=== PATIENT | female | born 1995 | race Caucasian/White ===

== ENCOUNTER 2018-04-26 13:45 | Inpatient (IN) | payer OTHER, SELFPAY ==
[2016-12-11 20:34] VITALS: BMI 38.0
[2018-04-26 14:37] VITALS: BMI 36.6
[2018-04-26 15:13] LABS: Hematocrit 36.9 % (37-47); Hemoglobin 11.8 g/dl (12.0-15.0); Mean Corpuscular Hgb 27.6 pg (27.0-32.0); Mean Corpuscular Volume 86.4 fL (81-99); Mean Platelet Vol. 10.8 fl (6.2-12.0); Platelet Count 279 K/mm3 (150-450); RBC Distribution Width CV 13.8 % (11.6-14.6); RBC Distribution Width SD 43.2 fl (35.1-43.9); Red Blood Count 4.27 M/mm3 (4.2-5.4); White Blood Count 11.4 K/mm3 (4.4-11.0)
[2018-04-26 15:17] LABS: Scan Indicated on CBC? Y/N NO
[2018-04-26] MEDS: Lactated Ringers 1,000 ML 50 ML IV ×3 (15:33→21:47)
[2018-04-26] MEDS: Oxytocin 30 units/NS 500 ml 30 UNITS/500 ML IV.SOLN IV (15:34)
--- NOTE | 2018-04-26 18:30 | PCM.HP.OB ---
History Date of Admission: 04/26/18 Final VENICE: 04/28/18 Final VENICE Source: US <20 weeks Gestational age: 39 Weeks and 5 Days History of this : This is a 23 year-old, 1 para 0 who presents at 39-5/7 weeks for induction of labor due to recommendation by maternal medicine due to patient's persistent complaints of decreased movement. She was seen in the office today for this complaint and had a nonstress test that had at times minimal variability. There were some accelerations but did not meet reactive criteria. She then had a biophysical profile that was reassuring. Denied any gross vaginal bleeding or leaking of fluid. Past medical history is significant for history of depression, and abnormal Pap smear, and she is rubella nonimmune laboratory tests Allergies milk Allergy (Verified 04/26/18 14:31) Vomiting throat itching upper abdominal pain vomiting Smoking Status: Never smoker Alcohol: None Number of Fetus(es): 1 Heart Tracing: Normal baseline, minimal to moderate variability, no recurrent deceleration, some accelerations TOCO Analysis: no regular ctxs History Past Pregnancies: Past Pregnancies Delivery Date Name GA/Weeks Outcome Route Weight Gender Labor Length Anesthesia Delivery Location Provider FOB Expected Infant Delivery Method: Spontaneous Vaginal Review of Systems Constitutional: Denies: Anorexia, Chills, Fever Eyes: Denies: Blurred vision Cardiovascular: Denies: Chest Pain Respiratory: Denies: Cough Gastrointestinal: Denies: Abdominal Pain Genitourinary: Denies: Dysuria Skin: Denies: Rash Physical Exam General: Alert, Cooperative, No apparent distress Cardiovascular: Regular rate Lungs: Normal air movement Abdomen: Soft, Non-Distended, Gravid, Appropriate for Gestational Age Extremities:: Other - trace edema Neurological: Cranial nerves II-XII grossly intact [employer]: Normal external genitalia Estimated gestational size: Appropriate for gestational size Presentation: Cephalic Cervix Dilation (cm): 2 - Medium consistency, midposition Station: -2 Effacement (%): 60 Assessment/Plan This is a 23 year-old, avid a 1 para 0 at 39-5/7 weeks gestation with complaint of decreased movement. Due to being term with complaint of decreased movement, recommendation was made for induction of labor. Risk benefits and alternatives to induction were discussed with patient, questions were answered to her satisfaction, consent was signed. Exam of the patient upon arrival, incidental artificial rupture of membranes occurred with return of moderate amount of clear fluid. Will induce with Pitocin and AROM. Estimated weight per ultrasound today and clinically is less than 4500 g, pelvis clinically adequate to expect vaginal delivery. May have epidural, nitrous oxide or Nubain as needed for pain control.
[2018-04-26] MEDS: fentaNYL-bupivacaine (epidural) 100 ML BAG EPIDURAL ×2 (19:02→23:21)
[2018-04-26] MEDS: Acetaminophen 325 MG Tablet PO (19:29)
[2018-04-26] MEDS: Ondansetron 4 MG/2 ML Vial IV (19:30)
[2018-04-26] MEDS: Sodium Citrate/Citric Acid 30 ML UDC PO ×2 (20:30→20:31)
--- NOTE | 2018-04-26 21:30 | PN_ITS ---
Progress Note Patient was taken back to the operating suite emergently for prolonged decelerations. When she arrived in the operating suite the heart tones were still in the 50s range. While she was being prepared for an emergency C- section, the heart tones began to recover. She then had another prolonged deceleration that then recovered to normal baseline. At this point, she was ready for the but the heart tones were at a normal baseline with minimal to moderate variability. Vision was made to monitor her for several minutes. She then had no further decelerations. Pitocin was off, she was repositioned to her side, she received IV fluid bolus, and oxygen was on. After she was monitored for 30 minutes and the heart tones were reactive with a normal baseline and moderate variability and no decelerations, the decision was made to take her back to her room. I discussed with the patient that the heart tones had recovered and induction could proceed. Patient agreed with plan. Patient was transferred back to her labor and delivery room to initiate Pitocin. Cervix was 3, 70, -2 station and vertex.
[2018-04-27] MEDS: Oxytocin 30 units/NS 500 ml 30 UNITS/500 ML IV.SOLN 334 UNITS IV (04:21)
--- NOTE | 2018-04-27 04:42 | PCM.OB.VAG ---
Vaginal Delivery Maternal Presentation: Medically Indicated Induction - decreased FM Method of Induction: Pitocin, Amniotomy Medical Reason for Induction: - - decreased movement Amniotic Membrane Rupture Type: Artificial Amniotic Fluid Description: Clear Final VENICE: 04/28/18 Gestational age: 39 Weeks and 6 Days Date of Procedure: 04/27/18 Pre-Operative Diagnosis: labor Post-Operative Diagnosis: same Surgery/ Procedure Performed: Spontaneous Vaginal Delivery Type of Anesthesia: Epidural Description of Procedure: A vigorous female infant was delivered PAWEL over a second-degree perineal laceration. A loose nuchal cord x3 was easily reduced the remainder the infant was delivered with maternal pushing and gentle traction only in less than 15 seconds. The Pitocin infusion was initiated for active management of the third stage. The cord was clamped and cut after 1 minute. The infant was attended to by the waiting nursing staff. The placenta was delivered spontaneously and intact. The cervix and vagina were intact. The second-degree perineal laceration was repaired with 3-0 Vicryl suture in a running standard fashion. Sponge and needle counts were correct. A vaginal sweep was completed by me. Presentation: PAWEL Placental Delivery Description: Spontaneous Placenta Disposition: [facility] Cord Vessel Description: 3 Vessels Nuchal Cord Compression: Without compression Cord Entanglement: - - around neck x 3, loose Drain: Whyte to straight drain Estimated Blood Loss: 300 Infant A gender: Female (1 minute): 8 (5 minute): 9 Episiotomy Description: None Laceration: 2nd degree - perineal Medications given after delivery: IV Pitocin Complications: None
[2018-04-27] MEDS: Oxytocin 30 units/NS 500 ml 30 UNITS/500 ML IV.SOLN 167 UNITS IV (04:51)
[2018-04-27] MEDS: 0.9% Saline Lock 10 ML Syringe IV (07:01)
[2018-04-27] MEDS: Naproxen 250 MG Tablet PO ×2 (07:01→07:04)
[2018-04-27 08:55] VITALS: BP 109/60; PULSE 90; RESP 16; TEMP 36.9; O2SAT 98
[2018-04-27 12:00] VITALS: BP 103/64; PULSE 83; RESP 18; TEMP 36.9
--- NOTE | 2018-04-27 12:27 | NURSING ---
ice and tucks to perineum, labia slightly edematous
[2018-04-27 16:00] VITALS: BP 116/68; PULSE 82; RESP 18; TEMP 36.7
[2018-04-27 19:55] VITALS: BP 126/73; PULSE 73; RESP 16; TEMP 36.3; O2SAT 97
[2018-04-28] VITALS: BP 118/68; PULSE 69; RESP 16; TEMP 36.6
[2018-04-28] MEDS: Naproxen 250 MG Tablet PO (02:30)
[2018-04-28 04:20] VITALS: BP 110/64; PULSE 76; RESP 16; TEMP 36.7
--- NOTE | 2018-04-28 08:39 | PCM.PN.OB ---
Subjective: Pain well controlled, average lochia - Physical Exam General: Alert, Cooperative, No apparent distress Vital Signs Temp Pulse Resp BP Pulse Ox 98.0 F 76 16 110/64 97 04/28/18 04:20 04/28/18 04:20 04/28/18 04:20 04/28/18 04:20 04/27/18 19:55 Oxygen Delivery Method Room Air Weight: 96.2 kg Body Mass Index (BMI) 36.6 Intake and Output for Last 24 Hours 04/26/18 04/27/18 04/28/18 23:59 23:59 23:59 Intake Total 4299 / 4299 Output Total 200 / 200 2725 / 2725 Balance -200 / -200 1574 / 1574 Medical Necessity - Tobacco Use Smoking Status: Never smoker Assessment/Plan day #1 status post spontaneous vaginal delivery. Routine care. Patient would like to be discharged home today. Okay for discharge home if okay with pediatrics. Patient and are working on breast-feeding skills.
--- NOTE | 2018-04-28 08:42 | DCINST_ITS ---
Discharge Diet: No Restrictions Discharge Activity: Return to Normal Activity, May not drive while taking narcotic pain medications., May Shower May resume sexual activity in: 4-6 weeks Additional Activity Instructions:: Nothing in the vagina for 4-6 weeks. You may return to work/school in 6 weeks. Call your doctor if your incision/area has: Continuous Slow Oozing, Sudden Increased Bleeding, Increased Pain/ Swelling, Increased Redness, Foul Smelling Discharge Additional Instructions: If you experience any of the following, contact your healthcare provider. * Bleeding that soaks a pad every hour for 2 hours * Fever 100.4 or higher * Unrelieved incision or abdominal pain * Swelling, redness, discharge or bleeding from your incision or episiotomy site * Your incision begins to separate * Problems urinating (including inability to urinate or burning while urinating). * Visual changes * Severe headache * Flu-like symptoms * Pain or redness in one of both of your breasts * Pain, warmth, tenderness or swelling in your legs, especially the calf area * Frequent nausea and vomiting * Symptoms of depression or anxiety If you experience any of the following, call 911 or go to the nearest Emergency Room. * Chest pain * Problems breathing * Seizure activity * Partial or complete paralysis of a body part, slurred speech, weakness or drooping of the face, or a sudden inability to walk or hold your balance Allergies/Adverse Reactions: Allergies milk Allergy (Verified 04/26/18 14:31) Vomiting throat itching upper abdominal pain vomiting Medications to take at Discharge Ibuprofen [Motrin] 600 mg PO Q6H PRN #60 tab 04/28/18 The following prescriptions were given: Ibuprofen [Motrin] 600 mg PO Q6H PRN #60 tab PRN Reason: Pain Please Follow Up With: Lenora Wright MD - [phone] When: Call to make an appointment with your provider's office in 1-2 and 6 weeks or as needed. Primary Care Physician: Care Physician,No Primary [Primary Care Provider] - Test Results: Test results from this visit will be discussed in further detail at your follow- up appointment, if applicable.
[2018-04-28 08:50] VITALS: BP 114/70; PULSE 84; RESP 20; TEMP 36.4; O2SAT 98
[2018-04-28 13:50] VITALS: BP 115/72; PULSE 89; TEMP 36.4; O2SAT 97
[2018-04-28 17:35] VITALS: BP 107/58; PULSE 72; RESP 16; TEMP 36.8; O2SAT 100
--- NOTE | 2018-05-04 14:36 | NURSING ---
No answer for follow up phone call and left voicemail.
== END 2018-04-28 17:45 | disposition home or self-care (01) | DRG 807 ==
PROVIDERS: Admitting Provider Obstetrics & Gynecology; Referring Provider Obstetrics & Gynecology; Visit Provider Obstetrics & Gynecology
DX: O36.8130 Decreased fetal movements, third trimester, not applicable or unspecified (principal); Z37.0 Single live birth; O70.1 Second degree perineal laceration during delivery; O69.81X0 Labor and delivery complicated by cord around neck, without compression, not applicable or unspecified; Z3A.39 39 weeks gestation of pregnancy
CPT/HCPCS: 59025; 59050; 85027; 86850; 86900; 99218; J7120; A4216; G0378; J2405

== ENCOUNTER 2020-08-09 21:23 | Emergency (ER) | payer BC, SELFPAY ==
[2020-08-09 21:25] VITALS: BP 125/89; PULSE 107; RESP 18; TEMP 35.9; O2SAT 100; BMI 38.2
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
[2020-08-09] MEDS: HYDROcodone Bitartrate/Apap 5/325 Tablet PO (22:10)
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
[2020-08-09 23:12] VITALS: BP 107/89; PULSE 88; RESP 16; O2SAT 99
== END 2020-08-09 23:15 | disposition home or self-care (01) ==
LOC: ED 23:15
PROVIDERS: Emergency Provider Student in an Organized Health Care Education/Training Program
DX: S20.211A Contusion of right front wall of thorax, initial encounter (principal); V47.5XXA Car driver injured in collision with fixed or stationary object in traffic accident, initial encounter; Y93.I9 Activity, other involving external motion; Y92.410 Unspecified street and highway as the place of occurrence of the external cause; Y99.8 Other external cause status
CPT/HCPCS: 71100; 99284

== ENCOUNTER 2022-11-09 00:39 | Emergency (ER) | payer BC, SELFPAY ==
[2022-11-09 00:40] VITALS: BP 150/89; PULSE 95; RESP 18; TEMP 36.1; O2SAT 97; BMI 47.4
--- NOTE | 2022-11-09 00:44 | RAD_ITS ---
INDICATION: pain/injury 1st ray EXAMINATION/TECHNIQUE: X-RAY - RIGHT XR Hand Min 3 Views COMPARISON: None. FINDINGS: SOFT TISSUES: Unremarkable. BONES/JOINTS: No fracture or dislocation. No significant degenerative changes. No erosive changes. RAD/Hand Min 3 Views IMPRESSION: No fracture or dislocation. Electronically Signed: Jens Curry DO at 1:38 EDT ,
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
[2022-11-09] MEDS: Ibuprofen 600 MG Tablet PO (01:21)
== END 2022-11-09 01:24 | disposition home or self-care (01) ==
PROVIDERS: Emergency Provider Emergency Medicine; Visit Provider Emergency Medicine
DX: S69.81XA Other specified injuries of right wrist, hand and finger(s), initial encounter (principal); X58.XXXA Exposure to other specified factors, initial encounter
CPT/HCPCS: 29130; 73130; 99283

== ENCOUNTER → 2024-08-10 | Outpatient (CLI) | payer BC, SELFPAY ==
[2024-08-10 12:44] LABS: Absolute Lymphocyte Count 2.69 X10^3/uL (0.83-4.51); Basophil# 0.05 X10^3/uL; Basophil% 0.6 % (0-1); Eosinophil# 0.33 X10^3/uL; Eosinophils% 3.8 % (0-5); Hematocrit 41.2 % (37-47); Hemoglobin 13.1 g/dL (12.0-15.0); Lymphocyte # 2.69 X10^3/ul (0.83-4.51); Lymphocyte % 30.7 % (19-41); Mean Corp Hgb Conc 31.8 g/dL (32-36); Mean Corpuscular Hgb 26.9 pg (27.0-32.0); Mean Corpuscular Volume 84.6 fL (81-99); Mean Platelet Vol. 10.1 fl (6.2-12.0); Monocyte# 0.62 X10^3/uL; Monocyte% 7.1 % (0-10); NRBC Flagged by Analyzer 0 % (0-5); Neutrophil # 5.03 X10^3/uL (2.7-7.7); Neutrophil % 57.2 % (47-70); Platelet Count 413 K/mm3 (150-450); RBC Distribution Width CV 13.5 % (11.6-14.6); RBC Distribution Width SD 41.6 fl (35.1-43.9); Red Blood Count 4.87 M/mm3 (4.2-5.4); White Blood Count 8.8 K/mm3 (4.4-11.0)
[2024-08-10 13:11] LABS: Thyroid Stim Hormone (TSH) 0.789 uIU/mL (0.300-4.200)
== END | disposition home or self-care (01) ==
PROVIDERS: Referring Provider Obstetrics & Gynecology; Visit Provider Obstetrics & Gynecology
DX: N93.9 Abnormal uterine and vaginal bleeding, unspecified (principal); N89.8 Other specified noninflammatory disorders of vagina
CPT/HCPCS: 36415; 84443; 85025; 87070; 87205; 88175; G0145

== ENCOUNTER → 2024-08-21 | Outpatient (CLI) | payer BC, SELFPAY ==
--- NOTE | 2024-08-21 08:42 | US_ITS ---
PROCEDURE: PELVIC W/ TRANSVAGINAL 08/21/2024 REASON FOR EXAM: ABNORMAL UTERINE BLEEDING TECHNIQUE: Transabdominal and transvaginal pelvic ultrasound. Color doppler analysis of the ovaries. COMPARISON: None. FINDINGS: Measurements: Uterus: 8.3 x 3.3 x 4.8 cm for volume of 68.8 mL Endometrial Thickness: 0.7 cm Right Ovary: 3.4 x 1.9 x 2.1 cm for volume of 7.1 mL Left Ovary: 2.5 by 1.6 x 1.5 cm for volume of 3.1 mL . Uterus: Anteverted. Normal contour and myometrial echotexture. Nabothian cysts at the cervix. Endometrium: Normal echotexture. Right ovary: Normal size and echotexture. Left ovary: Normal size and echotexture. Other adnexal findings: None. Cul-de-sac: No free intraperitoneal fluid identified. Color Doppler: Normal color flow doppler signal at both ovaries. US/Pelvic w/ Transvaginal IMPRESSION: Unremarkable pelvic ultrasound. Reading Location: [id number]
== END | disposition home or self-care (01) ==
PROVIDERS: Referring Provider Obstetrics & Gynecology; Visit Provider Obstetrics & Gynecology
DX: N93.9 Abnormal uterine and vaginal bleeding, unspecified (principal)
CPT/HCPCS: 76830; 76856

== ENCOUNTER 2024-09-04 19:15 | Inpatient (IN) | payer BC, SELFPAY ==
[2024-09-04] VITALS (12 sets, daily range): BP systolic 101–117; BP diastolic 64–82; PULSE 78–99; RESP 16–24; TEMP 36.4–37.2; O2SAT 88–100; BMI 47.6; BMI 48.2
--- NOTE | 2024-09-04 07:38 | PCM.HP.OB ---
HPI - General HPI Narrative FILIPPO GREENFIELD, is a 29 F who presents for sterilization. she has desired permanent sterilization for a long time, her daughter requires a higher level of care. she wants reliable contracpetion and wants a permanent solution. she is having irreulga rmenses and had a normal cbc and tsh. plan is for laparoscopic bs and IUD insertion. PFSH PFS Medical History (Updated 08/24/24 @ 13:03 by Jeaneth Brewer) Wears contact lenses Marijuana use Asthma Shortness of breath on exertion Non-smoker Anxiety Depression Home Medications ?Medication ?Instructions ?Recorded ?Last Taken ?Type ibuprofen 600 mg tablet 600 mg PO Q6H PRN Pain #60 tabs 04/28/18 Unknown Rx bupropion HCl 300 mg 24 hr tablet, 300 mg PO QHS 08/10/24 Unknown History extended release fluoxetine 40 mg capsule 40 mg PO QHS 08/10/24 Unknown History montelukast 10 mg tablet 10 mg PO QHS 08/10/24 Unknown History albuterol sulfate 90 mcg/actuation 2 inh inhalation Q6H PRN shortness 08/24/24 Unknown History breath activated powder inhaler of breath or wheezing Allergy/AdvReac Type Severity Reaction Status Date / Time coconut Allergy Intermediate migraine Verified 08/24/24 12:56 milk Allergy Vomiting Verified 08/24/24 12:56 KIWI Allergy Intermediate Angioedema Uncoded 08/10/24 11:05 Family History (Updated 08/10/24 @ 11:12 by Ashlee Oro) Mother Thyroid disorder Grandmother Thyroid disorder Breast cancer Over the age of 50 at diagnosis Cervical cancer Over the age of 50 at diagnosis Aunt Thyroid disorder Surgical History (Updated 08/10/24 @ 11:09 by Ashlee Oro) H/O wisdom tooth extraction Social History (Updated 08/10/24 @ 11:13 by Ashlee Oro) household members: children housing: apartment number of children: 1 current occupational status: employed current occupation: [employer] Smoking Status: Never smoker alcohol intake: current alcohol intake frequency: holidays/special occasions only substance use type: marijuana seatbelt use: always do you feel safe at home: Yes additional social history: Single History 1 Elective abortions Hx Para 1 Spontaneous abortions Hx # Term Pregnancies Ectopic pregnancies Hx # Pregnancies Multiple births # of living children 1 Past Pregnancies Del. Date Name GA/Weeks Outcome Route Bth Weight Infant Gen Labor [facility] 05/07[facility]18 Stephanievolodymyr 40 live - full term Female SUSI GARCIA Constitutional Constitutional: Reports systems reviewed and no addt'l complaints, except as documented; Denies as per HPI, change in weight, fatigue, fever(s), malaise, weakness or other Eyes Eyes: Reports systems reviewed and no addt'l complaints, except as documented; Denies as per HPI, change in vision or other ENT HEENT: Reports systems reviewed and no addt'l complaints, except as documented Respiratory/Chest Respiratory/Chest: Reports systems reviewed and no addt'l complaints, except as documented Gastrointestinal Gastrointestinal: Reports systems reviewed and no addt'l complaints, except as documented and as per HPI Genitourinary Genitourinary: Reports as per HPI Musculoskeletal Musculoskeletal: Reports systems reviewed and no addt'l complaints, except as documented Neurologic Neurologic: Reports systems reviewed and no addt'l complaints, except as documented Psychiatric Psychiatric: Reports systems reviewed and no addt'l complaints, except as documented Endocrine Endocrinology: Reports systems reviewed and no addt'l complaints, except as documented Hematologic/Lymphatic Hematologic/Lymphatic: Reports systems reviewed and no addt'l complaints, except as documented Physical Exam Const alert, oriented x3 and no apparent distress HEENT normocephalic Head and Scalp: atraumatic Eyes EOMs intact bilaterally and conjunctivae normal Neck full ROM, no lymphadenopathy, supple and thyroid normal General: trachea midline Lymph Lymphatic: no lymphadenopathy noted Resp normal respiratory effort, no retractions, no use of accessory muscles and clear to auscultation bilaterally Cardio regular rhythm GI normal to inspection, nondistended, normoactive bowel sounds, soft to palpation, non-distended and no masses Inspection: Negative for abdominal distention Back/Spine no CVA tenderness Extremity normal to inspection Skin no rashes or lesions noted Neuro moves all extremities and deep tendon reflexes 2+ bilaterally Psych mental status grossly normal Labs Labs Labs: Blood Type O POSITIVE Antibody Screen NEGATIVE Hct 41.2 % (37-47) Hgb 13.1 g/dL (12.0-15.0) Rhogam given: No Assessment & Plan (1) Abnormal uterine bleeding: COMMENT: cbc tsh US ordered discussed options plan IUD, genital culture for discharge in between cycles (2) Sterilization: COMMENT: desires permanent sterilization plan laparoscopic BS plan iUD insertion at the time of laparoscopy PLAN: Plan After discussing the patient's diagnosis and treatment plan options, patient wishes to proceed with surgical management. I have discussed with the patient the risks, benefits, and alternatives of the procedure which include but are not limited to risks of anesthesia, bleeding, infection, possible damage to bowel, bladder, or surrounding vasculature which could lead to additional surgery to evaluate any complications. Patient agrees to procedure and wishes to proceed. ACOG/uptodate references given for additional information regarding procedure. discussed risks of regret, irreversability. patient wishes to proceed.
[2024-09-04 13:27] LABS: Internal QC Validated? YES +Cl - CLEAR BKGD; Pregnancy, Urine Negative Negative
[2024-09-04] MEDS: Lactated Ringers 1,000 ML 15 ML IV (13:52)
[2024-09-04 13:53] LABS: Hematocrit 39.5 % (37-47); Mean Corp Hgb Conc 32.9 g/dL (32-36); Mean Corpuscular Hgb 27.2 pg (27.0-32.0); Mean Corpuscular Volume 82.6 fL (81-99); Mean Platelet Vol. 9.7 fl (6.2-12.0); Platelet Count 320 K/mm3 (150-450); RBC Distribution Width CV 13.7 % (11.6-14.6); Red Blood Count 4.78 M/mm3 (4.2-5.4); White Blood Count 7.2 K/mm3 (4.4-11.0)
[2024-09-04] MEDS: Levonorgestrel IUD (Liletta) 1 EACH INTRA-UTER (14:25)
--- NOTE | 2024-09-04 14:36 | PRE.ANES_ITS ---
ASA Classification* ASA Classification ASA Classification: 3 (BMI >40, asthma, anxiety/depression) Assessment & Plan Anesthesia* Anesthesia Assessment Anesthesia Assessment: Discussed sedation and/or anesthesia options, risks, benefits, and alternatives with patient/parents/legal guardian/POA. Questions invited. The patient/parents/legal guardian/POA seems to understand and agrees to proceed with anesthesia plan. Reviewed the physical assessment, medical history, allergy history and patient home medications list prior to surgery/procedure/anesthetic and documented any changes. Performed airway and anesthesia risk assessments. Anesthesia Type Anesthesia Type: General (ETT, PREOXYGENATE WELL, RSI, use glidescope ) History Source History Obtained from:: Patient and Chart Anesthesia Focused Assessment* Temperature: 99.0 F Pulse Rate: 78 Blood Pressure: 115/82 Respiratory Rate: 18 Pulse Ox: 98 Airway Assessment Mouth opens: 2 cm Mallampati Score: IV Teeth Condition: Intact Neck Range of motion (ROM): Full ROM Labs Anesthesia Preop lab: CBC WBC 7.2 K/mm3 (4.4-11.0) 09/04/24 13:40 09/04/24 RBC 4.78 M/mm3 (4.2-5.4) 09/04/24 13:40 09/04/24 Hgb 13.0 g/dL (12.0-15.0) 09/04/24 13:40 09/04/24 Hct 39.5 % (37-47) 09/04/24 13:40 09/04/24 Plt Count 320 K/mm3 (150-450) 09/04/24 13:40 09/04/24 CHEMISTRY Potassium 3.9 mmol/L (3.5-5.1) 01/10/14 16:33 01/10/14 Sodium 138 mmol/L (136-145) 01/10/14 16:33 01/10/14 BUN 11 mg/dL (7-18) 01/10/14 16:33 01/10/14 Creatinine 0.7 mg/dL (0.6-1.0) 01/10/14 16:33 01/10/14 Glucose 105 mg/dL (70-110) 01/10/14 16:33 01/10/14 TSH 0.789 uIU/mL (0.300-4.200) 08/10/24 11:46 07/20 06/12 COAG Urine Test Negative Negative 09/04/24 13:20 09/04/24 Pre-Assessment Diagnosis/Proposed Procedure Planned Operative Procedure(s): LAP SALPINGECTOMY BILAT IUD INSERTION Anesthesia History Anesthesia History - certified nurse operating room: Anesthesia History - certified nurse operating room Hx Hospitalization No 08/24/24 12:58 Any Problems With Anesthesia No 08/24/24 12:58 Cholinesterase deficiency No 08/24/24 12:58 You/Your Family Experience No 08/24/24 12:58 fever (hyperthermia) with Relationship Recent Exposure to Contagious No 09/04/24 13:48 Disease Does patient have nerve No 08/24/24 12:58 stimulator Patient instructed to have device shut off --Does patient have Pacemaker No 09/04/24 13:48 or ICD? When Was Last Pacemaker Check QUESTION #4 FULL TEXT: You/Your Family Experience fever (hyperthermia) with Anesthesia Last Oral Intake Last Oral intake: Last Oral Intake NPO since 22:00 09/04/24 13:48 Meds taken in AM with sips of No 09/04/24 13:48 water? Meds patient instructed to take am of surgery PONV PONV - certified nurse operating room: PONV - certified nurse operating room Female Yes 08/24/24 12:58 HX of Motion Sickness No 08/24/24 12:58 HX of N/V After Surgery No 08/24/24 12:58 Non-Smoker Yes 08/24/24 12:58 Duration of Surgery greater No 08/24/24 12:58 than 60 minutes Number of Risk Factors 2 08/24/24 12:58 PONV Score Moderate Risk 08/24/24 12:58 Height & Weight Height & Weight: Anesthesia: Height & Weight Height 5 ft 3 in 09/04/24 13:48 Weight: 122 kg 09/04/24 13:48 Body Mass Index (BMI) 47.6 09/04/24 13:48 Respiratory Assessment Respiratory Assessment - certified nurse operating room: Respiratory Tract Infection Hx - certified nurse operating room Hx Respiratory Tract Infection No 08/24/24 12:58 STOP Sleep Apnea STOP Sleep Apnea - certified nurse operating room: STOP Sleep Apnea - certified nurse operating room Hx Hypertension No 08/24/24 12:58 Hx Sleep Apnea Yes: NO MACHINE PER PATIENT 08/24/24 12:58 CPAP No 08/24/24 12:58 BIPAP No 08/24/24 12:58 Do you snore loudly (louder than talking or can be heard Do you often feel tired/ fatigued/ sleepy during daytime? Has anyone observed you stop breathing during sleep? STOP Results Positive 08/24/24 12:58 QUESTION #5 FULL TEXT : Do you snore loudly (louder than talking or can be heard through closed doors)? 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 Specify any problems Hx of Preganancy in last 3 No 08/24/24 12:58 Months Nurse Filling Out Transfusion DSCHRIBER 08/24/24 12:58 & Questions: Date: 08/24/24 08/24/24 12:58 Time: 12:59 08/24/24 12:58 Patient unable to answer at this time (ie. confused, unrespo /Reproduction History /Reproductive History - certified nurse operating room: /Reproductive Hx- certified nurse operating room Hx Now No 08/24/24 12:58 Gestational Age (in weeks): EDC: Hx Hx Para Hx Section SAB No 08/10/24 11:19 Active Medications Active Medications: Current Medications Generic Name Dose Route Start Last Admin Trade Name Freq PRN Reason Stop Dose Admin Lactated Ringer's 1,000 mls @ 15 mls/hr 09/04/24 14:00 09/04/24 13:52 IV 15 mls/hr .Q48H DARA Administration Levonorgestrel 1 each 09/04/24 14:50 Levonorgestrel Iud (Liletta) INTRA-UTER 09/04/24 14:51 X1 [facility] Medical History (Updated 08/24/24 @ 13:03 by Jeaneth Brewer) Wears contact lenses Marijuana use Asthma Shortness of breath on exertion Non-smoker Anxiety Depression Home Medications ?Medication ?Instructions ?Recorded ?Last Taken ?Type ibuprofen 600 mg tablet 600 mg PO Q6H PRN Pain #60 t abs 04/28/18 Unknown Rx bupropion HCl 300 mg 24 hr tablet, 300 mg PO QHS 08/10 Unknown History extended release fluoxetine 40 mg capsule 40 mg PO QHS 08/10/24 Unknow n History montelukast 10 mg tablet 10 mg PO QHS 08/10/24 Unknow n History albuterol sulfate 90 mcg/actuation 2 inh inhalation Q6 H PRN shortness 08/24/24 Unknown History breath activated powder inhaler of breath or wheezing Allergy/AdvReac Type Severity Reaction Status Date / Time coconut Allergy Intermediate migraine Verified 09/04/24 13:45 milk Allergy Vomiting Verified 09/04/24 13:45 KIWI Allergy Intermediate Angioedema Uncoded 08/10/24 11:05 Family History (Updated 08/10/24 @ 11:12 by Ashlee Oro) Mother Thyroid disorder Grandmother Thyroid disorder Breast cancer Over the age of 50 at diagnosis Cervical cancer Over the age of 50 at diagnosis Aunt Thyroid disorder Surgical History (Updated 08/10/24 @ 11:09 by Ashlee Oro) H/O wisdom tooth extraction Social History (Updated 08/10/24 @ 11:13 by Ashlee Oro) household members: children housing: apartment number of children: 1 current occupational status: employed current occupation: [employer] Smoking Status: Never smoker alcohol intake: current alcohol intake frequency: holidays/special occasions only substance use type: marijuana seatbelt use: always do you feel safe at home: Yes additional social history: Single Review of Systems (Anesthesia) ROS Narrative System reviewed and no additional complaints, except as documented. Physical Exam Const alert, oriented x3 and average body habitus Resp normal respiratory effort, normal air movement and clear to auscultation bilaterally Cardio regular rate, regular rhythm, no murmurs and diaphoretic
--- NOTE | 2024-09-04 14:50 | FALS_PTH ---
PATIENT: FILIPPO GREENFIELD LOC: MS3 U#:[id number] AGE/SX: 29/F ROOM: [facility] [place] RE09/04/[address]: Dr. Yareli Rodrigues MD : 1995 BED: 1 DIS: 09/05/2024 SPEC #: [id number] RECD: 09/04/24 18:52 STATUS: EDWIGE REMaik #: [id number] SAAD: 09/04/24 14:[address]: Sadie Gee DEPT: SURGICAL PATHOLOGY RECD BY: Chetan Hayes ENTERED: 09/05/24 09:48 SP TYPE: FALL TUBES OTHR DR: DO Dr. Felipe Hernandez MD Dr. Paige Pierce, MD No Primary Care Phys Tissues: A - Fallopian tube Procedures: Surgery Specimen Level II HEADER OPERATION: Laparoscopic, salpingectomy, IUD insertion PRE-OP DIAGNOSIS: Abnormal uterine bleeding, sterilization TISSUE SUBMITTED: A- Bilateral fallopian tubes MICROSCOPIC DIAGNOSIS A. Bilateral fallopian tubes, bilateral salpingectomy: * No specific pathologic change. MICROSCOPIC DESCRIPTION Slides are reviewed. GROSS DESCRIPTION A.? Received in formalin labeled with the patient's name and date of . Designated as bilateral fallopian tubes are 2 mitchell-pink to purple fimbriated fallopian tubes (in 3 pieces), devoid of orientation measuring 5.3 x 0.4 cm and 6.9 x 0.5 cm.? There is some fat attached to each fallopian tube however, no definitive paratubal cyst or lesions are identified.? Insulation Machine Operator sections are submitted in 2 cassettes, to include the entirety of the fimbria DE 09/05/2024 CPT:23918
--- NOTE | 2024-09-04 15:54 | PCM.OPRPT ---
Problems Associated Problem List Diagnoses (1) Sterilization: (2) Abnormal uterine bleeding: Multi Select Codes Urinary/Genital Urinary/Genital CPT Codes: 78241 Insert IUD and 66047 Laproscopic BS/O Operative Report (Standard) Operative Information Date of Procedure: 09/04/24 Pre-Operative Diagnosis: see problem list Post-Operative Diagnosis: same Surgery/Procedure Performed: laparoscopic bilateral salpingectomy liletta iud insertion director of adult epilepsy: No Type of Anesthesia: General RN Documented Start/Stop Times: Operation Date: 09/04/24 14:50 Case Time Into Pre-Op 09/04/24 13:47 Out of Pre-Op 09/04/24 15:45 Anesthesia Start 09/04/24 15:51 Into Room 09/04/24 15:51 Procedure Start 09/04/24 16:16 Procedure Start Time: 16:16 Procedure Stop Time: 16:37 Select all DRAINS/GRAFTS/IMPLANTS that apply: None Estimated Blood Loss: 50 Specimen collected: Yes Description of specimen(s) removed: tubes Description of surgery: Patient was taken in the operating room and was placed under general anesthesia was prepped and draped in normal sterile fashion in the dorsal lithotomy position. Bladder was drained of clear urine and SCDs were on preoperatively. Uterus was sounded and a uterine manipulator was placed after dilating. Attention was then paid to the abdominal portion of the procedure and the umbilicus was elevated with towel clamps and injected with Marcaine and after a 5 mm incision was made and the Veress needle was entered into the abdomen confirmed to be intra-abdominal with a low opening pressure of less than 5 mmHg. Abdomen was insufflated with CO2 gas and a 5 mm optical trocar was placed under direct visualization. Left and right lower quadrant 5 mm ports were placed under direct visualization. Uterus was well visualized and upon inspection of the pelvis normal tubes and ovaries. Excellent hemostasis was noted in the pelvis. Liver and upper abdomen were visualized notably within normal limits and no other gross abnormalities were seen in the abdomen. All instruments removed from the abdomen after gas was desufflated. Port sites were closed with 3-0 Monocryl Steri's and op sites were applied. uterus sounded to 8cm and the liletta iud was inserted without complication. All instruments removed from the vagina and patient was awoken and taken recovery in stable condition. Surgical Findings: nl uterus tubes ovaries Complications Complications: No
--- NOTE | 2024-09-04 16:08 | DCINST_ITS ---
Discharge Instructions Diet Discharge Diet: No restrictions DC O2, CPAP, BIPAP needs Home O2 Discharge instructions: No Dressing / Incision Discharge Activity: Return to Normal Activity, May Not Drive ( while taking narcotic pain meds, when pain free), May Shower and May Take a Tub Bath (in 7 days) May resume sexual activity in: 1 week Weight Bearing Status: Full weight bearing Dressing / Incision Call your doctor if your incision/area has: Continuous Slow Oozing, Sudden Increased Bleeding, Increased Pain/ Swelling, Increased Redness and Foul Smelling Discharge Call your doctor if you observe: Fever of 101 or Higher, Using more than 1 pad per hour, Shortness of breath, Chest pain and Uncontrolled pain Suture Line Care: Avoid Pulling/Pushing and Avoid Pinching/Bending Remove Dressing in: 1 week (if present) Cleanse incision/area with: Soap & Water and Keep Dressing Clean & Dry Follow Up Care When: Call to make an appointment with your doctor for a fu/incision check in 1- 2 weeks. Test Results: Test results from this visit will be discussed in further detail at your follow- up appointment, if applicable. Discharge Plan Admission Attending Provider: Sadie Gee Primary Care Provider: Loulou PhysicianJen Primary Instructions Print Language: Polish Discharge Orders/Prescriptions Prescriptions: New oxycodone-acetaminophen [Percocet] 5-325 mg tablet 1 tab PO Q4H PRN (Reason: pain) 7 Days Qty: 20 0RF naproxen 500 mg tablet 500 mg PO BID PRN PRN (Reason: Pain) Qty: 30 1RF No Action fluoxetine 40 mg capsule 40 mg PO QHS bupropion HCl 300 mg tablet extended release 24 hr 300 mg PO QHS montelukast 10 mg tablet 10 mg PO QHS ibuprofen 600 MG tablet 600 mg PO Q6H PRN (Reason: Pain) Qty: 60 1RF albuterol sulfate 90 mcg/actuation aerosol powdr breath activated 2 inh inhalation Q6H PRN (Reason: shortness of breath or wheezing) Referrals / Follow Up: Care Physician,Jen Primary [Primary Care Provider] - Disposition Disposition (needs filled in before D/C Order can be placed): Home, Self Care
[2024-09-04] MEDS: Bupivacaine 0.25% 30 ML Vial (16:16)
--- NOTE | 2024-09-04 17:20 | RAD_ITS ---
PROCEDURE: CHEST 1 VIEW (PORTABLE) 09/04/2024 REASON FOR EXAM: MOIST COUGH TECHNIQUE: Frontal view of the chest. COMPARISON: 08/09/2020 FINDINGS: Mild bilateral plethora which may reflect small airways disease such as asthma and/or atypical pneumonia/bronchiolitis. No focal consolidations. Cardiac silhouette is within normal limits. RAD/Chest 1 View (Portable) IMPRESSION: Mild bilateral plethora which may reflect small airways disease such as asthma and/or atypical pneumonia/bronchiolitis. Reading Location: [id number]
--- NOTE | 2024-09-04 17:24 | PCM.POST.ANE ---
Anesthesia: Postop Eval I Current Vital Signs Temperature: 98.3 F Pulse Rate: 96 Blood Pressure: 110/67 Respiratory Rate: 18 Pulse Ox: 100 Oxygen Delivery Method: Simple Mask Oxygen Flow Rate (L/min): 6 Assessment Airway patent: Yes Spontaneous unlabored respirations: Yes Mental status: Awake and Calm nausea: No Vomiting: No Anesthesia Complication: No Fluid Hydration Crystalloid volume administer (ml): 1,000 Total IV fluid infused: 1,000 Progress Note Anesthesia document: Postop Eval 1 completed: Yes
--- NOTE | 2024-09-04 17:40 | PCM.HP.STD ---
HPI - General General Date of Admission: 09/04/24 Date of Service: 09/04/24 Chief Complaint: Postoperative hypoxia HPI Narrative FILIPPO GREENFIELD, is a 29 F who presented to [facility] on 09/04/24 for planned laparoscopic bilateral salpingectomy and IUD insertion with Dr. Gee. No complications with the procedure itself. However, on extubation patient had significant vomiting of bile and was bucking the tube requiring multiple staff members to physically restrain her. On arrival back to PACU she began to cough up pink frothy secretions concerning for negative pressure pulmonary edema. See anesthesiology quick note for full details. Because of this, anesthesia recommended the patient be admitted to the hospital for further management and hospitalist was contacted for admission. I saw the patient at bedside in the PACU. Patient was mildly sedated but otherwise sitting back comfortably in bed and breathing comfortably on 2 L nasal cannula at rest. Chest x-ray showed only mild bilateral plethora with otherwise fairly clear lung casillas. She denied any cough or sputum production for the last 30 minutes or so. She reported only mild lower abdominal pain currently from her procedure. States that she was diagnosed with sleep apnea at one point but did not tolerate CPAP. No other acute concerns currently. Will be admitted for further management. [facility] Medical History (Updated 09/04/24 @ 22:[address] José Luis Garrido, DO) Wears contact lenses Marijuana use Asthma Shortness of breath on exertion Non-smoker Anxiety Depression Home Medications ?Medication ?Instructions ?Recorded ?Last Taken ?Type ibuprofen 600 mg tablet 600 mg PO Q6H PRN Pain #60 tabs 04/28/18 Unknown Rx bupropion HCl 300 mg 24 hr tablet, 300 mg PO QHS 08/10/24 Unknown History extended release fluoxetine 40 mg capsule 40 mg PO QHS 08/10/24 Unknown History montelukast 10 mg tablet 10 mg PO QHS 08/10/24 Unknown History albuterol sulfate 90 mcg/actuation 2 inh inhalation Q6H PRN shortness 08/24/24 Unknown History breath activated powder inhaler of breath or wheezing naproxen 500 mg tablet 500 mg PO BID PRN PRN Pain #30 tabs 09/04/24 Unknown Rx oxycodone-acetaminophen 5 mg-325 1 tab PO Q4H PRN pain 7 days #20 09/04/24 Unknown Rx mg tablet (Percocet) tabs Allergy/AdvReac Type Severity Reaction Status Date / Time coconut Allergy Intermediate migraine Verified 09/04/24 13:45 milk Allergy Vomiting Verified 09/04/24 13:45 KIWI Allergy Intermediate Angioedema Uncoded 08/10/24 11:05 Family History (Updated 08/10/24 @ 11:12 by Ashlee Oro) Mother Thyroid disorder Grandmother Thyroid disorder Breast cancer Over the age of 50 at diagnosis Cervical cancer Over the age of 50 at diagnosis Aunt Thyroid disorder Surgical History (Updated 08/10/24 @ 11:09 by Ashlee Oro) H/O wisdom tooth extraction Social History (Updated 08/10/24 @ 11:13 by Ashlee Oro) household members: children housing: apartment number of children: 1 current occupational status: employed current occupation: [employer] Smoking Status: Never smoker alcohol intake: current alcohol intake frequency: holidays/special occasions only substance use type: marijuana seatbelt use: always do you feel safe at home: Yes additional social history: Single ROS Constitutional Constitutional: Reports fatigue; Denies chills, fever(s) or weakness Eyes Eyes: Denies change in vision Cardiovascular Cardiovascular: Denies chest pain Respiratory/Chest Respiratory/Chest: Reports cough, productive cough and shortness of breath at rest; Denies wheezing Gastrointestinal Gastrointestinal: Denies abdominal pain Musculoskeletal Musculoskeletal: Denies arthralgias or myalgias Vital Signs Vital Signs Vital Signs: 09/04/24 13:48 09/04/24 13:48 09/04/24 14:38 Temperature 99.0 F 99.0 F Temperature Source Temporal Pulse Rate 78 78 Respiratory Rate 18 18 Respiratory Pattern Normal Blood Pressure 115/82 H 115/82 H Blood Pressure Mean 93 Blood Pressure Source Monitor Blood Pressure Position Sitting Blood Pressure Location Right Arm Baseline BP Pulse Ox 98 98 Oxygen Delivery Method Room Air Oxygen Flow Rate (L/min) 09/04/24 17:13 09/04/24 17:15 09/04/24 17:20 Temperature 98.3 F Temperature Source Temporal Pulse Rate 99 99 98 Respiratory Rate 24 H 22 H 20 H Respiratory Pattern Tachypnea Blood Pressure 111/64 110/67 Blood Pressure Mean 79 81 Blood Pressure Source Monitor Monitor Monitor Blood Pressure Position Semi-Fowlers Semi-Fowlers Semi-Fowlers Blood Pressure Location Left Arm Left Arm Left Arm Baseline BP 115/82 115/82 115/82 Pulse Ox 88 99 99 Oxygen Delivery Method Simple Mask Simple Mask Simple Mask Oxygen Flow Rate (L/min) 4 10 10 09/04/24 17:25 09/04/24 17:25 09/04/24 17:30 Temperature 98.3 F Temperature Source Pulse Rate 97 96 96 Respiratory Rate 20 H 18 18 Respiratory Pattern Blood Pressure 104/67 110/67 110/68 Blood Pressure Mean 79 82 Blood Pressure Source Monitor Monitor Blood Pressure Position Semi-Fowlers Semi-Fowlers Blood Pressure Location Left Arm Left Arm Baseline BP 115/82 115/82 Pulse Ox 99 100 96 Oxygen Delivery Method Simple Mask Simple Mask Nasal Cannula Oxygen Flow Rate (L/min) 4 6 5 Weight Weight: 122 kg Body Mass Index (BMI) 47.6 Physical Exam Const alert, oriented x3 and no apparent distress Constitutional Narrative: Younger female, class III obesity, mildly sedated appearing but otherwise sitting back comfortably in bed, breathing comfortably on 2 L nasal cannula at rest, answering questions appropriately, in no acute distress. General Appearance: cooperative and comfortable HEENT normocephalic, head/scalp atraumatic, hearing grossly normal bilaterally, nasal mucous membranes and turbinates normal and moist oral mucous membranes Eyes PERRL, EOMs intact bilaterally and conjunctivae normal Neck full ROM Chest inspection of chest normal Resp normal respiratory effort and no use of accessory muscles Resp Narrative: Breathing comfortably on 2 L nasal cannula at rest. Mild crackles noted in bilateral lung bases but otherwise good air movement throughout with no wheezing noted. Cardio regular rate, regular rhythm, no murmurs and peripheral pulses 2+ throughout GI normal to inspection, nondistended, normoactive bowel sounds and soft to palpation GI Narrative: Umbilical incision site with dressing in place. Abdomen mildly tender diffusely and mildly distended but otherwise soft to palpation. Back/Spine normal ROM Extremity normal to inspection, full ROM and no pedal edema Skin no rashes or lesions noted Neuro moves all extremities and no focal motor deficits Psych mental status grossly normal Results Lab / Micro Data 09/04/24 13:40 09/04/24 20:33 Labs: Laboratory Results - last 24 hr 09/04/24 13:20: Urine Test Negative 09/04/24 13:40: WBC 7.2, RBC 4.78, Hgb 13.0, Hct 39.5, MCV 82.6, MCH 27.2, MCHC 32.9, RDW Std Deviation 41.0, RDW Coeff of Teofilo 13.7, Plt Count 320, MPV 9.7, Blood Type O POSITIVE, Antibody Screen NEGATIVE Assessment & Plan Assessment/Plan (1) Postoperative hypoxia: PLAN: Plan Patient is a 29-year-old female who presented [facility] on 09/04/2024 for planned gynecologic procedure. Postoperative course complicated by hypoxia and productive cough concerning for negative pressure pulmonary edema. Patient admitted under hospitalist service for further management. 1. Postoperative hypoxia with productive cough concerning for negative pressure pulmonary edema, history of asthma ? Admit under patient status to [facility]. Patient with postoperative hypoxia requiring up to 6 L in the PACU. Had been weaned down to 2 L when I saw her. Had difficult extubation with vomiting and concern for aspiration noted and had cough with pink frothy sputum production concerning for pulmonary edema per anesthesia, see HPI for further details. Chest x-ray showed only mild bilateral plethora with otherwise fairly clear lung casillas. Per anesthesia, treatment is typically supportive care but there will be a chance that patient has worsening hypoxia in the next 24 hours prior to showing full improvement. Monitor closely and treat supportively as needed. Continue home albuterol inhaler as needed and Singulair. 2. Status post bilateral salpingectomy and IUD insertion ? Had procedure done with Dr. Gee today for abnormal uterine bleeding. Tolerated procedure well, no gynecologic complications noted. No need for Ob-Preboarder consult at this time. 3. Class III obesity with reported history of LEILANI ? BMI 48 on admit. Patient reports diagnosis of LEILANI but was not able to tolerate CPAP. Can utilize CPAP at night if needed and if patient tolerates. Encouraged lifestyle modifications. 4. Anxiety/depression ? Stable. Continue home bupropion and fluoxetine. DVT prophylaxis: Lovenox twice daily CODE STATUS: Full code, verified Expected disposition: Home, 2 to 3 days Total clinical time spent by myself addressing the patient's medical issues, reviewing all the data, and collaborating with patient's care team: 55 minutes. Charges/Coding Visit Charges Inpatient E&M: 17202 Init Hosp L2
--- NOTE | 2024-09-04 17:43 | SUR.PHASEI ---
ARRIVED TO PACU AT 1713 WITH FREQUENT HARSH COUGH ON SIMPLE MASK 10 L/MIN, OROPHARYNGEAL SUCTION FOR THICK, PINK SPUTUM, COURSE LUNG SOUNDS. DR GARCIA, ANESTHESIA TO BEDSIDE, ORDERED STAT CXR AND HOSPITALIST CONSULT. PATIENT COUGHING GRADUALLY DECREASED, TITRATED O2, NOW ON 5 L/MIN. RESTING QUIETLY, REPORTS NO LONGER FEELS SOB, ONLY C/O IS SORE THROAT. WILL WAIT FOR CXR REVIEW BY DR GARCIA BEFORE GIVING PO ICE CHIPS.
--- NOTE | 2024-09-04 17:43 | PCM.PN.BLA ---
Progress Note I was called for an anesthesia stat overhead for this patient, who was in the process of being extubated. The patient's ETT was secure. However, the patient was profusely vomiting bile, while jumping off of the bed, requiring multiple staff members to control the patient given her BMI, while bucking on the tube and generating forceful inspiratory effort against her obstructed upper airway. Upon my arrival in the operating room, we put the patient back to sleep using propofol, gave 8 mcg of precedex, turned our anesthetic gas up, and then re-emerged the patient successfully without incident. Upon arrival in the PACU, the patient began to cough up pink, frothy secretions, which leads to the probable diagnosis of negative pressure pulmonary edema. A CXR was obtained in PACU. Treatment for this is largely supportive, as the edema is due to increased hydrostatic pressure. It is self-resolving with oxygen, CPAP or BiPAP. After discussing the incident with the FIELD SOFTWARE ENGINEER taking care of the patient, it was determined that a bite block was placed prior to extubation, however due to the vomiting, the FIELD SOFTWARE ENGINEER removed the bite block in order to suction the patient and remove any gastric contents in the oropharynx to reduce the risk of aspiration. During this time, it is possible that the forceful inspiratory efforts the patient was taking against the obstructed upper airway caused negative pressure pulmonary edema. However, given that the ETT was secured and left in the patient, I believe that this may have reduced the risk of further complications such as pulmonary aspiration. I consulted with the hospitalist, who agreed with the admission for closer respiratory and hemodynamic monitoring. Please contact the anesthesia team if there are any questions.
--- NOTE | 2024-09-04 18:39 | POSTOPAN2_ITS ---
Anesthesia Postop Eval I Sum Postop Eval Completion status Anesthesia document: Postop Eval 1 completed: Yes Anesthesia Postop Eval I Summary Anesthesia Postop Eval I Summary: Anesthesia Postop Eval I: Assessment Summary Airway patent Yes 09/04/24 17:25 [email or web address] Spontaneous unlabored Yes 09/04/24 17:25 [email or web address] respirations Mental status Awake,Calm 09/04/24 17:25 [email or web address] nausea No 09/04/24 17:25 [email or web address] Vomiting No 09/04/24 17:25 [email or web address] Anesthesia Postop Eval I: Fluid Summary Crystalloid volume administer 1,000 09/04/24 17:25 [email or web address] (ml) Colloids volume administered ( ml) Blood Product volume administered (ml) Total IV fluid infused 1,000 09/04/24 17:25 [email or web address] Anesthesia Postop Eval I: Summary Notes Anesthesia Complication No 09/04/24 17:25 [email or web address] Anesthesia Complication Comment: Post-operative progress note Anesthesia: Postop Eval II Evaluation Mental status: Awake Pain Level: 0 nausea: No Vomiting: No Complications Anesthesia Complication: Yes Anesthesia Complication Comment:: Please see my progress note regarding negative pressure pulmonary edema.
--- NOTE | 2024-09-04 18:39 | PCM.POSTANE2 ---
Anesthesia Postop Eval I Sum Postop Eval Completion status Anesthesia document: Postop Eval 1 completed: Yes Anesthesia Postop Eval I Summary Anesthesia Postop Eval I Summary: Anesthesia Postop Eval I: Assessment Summary Airway patent Yes 09/04/24 17:25 ASSISTANT WOMENS [employer]LEYB[employer] [email or web address] Spontaneous unlabored Yes 09/04/24 17:25 ASSISTANT WOMENS [employer]LEY[employer] [email or web address] respirations Mental status Awake,Calm 09/04/24 17:25 ASSISTANT WOMENS [employer] [email or web address] nausea No 09/04/24 17:25 ASSISTANT WOMENS [employer] [email or web address] Vomiting No 09/04/24 17:25 ASSISTANT WOMENS V[employer]LEYB[employer] COACH.[email or web address] Anesthesia Postop Eval I: Fluid Summary Crystalloid volume administer 1,000 09/04/24 17:25 ASSISTANT WOMENS [employer] [email or web address] (ml) Colloids volume administered ( ml) Blood Product volume administered (ml) Total IV fluid infused 1,000 09/04/24 17:25 ASSISTANT WOMENS V[employer]LEYB[employer] COACH.[email or web address] Anesthesia Postop Eval I: Summary Notes Anesthesia Complication No 09/04/24 17:25 ASSISTANT WOMENS [employer] COACH.[email or web address] Anesthesia Complication Comment: Post-operative progress note Anesthesia: Postop Eval II Evaluation Mental status: Awake Pain Level: 0 nausea: No Vomiting: No Complications Anesthesia Complication: Yes Anesthesia Complication Comment:: Please see my progress note regarding negative pressure pulmonary edema.
[2024-09-04 21:35] LABS: Anion Gap 14 (5-15); BUN 9 mg/dL (4-19); BUN/Creat Ratio 12.3 RATIO (10-20); Carbon Dioxide 19.6 mmol/L (21.0-32.0); Chloride 102 mmol/L (98-108); Creatinine, Serum 0.75 mg/dL (0.70-1.20); EST Glomerular Filtration Rate 111 (>60); Estimated Creatinine Clearance 142.52 ml/min (50-250); Glucose 116 mg/dL (70-99); Potassium 4.3 mmol/L (3.3-5.1); Sodium Level 135 mmol/L (133-145)
[2024-09-04] MEDS: buPROPion (XL) 300 MG TABLET.XL PO (21:57)
[2024-09-04] MEDS: 0.9% Saline Lock 10 ML Syringe IV (21:57)
[2024-09-04] MEDS: Fluoxetine HCl 40 MG CAPSULE PO (21:57)
[2024-09-04] MEDS: Montelukast 10 MG Tablet PO (21:57)
[2024-09-05] VITALS (7 sets, daily range): BP systolic 124–142; BP diastolic 74–89; PULSE 82–88; RESP 18–20; TEMP 36.6–37.1; O2SAT 85–100
--- OUTSIDE RECORDS SUMMARY | 2024-09-05 | XMS RPT_ITS | CCD ---
Author Organization [facility] Care Team Providers Care Protection Analyst Name Role Phone Luis Manuel Cadena MD Primary Care Provider RYLEE RODRIGUEZ Attending Unavailable LUIS MANUEL CADENA Primary Care Unavailable LUIS MANUEL CADENA Primary Care Unavailable RYLEE RODRIGUEZ Referring Unavailable LUIS MANUEL CADENA Primary Care Unavailable RYLEE RODRIGUEZ Attending Unavailable Luis Manuel Cadena MD Primary Care Provider [phone] Care Physician, No Primary Primary Care Provider Unavailable Care Physician, No Primary Referring Provider Un available Dr. Sadie Gee MD Attending Provider Dr. Sadie Gee MD Referring Provider Care Physician, No Primary Primary Care Unava ilSadie Walls Referring Unavailable Sadie Gee Attending Unavailable Sadie Gee Attending Unavailable Care Physician, No Primary Primary Care Unava ilable Care Physician, No Primary Primary Care Unava ilable Sadie Gee Referring Unavailable Sadie Gee Attending Unavailable Care Physician, No Primary Referring Unava ilable Care Physician, No Primary Primary Care Unava ilable Sadie Gee Attending Unavailable Allergies Allergy Classification Reported Allergen(s) Allergy Type Date of Onset Reaction(s) Facility Coconut extract (1 source) Coconut extract Drug Allergy 1 Other: See Comments [facility] cow milk allergenic extract (1 source) cow milk allergenic extract Drug Allergy 8 Intolerance [facility] (10 sources) Coconut extract; Translations: [COCONUT] Drug Allergy 1 Other: See Comments [facility] (11 sources) cow milk allergenic extract; Translations: [MILK] Drug Allergy 8 Intolerance [facility] Work Phone: Comment on above: throat itching upper abdominal pain vomiting (13 sources) Kiwi; Translations: [KIWI] Drug Allergy 1 Itching [facility] (1 source) Coconut extract Drug Allergy 5 [facility] (1 source) Milk Drug allergy (disorder) 5 [facility] Medications Current Medications Medication Drug Class(es) Dates Sig (Normalized) Sig (Original) [id number] 200 actuat albuterol 0.09 mg/actuat metered dose inhaler (9 sources) beta2-Adrenergic Agonist Start: 02-28-2023 take 2 puff(s) by inhalation every four hours as needed for wheezing albuterol HFA (VENTOLIN HFA) 90 mcg/actuation inhaler Indications: Wheezing Inhale 2 Puffs as instructed every 4 hours as needed for wheezing/shortnes s of breath. 8 g 11 02/28/2023 Active Start: 09-18-2021 End: 02-26-2023 take 2 puff(s) by inhalation every four hours as needed for wheezing albuterol HFA (VENTOLIN HFA) 90 mcg/actuation inhaler Indications: Wheezing Inhale 2 Puffs as instructed every 4 hours as needed for wheezing/shortness of breath. 1 Inhaler 0 09/18/2021 02/26/2023 Discontinued Comment on above: Inhale 2 Puffs as in structed every 4 hours as needed for wheezing/shortness of breath. 24 hr buPROPion hydrochloride 300 mg extended release oral tablet (9 sources) Aminoketone Start: 08-11-19 take 1 tablet by mouth every twenty-four hours at bedtime Bupropion Hcl 300 mg tablet extended release 24 hr Active 300 mg PO AT BEDTIME August 10, 2024 12:00am Start: 04-07-2023 End: 07-10-2024 take 1 tablet by mouth once daily buPROPion XL (WELLBUTRIN XL) 150 mg 24 hr tablet Indications: Anxiety with depression Take 1 tablet by mouth once daily. 30 tablet 5 01/12/2024 07/10/2024 Active Start: 12-14-2022 take 1 tablet by lucas th once daily buPROPion XL (WELLBUTRIN XL) 150 mg 24 hr tablet Indications: Anxiety with depression Take 1 tablet by mouth once daily. 30 tablet 3 12/14/2022 Active Comment on above: Take 1 tablet by [facility] once daily. FLUoxetine 40 mg oral capsule (12 sources) Serotonin Reuptake Inhibitor Start: 08-10-2024 take 1 capsule by mouth at bedtime Fluoxetine 40 mg capsule Active 40 mg PO AT BEDTIME August 10, 2024 12:00am Start: 10-09-2021 End: 10-04-2023 take 1 capsule by mouth once daily FLUoxetine (PROZAC) 40 mg capsule Indications: Anxiety with depression Take 1 capsule by mouth once daily. 90 capsule 3 10/05/2023 Active Start: 05-11-2021 take 1 capsule by [facility] once daily FLUoxetine HCl (PROZAC) 40 mg capsule Indications: Anxiety with depression Take 1 capsule by mouth once daily. 90 capsule 1 05/11/2021 Active Comment on above: Take 1 capsule by [facility] once daily. hydrOXYzine pamoate 25 mg oral capsule (5 sources) Antihistamine Start: 3 take 1 capsule by mouth three times daily as needed for anxiety hydrOXYzine pamoate (VISTARIL) 25 mg capsule Indications: Anxiety with depression Take 1 capsule by mouth three times daily as needed for anxiety. 30 capsule 1 12/14/2022 Active Comment on above: Take 1 capsule by [facility] three times daily as needed for anxiety. ibuprofen 600 mg oral tablet (11 sources) Nonsteroidal Anti-inflammatory Drug Start: 9 take 1 tablet by mouth every six hours as needed for pain Ibuprofen 600 MG tablet Active 600 mg PO EVERY 6 HOURS as needed for Pain 60 April 28, 2018 1:00am Comment on above: EVERY 6 HOURS PRN Fo r Pain montelukast 10 mg oral tablet (12 sources) Leukotriene Receptor Antagonist Start: 5 take 1 tablet by mouth at bedtime Montelukast 10 mg tablet Active 10 mg PO AT BEDTIME August 10, 2024 12:00am Start: 10-09-2021 End: 10-04-2023 take 1 tablet by mouth once daily at bedtime montelukast (SINGULAIR) 10 mg tablet Indications: Environmental allergies , Wheezing Take 1 tablet by mouth daily at bedtime. 90 tablet 3 10/05/2023 Active Start: 09-18-2021 take 1 tablet by lucas th once daily at bedtime montelukast (SINGULAIR) 10 mg tablet Indications: Wheezing , Environmental allergies Take 1 tablet by mouth daily at bedtime. 30 tablet 1 09/18/2021 Active Comment on above: Take 1 tablet by lucas th daily at bedtime. norethindrone 0.35 mg oral tablet (2 sources) Start: 5 take 1 tablet by mouth once daily Norethindrone (Contraceptive) 0.35 mg tablet Active 0.35 mg PO daily August 10, 2024 12:00am Jkclgtsv-Gu-Lgt-Fe-FA ( VITAMIN) tab (1 source) End: 2 take 1 tablet by mouth once Kvtvvwwg-Ot-Vjo-Fe-FA ( VITAMIN) tab Take 1 tablet by mouth. 0 09/18/2021 Discontinued (Course of therapy completed) Comment on above: Take 1 tablet by lucas th. Completed/Discontinued Medications Medication Drug Class(es) Dates Sig (Normalized) Sig (Original) CPAP (3 sources) Start: 10-09-2021 CPAP Indicatio ns: LEILANI (obstructive sleep apnea) Initiate Auto PAP @ 8-15 cm of water with humidification. Mask (per patient preference) optional chin strap (if indicated) , filters, tubing, humidifier and lifetime supplies. 1 Each 0 10/09/2021 Active Start: 05-01-2021 CPAP Indicatio ns: LEILANI (obstructive sleep apnea) Initiate Auto PAP @ 8-15 cm of water with humidification. Mask (per patient preference) optional chin strap (if indicated) , filters, tubing, humidifier and lifetime supplies. A small [employer] 2 nasal mask 1 Each 0 05/01/2021 Active Comment on above: Initiate Auto PAP @ 8-15 cm of water with humidification. Mask (per patient preference) optional chin strap (if indicated) , filters, tubing, humidifier and lifetime supplies. A small [employer]son 2 nasal mask Initiate Auto PAP @ 8-15 cm of water with humidification. Mask (per patient preference) optional chin strap (if indicated) , filters, tubing, humidifier and lifetime supplies. Problems Active Problems Problem Classification Problem Date Documented Date Episodic/Chronic Allergic reactions (4 sources) Environmental allergy; Translations: [Other allergy status, other than to drugs and biological substances] Episodic Anxiety disorders (5 sources) Mixed anxiety and depressive disorder; Translations: [Other specified anxiety disorders] Onset: 01-11-2023 09-28-2022 Chronic Contraceptive and procreative management (5 sources) Patient encounter status; Translations: [Encounter for sterilization] Onset: 08-10-2024 08-10-2024 Episodic Comment on above: desires permanent st erilization plan laparoscopic BS plan iUD insertion at the time of laparoscopy Menstrual disorders (16 sources) Dysmenorrhea; Translations: [Dysmenorrhea, unspecified] Onset: 02-07-2012 02-07-2012 Chronic Other female genital disorders (4 sources) Abnormal uterine bleeding; Translations: [Abnormal uterine and vaginal bleeding, unspecified] 08-10-2024 Chronic Comment on above: cbc tsh US ordered d iscussed options plan IUD, genital culture for discharge in between cycles Other female genital disorders (1 source) Abnormal uterine and vaginal bleeding, unspecified; Translations: [Abnormal uterine and vaginal bleeding, unspecified] Onset: 08-23-2024 Chronic Other female genital disorders (1 source) Other specified noninflammatory disorders of vagina; Translations: [Other specified noninflammatory disorders of vagina] Onset: 08-10-2024 Episodic Other injuries and conditions due to external causes (3 sources) Thumb injury ; Translations: [Unspecified injury of right wrist, hand and finger(s), initial encounter] 11-09-2022 Episodic Other lower respiratory disease (6 sources) Wheezing; Translations: [Wheezing] Episodic Other screening for suspected conditions (not mental disorders or infectious disease) (1 source) Encounter for screening for malignant neoplasm of cervix; Translations: [Encounter for screening for malignant neoplasm of cervix] Onset: 08-10-2024 Episodic Residual codes; unclassified (8 sources) Obstructive sleep apnea syndrome; Translations: [Obstructive sleep apnea (adult) (pediatric)] Onset: 01-19-2021 01-19-2021 Chronic Sprains and strains (3 sources) Sprain of ankle; Translations: [Sprain of unspecified ligament of unspecified ankle, initial encounter] 12-12-2016 Episodic Past or Other Problems Problem Classification Problem Date Documented Da te Episodic/Chronic Cancer of cervix (8 sources) Atypical squamous cells of undetermined significance on cervical Papanicolaou smear; Translations: [Atypical squamous cells of undetermined significance on cytologic smear of cervix (ASC-US)] Onset: 09-27-2017 09-27-2017 Episodic Malaise and fatigue (1 source) Other fatigue; Translations: [Fatigue, unspecified type] Onset: 01-11-2023 Episodic Other complications of (3 sources) Nausea and vomiting; Translations: [Vomiting of , unspecified] Onset: 09-01-2017 Resolved: 01-09-2018 01-09-2018 Episodic Other complications of (4 sources) Rubella non-immune; Translations: [Supervision of other high risk pregnancies, unspecified trimester] Onset: 09-19-2017 Resolved: 05-10-2018 05-10-2018 Episodic Other complications of (1 source) Vomiting of , unspecified; Translations: [Unspecified vomiting of , unspecified as to episode of care or not applicable] Onset: 09-01-2017 Resolved: 01-09-2018 01-09-2018 Episodic Screening and history of mental health and substance abuse codes (8 sources) H/O: depression; Translations: [Personal history of other mental and behavioral disorders] Onset: 09-01-2017 09-01-2017 Episodic Results Test Name Value Interpretation Reference Range Facility Pelvic w/ Transvaginalon Pelvic w/ Transvaginal [facility] Imaging Services [address] [place], [place] [address] Pelvic w/ Transvaginal MR#: [id number] Acct: [id number] Name: FILIPPO GREENFIELD Rep #: [id number] : 1995 F 29 From: Sukhjinder Munoz MD PCP: Care Physician,No Primary Status: REG CLI Study: Pelvic w/ Transvaginal Date of Exam: 08/21/24 Exam# [id number] Ordering Dr: Sadie Gee PROCEDURE: PELVIC W/ TRANSVAGINAL 08/21/2024 REASON FOR EXAM: ABNORMAL UTERINE BLEEDING TECHNIQUE: Transabdominal and transvaginal pelvic ultrasound. Color doppler analysis of the ovaries. COMPARISON: None. FINDINGS: Measurements: Uterus: 8.3 x 3.3 x 4.8 cm for volume of 68.8 mL Endometrial Thickness: 0.7 cm Right Ovary: 3.4 x 1.9 x 2.1 cm for volume of 7.1 mL Left Ovary: 2.5 by 1.6 x 1.5 cm for volume of 3.1 mL . Uterus: Anteverted. Normal contour and myometrial echotexture. Nabothian cysts at the cervix. Endometrium: Normal echotexture. Right ovary: Normal size and echotexture. Left ovary: Normal size and echotexture. Other adnexal findings: None. Cul-de-sac: No free intraperitoneal fluid identified. Color Doppler: Normal color flow doppler signal at both ovaries. US/Pelvic w/ Transvaginal IMPRESSION: Unremarkable pelvic ultrasound. Reading Location: [id number] CC: Dr. Sadie Gee MD; No Primary Care Physician Program Coordinator Executive Education: Signed Normal [facility] PAP I-G w/rfx hrHPV-Aptimaon 08-17-2024 ADEQ Comment Normal . [facility] Comment on above: Order Comment: Speci men Comment: [id number] Specimen Comment: Source.............Cervix Specimen Comment: No. of containers..01 ThinPrep Vial Result Comment: Sati sfactory for evaluation. Endocervical and/or squamous metaplastic cells (endocervical component) are present. Performed By: #### M 100.1999, L7400.0353, M100.3200 #### [facility] [address] [place], [place], [id number] COMM . Normal . [facility] Comment on above: Order Comment: Speci men Comment: [id number] Specimen Comment: Source.............Cervix Specimen Comment: No. of containers..01 ThinPrep Vial Performed By: #### M 100.1999, L7400.0353, M100.3200 #### [facility] [address] [place], [place], [id number] COMMENT Comment Normal . [facility] Comment on above: Order Comment: Speci men Comment: [id number] Specimen Comment: Source.............Cervix Specimen Comment: No. of containers..01 ThinPrep Vial Result Comment: This liquid based ThinPrep(R) pap test was screened with the use of an image guided system. Performed By: #### M 100, L7400.0353, M100.3200 #### [facility] [address] [place], [address] DIAG Comment Normal . [facility] Comment on above: Order Comment: Speci men Comment: [id number] Specimen Comment: Source.............Cervix Specimen Comment: No. of containers..01 ThinPrep Vial Result Comment: NEGA TIVE FOR INTRAEPITHELIAL LESION OR MALIGNANCY. Performed By: #### M , L7400.0353, M100.3200 #### [facility] [address] [place], [address] HPV RFLX Comment Normal . [facility] Comment on above: Order Comment: Speci men Comment: [id number] Specimen Comment: Source.............Cervix Specimen Comment: No. of containers..01 ThinPrep Vial Result Comment: The HPV DNA reflex criteria were not met with this specimen result therefore, no HPV testing was performed. Performed at: [facility] [address] [place] [id number] Utilization Management Manager: Augustina Guevara PhD, Phone: [phone] Performed at: [address] [id number] Utilization Management Manager: Yudith Salazar MD, Phone: [phone] Performed By: #### M , L7400.0353, M100.3200 #### [facility] [address] [place], [address] PAPSMR Comment Normal . [facility] Comment on above: Order Comment: Speci men Comment: [id number] Specimen Comment: Source.............Cervix Specimen Comment: No. of containers..01 ThinPrep Vial Result Comment: The Pap smear is a screening test designed to aid in the detection of premalignant and malignant conditions of the uterine cervix. It is not a diagnostic procedure and should not be used as the sole means of detecting cervical cancer. Both false-positive and false-negative reports do occur. Performed By: #### M 100, L7400.0353, M100.3200 #### [facility] [address] [place], [place], [id number] PERFORM Comment Normal . [facility] Comment on above: Order Comment: Speci men Comment: [id number] Specimen Comment: Source.............Cervix Specimen Comment: No. of containers..01 ThinPrep Vial Result Comment: Ciarra Damon, Dip Painter (ASCP) Performed By: #### M 100, L7400.0353, M100.3200 #### [facility] [address] [place], [place], [id number] Genital Culture Comprehensiv josey 08-13-2024 VAC Reason for Exam: vaginal discharge #1 If further studies are desired, please contact the Microbiology Laboratory within 48 hours. Genital Culture Comprehensive No yeast, Gardnerella, Neisseria or beta-hemolytic Streptococcus isolated. GNR lactose postdoctoral research associate Amount Growth 1+ Normal [facility] Comment on above: Performed By: #### M 100, L7400.0353, M100.3200 #### [facility] [address] [place], [place], [id number] Absolute lymphocyte countOrd ered By: Sadie Gee on 08-10-2024 Lymphocytes Auto (Unsp spec) [#/Vol] 2.69 10*3/uL 0.83-4.51 [facility] Absolute neutrophil countOrd ered By: Sadie Gee on 08-10-2024 Neutrophils (Bld) [#/Vol] 5.0 10*3/uL 2.0-7.7 [facility] Automated lymphocyte count a s percentage of total leukocytesOrdered By: Sadie Gee on 08-10-2024 Lymphocytes/100 WBC Auto (Unsp spec) 30.7 % 19-41 [facility] Basophil percentageOrdered B y: Sadie Gee on 08-10-2024 Basophils/100 WBC (Bld) 0.6 % 0-1 [facility] CBC W/Diff, Automatedon 07-20 Absolute Lymph 2.69 X10 3/uL Normal 0.83-4.51 [facility] Comment on above: Performed By: #### L 501.9520, L100.0100 #### [facility] [address] [place], [address] Absolute Neut 5.0 X10 3/uL Normal 2.0-7.7 [facility] Comment on above: Performed By: #### L 501.9520, L100.0100 #### [facility] [address] [place], [address] Basophils/100 WBC (Bld) 0.6 % Normal 0-1 [facility] Comment on above: Performed By: #### L 501.9520, L100.0100 #### [facility] [address] [place], [address] Eosinophils/100 WBC (Bld) 3.8 % Normal 0-5 [facility] Comment on above: Performed By: #### L 501.9520, L100.0100 #### [facility] [address] [place], [address] Erythrocyte distribution width (RBC) [Ratio] 13.5 % Normal 11.6-14.6 [facility] Comment on above: Performed By: #### L 501.9520, L100.0100 #### [facility] [address] [place], [address] Hematocrit (Bld) [Volume fraction] 41.2 % Normal 37-47 [facility] Comment on above: Performed By: #### L 501.9520, L100.0100 #### [facility] [address] [place], [address] Hemoglobin (Bld) [Mass/Vol] 13.1 g/dL Normal 12.0-15.0 [facility] Comment on above: Performed By: #### L 501.9520, L100.0100 #### [facility] [address] [place], [address] IG% 0.600 Normal 0.0-0.9 [facility] Comment on above: Result Comment: IG% - Immature Granulocytes (promyelocytes, myelocytes and metamyelocytes) > 1% indicates that a LEFT SHIFT is Present. Performed By: #### L 501.9520, L100.0100 #### [facility] [address] [place], [address] Lymphocytes/100 WBC (Bld) 30.7 % Normal 19-41 [facility] Comment on above: Performed By: #### L 501.9520, L100.0100 #### [facility] [address] [place], [address] MCH (RBC) [Entitic mass] 26.9 pg Low 27.0-32.0 [facility] Comment on above: Performed By: #### L 501.9520, L100.0100 #### [facility] [address] [place], [address] MCHC (RBC) [Mass/Vol] 31.8 g/dL Low 32-36 [facility] Comment on above: Performed By: #### L 501.9520, L100.0100 #### [facility] [address] [place], [address] MCV (RBC) [Entitic vol] 84.6 fL Normal 81-99 [facility] Comment on above: Performed By: #### L 501.9520, L100.0100 #### [facility] [address] [place], [address] Monocytes/100 WBC (Bld) 7.1 % Normal 0-10 [facility] Comment on above: Performed By: #### L 501.9520, L100.0100 #### [facility] [address] [place], [address] Neutrophils/100 WBC (Bld) 57.2 % Normal 47-70 [facility] Comment on above: Performed By: #### L 501.20, L100.0100 #### [facility] [address] [place], [address] Nucleated RBC (Bld) [#/Vol] 0 10*3/uL Normal 0-5 [facility] Comment on above: Performed By: #### L 501.9520, L100.0100 #### [facility] [address] [place], [address] Platelet mean volume (Bld) [Entitic vol] 10.1 fL Normal 6.2-12.0 [facility] Comment on above: Performed By: #### L 501.9519, L100.0100 #### [facility] [address] [place], [address] Platelets (Bld) [#/Vol] 413 10*3/uL Normal 150-450 [facility] Comment on above: Performed By: #### L 501.20, L100.0100 #### [facility] [address] [place], [address] RBC (Bld) [#/Vol] 4.87 10*6/uL Normal 4.2-5.4 [facility] Comment on above: Performed By: #### L 501.9520, L100.0100 #### [facility] [address] [place], [address] RDW SD 41.6 fl Normal 35.1-43.9 [facility] Comment on above: Performed By: #### L 501.9520, L100.0100 #### [facility] [address] [place], [address] WBC (Bld) [#/Vol] 8.8 10*3/uL Normal 4.4-11.0 [facility] Comment on above: Performed By: #### L 501.9520, L100.0100 #### [facility] [address] [place], [address] Cervical or vagninal specime n microscopic examination by cytology stain (reported asOrdered By: Sadie Gee on 08-10-2024 Cytology report Cyto stain Doc (Cvx/Vag) Comment . [facility] Comment on above: The Pap smear is a s creening test designed to aid in thedetection of premalignant and malignant conditions of theuterine cervix. It is not a diagnostic procedure andshould not be used as the sole means of detecting cervicalcancer. Both false-positive and false-negative reports dooccur. Eosinophil percentageOrdered By: Sadie Gee on 08-10-2024 Eosinophils/100 WBC (Bld) 3.8 % 0-5 [facility] Erythrocyte distribution wid th ratioOrdered By: Sadie Gee on 08-10-2024 Erythrocyte distribution width (RBC) [Ratio] 13.5 % 11.6-14.6 [facility] Erythrocyte distribution wid th standard deviationOrdered By: Sadie Gee on 08-10-2024 Erythrocyte distribution width (RBC) [Ratio] 41.6 fl 35.1-43.9 [facility] Gram Stainon 08-10-2024 GS Reason for Exam: vaginal discharge Gram Stain 3+ Gram positive rods No Gram negative diplococci No White Blood Cells Score = 0 Interpretation: 0-3 Normal, 4-6 Intermediate, 7-10 Positive BV Normal [facility] Comment on above: Performed By: #### M 100.2000, L7400.0353, M100.3200 #### [facility] [address] [place], [address] Gram stainOrdered By: Sadie Gee on 08-10-2024 Microscopic observation Gram stain Nom (Unsp spec) [facility] Hematocrit Auto (Bld) [Volum e fraction]Ordered By: Sadie Gee on 08-10-2024 Hematocrit (Bld) [Volume fraction] 41.2 % 37-47 [facility] Hemoglobin measurementOrdere d By: Sadie Gee on 08-10-2024 Hemoglobin (Bld) [Mass/Vol] 13.1 g/dL 12.0-15.0 [facility] Immature granulocytes/100 WB C Auto (Bld)Ordered By: Sadie Gee on 08-10-2024 Immature granulocytes/100 WBC (Bld) 0.600 % 0.0-0.9 [facility] Comment on above: IG% - Immature Granu locytes (promyelocytes, myelocytes and metamyelocytes) > 1% indicates that a LEFT SHIFT is Present. Laboratory - CytologyOrdered By: Sadie Gee on 08-10-2024 Dip Painter Cyto stain Nom (Cvx/Vag) [ID] Comment . [facility] Comment on above: Carmelina Damon, Dip Painter (ASCP) Laboratory - Miscellaneous t estsOrdered By: Sadie Gee on 08-10-2024 Service comment (Unsp spec) [Interp] . . [facility] MCV (mean corpuscular volume ) determinationOrdered By: Sadie Gee on 08-10-2024 MCV (RBC) [Entitic vol] 84.6 fL 81-99 [facility] Mean corpuscular hemoglobin (MCH) determinationOrdered By: Sadie Gee on 08-10-2024 MCH (RBC) [Entitic mass] 26.9 pg Low 27.0-32.0 [facility] Mean corpuscular hemoglobin concentration (MCHC) determinationOrdered By: Sadie Gee on 08-10-2024 MCHC (RBC) [Mass/Vol] 31.8 g/dL Low 32-36 [facility] Mean platelet volume determi nationOrdered By: Sadie Romeropro on 08-10-2024 Platelet mean volume (Bld) [Entitic vol] 10.1 fL 6.2-12.0 [facility] Monocyte percentageOrdered B y: Sadie Gee on 08-10-2024 Monocytes/100 WBC (Bld) 7.1 % 0-10 [facility] Neutrophil percentageOrdered By: Sadie Gee on 08-10-2024 Neutrophils/100 WBC (Bld) 57.2 % 47-70 [facility] No Panel InformationOrdered By: Sadie Gee on 08-10-2024 Pap Smear Specimen Adequacy Comment . [facility] Comment on above: Satisfactory for umberto luation. Endocervical and/or squamous metaplasticcells (endocervical component) are present. Nucleated red blood cell per centageOrdered By: Sadie Gee on 08-10-2024 Nucleated RBC/100 WBC (Bld) [Ratio] 0 % 0-5 [facility] Office Visit Reporton 08-10-2024 [facility] Office Visit Report [facility] [address], [address] [place] [address] OFFICE VISIT Date of Service: 08/10/24 MR#: [id number] Acct: [id number] Name: FILIPPO GREENFIELD Rep #: [id number] : 1995 Provider: Dr. 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 D Stripper Required: No Is patient in pain?: No Allergies coconut Allergy (Intermediate, Verified 08/10/24 11:05) migraine milk Allergy (Verified 08/10/24 11:05) Vomiting KIWI Allergy (Intermediate, Uncoded 08/10/24 11:05) Angioedema Medications ???Medication ???Instructions ???Recorded ???Confirmed ???Type ibuprofen 600 mg tablet 600 mg PO Q6H PRN Pain #60 tabs Rx bupropion HCl 300 mg 24 hr tablet, 300 mg PO QHS 08/10/24 08/10/24 History extended release fluoxetine 40 mg capsule 40 mg PO QHS 08/10/24 08/10/24 His tory montelukast 10 mg tablet 10 mg PO QHS 08/10/24 08/10/24 His tory norethindrone (contraceptive) 0.35 0.35 mg PO QDAY 08/10/24 5 History mg tablet Is last menstrual period known: Yes Last Menstrual Period: 08/08/24 (very heavy lasting 3 days ) Post menopausal: No Patient : No : No [facility] Medical History Anxiety Depression Surgical History (Updated 08/10/24 @ 11:09 by Ashlee Oro) H/O wisdom tooth extraction Family History (Updated 08/10/24 @ 11:12 by Ashlee Oro) Mother Thyroid disorder Grandmother Thyroid disorder Breast cancer Over the age of 50 at diagnosis Cervical cancer Over the age of 50 at diagnosis Aunt Thyroid disorder Social History household members: children housing: apartment number of children: 1 current occupational status: employed current occupation: [employer] Smoking Status: Never smoker alcohol intake: current alcohol intake frequency: holidays/special occasions only substance use type: marijuana seatbelt use: always do you feel safe at home: Yes additional social history: Single History 1 Elective abortions Hx Para 1 Spontaneous abortions Hx # Term Pregnancies Ectopic pregnancies Hx # Pregnancies Multiple births # of living children 1 Past Pregnancies Del. Date Name GA/Weeks Outcome Route Bth Weight Gen Labor Lgth Anesthesia Del Locatn Provider FOB 05/07/18 Stephaniealyn 40 live - full term Female [facility] Encounter for routine gynecological examination Details: FILIPPO GREENFIELD is a 29 year old who presents for annual exam. her daughter requires a lot of medical care, so the patient is wanting sterilization she doesn't want any more children and she wants sterilization. Last PAP: around 2018 History of abnormal PAP: Last mammogram: not due History of abnormal mammogram: Colon cancer screening: not due Other preventative health care screenings: PCP Aster Rodriguez Female Reproductive History Last Menstrual Period: 08/08/24 (very heavy lasting 3 days ) Cycle Length: 21-35 Bleeding Duration: 5 Questions: metorrhagia: No, sexually active: Yes, dyspareunia: No and PCB: No Menopausal Symptoms: No hot flashes, No night sweats, No weight change, No mood changes, No difficulty concentrating, No sleep problems and No change in libido ROS Const Constitutional: Reports as per HPI; Denies fatigue, increased appetite, poor appetite, night sweats, weight gain or weight loss Cardio Card: Denies chest pain Resp Resp: Denies cough or dyspnea GI GI: Reports as per HPI; Denies abdominal pain, bloating, constipation, nausea or vomiting : Reports as per HPI and other; Denies difficulty voiding, dysuria, hematuria, hot flashes, nipple discharge, pelvic pain, prolapse symptoms, urinary frequency, urinary incontinence, urinary urgency, vaginal discharge, vaginal dryness, vaginal odor or vaginal pruritus Skin Skin/Breast: Denies changing lesions, breast mass, breast pain, breast skin changes or nipple discharge Psych Psych: Denies anxiety, change in libido, depression or difficulty concentrating Exam Const General: cooperative, healthy appearing, comfortable, no acute distress, well developed and well groomed [facility] Head: normal to inspection and normocephalic Ears: hearing grossly normal bilaterally and external ears normal Nose: external nose normal Face and sinus: normal facial exam Neck Neck: normal visual inspection, full ROM and no lymphadenopathy Thyroid: thyroid normal Chest Chest palpation inspection: normal inspection of (more content not included)... Normal [facility] Platelet countOrdered By: Stephanie Gee on 08-10-2024 Platelets (Bld) [#/Vol] 413 10*3/uL 150-450 [facility] RBC Auto (Bld) [#/Vol]Ordere d By: Sadie Gee on 08-10-2024 RBC (Bld) [#/Vol] 4.87 10*6/uL 4.2-5.4 [facility] TSH DL <= 0.005 mIU/L QnOrde red By: Sadie Gee on 08-10-2024 TSH Qn 0.789 uIU/mL 0.300-4.200 [facility] Thyroid Stim Hormone (TSH)on 08-10-2024 TSH 0.789 uIU/mL Normal 0.300-4.200 [facility] Comment on above: Performed By: #### L 501.9520, L100.0100 #### [facility] [address] [place], [address] White blood cell (WBC) count Ordered By: Sadie Gee on 08-10-2024 WBC (Bld) [#/Vol] 8.8 10*3/uL 4.4-11.0 [facility] CNCOon 10-11-2023 CNCO Letter Text Normal [facility] CNOVon 01-11-2023 CNOV Office Visit (FAMPWS) FILIPPO GREENFIELD ([id number]) 1995 F Date Time Provider Department 01/11/23 1:00 PM RYLEE RODRIGUEZARMANDO During your visit today, we recorded the following information about you: Pulse Respiration Blood pressure Weight 83/minute 16/minute 127/82 118.2 kg Rylee Rodriguez APRN.LONG TERM CARE SOCIAL WORKER 01/11/2023 1:13 PM Signed Chief Complaint Patient presents with: 4 week f/u Immunizations: Flu vaccination HPI Filippo Greenfield is a 27 year old female who presents here today for Chronic Medical Conditions. follow up for anxiety, depression and fatigue. Patient is here for 4 week follow-up. At her last encounter she was describing some ongoing anxiety and depressive symptoms that were being exacerbated by some difficulties at the home. She was already prescribed Prozac 40 mg. We added Wellbutrin XL 150 milligrams to her regimen. She had some lab work done for ongoing fatigue. This was mostly normal. Since starting the Wellbutrin, patient states that she has had an increase in some energy. No longer having tearful events. Sleep has been okay. Has had use hydroxyzine twice for some increased anxiety. Denies any side effects of medication at this time. She overall believes that the medication is helping. Feels better than 1 month ago. Would like to continue at this current dose at this time. She would like to get her influenza and COVID vaccines today. Past medical history, appointments, medications, allergies reviewed. EXAM: BP 127/82 Pulse 83 Resp 16 Wt 118.2 kg (260 lb 9.6 oz) LMP 07/22/2017 (Exact Date) SpO2 98% BMI 45.44 kg/m? General Appearance: Well appearing, alert, in no acute distress, well-hydrated, well nourished.. Lungs: Lungs clear to auscultation. No wheezing, rhonchi, rales.. Heart: RRR without murmur, gallop, or rubs. No ectopy. Component Latest Ref Rng AND Units 12/14/2022 WBC 3.70 - 11.00 k/uL 10.72 RBC 3.90 - 5.20 m/uL 4.62 Hemoglobin 11.5 - 15.5 g/dL 12.7 Hematocrit 36.0 - 46.0 % 39.8 MCV 80.0 - 100.0 fL 86.1 MCH 26.0 - 34.0 pg 27.5 MCHC 30.5 - 36.0 g/dL 31.9 RDW-CV 11.5 - 15.0 % 13.2 Platelet Count 150 - 400 k/uL 393 MPV 9.0 - 12.7 fL 10.1 Neut% % 57.4 Abs Neut (ANC) 1.45 - 7.50 k/uL 6.16 Lymph% % 31.9 Abs Lymph 1.00 - 4.00 k/uL 3.42 Bennett% % 6.8 Abs Bennett <0.87 k/uL 0.73 Eosin% % 2.7 Abs Eosin <0.46 k/uL 0.29 Baso% % 0.7 Abs Baso <0.11 k/uL 0.07 Immature Gran % % 0.5 IMMATURE GRANS (ABS) <0.10 k/uL 0.05 NRBC /100 WBC 0.0 Absolute nRBC <0.01 k/uL <0.01 DTYPE Auto Protein, Total 6.3 - 8.0 g/dL 7.3 Albumin 3.9 - 4.9 g/dL 4.0 Calcium 8.5 - 10.2 mg/dL 9.6 Bilirubin, Total 0.2 - 1.3 mg/dL 0.2 Alkaline Phosphatase 34 - 123 U/L 104 AST 13 - 35 U/L 36 (H) ALT 7 - 38 U/L 44 (H) Glucose 74 - 99 mg/dL 79 BUN 7 - 21 mg/dL 8 Creatinine 0.58 - 0.96 mg/dL 0.62 Sodium 136 - 144 mmol/L 139 Potassium 3.7 - 5.1 mmol/L 4.2 Chloride 97 - 105 mmol/L 104 CO2 22 - 30 mmol/L 23 Anion Gap 9 - 18 mmol/L 12 eGFR >=60 mL/min/1.73mA? 126 TSH 0.270 - 4.200 mIU/L 1.650 ASSESSMENT/PLAN: 1. Anxiety with depression - ICD9: 300.4, ICD10: F41.8 (primary diagnosis) -Overall anxiety and depression has improved but is still present. Patient discussing that some of her home life factors will continue for the near future. She elected to continue with Prozac and Wellbutrin as prescribed. She can continue to use Vistaril as needed. We will follow-up in 3 months. I encouraged her to reach out to me via [employer] if she finds that she is needing an increased dose in the Wellbutrin and we can increase and continue with 3-month follow-up. She verbalized understanding. 2. Fatigue, unspecified type - ICD9: 780.79, ICD10: R53.83 - improved 3. Need for influenza vaccination - ICD9: V04.81, ICD10: Z23 - INFLUENZA VACCINE, AGE 6 MO - 64 YR, QUADRIVALENT (AFLURIA, FLULAVAL, FLUZONE) 4. Encounter for immunization - ICD9: V03.89, ICD10: Z23 - PFIZER-BIONTECH COVID-19 VACCINE ( SEASON) AGE 12+ YR Rylee Rodriguez APRN.LONG TERM CARE SOCIAL WORKER RTO in 3 months, sooner if needed. This note was partly generated using Any[employer] voice recognition dictation and may contain some misspelled or inaccurate words missed on review. Allergies As of Date: 01/11/2023 Noted Allergy Reaction COCONUT 11/28/2020 14 - Other: See Comments Comments: Migraines KIWI 11/28/2020 9 - Itching MILK 09/01/2017 5 - Intolerance Date Reviewed: 01/11/2023 Reviewed by: Cathy Heck MA - Fully Assessed Reason for Visit: 4 week f/u [Other] Immunizations [194] Cmt: Flu vaccination Primary Visit Diagnosis:Anxiety with depression [F41.8] Other Visit Diagnoses:Fatigue, unspecified type [R53.83] Need for influenza vaccination [Z23] Encounter for immunization [Z23] Order(s):INFLUENZA VACCINE, AGE 6 MO - 64 YR, QUADRIVALENT (AFLURIA, FLULAVAL, FLUZONE) [[id number]] Order #: [id number] Spoonity (more content not included)... Normal [facility] CBC W Auto Differential pane l (Bld)on 12-14-2022 Basophils (Bld) [#/Vol] 0.07 10*3/uL Normal <0.11 [facility] Comment on above: Order Comment: Speci men Type: BLOOD SPECIMEN Ordering Facility: [facility] Address: [address] [place] [address] Performed By: #### 5 7021-8 #### [facility] CLIA [id number] [address] [place] [address] [place] Basophils/100 WBC (Bld) 0.7 % Normal C [facility] Comment on above: Order Comment: Speci men Type: BLOOD SPECIMEN Ordering Facility: [facility] Address: [address] [address] Performed By: #### 5 7021-8 #### [facility] CLIA [id number] [address] [place] [address] [place] Differential cell count method Nom (Bld) Auto Normal [facility] Comment on above: Order Comment: Speci men Type: BLOOD SPECIMEN Ordering Facility: [facility] Address: [address] [address] Performed By: #### 5 7021-8 #### [facility] CLIA [id number] [address] [place] [address] [place] Eosinophils (Bld) [#/Vol] 0.29 10*3/uL Normal <0.46 [facility] Comment on above: Order Comment: Speci men Type: BLOOD SPECIMEN Ordering Facility: [facility] Address: [address] [place] [address] Performed By: #### 5 7021-8 #### [facility] CLIA [id number] [address] [place] [address] [place] Eosinophils/100 WBC (Bld) 2.7 % Normal [facility] Comment on above: Order Comment: Speci men Type: BLOOD SPECIMEN Ordering Facility: [facility] Address: [address] [place] [address] Performed By: #### 5 7021-8 #### [facility] CLIA [id number] [address] [place] [address] [place] Erythrocyte distribution width (RBC) [Ratio] 13.2 % Normal 11.5-15.0 [facility] Comment on above: Order Comment: Speci men Type: BLOOD SPECIMEN Ordering Facility: [facility] Address: [address] [place] [address] Performed By: #### 5 7021-8 #### [facility] CLIA [id number] [facility] [place] [address] [place] Hematocrit (Bld) [Volume fraction] 39.8 % Normal 36.0-46.0 [facility] Comment on above: Order Comment: Speci men Type: BLOOD SPECIMEN Ordering Facility: [facility] Address: [address] [place] [address] Performed By: #### 5 7021-8 #### [facility] CLIA [id number] [address] [place] [address] [place] Hemoglobin (Bld) [Mass/Vol] 12.7 g/dL Normal 11.5-15.5 [facility] Comment on above: Order Comment: Speci men Type: BLOOD SPECIMEN Ordering Facility: [facility] Address: [address] [address] Performed By: #### 5 7021-8 #### [facility] CLIA [id number] [address] [place] [address] [place] Immature granulocytes (Bld) [#/Vol] 0.05 10*3/uL Normal <0.10 [facility] Comment on above: Order Comment: Speci men Type: BLOOD SPECIMEN Ordering Facility: [facility] Address: [address] [place] [address] Performed By: #### 5 7021-8 #### [facility] CLIA [id number] [address] [place] [address] [place] Immature granulocytes/100 WBC (Bld) 0.5 % Normal [facility] Comment on above: Order Comment: Speci men Type: BLOOD SPECIMEN Ordering Facility: [facility] Address: [address] [place] [address] Performed By: #### 5 7021-8 #### [facility] CLIA [id number] [address] [place] [address] [place] Lymphocytes (Bld) [#/Vol] 3.42 10*3/uL Normal 1.00-4.00 [facility] Comment on above: Order Comment: Speci men Type: BLOOD SPECIMEN Ordering Facility: [facility] Address: [address] Performed By: #### 5 7021-8 #### [facility] CLIA [id number] [address] [place] [address] [place] Lymphocytes/100 WBC (Bld) 31.9 % Normal [facility] Comment on above: Order Comment: Speci men Type: BLOOD SPECIMEN Ordering Facility: [facility] Address: [address] Performed By: #### 5 7021-8 #### [facility] CLIA [id number] [address] MCH (RBC) [Entitic mass] 27.5 pg Normal 26.0-34.0 [facility] Comment on above: Order Comment: Speci men Type: BLOOD SPECIMEN Ordering Facility: [facility] Address: [address] Performed By: #### 5 7021-8 #### [facility] CLIA [id number] [address] [place] [address] [place] MCHC (RBC) [Mass/Vol] 31.9 g/dL Normal 30.5-36.0 [facility] Comment on above: Order Comment: Speci men Type: BLOOD SPECIMEN Ordering Facility: [facility] Address: [address] Performed By: #### 5 7021-8 #### [facility] CLIA [id number] [address] [place] [address] [place] MCV (RBC) [Entitic vol] 86.1 fL Normal 80.0-100.0 C [facility] Comment on above: Order Comment: Speci men Type: BLOOD SPECIMEN Ordering Facility: [facility] Address: [address] Performed By: #### 5 7021-8 #### [facility] CLIA [id number] [address] [place] [address] [place] Monocytes (Bld) [#/Vol] 0.73 10*3/uL Normal <0.87 [facility] Comment on above: Order Comment: Speci men Type: BLOOD SPECIMEN Ordering Facility: [facility] Address: [address] Performed By: #### 5 7021-8 #### [facility] CLIA [id number] [address] [place] [address] [place] Monocytes/100 WBC (Bld) 6.8 % Normal [facility] Comment on above: Order Comment: Speci men Type: BLOOD SPECIMEN Ordering Facility: [facility] Address: [address] [address] Performed By: #### 5 7021-8 #### [facility] CLIA [id number] [address] [place] [address] [place] Neutrophils (Bld) [#/Vol] 6.16 10*3/uL Normal 1.45-7.50 [facility] Comment on above: Order Comment: Speci men Type: BLOOD SPECIMEN Ordering Facility: [facility] Address: [address] [place] [address] Performed By: #### 5 7021-8 #### [facility] CLIA [id number] [address] [place] [address] [place] Neutrophils/100 WBC (Bld) 57.4 % Normal [facility] Comment on above: Order Comment: Speci men Type: BLOOD SPECIMEN Ordering Facility: [facility] Address: [address] [place], [place] [address] Performed By: #### 5 7021-8 #### [facility] CLIA [id number] [address] [place] [address] [place] Nucleated RBC (Bld) [#/Vol] 10*3/uL Normal <0.01 [facility] Comment on above: Order Comment: Speci men Type: BLOOD SPECIMEN Ordering Facility: [facility] Address: [address] [place], [place] [address] Performed By: #### 5 7021-8 #### [facility] CLIA [id number] [address] [place] [address] [place] Nucleated RBC/100 WBC (Bld) [Ratio] 0.0 /100 WBC Normal [facility] Comment on above: Order Comment: Speci men Type: BLOOD SPECIMEN Ordering Facility: [facility] Address: [address] Performed By: #### 5 7021-8 #### [facility] CLIA [id number] [address] [place] [address] [place] Platelet mean volume (Bld) [Entitic vol] 10.1 fL Normal 9.0-12.7 [facility] Comment on above: Order Comment: Speci men Type: BLOOD SPECIMEN Ordering Facility: [facility] Address: [address] [place], [place] [address] Performed By: #### 5 7021-8 #### [facility] CLIA [id number] [address] [place] [address] [place] Platelets (Bld) [#/Vol] 393 10*3/uL Normal 150-400 [facility] Comment on above: Order Comment: Speci men Type: BLOOD SPECIMEN Ordering Facility: [facility] Address: [address] [place], [place] [address] Performed By: #### 5 7021-8 #### [facility] CLIA [id number] [address] [place] [address] [place] RBC (Bld) [#/Vol] 4.62 10*6/uL Normal 3.90-5.20 [facility] Comment on above: Order Comment: Speci men Type: BLOOD SPECIMEN Ordering Facility: [facility] Address: [address] Performed By: #### 5 7021-8 #### [facility] CLIA [id number] [address] [place] [address] [place] WBC (Bld) [#/Vol] 10.72 10*3/uL Normal 3.70-11.00 [facility] Comment on above: Order Comment: Speci men Type: BLOOD SPECIMEN Ordering Facility: [facility] Address: [address] [place], [place] [address] Performed By: #### 5 7021-8 #### [facility] CLIA [id number] [address] [place] [address] [address] [place] [id number] [place] CNOVon 12-14-2022 CNOV Office Visit (FAMPWS) FILIPPO GREENFIELD ([id number]) 1995 F Date Time Provider Department 12/14/22 1:40 PM [facility]UE[facility] During your visit today, we recorded the following information about you: Pulse Respiration Blood pressure Weight 87/minute 16/minute 122/81 119.4 kg Rylee Rodriguez APRN.LONG TERM CARE SOCIAL WORKER 12/14/2022 1:57 PM Signed Chief Complaint Patient presents with: Depression and anxiety HPI Filippo Greenfield is a 27 year old female who presents here today for Chronic Medical Conditions. follow up for depression. Patient has history of anxiety depression. She is currently prescribed Prozac 40 mg. Been taking for about 2 years. Has some ongoing family health issues with daughters that has exacerbated the anxiety and depression. Previously was doing okay. She either sleeps too much or not enough. Rumination is usually present. Last few days, she has had some crying spells. Feels like she is has wanted to dip into a dark hole. Some outburst that her daughter did with her ADHD, autism. She has continued complaints of fatigue. She has documented chronic fatigue. She has had evaluation in the past which included normal CBC, TSH, free T4 and T3. Normal glucose. This was in 2020. She states that this continues. Has had weight gain. Sleeps a lot. Mother has thyroid disease Past medical history, appointments, medications, allergies reviewed. EXAM: BP 122/81 Pulse 87 Resp 16 Wt 119.4 kg (263 lb 3.2 oz) LMP 07/22/2017 (Exact Date) SpO2 96% BMI 45.89 kg/m? General Appearance: Well appearing, alert, in no acute distress, well-hydrated, well nourished.. Neck: Supple, no adenopathy; thyroid symmetric, normal size, no bruits. Lungs: Lungs clear to auscultation. No wheezing, rhonchi, rales.. Heart: RRR without murmur, gallop, or rubs. No ectopy. ASSESSMENT/PLAN: 1. Anxiety with depression - ICD9: 300.4, ICD10: F41.8 (primary diagnosis) -Ongoing anxiety and depression that has been exacerbated by family situation. Continue Prozac 40 mg daily. Add Wellbutrin for depressive symptoms. Hoping that anxiety will also improve. Vistaril for panic or difficulty sleeping. Discussed side effect of grogginess with this medication. Follow-up in 4 weeks. Consider BuSpar if anxiety continues to be uncontrolled. - BUPROPION XL 150 MG TAB - HYDROXYZINE PAMOATE 25 MG CAPSULE 2. Fatigue, unspecified type - ICD9: 780.79, ICD10: R53.83 -Chronic ongoing fatigue. Discussed with patient that excessive sleeping could possibly be secondary to ongoing depression. She does have a family history of thyroid disease with her mother. We will check labs today. I encouraged her to start exercising more often, eating a low carbohydrate, low sugar diet. We will follow-up in a month on this progress. - TSH BLD - CBC + DIFF - COMP METABOLIC PANEL Rylee Rodriguez APRN.LONG TERM CARE SOCIAL WORKER RTO in 1 months, sooner if needed. This note was partly generated using [employer]unch[employer] voice recognition dictation and may contain some misspelled or inaccurate words missed on review. Allergies As of Date: 12/14/2022 Noted Allergy Reaction COCONUT 11/28/2020 14 - Other: See Comments Comments: Migraines KIWI 11/28/2020 9 - Itching MILK 09/01/2017 5 - Intolerance Date Reviewed: 12/14/2022 Reviewed by: Rylee Rodriguez APRN.LONG TERM CARE SOCIAL WORKER - Fully Assessed Reason for Visit: Depression and anxiety [Other] Primary Visit Diagnosis:Anxiety with depression [F41.8] Other Visit Diagnosis:Fatigue, unspecified type [R53.83] Order(s):DEPRESSION SCREENING/ASSESSMENT [[id number]] Order #: [id number]: 1 buPROPion XL (WELLBUTRIN XL) 150 mg 24 hr tabletTake 1 tablet by mouth once daily.Disp: 30 tabletRfl: 3 hydrOXYzine pamoate (VISTARIL) 25 mg capsuleTake 1 capsule by mouth three times daily as needed for anxiety.Disp: 30 capsuleRfl: 1 TSH BLD [SQTSH] Order #: [id number] FUTURE CBC + DIFF [SQCBCDIF] Order #: [id number] FUTURE COMP METABOLIC PANEL [SQCMP] Order #: [id number] FUTURE Prescriptions as of 12/14/2022 - buPROPion XL (WELLBUTRIN XL) 150 mg 24 hr tablet Take 1 tablet by mouth once daily. - hydrOXYzine pamoate (VISTARIL) 25 mg capsule Take 1 capsule by mouth three times daily as needed for anxiety. - montelukast (SINGULAIR) 10 mg tablet Take 1 tablet by mouth daily at bedtime. - FLUoxetine (PROZAC) 40 mg capsule Take 1 capsule by mouth once daily. - CPAP Initiate Auto PAP @ 8-15 cm of water with humidification. Mask (per patient preference) optional chin strap (if indicated) , filters, tubing, humidifier and lifetime supplies. - albuterol HFA (VENTOLIN HFA) 90 mcg/actuation inhaler Inhale 2 Puffs as instructed every 4 hours as needed for wheezing/shortness of breath. - ibuprofen (MOTRIN) 600 mg tablet EVERY 6 HOURS PRN For Pain Problem List As Of Date 12/14/2022 Noted Resolved Dysmenorrhea [N94.6] 02/07/2012 Irregular menstrual cycle [N92.6] 02/07/2012 (more content not included)... Normal [facility] Comprehensive metabolic 2000 panelon 12-14-2022 Albumin [Mass/Vol] 4.0 g/dL Normal 3.9-4.9 [facility] Comment on above: Order Comment: Speci men Type: BLOOD SPECIMEN Ordering Facility: [facility] Address: [address] [place] [id number] Performed By: #### 2 4323-8, 3016-3 #### [facility] CLIA [id number] [address] [facility] [address] [address] [place] ALP [Catalytic activity/Vol] 104 U/L Normal 34-123 [facility] Comment on above: Order Comment: Speci men Type: BLOOD SPECIMEN Ordering Facility: [facility] Address: [address] [place] [address] Performed By: #### 2 4323-8, 3016-3 #### [facility] CLIA [id number] [address] [place] [address] [place] ALT [Catalytic activity/Vol] 44 U/L High 7-38 [facility] Comment on above: Order Comment: Speci men Type: BLOOD SPECIMEN Ordering Facility: [facility] Address: [address] [place], [place] [address] Performed By: #### 2 4323-8, 6-3 #### [facility] CLIA [id number] [address] [place] [address] [place] Anion gap [Moles/Vol] 12 mmol/L Normal 9-18 [facility] Comment on above: Order Comment: Speci men Type: BLOOD SPECIMEN Ordering Facility: [facility] Address: [address] [place], [place] [address] Performed By: #### 2 4323-8, 6-3 #### [facility] CLIA [id number] [address] [place] [address] [place] AST [Catalytic activity/Vol] 36 U/L High 13-35 [facility] Comment on above: Order Comment: Speci men Type: BLOOD SPECIMEN Ordering Facility: [facility] Address: [address] [place] [address] Performed By: #### 2 4323-8, 3016-3 #### [facility] CLIA [id number] [address] [place] [address] [place] Bilirubin [Mass/Vol] 0.2 mg/dL Normal 0.2-1.3 [facility] Comment on above: Order Comment: Speci men Type: BLOOD SPECIMEN Ordering Facility: [facility] Address: [address] Performed By: #### 2 4323-8, 3016-3 #### [facility] CLIA [id number] [address] [place] [address] [place] Calcium [Mass/Vol] 9.6 mg/dL Normal 8.5-10.2 [facility] Comment on above: Order Comment: Speci men Type: BLOOD SPECIMEN Ordering Facility: [facility] Address: [address] Performed By: #### 2 4323-8, 6-3 #### [facility] CLIA [id number] [address] [place] [address] [place] Chloride [Moles/Vol] 104 mmol/L Normal 97-105 [facility] Comment on above: Order Comment: Speci men Type: BLOOD SPECIMEN Ordering Facility: [facility] Address: [address] Performed By: #### 2 4323-8, 6-3 #### [facility] CLIA [id number] [address] [place] [address] [place] CO2 [Moles/Vol] 23 mmol/L Normal 22-30 [facility] Comment on above: Order Comment: Speci men Type: BLOOD SPECIMEN Ordering Facility: [facility] Address: [address] [place] [address] Performed By: #### 2 4323-8, 3016-3 #### [facility] CLIA [id number] [address] [place] [address] [place] Creatinine [Mass/Vol] 0.62 mg/dL Normal 0.58-0.96 [facility] Comment on above: Order Comment: Speci men Type: BLOOD SPECIMEN Ordering Facility: [facility] Address: [address] Performed By: #### 2 4323-8, 3016-3 #### [facility] CLIA [id number] [address] [place] [address] [place] Creatinine and Glomerular filtration rate.predicted panel (S/P/Bld) 126 mL/min/1.73m??? Normal >=60 [facility] Comment on above: Order Comment: Claudia munoz Type: BLOOD SPECIMEN Ordering Facility: [facility] Address: [address] [place] [address] Result Comment: Alina mated Glomerular Filtration Rate (eGFR) is calculated using the 2020 CKD-EPI creatinine equation. This equation utilizes serum creatinine, sex, and age as parameters. The creatinine assay has traceable calibration to isotope dilution-mass spectrometry. Refer to KDIGO guidelines for clinical interpretation. In patients with unstable renal function, e.g. those with acute kidney injury, the eGFR may not accurately reflect actual GFR. Performed By: #### 2 4323-8, 3015-3 #### [facility] CLIA [id number] [address] [place] [address] [place] Glucose [Mass/Vol] 79 mg/dL Normal 74-99 [facility] Comment on above: Order Comment: Claudia munoz Type: BLOOD SPECIMEN Ordering Facility: [facility] Address: [address] [place] [address] Result Comment: The [place] Diabetes Association (ADA) provides guidance for cutoff values for fasting glucose and random glucose. The ADA defines fasting as no caloric intake for at least 8 hours. Fasting plasma glucose results between 100 to 125 mg/dL indicate increased risk for diabetes (prediabetes). Fasting plasma glucose results greater than or equal to 126 mg/dL meet the criteria for diagnosis of diabetes. In the absence of unequivocal hyperglycemia, results should be confirmed by repeat testing. In a patient with classic symptoms of hyperglycemia or hyperglycemic crisis, random plasma glucose results greater than or equal to 200 mg/dL meet the criteria for diagnosis of diabetes. Reference: Standards of Medical Care in Diabetes 2016, [place] Diabetes Association. Diabetes Care. 2016.39(Suppl 1). Performed By: #### 2 4323-8, 3015-3 #### [facility] CLIA [id number] [facility] [place] [address] [place] Potassium [Moles/Vol] 4.2 mmol/L Normal 3.7-5.1 [facility] Comment on above: Order Comment: Speci men Type: BLOOD SPECIMEN Ordering Facility: [facility] Address: [address] [place] [address] Performed By: #### 2 4323-8, 3016-3 #### [facility] CLIA [id number] [address] [place] [address] [place] Protein [Mass/Vol] 7.3 g/dL Normal 6.3-8.0 [facility] Comment on above: Order Comment: Speci men Type: BLOOD SPECIMEN Ordering Facility: [facility] Address: [address] [place] [address] Performed By: #### 2 4323-8, 3016-3 #### [facility] CLIA [id number] [address] [place] [address] [place] Sodium [Moles/Vol] 139 mmol/L Normal 136-144 [facility] Comment on above: Order Comment: Speci men Type: BLOOD SPECIMEN Ordering Facility: [facility] Address: [address] [place], [place] [address] Performed By: #### 2 4323-8, 3016-3 #### [facility] CLIA [id number] [address] [place] [address] [place] Urea nitrogen [Mass/Vol] 8 mg/dL Normal 7-21 [facility] Comment on above: Order Comment: Speci men Type: BLOOD SPECIMEN Ordering Facility: [facility] Address: [address] [place], [place] [address] Performed By: #### 2 4323-8, 3016-3 #### [facility] CLIA [id number] [address] [place] [address] [place] TSH SerPl-aCncon 12-14-2022 TSH Qn 1.650 m[IU]/L Normal 0.270-4.200 [facility] Comment on above: Order Comment: Speci men Type: BLOOD SPECIMEN Ordering Facility: [facility] Address: [place] [address] Result Comment: If t he patient is , TSH reference range varies by gestational period: First Trimester (weeks 9-12): 0.180-2.990 mIU/L Second Trimester: 0.110-3.980 mIU/L Third Trimester: 0.480-4.710 mIU/L Thor Dalton et al. A Practical Approach for the Verifications and Determination of Site- and Trimester-Specific Reference Intervals for Thyroid Function tests in . Thyroid, 2019:29:3:412-420. José Luis Lanza et al. 2017 Guidelines of the [place] Thyroid Association for the Diagnosis and Management of Thyroid Disease during and the . Thyroid, 2017:27:3:315-389. Performed By: #### 2 4323-8, 3016-3 #### [facility] CLIA [id number] [address] [facility] [id number] [place] [address] [place] Vital Signs Date Time Vital Sign Value Performing Clinician Rubén holguin 08-10-2024 11:03-0400 Body height 160.02 cm No Primary Care Physician [facility] 08-10-2024 11:03-0400 Body mass index (BMI) [Ratio] 48 kg/m2 No Primary Care Physician [facility] 08-10-2024 11:03-0400 Body weight 123.03 kg No Primary Care Physician [facility] 08-10-2024 11:03-0400 Diastolic blood pressure 84 mm[Hg] No Primary Care Physician [facility] 08-10-2024 11:03-0400 Systolic blood pressure 124 mm[Hg] No Primary Care Physician [facility] 11-09-2022 00:40-0400 Body height 160.02 cm [facility] 11-09-2022 00:40-0400 Body mass index (BMI) [Ratio] 47.4 kg/m2 [facility] 11-09-2022 00:40-0400 Body temperature 97 [degF] [facility] 11-09-2022 00:40-0400 Body weight 121.5 kg [facility] 11-09-2022 00:40-0400 Diastolic blood pressure 89 mm[Hg] [facility] 11-09-2022 00:40-0400 Heart rate 95 /min [facility] 11-09-2022 00:40-0400 Respiratory rate 18 /min [facility] 11-09-2022 00:40-0400 SaO2% (BldA) [Mass fraction] 97 % [facility] 11-09-2022 00:40-0400 Systolic blood pressure 150 mm[Hg] [facility] 10-02-2021 09:21-0400 Body height 161.3 cm Respiratory Wstr Work Phone: [facility] 10-02-2021 09:21-0400 Body weight 109.32 kg Respiratory Wstr Work Phone: [facility] 10-02-2021 09:21-0400 Heart rate 75 /min Respiratory Wstr Work Phone: [facility] 10-02-2021 09:21-0400 Respiratory rate 12 /min Respiratory Wstr Work Phone: [facility] 10-02-2021 09:21-0400 SaO2% (BldA) [Mass fraction] 100 % [facility] Wstr Work Phone: [facility] 09-18-2021 08:33-0400 Body temperature 97.39 [degF] Rylee Rodriguez PHLEBOTOMY PROGRAM COORDINATOR.LONG TERM CARE SOCIAL WORKER Work Phone: [facility] 09-18-2021 08:33-0400 Body weight 107.96 kg Rylee Rodriguez PHLEBOTOMY PROGRAM COORDINATOR.LONG TERM CARE SOCIAL WORKER Work Phone: [facility] 09-18-2021 08:33-0400 Diastolic blood pressure 70 mm[Hg] Rylee Rodriguez PHLEBOTOMY PROGRAM COORDINATOR.LONG TERM CARE SOCIAL WORKER Work Phone: [facility] 09-18-2021 08:33-0400 Heart rate 84 /min Rylee Rodriguez PHLEBOTOMY PROGRAM COORDINATOR.LONG TERM CARE SOCIAL WORKER Work Phone: [facility] 09-18-2021 08:33-0400 Respiratory rate 16 /min Rylee Rodriguez PHLEBOTOMY PROGRAM COORDINATOR.LONG TERM CARE SOCIAL WORKER Work Phone: [facility] 09-18-2021 08:33-0400 SaO2% (BldA) [Mass fraction] 97 % Rylee Rodriguez PHLEBOTOMY PROGRAM COORDINATOR.LONG TERM CARE SOCIAL WORKER Work Phone: [facility] 09-18-2021 08:33-0400 Systolic blood pressure 110 mm[Hg] Rylee Rodriguez PHLEBOTOMY PROGRAM COORDINATOR.LONG TERM CARE SOCIAL WORKER Work Phone: [facility] Encounters Encounter Date Encounter Type Care Provider Facility Start: 09-04-2024 ambulatory Sadie Montana lity:[facility] Start: 08-21-2024 End: 08-21-2024 ambulatory No Primary Care Physician [facility] Work Phone: Start: 08-21-2024 End: 08-21-[address] Sadie Gee [facility] Work Phone: Start: 08-21-2024 End: 08-21-2024 ambulatory No Primary Care Physician Facility:[facility] Start: 08-10-2024 Encounter for gynecological examination (general) (routine) with abnormal findings Sadie Gee [facility] Start: 08-10-2024 End: 08-10-[address] Sadie Gee MD -[facility] Work Phone: Start: 08-10-2024 End: 08-10-[address] Sadie Gee MD [facility] Start: 08-10-2024 End: 08-10-2024 ambulatory No Primary Care Physician [facility] Work Phone: Start: 08-10-2024 End: 08-10-2024 ambulatory No Primary Care Physician Facility:[facility] Start: 01-12-2024 End: 01-12-2024 Refill Rylee Rodriguez PHLEBOTOMY PROGRAM COORDINATOR.LONG TERM CARE SOCIAL WORKER Work Phone: [facility] [place] Comment on above: Refill Request Start: 10-04-2023 Refill Luis Manuel dennis MD Work Phone: [facility] Comment on above: Refill Request Start: 09-10-2023 Refill Rylee SANTOS RN.LONG TERM CARE SOCIAL WORKER Work Phone: [facility] Comment on above: Refill Request Start: 02-26-2023 Refill Ryele SANTOS RN.LONG TERM CARE SOCIAL WORKER Work Phone: [facility] Comment on above: Refill Request Start: 01-11-2023 End: 01-11-2023 ambulatory RYLEE RODRIGUEZ Facility:[facility] Start: 12-14-2022 End: 12-14-2022 ambulatory LUIS MANUEL Suarez [facility] Facility:[facility] Start: 11-09-2022 End: 11-09-2022 Emergency department patient visit [facility]gency Department Work Phone: Start: 09-28-2022 Refill Rylee SANTOS RN.LONG TERM CARE SOCIAL WORKER Work Phone: [facility] Comment on above: Refill Request Start: 10-02-2021 End: 10-02-2021 ambulatory Respiratory Therapist [facility] Work Phone: [facility] Comment on above: Spirometry Start: 10-02-2021 End: 10-02-2021 Patient encounter procedure Respiratory Therapist [facility] Phone[facility] Start: 09-18-2021 End: 09-18-2021 Patient encounter procedure Rylee Rodriguez PHLEBOTOMY PROGRAM COORDINATOR.LONG TERM CARE SOCIAL WORKER Work Phone: [facility] Comment on above: Wheezing (Primary Dx ); Environmental allergies Procedures Date Procedure Procedure Detail Performing Clinician Start: 08-21-2024 Pelvic echography No Pr imary Care Physician Start: 08-10-2024 Liquid based cervica l cytology screening No Primary Care Physician Comment on above: NEGATIVE FOR INTRAEP ITHELIAL LESION OR MALIGNANCY. This liquid based Th inPrep(R) pap test was screened withthe use of an image guided system. The HPV DNA reflex c yuan were not met with this specimenresult therefore, no HPV testing was performed.Performed at: [address] [id number] Director: Augustina Guevara PhD, Phone: [phone] at: [facility] [id number] Director: Yudith Salazar MD, Phone: [phone] Start: 08-10-2024 Gram stain microscopy N o Primary Care Physician Start: 08-10-2024 End: 08-10-2024 Source specific culture No Primary Care Physician Start: 10-02-2021 Brncdilat rspse spmt ry pre&post-brncdilat admn Rylee Rodriguez PHLEBOTOMY PROGRAM COORDINATOR.LONG TERM CARE SOCIAL WORKER Work Phone: Start: 09-11-2021 Adult depression scr eening assessment Rylee Rodriguez PHLEBOTOMY PROGRAM COORDINATOR.LONG TERM CARE SOCIAL WORKER Work Phone: Plan of Treatment Date Care Activity Detail Author Start: 03-31-2028 Urine microalbumin profile [facility] Start: 08-10-2024 Liquid based cervica l cytology screening [facility] Start: 11-20-2023 Covid-19 Vaccine ( season) Covid-19 Vaccine ( season) [facility] Start: 11-20-2023 Influenza vaccination Influenza Vacc ine (#1) [facility] Start: 10-11-2023 End: 10-11-2023 Patient encounter procedure 10/11/2023 10:00 AM EDT Office Visit Family [facility] [address] [place] [address] Rylee Rodriguez APRN.LONG TERM CARE SOCIAL WORKER [address] [place], [place] [phone] physical [facility] Comment on above: physical Start: 03-21-2023 Behavioral Health Screening Behavioral Health Screening [facility] Start: 11-19-2022 Influenza vaccination INFLUENZA (#1) [facility] Start: 11-09-2022 Plain x-ray of hand Hand Min 3 Views [facility] Start: 11-09-2022 XR Hand GE 3 Views [facility] Start: 09-11-2022 Adult depression screening assessment DEPRESSION SCREENING [facility] Start: 03-21-2022 DEPRESSION ASSESSMENT DEPRESSION ASS ESSMENT [facility] Start: 11-19-2021 Influenza vaccination INFLUENZA (#1) [facility] Start: 09-05-2021 PAP TESTING PAP TESTING [facility] Start: 09-05-2021 Screening for malign ant neoplasm of cervix Cervical Cancer Screening [facility] Start: 01-03-2021 COVID-19 VACCINE (3 - Booster for Pfizer series) COVID-19 VACCINE (3 - Booster for Pfizer series) [facility] Start: 09-28-2020 COVID-19 VACCINE (3 - Pfizer series) COVID-19 VACCINE (3 - Pfizer series) [facility] Start: 01-30-2014 Anxiety Screening Anxiety Screening [facility] Start: 01-30-2014 Depression Screening Depression Scre ening [facility] Start: 01-30-2014 HEPATITIS C SCREENING HEPATITIS C SC REENING [facility] Start: 01-30-2010 PEDS TO ADULT TRANSI TION ANNUAL ASSESSMENT PEDS TO ADULT TRANSITION ANNUAL ASSESSMENT [facility] Start: 2008 PEDS TO ADULT TRANSI TION INITIAL DISCUSSION PEDS TO ADULT TRANSITION INITIAL DISCUSSION [facility] Path report.final Dx Spec [facility] Patient Education ED Tendonitis [facility] Work Phone: Patient referral [facility] Work Phone: End: 10-18-2022 SPIROMETRY - BASELINE AND POST DILATOR SPIROMETRY - BASELINE AND POST DILATOR PFT Routine Wheezing 1 Occurrences starting 09/18/2021 until 10/18/2022 [facility] Work Phone: Comment on above: 1 Occurrences starti ng 09/18/2021 until 10/18/2022 SPIROMETRY - BASELIN E AND POST DILATOR SPIROMETRY - BASELINE AND POST DILATOR PFT Routine Wheezing 10/02/2021 9:00 AM EDT [facility] Work Phone: [place] [facility] Immunizations Immunization Date Immunization Notes Care Provider Tony jaime 01-11-2023 COVID-19 vaccine, ag e 12+ yr, season (PFIZER-BIONTECH) Rylee Rodriguez APRN.LONG TERM CARE SOCIAL WORKER Work Phone: [facility] 01-11-2023 influenza, injectabl e, quadrivalent, contains preservative Rylee Jhon PHLEBOTOMY PROGRAM COORDINATOR.LONG TERM CARE SOCIAL WORKER Work Phone: [facility] 01-11-2023 influenza virus vaccine, unspecified formulation Luis Manuel Cadena MD Work Phone: [facility] 04-27-2018 measles, mumps and rubella virus vaccine Rylee Jhon PHLEBOTOMY PROGRAM COORDINATOR.LONG TERM CARE SOCIAL WORKER Work Phone: [facility] Work Phone: 03-31-2018 tetanus toxoid, reduced diphtheria toxoid, and acellular pertussis vaccine, adsorbed Rylee Jhon PHLEBOTOMY PROGRAM COORDINATOR.LONG TERM CARE SOCIAL WORKER Work Phone: [facility] 02-10-2018 influenza, injectabl e, quadrivalent, preservative free No Primary Care Physician [facility] 02-10-2018 influenza, seasonal, injectable [facility] 02-10-2018 influenza, seasonal, injectable, preservative free Rylee Jhon PHLEBOTOMY PROGRAM COORDINATOR.LONG TERM CARE SOCIAL WORKER Work Phone: [facility] Work Phone: 12-12-2017 influenza, injectabl e, quadrivalent, contains preservative Rylee Jhon PHLEBOTOMY PROGRAM COORDINATOR.LONG TERM CARE SOCIAL WORKER Work Phone: [facility] 01-14-2014 influenza, injectabl e, quadrivalent, preservative free Rylee Jhon PHLEBOTOMY PROGRAM COORDINATOR.LONG TERM CARE SOCIAL WORKER Work Phone: [facility] Work Phone: 11-29-2012 Meningococcal, MCV4, unspecified conjugate formulation(groups A, C, Y and W-135) Rylee Jhon PHLEBOTOMY PROGRAM COORDINATOR.LONG TERM CARE SOCIAL WORKER Work Phone: [facility] 12-25-2010 influenza virus vaccine, unspecified formulation Rylee Jhon PHLEBOTOMY PROGRAM COORDINATOR.LONG TERM CARE SOCIAL WORKER Work Phone: [facility] 08-01-2008 human papilloma viru s vaccine, quadrivalent Rylee Jhon PHLEBOTOMY PROGRAM COORDINATOR.LONG TERM CARE SOCIAL WORKER Work Phone: [facility] 04-02-2008 human papilloma viru s vaccine, quadrivalent Rylee Jhon PHLEBOTOMY PROGRAM COORDINATOR.LONG TERM CARE SOCIAL WORKER Work Phone: [facility] Work Phone: 2008 human papilloma viru s vaccine, quadrivalent Rylee Jhon PHLEBOTOMY PROGRAM COORDINATOR.[facility] Work Phone: [facility] Work Phone: 2008 influenza virus vaccine, live, attenuated, for intranasal use Rylee Jhon PHLEBOTOMY PROGRAM COORDINATOR.[facility] Work Phone: [facility] Work Phone: 2008 Meningococcal, MCV4, unspecified conjugate formulation(groups A, C, Y and W-135) Rylee Jhon PHLEBOTOMY PROGRAM COORDINATOR.[facility] Work Phone: [facility] Work Phone: 2008 tetanus toxoid, reduced diphtheria toxoid, and acellular pertussis vaccine, adsorbed Rylee Jhon PHLEBOTOMY PROGRAM COORDINATOR.[facility] Work Phone: [facility] Work Phone: 2008 varicella virus vaccine Rylee Jhon PHLEBOTOMY PROGRAM COORDINATOR.[facility] Work Phone: [facility] Work Phone: 11-22-2001 diphtheria, tetanus toxoids and acellular pertussis vaccine Rylee Jhon PHLEBOTOMY PROGRAM COORDINATOR.[facility] Work Phone: [facility] Work Phone: 11-22-2001 measles, mumps and rubella virus vaccine Rylee Jhon PHLEBOTOMY PROGRAM COORDINATOR.[facility] Work Phone: [facility] Work Phone: 11-22-2001 poliovirus vaccine, inactivated Rylee Jhon PHLEBOTOMY PROGRAM COORDINATOR.[facility] Work Phone: [facility] Work Phone: 03-04-2000 varicella virus vaccine Rylee Jhon PHLEBOTOMY PROGRAM COORDINATOR.[facility] Work Phone: [facility] Work Phone: 09-02-1997 diphtheria, tetanus toxoids and acellular pertussis vaccine Rylee Jhon PHLEBOTOMY PROGRAM COORDINATOR.[facility] Work Phone: [facility] Work Phone: 09-02-1997 haemophilus influenz ae type b vaccine, HbOC conjugate Rylee Jhon PHLEBOTOMY PROGRAM COORDINATOR.[facility] Work Phone: [facility] Work Phone: 05-29-1997 measles, mumps and rubella virus vaccine Rylee Jhon PHLEBOTOMY PROGRAM COORDINATOR.[facility] Work Phone: [facility] Work Phone: 1996 hepatitis B vaccine, pediatric or pediatric/adolescent dosage Rylee Jhon PHLEBOTOMY PROGRAM COORDINATOR.[facility] Work Phone: [facility] Work Phone: 1996 diphtheria, tetanus toxoids and acellular pertussis vaccine Rylee Jhon PHLEBOTOMY PROGRAM COORDINATOR.[facility] Work Phone: [facility] Work Phone: 1996 haemophilus influenz ae type b vaccine, HbOC conjugate Rylee Jhon PHLEBOTOMY PROGRAM COORDINATOR.[facility] Work Phone: [facility] Work Phone: 1996 trivalent poliovirus vaccine, live, oral Rylee Jhon PHLEBOTOMY PROGRAM COORDINATOR.[facility] Work Phone: [facility] Work Phone: 1996 diphtheria, tetanus toxoids and acellular pertussis vaccine Rylee Jhon PHLEBOTOMY PROGRAM COORDINATOR.[facility] Work Phone: [facility] Work Phone: 1996 haemophilus influenz ae type b vaccine, HbOC conjugate Rylee Jhon PHLEBOTOMY PROGRAM COORDINATOR.[employer] TER[employer]ARE SOCIAL WORKER Work Phone: [facility] Work Phone: 1996 trivalent poliovirus vaccine, live, oral Rylee Jhon PHLEBOTOMY PROGRAM COORDINATOR.[facility] Work Phone: [facility] Work Phone: 1996 diphtheria, tetanus toxoids and acellular pertussis vaccine Rylee Jhon PHLEBOTOMY PROGRAM COORDINATOR.[facility] Work Phone: [facility] Work Phone: 1996 haemophilus influenz ae type b vaccine, HbOC conjugate Rylee Jhon PHLEBOTOMY PROGRAM COORDINATOR.LONG TERM CARE SOCIAL WORKER Work Phone: [facility] Work Phone: 1996 hepatitis B vaccine, pediatric or pediatric/adolescent dosage Rylee Davisil PHLEBOTOMY PROGRAM COORDINATOR.[employer] TER[employer] CARE SOCIAL WORKER Work Phone: [facility] Work Phone: 1996 trivalent poliovirus vaccine, live, oral Ryleedara Rodriguez PHLEBOTOMY PROGRAM COORDINATOR.[employer] TERM CARE SOCIAL WORKER Work Phone: [facility] Work Phone: 1996 hepatitis B vaccine, pediatric or pediatric/adolescent dosage Rylee Davisil PHLEBOTOMY PROGRAM COORDINATOR.[employer] TER[employer] CARE SOCIAL WORKER Work Phone: [facility] Work Phone: Payers Date Payer Category Payer Unknown [id number] 2024 Self-pay [id number] 2022 Unknown [id number] 2020 Unknown [employer] PPO OOS [id number] 2020-Present [phone] [address] [place] [address] PPO [id number] 2020 Unknown [id number] Unknown [place] [id number] Unknown [employer] [id number] Unknown [facility] [id number] Unknown [id number] Unknown [id number] Unknown [id number] Unknown [id number] Social History Date Type Detail Facility Start: 07-02-2010 End: 08-10-2024 Tobacco smoking status NHIS Never smoked tobacco [facility] Work Phone: Start: 07-02-2010 End: 12-14-2022 Tobacco use and exposure Smokeless tobacco non-user [facility] Work Phone: Start: 09-18-2021 End: 01-11-2023 Alcohol intake Current drinker of alcohol (finding) [facility] Start: 09-11-2021 History SDOH Alcohol Frequency 1 [facility] Start: 09-01-2017 History SDOH Alcohol Comment occasionally, not while [facility] Start: 09-11-2021 History SDOH Social Connections Phone 5 [facility] Start: 09-11-2021 History SDOH Social Connections Get Together 98 [facility] Start: 09-11-2021 History SDOH Social Connections Membership 2 [facility] Start: 09-11-2021 History SDOH Physica l Activity MPS 15 [facility] Start: 09-11-2021 History SDOH Financial 3 [facility] Start: 05-16-2020 Education 12 [facility] Start: 1995 Sex Assigned At Not on file C [facility] Start: 09-08-2021 End: 09-18-2021 Exposure to SARS-CoV-2 (event) Not sure [facility] Start: 10-09-2021 End: 12-14-2022 History of Social function [facility] Start: 10-09-2021 End: 12-14-2022 Tobacco use panel [facility] Start: 11-09-2022 Tobacco smoking stat us WAIS Unknown if ever smoked [facility] Start: 04-26-2018 None [facility] Start: 08-09-2020 Non-smoker [facility] Start: 1995 Sex Assigned At Female W [facility] Has the [employer], [employer], or water [employer] threatened to shut off services in your home in past 12Mo No [facility] Are you now , , , , never or living with a partner? Never [facility] How often to you hav e a drink containing alcohol? Monthly or less [facility] How many standard drinks containing alcohol do you have on a typical day? 1 or 2 [facility] How often do you hav e 6 or more drinks on 1 occasion? Never [facility] How hard is it for y ou to pay for the very basics like food, housing, medical care, and heating Hard [facility] Adult Depression Screening Assessment 1 [facility] Do you feel stress - tense, restless, nervous, or anxious, or unable to sleep at night because your mind is troubled all the time - these days [OSQ] To some extent [facility] (I/We) worried whebrandon er (my/our) food would run out before (I/we) got money to buy more. Sometimes true [facility] The food that (I/we) bought just didn't last, and (I/we) didn't have money to get more. Never true [facility] In the past 12 month s, was there a time when you were not able to pay the mortgage or rent on time? Yes [facility] NEGATED: Highlighted row [facility] Clinical Notes 09-19-2017 to 08-22-2024 Note Date & Type Note Facility 08-22-2024 Radiology Diagnostic study note [facility] Imaging Services [address] [place], [place] [address] Pelvic w/ Transvaginal MR#: [id number] Acct: [id number] Name: FILIPPO GREENFIELD Rep #: [id number] 2 : 1995 F 29 From: Stefania Munoz MD PCP: Care Physician,No Primary Status: REG CLI Study:Pelvic w/ Transvaginal Date of Exam: 08/21/24 Exam# [id number] Ordering Dr: Sadie Hastings MD PROCEDURE: PELVIC W/ TRANSVAGINAL 08/21/2024 REASON FOR EXAM: ABNORMAL UTERINE BLEEDING TECHNIQUE: Transabdominal and transvaginal pelvic ultrasound. Color doppler analysis of the ovaries. COMPARISON: None. FINDINGS: Measurements: Uterus: 8.3 x 3.3 x 4.8 cm for volume of 68.8 mL Endometrial Thickness: 0.7 cm Right Ovary: 3.4 x 1.9 x 2.1 cm for volume of 7.1 mL Left Ovary: 2.5 by 1.6 x 1.5 cm for volume of 3.1 mL . Uterus: Anteverted. Normal contour and myometrial echotexture. Nabothian cysts at the cervix. Endometrium: Normal echotexture. Right ovary: Normal size and echotexture. Left ovary: Normal size and echotexture. Other adnexal findings: None. Cul-de-sac: No free intraperitoneal fluid identified. Color Doppler: Normal color flow doppler signal at both ovaries. US/Pelvic w/ Transvaginal IMPRESSION: Unremarkable pelvic ultrasound. Reading Location: [id number] CC: Dr. Sadie Gee MD; No Primary Care Physician ~ Program Coordinator Executive Education: Signed [facility] 08-10-2024 Evaluation note Diagnosis Onset Date Resolution Abnormal uterine bleeding acute August 10, 2024 10:49am Sterilization acute August 10, 2 025 10:49am Encounter for routine gynecological examination noneactive August 10, 2024 10:49am [facility] Work Phone: [phone] 163-953910-24-2024 Telephone encounter Note* Telephone Encounter - Danuta Celaya LPN - 01/12/2024 9:01 AM EDT The patient has been identified by name and date of : Yes Caregiver verified no other encounters exist for this prescription request: Yes Caregiver confirmed with patient/requestor that no other refills are due, in the near future, with this provider at this time: Yes The last office visit in the department: 01/11/2023 Does the patient have a future office visit with this provider/department: No Visit date not found Requested Prescriptions Pending Prescriptions Disp Refills buPROPion XL (WELLBUTRIN XL) 150 mg 24 hr tablet 30 tablet 0 Sig: Take 1 tablet by mouth once daily. Danuta Celaya LPN January 12, 2024 9:14 AM [facility]10-24-2024 Miscellaneous Notes* Telephone Encounter - Danuta Celaya LPN - 01/12/2024 9:01 AM EDT The patient has been identified by name and date of : Yes Caregiver verified no other encounters exist for this prescription request: Yes Caregiver confirmed with patient/requestor that no other refills are due, in the near future, with this provider at this time: Yes The last office visit in the department: 01/11/2023 Does the patient have a future office visit with this provider/department: No Visit date not found Requested Prescriptions Pending Prescriptions Disp Refills buPROPion XL (WELLBUTRIN XL) 150 mg 24 hr tablet 30 tablet 0 Sig: Take 1 tablet by mouth once daily. Danuta Celaya LPN January 12, 2024 9:14 AM documented in this encounterC[facility] Telephone encounter Note * Telephone Encounter - Danuta Celaya LPN - 10/05/2023 3:03 PM EDT Spoke with pt and information listed below given. Pt verbalizes understanding. Danuta Celaya LPN [facility]07-17-2024 Miscellaneous Notes* Telephone Encounter - Danuta Celaya LPN - 10/05/2023 3:03 PM EDT Spoke with pt and information listed below given. Pt verbalizes understanding. Danuta Celaya LPN * Telephone Encounter - Rylee Rodriguez APRN.CNP - 10/05/2023 8:22 AM EDT Patient asking if she can receive a higher dose of Singulair. 10 mg is the maximum dose. The following approved medication requests have been transmitted electronically. Requested Prescriptions Pending Prescriptions Disp Refills montelukast (SINGULAIR) 10 mg tablet 90 tablet 3 Sig: Take 1 tablet by mouth daily at bedtime. FLUoxetine (PROZAC) 40 mg capsule 90 capsule 3 Sig: Take 1 capsule by mouth once daily. Rylee Rodriguez APRN.CNP * Telephone Encounter - Radha Peters LPN - 10/05/2023 7:24 AM EDT [facility]-01/11/23 Labs-12/14/22 NOV- My chart message sent. Radha Peters LPN documented in this encounterC[facility]07-[facility]-2024 Telephone encounter Note * Telephone Encounter - Rylee Rodriguez APRN.CNP - 10/05/2023 8:22 AM EDT Patient asking if she can receive a higher dose of Singulair. 10 mg is the maximum dose. The following approved medication requests have been transmitted electronically. Requested Prescriptions Pending Prescriptions Disp Refills montelukast (SINGULAIR) 10 mg tablet 90 tablet 3 Sig: Take 1 tablet by mouth daily at bedtime. FLUoxetine (PROZAC) 40 mg capsule 90 capsule 3 Sig: Take 1 capsule by mouth once daily. Rylee Rodriguez APRN.CNP [facility]07-17-2024 Telephone encounter Note* Telephone Encounter - Rylee Rodriguez APRN.CNP - 10/05/2023 8:20 AM EDT The following approved medication requests have been transmitted electronically. Requested Prescriptions Pending Prescriptions Disp Refills buPROPion XL (WELLBUTRIN XL) 150 mg 24 hr tablet 30 tablet 0 Sig: Take 1 tablet by mouth once daily. Rylee Rodriguez APRN.CNP [facility]07-17-2024 Miscellaneous Notes* Telephone Encounter - Rylee Rodriguez APRN.CNP - 10/05/2023 8:20 AM EDT The following approved medication requests have been transmitted electronically. Requested Prescriptions Pending Prescriptions Disp Refills buPROPion XL (WELLBUTRIN XL) 150 mg 24 hr tablet 30 tablet 0 Sig: Take 1 tablet by mouth once daily. Rylee Rodriguez APRN.CNP * Telephone Encounter - Radha Peters LPN - 10/05/2023 7:29 AM EDT [facility]-01/11/23 labs-12/14/22 NOV- my chart message sent. Radha Peters LPN documented in this encounterC[facility]07-17-2024 Telephone encounter Note * Telephone Encounter - Radha Peters LPN - 10/05/2023 7:29 AM EDT [facility]-01/11/23 labs-12/14/22 NOV- my chart message sent. Radha Peters LPN [facility]07-17-2024 Telephone encounter Note* Telephone Encounter - Radha Peters LPN - 10/05/2023 7:24 AM EDT [facility]-01/11/23 Labs-12/14/22 NOV- My chart message sent. Radha Peters LPN [facility]12-11-2023 Miscellaneous Notes* Telephone Encounter - Rylee Rodrigeuz APRN.CNP - 02/28/2023 11:23 AM EST The following approved medication requests have been transmitted electronically. Requested Prescriptions Pending Prescriptions Disp Refills albuterol HFA (VENTOLIN HFA) 90 mcg/actuation inhaler 8 g 11 Sig: Inhale 2 Puffs as instructed every 4 hours as needed for wheezing/shortness of breath. Rylee Rodriguez APRN.CNP documented in this encounterCleveland [facility]10-24-2023 NoteHNO ID: [id number] Author: Rylee Rodriguez APRN.CNP Service: ? Author Type: Nurse Practitioner Type: Progress Notes Filed: 01/11/2023 1:13 PM Note Text: Chief Complaint Patient presents with: 4 week f/u Immunizations: Flu vaccination HPI Filippo Greenfield is a 27 year old female who presents here today for Chronic Medical Conditions. follow up for anxiety, depression and fatigue. Patient is here for 4 week follow-up. At her last encounter she was describing some ongoing anxiety and depressive symptoms that were being exacerbated by some difficulties at the home. She was already prescribed Prozac 40 mg. We added Wellbutrin XL 150 milligrams to her regimen. She had some lab work done for ongoing fatigue. This was mostly normal. Since starting the Wellbutrin, patient states that she has had an increase in some energy. No longer having tearful events. Sleep has been okay. Has had use hydroxyzine twice for some increased anxiety. Denies any side effects of medication at this time. She overall believes that the medication is helping. Feels better than 1 month ago. Would like to continue at this current dose at this time. She would like to get her influenza and COVID vaccines today. Past medical history, appointments, medications, allergies reviewed. EXAM: BP 127/82 Pulse 83 Resp 16 Wt 118.2 kg (260 lb 9.6 oz) LMP 07/22/2017 (Exact Date) SpO2 98% BMI 45.44 kg/m? General Appearance: Well appearing, alert, in no acute distress, well-hydrated, well nourished.. Lungs: Lungs clear to auscultation. No wheezing, rhonchi, rales.. Heart: RRR without murmur, gallop, or rubs. No ectopy. Component Latest Ref Rng AND Units 12/14/2022 WBC 3.70 - 11.00 k/uL 10.72 RBC 3.90 - 5.20 m/uL 4.62 Hemoglobin 11.5 - 15.5 g/dL 12.7 Hematocrit 36.0 - 46.0 % 39.8 MCV 80.0 - 100.0 fL 86.1 MCH 26.0 - 34.0 pg 27.5 MCHC 30.5 - 36.0 g/dL 31.9 RDW-CV 11.5 - 15.0 % 13.2 Platelet Count 150 - 400 k/uL 393 MPV 9.0 - 12.7 fL 10.1 Neut% % 57.4 Abs Neut (ANC) 1.45 - 7.50 k/uL 6.16 Lymph% % 31.9 Abs Lymph 1.00 - 4.00 k/uL 3.42 Bennett% % 6.8 Abs Bennett <0.87 k/uL 0.73 Eosin% % 2.7 Abs Eosin <0.46 k/uL 0.29 Baso% % 0.7 Abs Baso <0.11 k/uL 0.07 Immature Gran % % 0.5 IMMATURE GRANS (ABS) <0.10 k/uL 0.05 NRBC /100 WBC 0.0 Absolute nRBC <0.01 k/uL <0.01 DTYPE Auto Protein, Total 6.3 - 8.0 g/dL 7.3 Albumin 3.9 - 4.9 g/dL 4.0 Calcium 8.5 - 10.2 mg/dL 9.6 Bilirubin, Total 0.2 - 1.3 mg/dL 0.2 Alkaline Phosphatase 34 - 123 U/L 104 AST 13 - 35 U/L 36 (H) ALT 7 - 38 U/L 44 (H) Glucose 74 - 99 mg/dL 79 BUN 7 - 21 mg/dL 8 Creatinine 0.58 - 0.96 mg/dL 0.62 Sodium 136 - 144 mmol/L 139 Potassium 3.7 - 5.1 mmol/L 4.2 Chloride 97 - 105 mmol/L 104 CO2 22 - 30 mmol/L 23 Anion Gap 9 - 18 mmol/L 12 eGFR >=60 mL/min/1.73mA? 126 TSH 0.270 - 4.200 mIU/L 1.650 ASSESSMENT/PLAN: 1. Anxiety with depression - ICD9: 300.4, ICD10: F41.8 (primary diagnosis) -Overall anxiety and depression has improved but is still present. Patient discussing that some of her home life factors will continue for the near future. She elected to continue with Prozac and Wellbutrin as prescribed. She can continue to use Vistaril as needed. We will follow-up in 3 months. I encouraged her to reach out to me via [employer] if she finds that she is needing an increased dose in the Wellbutrin and we can increase and continue with 3-month follow-up. She verbalized understanding. 2. Fatigue, unspecified type - ICD9: 780.79, ICD10: R53.83 - improved 3. Need for influenza vaccination - ICD9: V04.81, ICD10: Z23 - INFLUENZA VACCINE, AGE 6 MO - 64 YR, QUADRIVALENT (AFLURIA, FLULAVAL, FLUZONE) 4. Encounter for immunization - ICD9: V03.89, ICD10: Z23 - PFIZER-BIONTECH COVID-19 VACCINE ( SEASON) AGE 12+ YR Rylee Rodriguez APRN.LONG TERM CARE SOCIAL WORKER RTO in 3 months, sooner if needed. This note was partly generated using [employer] voice recognition dictation and may contain some misspelled or inaccurate words missed on review.[facility]09-26-2023 NoteHNO ID: [id number] Author: Rylee Rodriguez APRN.LONG TERM CARE SOCIAL WORKER Service: ? Author Type: Nurse Practitioner Type: Progress Notes Filed: 12/14/2022 1:57 PM Note Text: Chief Complaint Patient presents with: Depression and anxiety HPI Filippo Greenfield is a 27 year old female who presents here today for Chronic Medical Conditions. follow up for depression. Patient has history of anxiety depression. She is currently prescribed Prozac 40 mg. Been taking for about 2 years. Has some ongoing family health issues with daughters that has exacerbated the anxiety and depression. Previously was doing okay. She either sleeps too much or not enough. Rumination is usually present. Last few days, she has had some crying spells. Feels like she is has wanted to dip into a dark hole. Some outburst that her daughter did with her ADHD, autism. She has continued complaints of fatigue. She has documented chronic fatigue. She has had evaluation in the past which included normal CBC, TSH, free T4 and T3. Normal glucose. This was in 2020. She states that this continues. Has had weight gain. Sleeps a lot. Mother has thyroid disease Past medical history, appointments, medications, allergies reviewed. EXAM: BP 122/81 Pulse 87 Resp 16 Wt 119.4 kg (263 lb 3.2 oz) LMP 07/22/2017 (Exact Date) SpO2 96% BMI 45.89 kg/m? General Appearance: Well appearing, alert, in no acute distress, well-hydrated, well nourished.. Neck: Supple, no adenopathy; thyroid symmetric, normal size, no bruits. Lungs: Lungs clear to auscultation. No wheezing, rhonchi, rales.. Heart: RRR without murmur, gallop, or rubs. No ectopy. ASSESSMENT/PLAN: 1. Anxiety with depression - ICD9: 300.4, ICD10: F41.8 (primary diagnosis) -Ongoing anxiety and depression that has been exacerbated by family situation. Continue Prozac 40 mg daily. Add Wellbutrin for depressive symptoms. Hoping that anxiety will also improve. Vistaril for panic or difficulty sleeping. Discussed side effect of grogginess with this medication. Follow-up in 4 weeks. Consider BuSpar if anxiety continues to be uncontrolled. - BUPROPION XL 150 MG TAB - HYDROXYZINE PAMOATE 25 MG CAPSULE 2. Fatigue, unspecified type - ICD9: 780.79, ICD10: R53.83 -Chronic ongoing fatigue. Discussed with patient that excessive sleeping could possibly be secondary to ongoing depression. She does have a family history of thyroid disease with her mother. We will check labs today. I encouraged her to start exercising more often, eating a low carbohydrate, low sugar diet. We will follow-up in a month on this progress. - TSH BLD - CBC + DIFF - COMP METABOLIC PANEL Rylee Rodriguez APRN.CNP RTO in 1 months, sooner if needed. This note was partly generated using [employer] voice recognition dictation and may contain some misspelled or inaccurate words missed on review.[facility]07-11-2023 Miscellaneous Notes* Telephone Encounter - Rylee Rodriguez APRN.CNP - 09/28/2022 8:56 AM EDT The following approved medication requests have been transmitted electronically. Requested Prescriptions Pending Prescriptions Disp Refills montelukast (SINGULAIR) 10 mg tablet 90 tablet 3 Sig: Take 1 tablet by mouth daily at bedtime. FLUoxetine (PROZAC) 40 mg capsule 90 capsule 3 Sig: Take 1 capsule by mouth once daily. Rylee Rodriguez APRN.CNP * Telephone Encounter - Kelsey Rodney OCCA - 09/28/2022 8:30 AM EDT Patient has been identified by name and date of : Yes Patient phones for refill(s): Requested Prescriptions Pending Prescriptions Disp Refills montelukast (SINGULAIR) 10 mg tablet 90 tablet 3 Sig: Take 1 tablet by mouth daily at bedtime. FLUoxetine (PROZAC) 40 mg capsule 90 capsule 3 Sig: Take 1 capsule by mouth once daily. Date of last office visit in primary care: REBE[facility] 10/09/21 NOV not scheduled Last 2 Encounter Wt Readings: Date: Wt: 10/09/2021 108 kg (238 lb) 10/02/2021 109.3 kg (241 lb) Please advise. Thank you. DENIS Pena documented in this encounterC[facility]07-15-2022 History of Present illness Narrative* ERIN Hernandez - 10/02/2021 8:56 AM EDT PULM FUNCTION SMARTBLOCK: Provider: Rylee Rodriguez APRN.CNP Assisting Tech: ERIN Hernandez Spirometry w/BD: 1 documented in this encounterCleveland [facility]07-01-2022 History of Present illness Narrative* Rylee Rodriguez APRN.LONG TERM CARE SOCIAL WORKER - 09/18/2021 8:31 AM EDT Chief Complaint Patient presents with: Allergies HPI Filippo Greenfield is a 26 year old female who presents here today for Above Complaints.. Here for complaints of intermittent episodes of wheezing. Triggers are hot,humid weather and high pollen counts tend to cause. Not really cold weather. Ongoing for about 3-4 months. During those times, wheezing and coughing. Some chest tightness or compression during those times. A lot of the days, she will have to take allergy medications and ibuprofen. Never a smoker. Biological father was a smoker when she was younger. No history of asthma or child asthma. No history of hay fever or eczema. No history of previous allergy testing. She works at [employer] in [place]. She states that she is around dry ingredients, powders. Also it is very hot there. She is taking a daily allergy medication. Usually benadryl. Past medical history, appointments, medications, allergies reviewed. Previous Medical History PAST MEDICAL HISTORY Diagnosis Date Atypical squamous cells of undetermined significance (ASCUS) on Papanicolaou smear of cervix 09/27/2017 Depression PMH - PAST MEDICAL HISTORY OF 2009 normal color vision Previous Surgical History PAST SURGICAL HISTORY Procedure Laterality Date PAST SURGICAL HISTORY OF wisdom teeth Family History FAMILY HISTORY Problem Relation Age of Onset Psychiatry Mother Depression other (hypothyroidism) Mother Cancer Maternal Grandfather Skin Cancer Maternal Grandmother other (bipolar) Father Hypertension Paternal Grandfather Diabetes Paternal Grandmother Psychiatry Brother Depression Psychiatry Brother Depression other (hypertension) Maternal Aunt other (hyperthyroidism) Maternal Aunt Patient Allergies ALLERGIES Allergen Reactions Coconut Other: See Comments Migraines Kiwi Itching Milk Intolerance Current Medications Current Outpatient Medications on File Prior to Visit Medication Sig FLUoxetine HCl (PROZAC) 40 mg capsule Take 1 capsule by mouth once daily. CPAP Initiate Auto PAP @ 8-15 cm of water with humidification. Mask (per patient preference) optional chin strap (if indicated) , filters, tubing, humidifier and lifetime supplies. A small Scoreoid Eson 2 nasal mask ibuprofen (MOTRIN) 600 mg tablet EVERY 6 HOURS PRN For Pain Qypbtqkq-Ru-Pyn-Fe-FA ( VITAMIN) tab Take 1 tablet by mouth. No current facility-administered medications on file prior to visit. Social History Social History Tobacco Use Smoking status: Never Smoker Smokeless tobacco: Never Used Substance Use Topics Alcohol use: Yes Comment: occasionally, not while Drug use: No REVIEW OF SYSTEMS: as above Reviewed relevant PMHx, PSHx, Social Hx, current medications and allergies. EXAM: BP 110/70 Pulse 84 Temp 36.3 C (97.4 F) (Left Tympanic) Resp 16 Wt 108 kg (238 lb) LMP 07/22/2017 (Exact Date) SpO2 97% BMI 42.16 kg/m General Appearance: Well appearing, alert, in no acute distress, well-hydrated, well nourished. andOverweight. Lungs: Lungs clear to auscultation. No wheezing, rhonchi, rales.. Heart: RRR without murmur, gallop, or rubs. No ectopy. Health Maintenance List MENINGOCOCCAL B: Consider based on risk(1 of 2 - Risk Bexsero 2-dose series) Never done HEPATITIS C SCREENING Never done COVID-19 VACCINE(3 - Booster for Pfizer series) due on 01/03/2021 PAP TESTING due on 09/05/2021 INFLUENZA(1) due on 11/19/2021 DEPRESSION SCREENING due on 09/11/2022 DTAP,TDAP,TD(8 - Td or Tdap) due on 03/31/2028 HPV VACCINE Completed HIV SCREENING Completed ASSESSMENT/PLAN: 1. Wheezing - ICD9: 786.07, ICD10: R06.2 (primary diagnosis) - Reactive lung disease? Trial singular. Advised on use of claritin also. Get spirometry. Use albuterol as needed. - SPIROMETRY - BASELINE AND POST DILATOR - MONTELUKAST 10 MG TABLET - ALBUTEROL SULFATE HFA 90 MCG/ACTUATION AEROSOL INHALER 2. Environmental allergies - ICD9: V15.09, ICD10: Z91.09 - Consider referral to allergy if not improving. - MONTELUKAST 10 MG TABLET Rylee Rodriguez APRN.LONG TERM CARE SOCIAL WORKER RTO in 1 months, sooner if needed. This note was partly generated using [employer] voice recognition dictation and may contain some misspelled or inaccurate words missed on review. [facility] History of Past illness Narrative* Problem Noted Date Resolved Date Rubella non-immune status, antepartum 09/19/2017 05/10/2018 Overview: 09/19/17: Rubella Non-Immune, offer MMR vaccine in PP period. Carmelita Mendez APRN.CNM Nausea and vomiting in 09/01/2017 01/09/2018 Overview: 09/01/2017.Patient is complaining of nausea in . Has vomited once. Dietary considerations discussed. Recommended Vitamin B6 and Holly. Advised patient to call/come in if she is unable to keep any food or fluids down in a 24-hour period. TKRN documented as of this encounter (statuses as of 09/18/2021) [facility] History of Past illness Narrative* Problem Noted Date Resolved Date Rubella non-immune status, antepartum 09/19/2017 05/10/2018 Overview: 09/19/17: Rubella Non-Immune, offer MMR vaccine in PP period. Carmelita Mendez APRN.CNM Nausea and vomiting in 09/01/2017 01/09/2018 Overview: 09/01/2017.Patient is complaining of nausea in . Has vomited once. Dietary considerations discussed. Recommended Vitamin B6 and Holly. Advised patient to call/come in if she is unable to keep any food or fluids down in a 24-hour period. TKRN documented as of this encounter (statuses as of 10/02/2021) [facility] History of Past illness Narrative* Problem Noted Date Diagnosed Date Resolved Date Rubella non-immune status, antepartum 09/19/2017 05/10/2018 Overview: 09/19/17: Rubella Non-Immune, offer MMR vaccine in PP period. Carmelita Mendez APRN.CNM Nausea and vomiting in 09/01/2017 01/09/2018 Overview: 09/01/2017.Patient is complaining of nausea in . Has vomited once. Dietary considerations discussed. Recommended Vitamin B6 and Holly. Advised patient to call/come in if she is unable to keep any food or fluids down in a 24-hour period. TKRN documented as of this encounter (statuses as of 09/28/2022) [facility] History of Past illness Narrative* Problem Noted Date Diagnosed Date Resolved Date Rubella non-immune status, antepartum 09/19/2017 05/10/2018 Overview: 09/19/17: Rubella Non-Immune, offer MMR vaccine in PP period. Carmelita Mendez APRN.CNM Nausea and vomiting in 09/01/2017 01/09/2018 Overview: 09/01/2017.Patient is complaining of nausea in . Has vomited once. Dietary considerations discussed. Recommended Vitamin B6 and Holly. Advised patient to call/come in if she is unable to keep any food or fluids down in a 24-hour period. TKRN documented as of this encounter (statuses as of 02/28/2023) [facility] Jerry Tran [facility] November 09, 2022 1:13am Note Date/Time November 09, 2022 12 :47am [facility] Medical Records Department [address] [place] [address] Emergency Department Summary 11/09/22 MR#: [id number] Acct: [id number] Name: FILIPPO GREENFIELD Rep #:[id number] 5 : 1995 27 From: Jerry Tran MD PCP: Care Physician,No Primary Status :REG ER Location: ED HPI History of Present Illness Chief Complaint: Upper Extremity Injury Informant: patient Onset/Context/Timing Onset: Yesterday Narrative Narrative: Patient states she was putting a pillowcase back on her pillow she reported overher had come on all of a sudden and doing this she felt a pop and sudden pain inher right thumb and wrist that has been persistent and severe. Hurts to move her thumb. She states she is partially concerned because she had a remote injury to her right wrist, it was work related about 2 years ago, crushed between a pole and a jonny truck. She states she has some intermittent chronicissues with it since then, but this is not the same pain. [facility] Medical History Anxiety Depression Home Medications ibuprofen 600 mg tablet 600 mg PO Q6H PRN Pain #60 tabs 04/28/18 [Rx Last Taken Unknown] Allergy/AdvReac Type Severity Reaction Status Date / Time milk Allergy Vomiting Verified 11/09/22 00:47 KIWI Allergy Intermediate Angioedema Uncoded 11/09/22 00:47 Social History Smoking Status: Never smoker ROS ROS ED Constitutional Constitutional ED: Denies chills or fever(s) Musculoskeletal Musculoskeletal: Reports extremity pain; Denies neck pain Integumentary Denies Abrasions, rash or wounds Neurologic Neurologic: Denies paresthesias or weakness EXAM Physical Exam Const Vital Signs: 11/09/22 00:40 Temperature 97.0 F L Temperature Source Temporal Pulse Rate 95 Respiratory Rate 18 Blood Pressure 150/89 H Blood Pressure Mean 109 Pulse Ox 97 Oxygen Delivery Method Room Air Positive well nourished and well developed General Appearance ED: well developed and NAD Neck full ROM and supple Back/Spine normal ROM and normal to inspection Extremity normal to inspection Extremity Narrative: Tender throughout the right first metacarpal and mildly in the snuffbox. Also less tender in the proximal phalanx of the thumb. Full range of motion, limitedat extremes of extension and flexion due to pain, but able to oppose, flex at the IPJ, and extend without apparent difficulty. No tenderness otherwise at thewrist. Neuro oriented x3, no focal motor deficits and no sensory deficits noted Sensorium / Orientation: alert Psych mental status grossly normal and thought process normal Skin no wounds Rashes: no rashes MDM MDM MDM Narrative Medical decision making narrative: Three-view x-ray series of the right hand on my interpretation negative for acute bony abnormality. The scaphoid does not appear to be fractured either. We will give her a thumb spica splint for comfort, dose of ibuprofen and advisedto follow-up with her doctor if symptoms persist. Discharge Plan Triage Chief Complaint: Upper Extremity Injury ED Provider: Jerry Tran Dx/Rx/DC Orders Clinical Impression: Injury of thumb, right Instructions: ED Tendonitis Prescriptions: No Action ibuprofen 600 MG tablet 600 mg PO Q6H PRN (Reason: Pain) Qty: 60 1RF Primary Care Provider: Care Physician,No Primary Referrals: Reinier Austin MD [Med Staff - Active Staff] - 10-14 Days if not better Activity Restrictions/Additional Instructions: Ibuprofen as needed for pain Disposition Disposition: Home, Self Care What to do if you have Problems For any increased pain, shortness of breath, bleeding, nausea or vomiting, chestpain, or any unexpected problems, contact your Primary Care Provider. Call [facility] ([phone]) or report to the closest Emergency Room. Call 911 if necessary. 11/09/22 0113 <Electronically signed by Jerry Tran MD> Cosigner Signature (if applicable): CC: No Primary Care Physician ~ Signed [facility] Work Phone: Evaluation note* Diagnosis Wheezing- Primary Environmental allergies Other allergy, other than to medicinal agents documented in this encounter [facility] note* Diagnosis Wheezing documented in this encounter [facility] note* Diagnosis Environmental allergies Other allergy, other than to medicinal agents Wheezing Anxiety with depression documented in this encounter [facility] noteNo assessment information availableWNorwalk Memorial Hospital Work Phone: Evaluation note* Diagnosis Wheezing documented in this encounter [facility] note* Diagnosis Environmental allergies Other allergy, other than to medicinal agents Wheezing documented in this encounter [facility] note* Diagnosis Anxiety with depression documented in this encounter [facility] note* Diagnosis Environmental allergies Other allergy, other than to medicinal agents Wheezing Anxiety with depression documented in this encounter [facility] note* Diagnosis Anxiety with depression documented in this encounter [facility] Discharge instructions Additional Instructions Ibuprofen as needed for painWNorwalk Memorial Hospital Work Phone: Reason for referral (narrative)* Outpatient Procedure (Routine) - Pending Review Specialty Diagnoses / Procedures Referred By Kelechi moran Ref[facility] Diagnoses Wheezing Procedures SPIROMETRY - BASELINE AND POST DILATOR BRNCDILAT RSPSE SPMTRY PRE&POST-BRNCDILAT ADMN Rylee Rodriguez APRN.CNP [address] [place] [address] [facility] [place] [address] [place] [address] Referral ID Status Reason Start Date Expiration Date Visits Requested Visits Authorized [id number] Pending Review Auto-Generat ed Referral 09/18/2021 10/18/2022 1 1 [facility] (narrative)No reason for referral information availableWNorwalk Memorial Hospital Work Phone: Chief Complaint and Reason for Visit Chief Complaint Admit Date 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) August 10, 2024 10:49 am AUB August 21, 2024 8:14a m Reason for Visit Admit Date Abnormal uterine bleeding August 10, 2024 10:49am Sterilization August 10, 2024 10:49 am Encounter for routine gynecological exam ination August 10, 2024 10:49am Chief Complaint UPPER EXTREMITY INJU RY Chief Complaint Admit Date 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) August 10, 2024 10:49 am Advance Directives No Advanced Directives Records Found Advance Directive Response Recorded Date/ Time Living Will No November 09 1:22am Power of Machine Quilt Stuffer No November 09 023 1:22am Summary Purpose Family History No Family History Records Found Relationship Condition Age at Onset Recorded Date/T myriam mother Disorder of thyroid Unknown grandmother Disorder of thyroid Unknown Malignant neoplasm of breast Unknown Malignant neoplasm of cervix Unknown aunt Disorder of thyroid Unknown Additional Source Comments Source Comments (unrecognize d section and content) In the event this informatio n is protected by the Federal Confidentiality of Alcohol and Drug Abuse Patient Records regulations: The Federal rules restrict any use of the information to criminally investigate or prosecute any alcohol or drug abuse patient.[facility] Hospital[facility] the event this information is protected by the Federal Confidentiality of Alcohol and Drug Abuse Patient Records regulations: The Federal rules restrict any use of the information to criminally investigate or prosecute any alcohol or drug abuse patient.[facility] HospitalIn the event this information is protected by the Federal Confidentiality of Alcohol and Drug Abuse Patient Records regulations: The Federal rules restrict any use of the information to criminally investigate or prosecute any alcohol or drug abuse patient.[facility] HospitalIn the event this information is protected by the Federal Confidentiality of Alcohol and Drug Abuse Patient Records regulations: The Federal rules restrict any use of the information to criminally investigate or prosecute any alcohol or drug abuse patient.[facility] HospitalIn the event this information is protected by the Federal Confidentiality of Alcohol and Drug Abuse Patient Records regulations: The Federal rules restrict any use of the information to criminally investigate or prosecute any alcohol or drug abuse patient.[facility] HospitalIn the event this information is protected by the Federal Confidentiality of Alcohol and Drug Abuse Patient Records regulations: The Federal rules restrict any use of the information to criminally investigate or prosecute any alcohol or drug abuse patient.[facility] HospitalIn the event this information is protected by the Federal Confidentiality of Alcohol and Drug Abuse Patient Records regulations: The Federal rules restrict any use of the information to criminally investigate or prosecute any alcohol or drug abuse patient.[facility] HospitalIn the event this information is protected by the Federal Confidentiality of Alcohol and Drug Abuse Patient Records regulations: The Federal rules restrict any use of the information to criminally investigate or prosecute any alcohol or drug abuse patient.[facility] Reason for Visit (unrecogniz ed section and content) Reason Comments Allergies Reason Comments Spirometry Specialty Diagnoses / Procedures Referred By Contac t Referred To Contact [facility] Diagnoses Wheezing Procedures SPIROMETRY - BASELINE AND POST DILATOR BRNCDILAT RSPSE SPMTRY PRE&POST-BRNCDILAT ADMN Rylee Rodriguez, PHLEBOTOMY PROGRAM COORDINATOR.LONG TERM CARE SOCIAL WORKER [address] [place] [address] [facility] [place] [address] [place] [address] Referral ID Status Reason Start Date Expiration Date V isits Requested Visits Authorized [id number] Closed Auto-Generate d Referral 09/28/2021 03/20/2022 1 1 Reason Onset Date Comments Refill Request 09/28/2022 Reason Onset Date Comments Refill Request 02/26/2023 Reason Comments Refill Request Reason Onset Date Comments Refill Request 10/04/2023 Reason Onset Date Comments Refill Request 01/12/2024 Care Teams (unrecognized sec tion and content) Protection Analyst Relationship Specialty Start Date End Date Luis Manuel Cadena MD [address], [place] [id number] PCP - General Family Practice 04/21/21 Protection Analyst Relationship Specialty Start Date End Date Luis Manuel Cadena MD [address] [place], [place] [id number] PCP - General Family Practice 04/21/21 Protection Analyst Relationship Specialty Start Date End Date Luis Manuel Cadena MD [address] [place], [place] [id number] PCP - General Family Medicine 04/21/21 Team Status: Active Member Role Status Dates No Primary Care Physician Family Provider Active No Primary Care Physician Primary Care Provider Active Team Status: Inactive Member Role Status Dates No Primary Care Physician Primary Care Provider Active Dr. Jerry Tran MD Emergency Provider Active Protection Analyst Relationship Specialty Start Date End Date Luis Manuel Cadena MD [address], [place] [id number] PCP - General Family Medicine 04/21/21 Protection Analyst Relationship Specialty Start Date End Date Luis Manuel Cadena MD [address], [place] [id number] PCP - General Family Medicine 04/21/21 Protection Analyst Relationship Specialty Start Date End Date Luis Manuel Cadena MD [address], [place] [id number] PCP - General Family Medicine 04/21/21 Protection Analyst Relationship Specialty Start Date End Date Luis Manuel Cadena MD [address], [place] [address] PCP - General Family Medicine 04/21/21 Protection Analyst Relationship Specialty Start Date End Date Luis Manuel Cadena MD [address], [place] [id number] PCP - General Family Medicine 04/21/21 Team Status: Active Member Role Status Dates No Primary Care Physician Primary Care Provider Active Team Status: Inactive Member Role Status Dates No Primary Care Physician Primary Care Provider Active Start: August 10, 2024 End: August 10, 2024 No Primary Care Physician Referring Provider Active Start: August 10, 2024 End: August 10, 2024 Dr. Sadie Gee MD Attending Provider Active Start: August 10, 2024 End: August 10, 2024 Team Status: Inactive Member Role Status Dates No Primary Care Physician Primary Care Provider Active Start: August 10, 2024 End: August 10, 2024 Dr. Sadie Gee MD Attending Provider Active Start: August 10, 2024 End: August 10, 2024 Dr. Sadie Gee MD Referring Provider Active Start: August 10, 2024 End: August 10, 2024 Team Status: Inactive Member Role Status Dates No Primary Care Physician Primary Care Provider Active Start: August 21, 2024 End: August 21, 2024 Dr. Sadie Gee MD Attending Provider Active Start: August 21, 2024 End: August 21, 2024 Dr. Sadie Gee MD Referring Provider Active Start: August 21, 2024 End: August 21, 2024 Goals (unrecognized section and content) Goals may be documented in a n alternate sectionGoals may be documented in an alternate sectionGoals may be documented in an alternate section INFORMATION SOURCE (unrecogn ized section and content) DATE CREATED AUTHOR 10/13/2023 [facility] DATE CREATED AUTHOR OCTAVIO GUTIERREZ 08/25/2024 [facility] FOR RECORDS PERTAINING TO PATIENTS WHO ARE OR HAVE BEEN ENROLLED IN A CHEMICAL DEPENDENCY/SUBSTANCEABUSE PROGRAM, SOME INFORMATION MAY BE OMITTED. This clinical summary was aggregated from multiple sources. Caution should be exercised in using it in the provision of clinical care. This summary normalizes information from multiple sources, and as a consequence, information in this document may materially change the coding, format and clinical context of patient data. In addition, data may be omitted in some cases. CLINICAL DECISIONS SHOULD BE BASED ON THE PRIMARY CLINICAL RECORDS. [employer] provides no warranty or guarantee of the accuracy or completeness of information in this document.
[2024-09-05] MEDS: 0.9% Saline Lock 10 ML Syringe IV (02:32)
[2024-09-05] MEDS: Ondansetron 4 MG/2 ML Vial IV (02:32)
[2024-09-05] MEDS: Acetaminophen 325 MG Tablet 650 MG PO (03:21)
--- NOTE | 2024-09-05 06:30 | NURSING ---
dressing fell off and was replaced
--- NOTE | 2024-09-05 09:25 | CASEMGMT ---
JESS GILL Assessment Face to Face with patient for initial transition planning/care coordination assessment. JESS GILL introduced self and role at [facility], pt voices understanding. Pt is A&Ox4 and is resting comfortably in bed and is calm. Care providers, pharmacy, and demographics verified. Admitting dx: Post Op Hypoxia. Pt is currently 100% on RA LACE Strata: 1 PCP: No PCP. Provider list given and encouraged to get established Specialists: [facility] Preferred Pharmacy: [facility] Insurance:[employer] Prescription Benefit: Yes LNOK: Na (Mother), Rodger (GM) Living Arrangements: Pt lives with her mother and 6 y/o daughter in a ground level apartment with a loft and a flat entrance ADLs/IADLs: Indep Transportation: Self, mother DME: CPAP with no additional oxygen. Denies further uses or needs HHC/SNF: Denies Pt?s goal: Home Plan: Home, no additional needs identified. Pt states that she feels safe returning home with her family today and denies any additional concerns or needs now. Pt's RN vance. Hao Alicia RN, CM
--- NOTE | 2024-09-05 09:39 | PCM.PN.OB ---
Subjective Subjective Patient doing well without complaints. Tolerating PO. Ambulating without difficulty. Denies chest pain, shortness of breath, calf pain/swelling, fevers, chills, lightheadedness. Objective Data Objective Data Vital Signs: Vital Signs Temp Pulse Resp BP Pulse Ox O2 Del Method O2 Flow Rate 97.8 F 82 18 124/74 H 100 Room Air 2 09/05/24 09:38 09/05/24 09:38 09/05/24 09:38 09/05/24 09:38 09/05/24 09:38 09/05/24 09:38 09/05/24 02:26 Oxygen Flow Rate (L/min) 2 Oxygen Delivery Method Room Air Weight: 272 lb 4.334 oz Body Mass Index (BMI) 48.2 Intake & Output: Intake and Output for Last 24 Hours 09/03/24 09/04/24 09/05/24 23:59 23:59 23:59 Intake Total 1692 / 1692 500 / 500 Output Total 825 / 825 900 / 900 Balance 867 / 867 -400 / -400 Lab / Micro Data 09/04/24 13:40 09/04/24 20:33 Labs: Laboratory Results - last 24 hr 09/04/24 13:20: Urine Test Negative 09/04/24 13:40: WBC 7.2, RBC 4.78, Hgb 13.0, Hct 39.5, MCV 82.6, MCH 27.2, MCHC 32.9, RDW Std Deviation 41.0, RDW Coeff of Teofilo 13.7, Plt Count 320, MPV 9.7, Blood Type O POSITIVE, Antibody Screen NEGATIVE 09/04/24 20:33: Sodium 135, Potassium 4.3, Chloride 102, Carbon Dioxide 19.6 L, Anion Gap 14, BUN 9, Creatinine 0.75, Estim Creat Clear Calc 142.52, Est GFR (MDRD) Non-Af 111, BUN/Creatinine Ratio 12.3, Glucose 116 H, Calcium 9.0 Radiography Diagnostic Testing: Radiology Impression Chest X-Ray 09/04/24 17:20 IMPRESSION: Mild bilateral plethora which may reflect small airways disease such as asthma and/or atypical pneumonia/bronchiolitis. Reading Location: [id number] ROS Constitutional Constitutional: Reports systems reviewed and no addt'l complaints, except as documented Cardiovascular Cardiovascular: Reports systems reviewed and no addt'l complaints, except as documented Respiratory/Chest Respiratory/Chest: Reports systems reviewed and no addt'l complaints, except as documented Gastrointestinal Gastrointestinal: Reports systems reviewed and no addt'l complaints, except as documented Physical Exam Const alert, oriented x3 and no apparent distress HEENT Head and Scalp: atraumatic Resp normal respiratory effort GI soft to palpation and non-tender Assessment & Plan (1) Postoperative hypoxia: (2) Status post bilateral salpingectomy: (3) Encounter for IUD insertion: COMMENT: Spencer PLAN: Plan stable and doing well, await hospitlaist for discharge
--- NOTE | 2024-09-05 10:07 | DCINST_ITS ---
Discharge Instructions Diet Discharge Diet: No restrictions DC O2, CPAP, BIPAP needs Home O2 Discharge instructions: No Dressing / Incision May resume sexual activity in: 1 week Weight Bearing Status: Full weight bearing Dressing / Incision Call your doctor if your incision/area has: Continuous Slow Oozing, Sudden Increased Bleeding, Increased Pain/ Swelling, Increased Redness and Foul Smelling Discharge Call your doctor if you observe: Fever of 101 or Higher, Using more than 1 pad per hour, Shortness of breath, Chest pain and Uncontrolled pain Suture Line Care: Avoid Pulling/Pushing and Avoid Pinching/Bending Cleanse incision/area with: Soap & Water and Keep Dressing Clean & Dry Follow Up Care Test Results: Test results from this visit will be discussed in further detail at your follow- up appointment, if applicable. Discharge Plan Admission Admit Date/Time: 09/04/24 19:15 Primary Reason for Your Visit: Sterilization and respiratory difficulty after surgery Attending Provider: Yareli Rodrigues Primary Care Provider: Care Physician,No Primary Consulting Providers: Sadie Gee; José Luis Garrido; Felipe Thomason Instructions Patient Instructions: 5 Steps for Eating Healthier Additional Instructions / Restrictions: -Follow-up with your OB/gynecology doctor as instructed by your provider -A script was sent for naproxen for pain, do not take this with ibuprofen as the combination could hurt your kidneys. He can resume Tylenol as needed once you are no longer taking naproxen -Please call your primary care provider's office upon discharge to schedule a hospital follow up within 1 week. -For any concerning signs or symptoms please call 911 or proceed to the nearest emergency department Discharge Orders/Prescriptions Prescriptions: New oxycodone-acetaminophen [Percocet] 5-325 mg tablet 1 tab PO Q4H PRN (Reason: pain) 7 Days Qty: 20 0RF naproxen 500 mg tablet 500 mg PO BID PRN PRN (Reason: Pain) Qty: 30 1RF Continued fluoxetine 40 mg capsule 40 mg PO QHS bupropion HCl 300 mg tablet extended release 24 hr 300 mg PO QHS montelukast 10 mg tablet 10 mg PO QHS albuterol sulfate 90 mcg/actuation aerosol powdr breath activated 2 inh inhalation Q6H PRN (Reason: shortness of breath or wheezing) Discontinued ibuprofen 600 MG tablet 600 mg PO Q6H PRN (Reason: Pain) Qty: 60 1RF Referrals / Follow Up: Care Physician,No Primary [Primary Care Provider] - Disposition Disposition (needs filled in before D/C Order can be placed): Home, Self Care
--- NOTE | 2024-09-05 10:10 | DS.PCM_ITS ---
Providers Date of Admission: 09/04/24 Date of Discharge: 09/05/24 Primary Care Physician: Jen Primary Care Phys Consultations 09/04/24 17:19 Consult: Hospitalist Routine Consulting Provider: [facility] Reason for Consult: POSSIBLE ASPIRATION ON EXTUBATION EMERGENT Consult: Yes MD Notified: Yes Date Notified: 09/04/24 Time Notified: 17:20 Method of Notification: Verbal Reason For Visit: POST-OP HYPOXIA Diagnosis Discharge Diagnosis (1) Postoperative hypoxia: Status: Acute Code(s): R09.02 - Hypoxemia; Z98.890 - Other specified postprocedural states (2) Status post bilateral salpingectomy: Status: Acute Code(s): Z90.79 - Acquired absence of other genital organ(s) (3) Encounter for IUD insertion: Status: Acute Code(s): Z30.430 - Encounter for insertion of intrauterine contraceptive device Plan #Post operative negative pressure pulmonary edema ? resolved #encounter for sterilization and IUD insertion #exercise-induced asthma #history of depression Medications at Discharge Home Medications bupropion HCl 300 mg 24 hr tablet, extended release 300 mg PO QHS 08/10/24 fluoxetine 40 mg capsule 40 mg PO QHS 08/10/24 montelukast 10 mg tablet 10 mg PO QHS 08/10/24 albuterol sulfate 90 mcg/actuation breath activated powder inhaler 2 inh inhalation Q6H PRN shortness of breath or wheezing 08/24/24 naproxen 500 mg tablet 500 mg PO BID PRN PRN Pain #30 tabs 09/04/24 oxycodone-acetaminophen 5 mg-325 mg tablet (Percocet) 1 tab PO Q4H PRN pain 7 days #20 tabs 09/04/24 Hospital Course Summary of Care Provided Minutes Spent on Discharge: 25 Hospital Course: 29-year-old female with a history of anxiety and depression, exercise-induced asthma and morbid obesity who presented 09/04/2024 for permanent sterilization and laparoscopic BS and IUD insertion with Dr. Gee with marketing services vice president. Hospitalist contacted postoperatively for admission due to respiratory distress and postop hypoxia. Anesthesia note reviewed, patient had significant bucking of the vent/tube while she was still intubated while they were attempting to extubate and required increased sedation, ultimately she was extubated successfully however she then had some coughing up of pink frothy secretions and anesthesiologist suspected negative pressure pulmonary edema which is treated with supportive care. Hospitalist admitted patient for further monitoring and management. This a.m. patient 99% on room air and doing much better. Chest x- ray showed mild bilateral plethora which could reflect small airway disease like asthma and/or atypical pneumonia/bronchiolitis. Does appear patient has exercise-induced asthma so suspect this is more likely due to her underlying process in addition to difficult extubation. No other evidence of acute pneumonia or other pulmonary pathology. Patient feels back to baseline is vitally stable given patient's improvement she is stable for discharge on 09/05/2024. Physical Exam Narrative General: Alert, oriented, no apparent distress HEENT: Atraumatic, normocephalic Eyes: Anicteric, normal conjunctiva, extraocular movements grossly intact Neck: Supple Respiratory: Clear to auscultation bilaterally, normal respiratory effort Cardiovascular: Regular rate and rhythm GI: Soft, nontender, nondistended Extremities: No edema Musculoskeletal: Moving all extremities Neuro: No overt focal neurological deficits Skin: No rashes appreciated Psych: Cooperative Weight / BMI Weight Weight: 123.5 kg Body Mass Index (BMI) 48.2 ABG / Lab / Microbiology Data 09/04/24 13:40 09/04/24 20:33 Laboratory: Laboratory Results - last 24 hr 09/04/24 13:20: Urine Test Negative 09/04/24 13:40: WBC 7.2, RBC 4.78, Hgb 13.0, Hct 39.5, MCV 82.6, MCH 27.2, MCHC 32.9, RDW Std Deviation 41.0, RDW Coeff of Teofilo 13.7, Plt Count 320, MPV 9.7, Blood Type O POSITIVE, Antibody Screen NEGATIVE 09/04/24 20:33: Sodium 135, Potassium 4.3, Chloride 102, Carbon Dioxide 19.6 L, Anion Gap 14, BUN 9, Creatinine 0.75, Estim Creat Clear Calc 142.52, Est GFR (MDRD) Non-Af 111, BUN/Creatinine Ratio 12.3, Glucose 116 H, Calcium 9.0 Radiography Diagnostic Testing: Radiology Impression Chest X-Ray 09/04/24 17:20 IMPRESSION: Mild bilateral plethora which may reflect small airways disease such as asthma and/or atypical pneumonia/bronchiolitis. Reading Location: [facility] D/C Instructions Discharge Diet: No restrictions May resume sexual activity in: 1 week Weight Bearing Status: Full weight bearing Call your doctor if your incision/area has: Continuous Slow Oozing, Sudden Increased Bleeding, Increased Pain/ Swelling, Increased Redness and Foul Smelling Discharge Call your doctor if you observe: Fever of 101 or Higher, Using more than 1 pad per hour, Shortness of breath, Chest pain and Uncontrolled pain Suture Line Care: Avoid Pulling/Pushing and Avoid Pinching/Bending Cleanse incision/area with: Soap & Water and Keep Dressing Clean & Dry DC O2, CPAP, BIPAP Needs Home O2 Discharge instructions: No When: Call to make an appointment with your doctor for a fu/incision check in 1- 2 weeks. Meaningful Use Info Meaningful Use Meaningful Use Diagnoses (Choose all that apply): None applicable Ischemic Stroke Statin Dosing Therapy Reference: STATIN DOSE THERAPY REFERENCE: * Patients > 75 years receive moderate or high dose statin therapy. * Patients 75 years or YOUNGER should receive HIGH intensity statin dose unless contraindicated. You will be required to document reason for non-treatment if statin daily dose does not meet guidelines. HIGH DOSE STATIN THERAPY DAILY Atorvastatin > than or = to 40 mg Rosuvastatin > than or = to 20 mg Amlodipine + Atorvastatin > than or = to 2.5/40 mg Ezetimibe + Simvastatin 10/80 mg Simvastatin 80mg Discharge Plan Admission Admit Date/Time: 09/04/24 19:15 Primary Reason for Your Visit: Sterilization and respiratory difficulty after surgery Attending Provider: Yareli Rodrigues Primary Care Provider: Care Physician,No Primary Consulting Providers: Sadie Gee; José Luis Garrido; Felipe Thomason Instructions Patient Instructions: 5 Steps for Eating Healthier Additional Instructions / Restrictions: -Follow-up with your OB/gynecology doctor as instructed by your provider -A script was sent for naproxen for pain, do not take this with ibuprofen as the combination could hurt your kidneys. He can resume Tylenol as needed once you are no longer taking naproxen -Please call your primary care provider's office upon discharge to schedule a hospital follow up within 1 week. -For any concerning signs or symptoms please call 911 or proceed to the nearest emergency department Discharge Orders/Prescriptions Prescriptions: New oxycodone-acetaminophen [Percocet] 5-325 mg tablet 1 tab PO Q4H PRN (Reason: pain) 7 Days Qty: 20 0RF naproxen 500 mg tablet 500 mg PO BID PRN PRN (Reason: Pain) Qty: 30 1RF Continued fluoxetine 40 mg capsule 40 mg PO QHS bupropion HCl 300 mg tablet extended release 24 hr 300 mg PO QHS montelukast 10 mg tablet 10 mg PO QHS albuterol sulfate 90 mcg/actuation aerosol powdr breath activated 2 inh inhalation Q6H PRN (Reason: shortness of breath or wheezing) Discontinued ibuprofen 600 MG tablet 600 mg PO Q6H PRN (Reason: Pain) Qty: 60 1RF Referrals / Follow Up: Care Physician,No Primary [Primary Care Provider] - Disposition Disposition (needs filled in before D/C Order can be placed): Home, Self Care Charges/Coding Visit Charges Inpatient E&M: 83955 Disch Hosp
--- NOTE | 2024-09-05 11:37 | PHA.DC.MR.R ---
Pharmacy [place] Med Reconciliation Pharmacy Service has performed discharge medication reconciliation for this patient. Medication education papers prepared, patient discharged when counseling was attempted. The patient's discharge medication list was reviewed for discrepancies and discrepancies were resolved. Medications at Discharge Home Medications bupropion HCl 300 mg 24 hr tablet, extended release 300 mg PO QHS 08/10/24 fluoxetine 40 mg capsule 40 mg PO QHS 08/10/24 montelukast 10 mg tablet 10 mg PO QHS 08/10/24 albuterol sulfate 90 mcg/actuation breath activated powder inhaler 2 inh inhalation Q6H PRN shortness of breath or wheezing 08/24/24 naproxen 500 mg tablet 500 mg PO BID PRN PRN Pain #30 tabs 09/04/24 oxycodone-acetaminophen 5 mg-325 mg tablet (Percocet) 1 tab PO Q4H PRN pain 7 days #20 tabs 09/04/24
== END 2024-09-05 10:50 | disposition home or self-care (01) | DRG 982 ==
LOC: MS3 20:00
PROVIDERS: Obstetrics & Gynecology; Admitting Provider Hospitalist; Referring Provider Hospitalist; Visit Provider Internal Medicine
PROC: 0UT74ZZ Resection of Bilateral Fallopian Tubes, Percutaneous Endoscopic Approach (ICD-10-PCS; CPT 58661; principal; 2024-09-04 14:35)
DX: J45.990 Exercise induced bronchospasm (principal); Z68.42 Body mass index [BMI] 45.0-49.9, adult; E66.813 Obesity, class 3; F32.A Depression, unspecified; R11.10 Vomiting, unspecified; R09.02 Hypoxemia; N93.9 Abnormal uterine and vaginal bleeding, unspecified; Z30.2 Encounter for sterilization
CPT/HCPCS: 36415; 71045; 80048; 81025; 85027; 86850; 86900; 86901; 88302; 94668; A4216; J2405

== ENCOUNTER 2024-09-27 00:31 | Emergency (ER) | payer BC, SELFPAY ==
[2024-09-27 00:32] VITALS: BP 137/83; PULSE 106; RESP 18; TEMP 36.7; O2SAT 98; BMI 48.4
[2024-09-27 01:38] LABS: Hematocrit 36.1 % (37-47); Hemoglobin 11.8 g/dL (12.0-15.0); Immature Granulocytes Count 0.030 X10^3/uL (0.0-0.0); Mean Corp Hgb Conc 32.7 g/dL (32-36); Mean Corpuscular Volume 84.0 fL (81-99); Mean Platelet Vol. 10.1 fl (6.2-12.0); NRBC Flagged by Analyzer 0 % (0-5); Platelet Count 424 K/mm3 (150-450); RBC Distribution Width CV 13.4 % (11.6-14.6); RBC Distribution Width SD 41.1 fl (35.1-43.9); Red Blood Count 4.30 M/mm3 (4.2-5.4); White Blood Count 7.6 K/mm3 (4.4-11.0)
[2024-09-27 01:39] LABS: Mucous, Urine 0 SEEN /hpf (<or=2+)
[2024-09-27] MEDS: 0.9% Normal Saline (1000mL) 1,000 ML 999 ML IV (01:39)
[2024-09-27 01:48] LABS: Color, Urine Yellow (Yellow); Glucose, Dipstick Normal (Normal); Ketone-Dipstick 5 mg/dl (Negative); Leukocyte Esterase-Dipstick 500 /ul (Negative); Nitrite-Dipstick Negative (Negative); Occult Blood-Urine 250 /ul (Negative); Protein-Dipstick 30 mg/dl (Negative); Specific Gravity, Urine 1.025 (1.002-1.030)
[2024-09-27 01:50] LABS: Urine Bilirubin Dipstick 1 mg/dL (Negative)
[2024-09-27 01:52] LABS: Red Blood Cells-Urine 10-25 SEEN /hpf (0-5); Squamous Epithelial Cells - UA 10-25 SEEN /hpf (5-10); Transitional Epithelial - Ur 0-5 SEEN /hpf (0-5)
[2024-09-27 01:55] LABS: Lipase 33 U/L (13-75)
--- NOTE | 2024-09-27 02:20 | CT_ITS ---
PROCEDURE: ABDOMEN/PELVIS W IV CONT ONLY 09/26/2024 REASON FOR EXAM: ABD PAIN S/P SURGERY TECHNIQUE: ABDOMEN/PELVIS W IV CONT ONLY Coronal and Sagittal reconstruction series were provided. CONTRAST: 100 mL of Isovue 370 One or more dose reduction techniques were used (e.g., Automated exposure control, adjustment of the mA and/or kV according to patient size, use of iterative reconstruction technique. RADIATION DOSE SUMMARY: DLP: 1369 mGycm COMPARISON: None FINDINGS: Limited sections of the lung bases demonstrate no focal pulmonary mass or consolidations. The liver, spleen, pancreas, and both adrenal glands demonstrate no acute findings. Hepatomegaly to 19 cm.. Question mild hepatic steatosis. The gallbladder is contracted. The stomach is unremarkable. Scattered inflamed small bowel loops within the left hemiabdomen may reflect enteritis. No bowel obstruction. The appendix is not clearly identified, although there are no secondary signs of appendicitis. No colonic obstruction. Trace pelvic free fluid. No free air. The kidneys are unremarkable. The urinary bladder is partially distended. The pelvic structures are intact. There is no solid pelvic mass. IUD noted within the uterus No significant lymphadenopathy. The aorta and IVC demonstrate no acute findings. Visualized osseous structures demonstrate no acute abnormality. CT/Abdomen/Pelvis W IV Cont ONLY IMPRESSION: Scattered inflamed small bowel loops within the left hemiabdomen may reflect en teritis. No bowel obstruction. Reading Location: [id number]
[2024-09-27 02:38] LABS: AST(SGOT) 19 U/L (<=31); Alanine Aminotransfer ALT/SGPT 22 U/L (<=34); Albumin, Serum 3.8 g/dL (3.5-5.0); Alkaline Phosphatase 114 U/L (35-104); Anion Gap 12 (5-15); BUN 11 mg/dL (4-19); BUN/Creat Ratio 14.6 RATIO (10-20); Bilirubin, Direct 0.09 mg/dL (0.00-0.30); Calcium,Total 8.7 mg/dL (7.6-11.0); Carbon Dioxide 21.7 mmol/L (21.0-32.0); Chloride 105 mmol/L (98-108); Estimated Creatinine Clearance 142.87 ml/min (50-250); Globulin 3.4 g/dL (2.2-4.2); Glucose 123 mg/dL (70-99); Potassium 3.8 mmol/L (3.3-5.1)
[2024-09-27 02:42] VITALS: BP 123/71; PULSE 80; RESP 16; O2SAT 97
--- NOTE | 2024-09-27 03:26 | EDS_ITS ---
HPI History of Present Illness Chief Complaint: Abd Pain Informant: patient and friend Narrative Narrative: Patient is a 29-year-old female who had her fallopian tubes removed at the end of August. She states that she has been doing well but in the last few days has noticed generalized abdominal pain and she states that she believes there is a vaginal odor. She is concerned for secondary infection from the surgery and secondary to this comes in for evaluation. She states that there has been subjective fevers and chills and nausea but denies any vomiting diarrhea or dysuria. [facility] Medical History Encounter for IUD insertion Wears contact lenses Marijuana use Asthma Shortness of breath on exertion Non-smoker Anxiety Depression Home Medications ?Medication ?Instructions ?Recorded ?Last Taken ?Type bupropion HCl 300 mg 24 hr tablet, 300 mg PO QHS 08/10 Unknown History extended release fluoxetine 40 mg capsule 40 mg PO QHS 08/10/24 Unknow n History montelukast 10 mg tablet 10 mg PO QHS 08/10/24 Unknow n History albuterol sulfate 90 mcg/actuation 2 inh inhalation Q6 H PRN shortness 08/24/24 Unknown History breath activated powder inhaler of breath or wheezing naproxen 500 mg tablet 500 mg PO BID PRN PRN Pain # 30 tabs 09/04/24 Unknown Rx levonorgestrel 20.4 mcg/24 hr (up 1 device intrauterin e ONCE 09/17/24 Unknown History to 8 yrs) 52 mg intrauterine device (Liletta) cephalexin 500 mg capsule 500 mg PO TID 7 days #21 cap s 09/27/24 Unknown Rx Allergy/AdvReac Type Severity Reaction Status Date / Time coconut Allergy Intermediate migraine Verified 09/27/24 00:34 milk Allergy Vomiting Verified 09/27/24 00:34 Family History Mother Thyroid disorder Grandmother Thyroid disorder Breast cancer Over the age of 50 at diagnosis Cervical cancer Over the age of 50 at diagnosis Aunt Thyroid disorder Surgical History Status post bilateral salpingectomy H/O wisdom tooth extraction Social History household members: children housing: apartment number of children: 1 current occupational status: employed current occupation: [employer] Smoking Status: Never smoker alcohol intake: current alcohol intake frequency: holidays/special occasions only substance use type: marijuana seatbelt use: always do you feel safe at home: Yes additional social history: Single ROS ROS ED Constitutional Constitutional ED: Reports chills, fever(s) and subjective Eyes Eyes: Denies change in vision ENT ENT ED: Denies sore throat Cardiovascular Cardiovascular: Denies chest pain Respiratory/Chest Respiratory/Chest: Denies cough or dyspnea Gastrointestinal Gastrointestinal: Reports abdominal pain and nausea; Denies diarrhea or vomiting Genitourinary Genitourinary ED: Denies dysuria Musculoskeletal Musculoskeletal: Denies myalgias Integumentary Denies rash Hematologic/Lymphatic Hematologic/Lymphatic: Denies easy bleeding or easy bruising EXAM Physical Exam Const Vital Signs: 09/27/24 00:32 09/27/24 02:42 Temperature 98.1 F Temperature Source Oral Pulse Rate 106 H 80 Respiratory Rate 18 16 Blood Pressure 137/83 H 123/71 H Blood Pressure Mean 101 88 Pulse Ox 98 97 Oxygen Delivery Method Room Air Room Air Positive well nourished, well developed and obese General Appearance ED: well developed; Negative for pallor Nutritional Appearance: obese HEENT HEENT Narrative: Normocephalic atraumatic No signs of infection noted in the posterior pharynx Eyes PERRL and EOMs intact bilaterally General Eye ED: Negative for pale conjunctiva or scleral icterus Neck supple Neck Narrative: No nuchal rigidity or meningeal signs Resp normal respiratory effort and clear to auscultation bilaterally Cardio regular rate and regular rhythm Rate: other Other Details: Heart is regular rate and rhythm without murmurs rubs or gallops Radial and carotid pulses are equal and symmetric GI non-distended and no masses GI Narrative: Soft and nondistended with normal active bowel sounds. There is pain with palpation in the lower abdomen diffusely without voluntary guarding or rigidity. No pulsatile mass or fluid wave. No peritoneal signs Auscultation: normoactive bowel sounds Palpation: soft Narrative: Patient deferred Back/Spine no CVA tenderness Extremity normal to inspection Extremity Narrative: No asymmetric edema no pitting edema negative Homans' sign bilaterally Neuro oriented x3, CN's II-XII intact bilaterally and no sensory deficits noted Sensorium / Orientation: alert Motor Exam: strength 5/5 throughout Psych mental status grossly normal Skin no rashes or lesions noted Skin Narrative: Postsurgical wound is clean dry and intact without secondary findings of infection General Skin Exam: Negative for jaundice or pallor MDM MDM MDM Narrative Medical decision making narrative: Patient arrived to the ER with stable vitals. Based on her report of recent surgery and lower abdominal discomfort there is concern for postoperative infection versus viral stomach infection versus UTI. Secondary to this basic labs were obtained. Patient does not have leukocytosis or left shift there is no lactic acidosis present. She does have bacteria in her urine but there is also gross contamination with skin cells and she does not have dysuria going against UTI as the cause of the abdominal discomfort. Because of the recent surgery and concern for potential postoperative infection/abscess I did elect to form a CT with IV contrast. This showed areas of inflammation which could be consistent with enteritis but no significant signs of infection or bleeding or free air. After patient received medication her vital stabilized and on repeat evaluation her abdomen remains soft and nonsurgical. Therefore at this time with overall negative workup and improvement of vitals as well as resolution of pain there is no need for further intervention and she is otherwise safe for discharge with outpatient follow-up History & Record Review Discussion w/independent historian: Patient Lab Data Attestation: I reviewed the patient's lab results. Labs: Laboratory Results - last 24 hr 09/27/24 09/27/24 00:51 01:33 WBC 7.6 RBC 4.30 Hgb 11.8 L Hct 36.1 L MCV 84.0 MCH 27.4 MCHC 32.7 RDW Std Deviation 41.1 RDW Coeff of Teofilo 13.4 Plt Count 424 MPV 10.1 Immature Gran % (Auto) 0.400 Neut % (Auto) 69.7 Lymph % (Auto) 20.5 [place] % (Auto) 6.5 Eos % (Auto) 2.2 Baso % (Auto) 0.7 Absolute Neuts (auto) 5.3 Absolute Lymphs (auto) 1.55 Nucleated RBC % 0 Sodium 139 Potassium 3.8 Chloride 105 Carbon Dioxide 21.7 Anion Gap 12 BUN 11 Creatinine 0.75 Estim Creat Clear Calc 142.87 Est GFR (MDRD) Non-Af 110 BUN/Creatinine Ratio 14.6 Glucose 123 H Lactic Acid 1.1 Calcium 8.7 Total Bilirubin 0.29 Direct Bilirubin 0.09 AST 19 ALT 22 Alkaline Phosphatase 114 H Total Protein 7.1 Albumin 3.8 Globulin 3.4 Lipase 33 Urine Color Yellow Urine Clarity Sl. Cloudy Urine pH 6.0 Ur Specific [place] 1.025 Urine Protein 30 H Urine Glucose (UA) Normal Urine Ketones 5 H Urine Occult Blood 250 H Urine Nitrite Negative Urine Bilirubin 1 H Urine Urobilinogen Normal Ur Leukocyte Esterase 500 H Urine RBC 10-25 SEEN Urine WBC 10-25 SEEN Ur Squamous Epith Cells 10-25 SEEN Ur Transition Epith Cell 0-5 SEEN Amorphous Sediment 2+ Urine Bacteria 4+ Urine Mucus 0 SEEN Radiography Diagnostic Testing: Clinical Impression(s) from Imaging Studies Abdomen/Pelvis CT 09/27/24 02:20 IMPRESSION: Scattered inflamed small bowel loops within the left hemiabdomen may reflect enteritis. No bowel obstruction. Reading Location: [facility] Discharge Plan Triage Chief Complaint: Abd Pain ED Provider: Antony Gutierrez Dx/Rx/DC Orders Clinical Impression: Nonspecific abdominal pain, Anxiety Instructions: Abdominal Pain Prescriptions: New cephalexin 500 mg capsule 500 mg PO TID 7 Days Qty: 21 0RF No Action fluoxetine 40 mg capsule 40 mg PO QHS bupropion HCl 300 mg tablet extended release 24 hr 300 mg PO QHS montelukast 10 mg tablet 10 mg PO QHS Liletta 20.4 mcg/24 hr (8 yrs) 52 mg intrauterine device 1 device intrauterine ONCE Rx Instructions: as a single dose albuterol sulfate 90 mcg/actuation aerosol powdr breath activated 2 inh inhalation Q6H PRN (Reason: shortness of breath or wheezing) naproxen 500 mg tablet 500 mg PO BID PRN PRN (Reason: Pain) Qty: 30 1RF Stand Alone Forms: ED Work / School Excuse Primary Care Provider: Care Physician,No Primary Referrals: Sadie Gee MD [Med Staff - Active Staff] - Care Physician,No Primary [Primary Care Provider] - Activity Restrictions/Additional Instructions: Your workup today revealed no obvious findings of postoperative infection or bleeding. Your urine sample is showing changes concerning for developing UTI. Therefore please take the antibiotic as directed. Follow-up with your surgeon for repeat evaluation and return to the ER should you have any further concerns Print Language: Panamanian Disposition Disposition: Home, Self Care Discharge Date/Time: 09/27/24 03:37
[2024-09-27 03:31] VITALS: BP 117/78; PULSE 79; RESP 16; TEMP 36.6; O2SAT 96
== END 2024-09-27 03:37 | disposition home or self-care (01) ==
PROVIDERS: Emergency Provider Emergency Medicine; Visit Provider Emergency Medicine
DX: R10.9 Unspecified abdominal pain (principal)
CPT/HCPCS: 74177; 80048; 80076; 81001; 83605; 83690; 85025; 96361; 96374; 99282; Q9967; A4216; J2405

== ENCOUNTER 2025-01-03 02:16 | Emergency (ER) | payer OTHER, BC, SELFPAY ==
[2025-01-03 02:16] VITALS: BP 163/96; PULSE 74; RESP 18; TEMP 36.6; O2SAT 99; BMI 48.8
--- NOTE | 2025-01-03 02:38 | EDS_ITS ---
HPI History of Present Illness Chief Complaint: Upper Extremity Injury Narrative Narrative: Patient is a 21-year-old female with past medical history anxiety, depression, asthma who presents to the emergency department with a chief complaint of right wrist pain. Patient states that she was at work yesterday and noted that she was turning knobs and this was a very repetitive motion causing her right wrist pain. She states that she thought she could continue to work through the pain therefore she went to work today and notes that the pain became too severe prompting her to come here for further evaluation management. Patient states that she took ibuprofen around 10:30 PM on 01/02/2025. Denies any direct trauma or injuries otherwise [facility] Medical History Encounter for IUD insertion Wears contact lenses Marijuana use Asthma Shortness of breath on exertion Non-smoker Anxiety Depression Home Medications ?Medication ?Instructions ?Recorded ?Last Taken ?Type bupropion HCl 300 mg 24 hr tablet, 300 mg PO QHS 08/10 Unknown History extended release fluoxetine 40 mg capsule 40 mg PO QHS 08/10/24 Unknow n History montelukast 10 mg tablet 10 mg PO QHS 08/10/24 Unknow n History albuterol sulfate 90 mcg/actuation 2 inh inhalation Q6 H PRN shortness 08/24/24 Unknown History breath activated powder inhaler of breath or wheezing levonorgestrel 20.4 mcg/24 hr (up 1 device intrauterin e ONCE 09/17/24 Unknown History to 8 yrs) 52 mg intrauterine device (Liletta) topiramate 25 mg tablet 25 mg PO DAILY 01/03/25 Unkn own History Allergy/AdvReac Type Severity Reaction Status Date / Time coconut Allergy Intermediate migraine Verified 01/03/25 02:17 milk Allergy Vomiting Verified 01/03/25 02:17 Family History Mother Thyroid disorder Grandmother Thyroid disorder Breast cancer Over the age of 50 at diagnosis Cervical cancer Over the age of 50 at diagnosis Aunt Thyroid disorder Surgical History Status post bilateral salpingectomy H/O wisdom tooth extraction Social History household members: children housing: apartment number of children: 1 current occupational status: employed current occupation: [employer] Smoking Status: Never smoker alcohol intake: current alcohol intake frequency: holidays/special occasions only substance use type: marijuana seatbelt use: always do you feel safe at home: Yes additional social history: Single ROS ROS ED ROS Narrative Constitutional: Denies any fevers or chills Neurological: Denies any numbness or tingling Musculoskeletal: Complains of right wrist pain as noted above Skin: Denies any rashes or lesions EXAM Physical Exam Narrative Exam Narrative: General: Patient lying in bed rest comfortably did not appear to be in acute distress Head: Atraumatic, normocephalic Eyes: PERRL bilaterally, EOMI bilaterally, no conjunctival injection noted Neck: Soft, supple, trachea midline Cardiovascular: Regular rate Musculoskeletal: Patient states that she has discomfort with attempted range of motion with flexion extension of her right wrist Extremities: Radial pulses +2/4 in the right upper extremity, +5/5 strength noted in the bilateral lower extremities in the left upper extremity strength was limited in the right wrist, patient is able to give a thumbs up sign, okay sign oppose her thumb to her pinky and the right side Neurological: Patient following commands that she was at [facility] the year is 2024. Patient has sensation grossly intact in the median, ulnar and radial nerve distribution bilaterally Skin: Warm, dry, intact no rashes or lesions noted no petechia no purpura Const Vital Signs: 01/03/25 02:16 Temperature 97.9 F Temperature Source Oral Pulse Rate 74 Respiratory Rate 18 Blood Pressure 163/96 H Blood Pressure Mean 118 Pulse Ox 99 Oxygen Delivery Method Room Air MDM MDM MDM Narrative Medical decision making narrative: Patient is a 21-year-old female who presents to the emergency department the chief complaint of right wrist pain. On the differential diagnose includes but limited to right wrist sprain, fracture although have low suspicion for this that she had no direct trauma. Once workup is obtained and reviewed she will be reevaluated. Patient be given a gram of Tylenol Patient x-ray reviewed by myself which showed no acute fracture or dislocation of the right wrist. Discussed the results with the patient she would like to go home at this point time she was advised to rotate Tylenol and and ibuprofen [id number] for pain control as well as ice and elevate. She is vies follow-up with her doctor outpatient and return with worsening symptoms or any concerns. She is agreeable this plan all question concerns answered she was discharged home in stable condition. Discharge Plan Triage Chief Complaint: Upper Extremity Injury ED Provider: Adi Avila Dx/Rx/DC Orders Clinical Impression: Acute pain of right wrist, Right wrist sprain Prescriptions: No Action fluoxetine 40 mg capsule 40 mg PO QHS bupropion HCl 300 mg tablet extended release 24 hr 300 mg PO QHS montelukast 10 mg tablet 10 mg PO QHS Liletta 20.4 mcg/24 hr (8 yrs) 52 mg intrauterine device 1 device intrauterine ONCE Rx Instructions: as a single dose albuterol sulfate 90 mcg/actuation aerosol powdr breath activated 2 inh inhalation Q6H PRN (Reason: shortness of breath or wheezing) topiramate 25 mg tablet 25 mg PO DAILY Primary Care Provider: Care Physician,No Primary Referrals: Care Physician,No Primary [Primary Care Provider, Medical] Corporate,Care [Group of Physicians, Medical] Print Language: Tajik Disposition Disposition: Home, Self Care
--- OUTSIDE RECORDS SUMMARY | 2025-01-03 02:48 | XMS RPT_ITS | CCD ---
Author Organization [facility] Care Team Providers Care Ambulance Operations Supervisor Name Role Phone Luis Manuel Herring MD Primary Care Provider Care Physician, No Primary Primary Care Provider Unavailable Care Physician, No Primary Referring Provider Un available Marlen CATHERINE, Dr. Noel Attending Provider Dr. Sadie Gee MD Referring Provider Dr. Sadie Gee MD Other Provider Dr. José Luis Garrido DO Admit Provider [phone] Dr. José Luis Garrido DO Referring Provider Dr. José Luis Garrido DO Other Provider Paddy CATHERINE, Dr. Felipe Mane Other Provider Dr. Yareli Rodrigues MD Attending Provider Dr. Yareli Rodrigues MD Other Provider Dr. Antony Gutierrez DO Emergency Provider Luis Manuel Herring MD Primary Care Provider Jhon MARINE ERECTOR.SIDE DOOR WORKER, Uli Unavailable ALANA VARGAS Attending Unavailable LUIS MANUEL HERRING Primary Care Unavailable ALANA VARGAS Referring Unavailable LUIS MANUEL HERRING Primary Care Unavailable Yareli Rodrigues Attending Unavailable Care Physician, No Primary Primary Care Unava ilable José Luis Garrido Referring Unavailable José Luis Garrido Admitting Unavailable Sadie Gee Consulting Unavailable José Luis Garrido Consulting Unavailable Felipe Thomason Consulting Unavailable Sadie Gee Referring Unavailable Sadie Gee Attending Unavailable Care Physician, No Primary Primary Care Unava ilable Marlen, Sadie Attending Unavailable Care Physician, No Primary Primary Care Unava ilable Sadie Gee Consulting Unavailable Sadie Gee Referring Unavailable Sadie Gee Attending Unavailable Care Physician, No Primary Referring Unava ilable Care Physician, No Primary Primary Care Unava ilable Sadie Gee Attending Unavailable Care Physician, No Primary Referring Unava ilable Care Physician, No Primary Primary Care Unava ilable Radha Webster Attending Unavailable Care Physician, No Primary Referring Unava ilable Care Physician, No Primary Primary Care Unava ilable Care Physician, No Primary Primary Care Unava ilable Antony Gutierrez Attending Unavailable Marlen, Sadie Referring Unavailable Care Physician, No Primary Primary Care Unava ilable Marlen, Sadie Attending Unavailable Care Physician, No Primary Primary Care Unava ilable José Luis Garrido Referring Unavailable José Luis Garrido Attending Unavailable Sadie Gee Consulting Unavailable José Luis Garrido Admitting Unavailable José Luis Garrido Consulting Unavailable Sadie Gee Attending Unavailable Felipe Thomason Consulting Unavailable Yareli Rodrigues Consulting Unavailable Yareli Rodrigues Attending Unavailable Allergies Allergy Classification Reported Allergen(s) Allergy Type Date of Onset Reaction(s) Facility Coconut extract (1 source) Coconut extract Drug Allergy 1 Other: See Comments [facility] cow milk allergenic extract (1 source) cow milk allergenic extract Drug Allergy 8 Intolerance [facility] (16 sources) Coconut extract; Translations: [COCONUT] Drug Allergy 1 Other: See Comments [facility] (17 sources) cow milk allergenic extract; Translations: [MILK] Drug Allergy 8 Intolerance [facility] Work Phone: Comment on above: throat itching upper abdominal pain vomiting (18 sources) Kiwi; Translations: [KIWI] Drug Allergy 1 Itching [facility] (1 source) Coconut extract Drug Allergy 5 [facility] (1 source) Milk Drug allergy (disorder) 5 [facility] Medications Current Medications Medication Drug Class(es) Dates Sig (Normalized) Sig (Original) [id number] 200 actuat albuterol 0.09 mg/actuat metered dose inhaler (17 sources) beta2-Adrenergic Agonist Start: 08-24-2024 Albuterol Sulfate 90 mcg/actuation aerosol powdr breath activated Active 2 NMA INHALATION EVERY 6 HOURS as needed for shortness of breath or wheezing August 24, 2024 12:00am Start: 02-28-2023 End: 11-05-2025 take 2 puff(s) by inhalation every four hours as needed for wheezing albuterol HFA (VENTOLIN HFA) 90 mcg/actuation inhaler Indications: Wheezing Inhale 2 puffs as instructed every 4 hours as needed for wheezing/shortness of breath. 8 g 11 11/05/2024 11/05/2025 Active Start: 09-18-2021 End: 02-26-2023 take 2 [...] hydrochloride 300 mg extended release oral tablet (16 sources) Aminoketone Start: 10-03-19 take 1 tablet by mouth once daily at bedtime buPROPion XL (WELLBUTRIN XL) 300 mg 24 hr tablet Take 300 mg by mouth daily at bedtime. 10/02/2024 Active Start: 08-10-2024 take 1 tablet by lucas th every twenty-four hours at bedtime Bupropion Hcl 300 mg tablet extended release 24 hr Active 300 mg PO AT BEDTIME August 10, 2024 12:00am Start: 04-07-2023 End: 11-05-2024 take 1 tablet by mouth once daily buPROPion XL (WELLBU JOSHUA XL) 150 mg 24 hr tablet Indications: Anxiety with depression Take 1 tablet by mouth once daily. 30 tablet 5 01/12/2024 11/05/2024 Discontinued Start: 12-14-2022 take 1 tablet by mouth once da fco buPROPion XL (WELLBUTRIN XL) 150 mg 24 hr tablet Indications: Anxiety with depression Take 1 tablet by mouth once daily. 30 tablet 3 12/14/2022 Active Comment on above: Take 1 tablet by [facility] once daily. cephalexin 500 mg oral capsule (1 source) Cephalosporin Antibacterial Start: 5 take 1 capsule by mouth three times daily Cephalexin 500 mg capsule Active 500 mg PO THREE TIMES A DAY 21 7 0 September 27, 2024 12:00am FLUoxetine 40 mg oral capsule (18 sources) Serotonin Reuptake Inhibitor Start: 2 End: 4 take 1 capsule by mouth once daily FLUoxetine (PROZAC) 40 mg capsule Indications: Anxiety with depression Take 1 capsule by mouth once daily. 90 capsule 3 10/05/2023 Active Start: 05-11-2021 take 1 capsule by [facility] once daily FLUoxetine HCl (PROZAC) 40 mg capsule Indications: Anxiety with depression Take 1 capsule by mouth once daily. 90 capsule 1 05/11/2021 Active Comment on above: Take 1 capsule by [facility] once daily. hydrOXYzine pamoate 25 mg oral capsule (8 sources) Antihistamine Start: 023 take 1 capsule by mouth three times daily as needed for anxiety hydrOXYzine pamoate (VISTARIL) 25 mg capsule Indications: Anxiety with depression Take 1 capsule by mouth three times daily as needed for anxiety. 30 capsule 1 12/14/2022 Active Comment on above: Take 1 capsule by [facility] three times daily as needed for anxiety. ibuprofen 600 mg oral tablet (17 sources) Nonsteroidal Anti-inflammatory Drug Start: 019 End: 025 ibuprofen (MOTRIN) 600 mg tablet EVERY 6 HOURS PRN For Pain 04/28/2018 Active Comment on above: EVERY 6 HOURS PRN Fo r Pain levonorgestrel 0.632460 mg/hr intrauterine system (2 sources) Progestin, Progestin-containing Intrauterine Device Start: 025 Levonorgestrel (Liletta) 20.4 mcg/24 hr (8 yrs) 52 mg intrauterine device Active 1 NMA INTRA-UTER ONCE September 17, 2024 12:00am as a single dose montelukast 10 mg oral tablet (20 sources) Leukotriene Receptor Antagonist Start: 022 End: 08-18-2 026 take 1 tablet by mouth once daily at bedtime montelukast (SINGULAIR) 10 mg tablet Indications: Wheezing , Environmental allergies Take 1 tablet by mouth daily at bedtime. 30 tablet 11 11/05/2024 11/05/2025 Active Start: 09-18-2021 take 1 tablet by lucas th once daily at bedtime montelukast (SINGULAIR) 10 mg tablet Indications: Wheezing , Environmental allergies Take 1 tablet by mouth daily at bedtime. 30 tablet 1 09/18/2021 Active Comment on above: Take 1 tablet by lucas th daily at bedtime. naproxen 500 mg oral tablet (3 sources) Nonsteroidal Anti-inflammatory Drug Start: 5 take 1 tablet by mouth twice daily as needed for pain Naproxen 500 mg tablet Active 500 mg PO TWICE DAILY NEEDED as needed for Pain 30 September 04, 2024 12:00am Twxaekxb-Fs-Ild-Fe- FA ( VITAMIN) tab (1 source) End: 2 take 1 tablet by mouth once Mhorgaam-Mc-Ysh-Fe-FA ( VITAMIN) tab Take 1 tablet by mouth. 0 09/18/2021 Discontinued (Course of therapy completed) Comment on above: Take 1 tablet by lucas th. topiramate 25 mg oral tablet (2 sources) Start: End: 5 take 0.5 tablet by mouth twice daily topiramate (TOPAMAX) 25 mg tablet Indications: Migraine without aura and without status migrainosus, not intractable Take 0.5 tablets by mouth two times a day. 30 tablet 2 11/05/2024 02/03/2025 Active Completed/Discontinued Medications Medication Drug Class(es) Dates Sig (Normalized) Sig (Original) acetaminophen 325 mg / oxyCODONE hydrochloride 5 mg oral tablet (3 sources) Opioid Agonist Start: 09-04-2024 End: 09-17-2024 Oxycodone-Acetaminop hen (Percocet) 5-325 mg tablet Discontinued 1 {tbl} PO Q4H as needed for pain 20 7 0 September 04, 2024 September 17, 2024 8:22am Abnormal uterine bleeding Encounter for sterilization Abnormal uterine and vaginal bleeding, unspecified Encounter for sterilization CPAP (3 sources) Start: 10-09-2021 CPAP Indications: LEILANI (obstructive sleep apnea) Initiate Auto PAP [...] , filters, tubing, humidifier and lifetime supplies. norethindrone 0.35 mg oral tablet (5 sources) Start: 08-11-19 End: 08-25-19 take 1 tablet by mouth once daily Norethindrone (Contraceptive) 0.35 mg tablet Discontinued 0.35 mg PO daily August 10, 2024 12:00am August 24, 2024 12:57pm Problems Active Problems Problem Classification Problem Date Documented Date Episodic/Chronic Abdominal pain (2 sources) Nonspecific abdominal pain; Translations: [Unspecified abdominal pain] Onset: 12-04-2024 09-27-2024 Episodic Allergic reactions (7 sources) Environmental allergy; Translations: [Other allergy status, other than to drugs and biological substances] Onset: 11-05-2024 Episodic Anxiety disorders (4 sources) Mixed anxiety and depressive disorder; Translations: [Other specified anxiety disorders] 09-28-2022 Chronic Asthma (2 sources) Mild intermittent asthma; Translations: [Mild intermittent asthma, uncomplicated] Onset: 11-05-2024 11-05-2024 Chronic Contraceptive and procreative management (20 sources) Patient encounter status; Translations: [Encounter for sterilization] Onset: 10-03-2024 08-10-2024 Episodic Comment on above: desires permanent st erilization plan laparoscopic BS plan iUD insertion at the time of laparoscopy Liletta Headache; including migraine (2 sources) Migraine without aura, not refractory ; Translations: [Migraine without aura, not intractable, without status migrainosus] Onset: 11-05-2024 11-05-2024 Chronic Menstrual disorders (20 sources) Dysmenorrhea; Translations: [Dysmenorrhea, unspecified] Onset: 02-07-2012 02-07-2012 Chronic Other female genital disorders (13 sources) Abnormal uterine bleeding; Translations: [Abnormal uterine and vaginal bleeding, unspecified] 08-10-2024 Chronic Comment on above: cbc tsh US ordered d iscussed options plan IUD, genital culture for discharge in between cycles Other female genital disorders (2 sources) Abnormal uterine and vaginal bleeding, unspecified; Translations: [Abnormal uterine and vaginal bleeding, unspecified] Onset: 10-03-2024 Chronic Other injuries and conditions due to external causes (6 sources) Thumb injury ; Translations: [Unspecified injury of right wrist, hand and finger(s), initial encounter] 11-09-2022 Episodic Other lower respiratory disease (8 sources) Wheezing; Translations: [Wheezing] Episodic Other lower respiratory disease (6 sources) Hypoxia; Translations: [Hypoxemia] 09-04-2024 Episodic Other lower respiratory disease (1 source) Wheezing; Translations: [Wheezing] Onset: 11-05-2024 Episodic Other lower respiratory disease (2 sources) Hypoxemia; Translations: [Hypoxemia] Onset: 10-03-2024 Episodic Other nutritional; endocrine; and metabolic disorders (1 source) Severe obesity; Translations: [Class 3 severe obesity with body mass index (BMI) of 45.0 to 49.9 in adult, unspecified obesity type, unspecified whether serious comorbidity present (HCC)] 11-05-2024 Chronic Other nutritional; endocrine; and metabolic disorders (1 source) Body mass index (BMI) 45.0-49.9, adult; Translations: [Class 3 severe obesity with body mass index (BMI) of 45.0 to 49.9 in adult, unspecified obesity type, unspecified whether serious comorbidity present (HCC)] Onset: 11-05-2024 Chronic Other upper respiratory disease (1 source) Seasonal allergic rhinitis; Translations: [Other seasonal allergic rhinitis] 11-05-2024 Chronic Other upper respiratory disease (1 source) Other seasonal allergic rhinitis; Translations: [Seasonal allergic rhinitis, unspecified trigger] Onset: 11-05-2024 Chronic Residual codes; unclassified (12 sources) Obstructive sleep apnea syndrome; Translations: [Obstructive sleep apnea (adult) (pediatric)] Onset: 01-19-2021 01-19-2021 Chronic Residual codes; unclassified (1 source) Obstructive sleep apnea (adult) (pediatric); Translations: [LEILANI (obstructive sleep apnea)] Onset: 01-19-2021 Chronic Residual codes; unclassified (2 sources) Acquired absence of other genital organ(s); Translations: [Acquired absence of other genital organ(s)] Onset: 09-17-2024 Episodic Residual codes; unclassified (1 source) Other specified postprocedural states; Translations: [Other specified postprocedural states] Onset: 10-03-2024 Episodic Sprains and strains (6 sources) Sprain of ankle; Translations: [Sprain of unspecified ligament of unspecified ankle, initial encounter] 12-12-2016 Episodic Unclassified (1 source) Class 3 severe obesity with body mass index (BMI) of 45.0 to 49.9 in adult, unspecified obesity type, unspecified whether serious comorbidity present (HCC); Translations: [Class 3 severe obesity with body mass index (BMI) of 45.0 to 49.9 in adult, unspecified obesity type, unspecified whether serious comorbidity present (HCC)] Onset: 11-05-2024 Past or Other Problems Problem Classification Problem Date Documented Date Episodic/Chronic Cancer of cervix (11 sources) Atypical squamous cells of undetermined significance on cervical Papanicolaou smear; Translations: [Atypical squamous cells of undetermined significance on cytologic smear of cervix (ASC-US)] Onset: 09-27-2017 09-27-2017 Episodic Other complications of (3 sources) Nausea and vomiting; Translations: [Vomiting of , unspecified] Onset: 09-01-2017 Resolved: 01-09-2018 01-09-2018 Episodic Other complications of (7 sources) Rubella non-immune; Translations: [Supervision of other high risk pregnancies, unspecified trimester] Onset: 09-19-2017 Resolved: 05-10-2018 05-10-2018 Episodic Other complications of (4 sources) Vomiting of , unspecified; Translations: [Unspecified vomiting of , unspecified as to episode of care or not applicable] Onset: 09-01-2017 Resolved: 01-09-2018 01-09-2018 Episodic Other female genital disorders (1 source) Other specified noninflammatory disorders of vagina; Translations: [Other specified noninflammatory disorders of vagina] Onset: 08-10-2024 Episodic Other screening for suspected conditions (not mental disorders or infectious disease) (1 source) Encounter for screening for malignant neoplasm of cervix; Translations: [Encounter for screening for malignant neoplasm of cervix] Onset: 08-10-2024 Episodic Screening and history of mental health and substance abuse codes (17 sources) H/O: depression; Translations: [Personal history of other mental and behavioral disorders] Onset: 09-01-2017 09-01-2017 Episodic Results Test Name Value Interpretation Reference Range Facility CBC W Auto Differential pane l (Bld)on 11-05-2024 Basophils (Bld) [#/Vol] 0.06 10*3/uL [facility] Basophils/100 WBC (Bld) 0.6 % [facility] Differential cell count method Nom (Bld) Auto [facility] Eosinophils (Bld) [#/Vol] 0.33 10*3/uL [facility] Eosinophils/100 WBC (Bld) 3.3 % [facility] Erythrocyte distribution width (RBC) [Ratio] 14.0 % 11.5 - 15.0 % [facility] Hematocrit (Bld) [Volume fraction] 40.7 % 36.0 - 46.0 % [facility] Hemoglobin (Bld) [Mass/Vol] 12.5 g/dL 11.5 - 15.5 g/dL [facility] Immature granulocytes (Bld) [#/Vol] 0.04 10*3/uL [facility] Immature granulocytes/100 WBC (Bld) 0.4 % [facility] Interpretation and review of laboratory results Abnormal [facility] Lymphocytes (Bld) [#/Vol] 2.44 10*3/uL [facility] Lymphocytes/100 WBC (Bld) 24.4 % [facility] MCH (RBC) [Entitic mass] 26.8 pg 26. 0 - 34.0 pg [facility] MCHC (RBC) [Mass/Vol] 30.7 g/dL 30.5 - 36.0 g/dL [facility] MCV (RBC) [Entitic vol] 87.3 fL 80.0 - 100.0 fL [facility] Monocytes (Bld) [#/Vol] 0.60 10*3/uL [facility] Monocytes/100 WBC (Bld) 6.0 % C [facility] Neutrophils (Bld) [#/Vol] 6.55 10*3/uL [facility] Neutrophils/100 WBC (Bld) 65.3 % [facility] Nucleated RBC (Bld) [#/Vol] NINF [facility] Nucleated RBC/100 WBC (Bld) [Ratio] 0.0 % /100 WBC [facility] Platelet mean volume (Bld) [Entitic vol] 10.3 fL 9.0 - 12.7 fL [facility] Platelets (Bld) [#/Vol] 421 10*3/uL High [facility] RBC (Bld) [#/Vol] 4.66 10*6/uL 3.90 - 5.2 0 m/uL [facility] WBC (Bld) [#/Vol] 10.02 10*3/uL [facility] Basophils (Bld) [#/Vol] 0.06 10*3/uL Normal <0.11 [facility] Comment on above: Order Comment: Speci men Type: BLOOD SPECIMEN Ordering Facility: [facility] Address: [address] [place] [address] Performed By: #### 5 7021-8 #### [facility] CLIA [id number] [address] [place] [address] [place] Basophils/100 WBC (Bld) 0.6 % Normal [facility] Comment on above: Order Comment: Speci men Type: BLOOD SPECIMEN Ordering Facility: [facility] Address: [address] [place] [address] Performed By: #### 5 7021-8 #### [facility] CLIA [id number] [address] [place] [address] [place] Differential cell count method Nom (Bld) Auto Normal [facility] Comment on above: Order Comment: Speci men Type: BLOOD SPECIMEN Ordering Facility: [facility] Address: [address] [place] [address] Performed By: #### 5 7021-8 #### [facility] CLIA [id number] [address] [place] [address] [place] Eosinophils (Bld) [#/Vol] 0.33 10*3/uL Normal <0.46 [facility] Comment on above: Order Comment: Speci men Type: BLOOD SPECIMEN Ordering Facility: [facility] Address: [address] [place] [address] Performed By: #### 5 7021-8 #### [facility] CLIA [id number] [address] [place] [address] [place] Eosinophils/100 WBC (Bld) 3.3 % Normal [facility] Comment on above: Order Comment: Speci men Type: BLOOD SPECIMEN Ordering Facility: [facility] Address: [address] [place] [address] Performed By: #### 5 7021-8 #### [facility] CLIA [id number] [address] [place] [address] [place] Erythrocyte distribution width (RBC) [Ratio] 14.0 % Normal 11.5-15.0 [facility] Comment on above: Order Comment: Speci men Type: BLOOD SPECIMEN Ordering Facility: [facility] Address: [address] [place] [address] Performed By: #### 5 7021-8 #### [facility] CLIA [id number] [address] [place] [address] [place] Hematocrit (Bld) [Volume fraction] 40.7 % Normal 36.0-46.0 [facility] Comment on above: Order Comment: Speci men Type: BLOOD SPECIMEN Ordering Facility: [facility] Address: [address] [place] [address] Performed By: #### 5 7021-8 #### [facility] CLIA [id number] [address] [place] [address] [place] Hemoglobin (Bld) [Mass/Vol] 12.5 g/dL Normal 11.5-15.5 [facility] Comment on above: Order Comment: Speci men Type: BLOOD SPECIMEN Ordering Facility: [facility] Address: [address] [place] [address] Performed By: #### 5 7021-8 #### [facility] CLIA [id number] [address] [place] [address] [place] Immature granulocytes (Bld) [#/Vol] 0.04 10*3/uL Normal <0.10 [facility] Comment on above: Order Comment: Speci men Type: BLOOD SPECIMEN Ordering Facility: [facility] Address: [address] [place] [address] Performed By: #### 5 7021-8 #### [facility] CLIA [id number] [address] [place] [address] [place] Immature granulocytes/100 WBC (Bld) 0.4 % Normal [facility] Comment on above: Order Comment: Speci men Type: BLOOD SPECIMEN Ordering Facility: [facility] Address: [address] [place] [address] Performed By: #### 5 7021-8 #### [facility] CLIA [id number] [address] [place] [address] [place] Lymphocytes (Bld) [#/Vol] 2.44 10*3/uL Normal 1.00-4.00 [facility] Comment on above: Order Comment: Speci men Type: BLOOD SPECIMEN Ordering Facility: [facility] Address: [address] [place] [address] Performed By: #### 5 7021-8 #### [facility] CLIA [id number] [address] [place] [address] [place] Lymphocytes/100 WBC (Bld) 24.4 % Normal [facility] Comment on above: Order Comment: Speci men Type: BLOOD SPECIMEN Ordering Facility: [facility] Address: [address] [place] [address] Performed By: #### 5 7021-8 #### [facility] CLIA [id number] [address] [place] [address] [place] MCH (RBC) [Entitic mass] 26.8 pg Normal 26.0-34.0 [facility] Comment on above: Order Comment: Speci men Type: BLOOD SPECIMEN Ordering Facility: [facility] Address: [address] [place] [address] Performed By: #### 5 7021-8 #### [facility] CLIA [id number] [address] [place] [address] [place] MCHC (RBC) [Mass/Vol] 30.7 g/dL Normal 30.5-36.[address] [facility] Comment on above: Order Comment: Speci men Type: BLOOD SPECIMEN Ordering Facility: [facility] Address: [address] [place] [address] Performed By: #### 5 7021-8 #### [facility] CLIA [id number] [address] [place] [address] [place] MCV (RBC) [Entitic vol] 87.3 fL Normal 80.0-100.[address] [facility] Comment on above: Order Comment: Speci men Type: BLOOD SPECIMEN Ordering Facility: [facility] Address: [address] [place] [address] Performed By: #### 5 7021-8 #### [facility] CLIA [id number] [address] [place] [address] [place] Monocytes (Bld) [#/Vol] 0.60 10*3/uL Normal <0.87 [facility] Comment on above: Order Comment: Speci men Type: BLOOD SPECIMEN Ordering Facility: [facility] Address: [address] [place] [address] Performed By: #### 5 7021-8 #### [facility] CLIA [id number] [address] [place], [place] [address] [place] Monocytes/100 WBC (Bld) 6.0 % Normal [facility] Comment on above: Order Comment: Speci men Type: BLOOD SPECIMEN Ordering Facility: [facility] Address: [address] [place] [address] Performed By: #### 5 7021-8 #### [facility] CLIA [id number] [address] [place] [address] [place] Neutrophils (Bld) [#/Vol] 6.55 10*3/uL Normal 1.45-7.50 [facility] Comment on above: Order Comment: Speci men Type: BLOOD SPECIMEN Ordering Facility: [facility] Address: [address] [place] [address] Performed By: #### 5 7021-8 #### [facility] CLIA [id number] [address] [place] [address] [place] Neutrophils/100 WBC (Bld) 65.3 % Normal [facility] Comment on above: Order Comment: Speci men Type: BLOOD SPECIMEN Ordering Facility: [facility] Address: [address] [place] [address] Performed By: #### 5 7021-8 #### [facility] CLIA [id number] [address] [place] [address] [place] Nucleated RBC (Bld) [#/Vol] 10*3/uL Normal <0.01 [facility] Comment on above: Order Comment: Speci men Type: BLOOD SPECIMEN Ordering Facility: [facility] Address: [address] [place] [address] Performed By: #### 5 7021-8 #### [facility] CLIA [id number] [address] [place] [address] [place] Nucleated RBC/100 WBC (Bld) [Ratio] 0.0 /100 WBC Normal [facility] Comment on above: Order Comment: Speci men Type: BLOOD SPECIMEN [facility] Facility: [facility] Address: [address] [place] [address] Performed By: #### 5 7021-8 #### [facility] CLIA [id number] [address] [place] [address] [place] Platelet mean volume (Bld) [Entitic vol] 10.3 fL Normal 9.0-12.7 [facility] Comment on above: Order Comment: Speci men Type: BLOOD SPECIMEN Ordering Facility: [facility] Address: [address] [place] [address] Performed By: #### 5 7021-8 #### [facility] CLIA [id number] [address] [place] [address] [place] Platelets (Bld) [#/Vol] 421 10*3/uL High 150-400 [facility] Comment on above: Order Comment: Speci men Type: BLOOD SPECIMEN Ordering Facility: [facility] Address: [address] [place] [address] Performed By: #### 5 7021-8 #### [facility] CLIA [id number] [address] [place] [address] [place] RBC (Bld) [#/Vol] 4.66 10*6/uL Normal 3.90-5.20 [facility] Comment on above: Order Comment: Speci men Type: BLOOD SPECIMEN Ordering Facility: [facility] Address: [address] [place] [address] Performed By: #### 5 7021-8 #### [facility] CLIA [id number] [address] [place] [address] [place] WBC (Bld) [#/Vol] 10.02 10*3/uL Normal 3.70-11.00 [facility] Comment on above: Order Comment: Speci men Type: BLOOD SPECIMEN Ordering Facility: [facility] Address: [address] [place] [address] Performed By: #### 5 7021-8 #### [facility] CLIA [id number] [address] [place] [address] [place] [facility] CNOVon 11-05-2024 CNOV Office Visit (FAMPWS) SAVITA GREENFIELD ([id number]) 1995 F Date Time Provider Department 11/05/24 9:20 AM [facility] During your visit today, we recorded the following information about you: Pulse Blood pressure Weight Height 98/minute 132/78 122.9 kg 1.64 m Alana Vargas APRN.CNP 11/05/2024 10:08 AM Signed Chief Reason For Appointment Patient presents with: Yearly Exam Savita Greenfield is a 29 year old female who presents for annual exam. Last office visit date: 01/11/2023 Accompanied By self only Have you had any critical events, hospital stays, ER visits, surgeries or procedures since your last visit here in our office: Yes Tubal ligation- tubes removed Specialists/Other Healthcare Providers Seen: Patient Care Team: Luis Manuel Herring MD as PCP - General (Family Medicine) Uli Ferreira APRN.CNP as Card Game Operator (Family Medicine) Concerns today: None HPI Savita Greenfield is a 29-year-old female with a history of anxiety, depression, and sleep apnea, presenting for an annual wellness visit. Annual Wellness Exam: - Denies current health complaints or concerns. - Denies recent hospitalizations, ER visits, or surgeries in the past year. - Bilateral tubal ligation on September 04; required overnight admission due to aspiration concerns post-anesthesia. - Daughter has focal epilepsy secondary to tuberous sclerosis complex, managed with two anti-seizure medications and rescue medications. 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 Anxiety and Depression: - Taking fluoxetine and Wellbutrin; Wellbutrin recently increased from 150 mg to 300 mg by psychiatrist. - Hydroxyzine helps with anxiety but not taken recently due to sedative effects. - Reports anxiety is not well-controlled; just learned how to deal with it and just keep going. - Family history of depression and anxiety on both sides. - Meeting with mental health professionals. Headaches: - Frequent headaches, occurring every other day. - Frontal and occasionally down the back of the neck. - Photophobia if not treated early; denies phonophobia. - Headaches sometimes relieved by listening to heavy metal music. - Associated nausea; duration ranges from 1-3 hours or more. - Alleviated by caffeine, hot showers, and OTC headache medication. - Denies lumps, bumps, or swelling in the neck. Weight Gain: - Steady increase in weight; expresses dissatisfaction with weight gain. Sleep Apnea: - Diagnosed with sleep apnea; has a CPAP machine but unable to tolerate it. Chronic Diarrhea: - Daily loose stools, 1-3 times per day. - Rarely experiences formed stools. Myalgias and Arthralgias: - Daily myalgias and arthralgias in bilateral ankles, right wrist, and left shoulder. - Believes muscle aches are due to work-related physical activity. - Describes pain as manageable. Asthma: - Uses albuterol inhaler. - Takes Singulair for allergic rhinitis. Active Problems ACTIVE PROBLEM LIST Leilani (Obstructive Sleep Apnea) - 01/19/2021 Atypical Squamous Cells of Undetermined Significance (Ascus) On Papanicolaou Smear of Cervix - 09/27/2017 Comment: 09/27/17 - ASCUS on pap noted. Repeat pap in 1 year (09/2018). Carmelita Mendez APRN.[facility] History of Depression - 09/01/2017 Comment: 09/01/2017 Pt has a history of depression diagnosed as a teenager and most recently treated by Mary Anne Francois NP. She saw a counselor at [facility] in the past but not since being a teenage. She has been off medication for 9 months . Discussed increased risks of depression during and and importance of reporting the development or worsening of symptoms should they occur.Pt states she had suicidal thoughts when she was a teenager, but none sinceTKRN Dysmenorrhea - 02/07/2012 Irregular Menstrual Cycle - 02/07/2012 ROS: Constitutional: (+) weight gain, (-) fever, (-) chills Head: (+) frequent headaches, (-) phonophobia Eyes: (+) photophobia Neck: (-) neck swelling Cardiovascular: (+) lower extremity edema, (-) chest pain, (-) palpitations, (-) orthopnea Respiratory: (-) cough, (-) wheezing Gastrointestinal: (+) nausea, (+) vomiting, (+) chronic diarrhea Genitourinary: (-) dysuria, (-) hematuria Musculoskeletal: (+) bilateral ankle arthralgia, (+) right wrist arthralgia, (+) left shoulder arthralgia, (+) myalgia Skin: (-) rash, (-) pruritus Neurological: (-) syncope, (-) seizures, (-) tremor Psychiatric: (+) suicidal ideation, (+) hopelessness, (+) helplessness, (+) anxiety Endocrine: (+) polydipsia PAST MEDICAL HISTORY Diagnosis Date Atypical squamous cells of undetermined significance (ASCUS) on Papanicolaou smear of cervix 09/27/2017 Depression PMH - PAST MEDICAL HISTORY OF 2009 normal color vision PAST SURGICAL HISTORY Procedure Laterality Date LIGATE FALLOPIAN TUBE Bila (more content not included)... Normal [facility] Cobalamin (Vitamin B12) [Mas s/Vol]on 11-05-2024 Interpretation and review of laboratory results Normal [facility] Comprehensive metabolic 2000 panelon 11-05-2024 Albumin [Mass/Vol] 3.9 g/dL Normal 3.9-4.9 [facility] Comment on above: Order Comment: Speci alexander Type: BLOOD SPECIMEN [facility] Address: [address] [place] [address] Performed By: #### 3 016-3, 98264-2, 03554-0, LIPNF #### [facility] CLIA [id number] [address] [place] [address] [place] ALP [Catalytic activity/Vol] 102 U/L Normal 34-123 [facility] Comment on above: Order Comment: Speci men Type: BLOOD SPECIMEN Ordering [facility] Address: [address] [place] [address] Performed By: #### 3 016-3, 01454-5, 73770-9, LIPNF #### [facility] CLIA [id number] [address] [place] [address] [place] ALT [Catalytic activity/Vol] 32 U/L Normal 7-38 [facility] Comment on above: Order Comment: Speci men Type: BLOOD SPECIMEN Ordering [facility] Address: [address] [place] [address] Performed By: #### 3 016-3, 95248-5, 56884-7, LIPNF #### [facility] CLIA [id number] [address] [place] [address] [place] Anion gap [Moles/Vol] 12 mmol/L Normal 8-[address] [facility] Comment on above: Order Comment: Speci men Type: BLOOD SPECIMEN Order[facility] Address: [address] [place] [address] Performed By: #### 3 016-3, 80259-9, 52613-8, LIPNF #### [facility] CLIA [id number] [address] [place] [address] [place] AST [Catalytic activity/Vol] 28 U/L Normal 13-35 [facility] Comment on above: Order Comment: Speci men Type: BLOOD SPECIMEN Order[facility] Address: [address] [place] [address] Performed By: #### 3 016-3, 08432-4, 77947-3, LIPNF #### [facility] CLIA [id number] [address] [place] [address] [place] Bilirubin [Mass/Vol] 0.2 mg/dL Normal 0.2-1.3 [facility] Comment on above: Order Comment: Speci men Type: BLOOD SPECIMEN [facility] Address: [address] [place] [address] Performed By: #### 3 016-3, 64585-8, 66519-7, LIPNF #### [facility] CLIA [id number] [address] [place] [address] [place] Calcium [Mass/Vol] 9.1 mg/dL Normal 8.5-10.2 [facility] Comment on above: Order Comment: Speci men Type: BLOOD SPECIMEN [facility] Address: [address] [place] [address] Performed By: #### 3 016-3, , 66212-4, LIPNF #### [facility] CLIA [id number] [address] [place] [address] [place] Chloride [Moles/Vol] 103 mmol/L Normal 98-107 [facility] Comment on above: Order Comment: Speci men Type: BLOOD SPECIMEN Order[facility] Address: [address] [place] [address] Performed By: #### 3 016-3, , , LIPNF #### [facility] CLIA [id number] [address] [place] [address] [place] CO2 [Moles/Vol] 22 mmol/L Normal 22-30 [facility] Comment on above: Order Comment: Speci men Type: BLOOD SPECIMEN Order[facility] Address: [address] [place] [address] Performed By: #### 3 016-3, , , LIPNF #### [facility] CLIA [id number] [address] [place], [place] [address] [place] Creatinine [Mass/Vol] 0.71 mg/dL Normal 0.58-0.[address] [facility] Comment on above: Order Comment: Speci men Type: BLOOD SPECIMEN Ordering Facility: [facility] Address: [address] [place], [place] [address] Performed By: #### 3 016-3, , , LIPNF #### [facility] CLIA [id number] [address] [place] [address] [place] eGFRcr SerPlBld CKD-EPI 2020 119 mL/min/1.73m??? Normal >=60 [facility] Comment on above: Order Comment: Claudia munoz Type: BLOOD SPECIMEN Order[facility] Address: [address] [place] [address] Result Comment: Alina mated Glomerular Filtration Rate [...] accurately reflect actual GFR. Performed By: #### 3 016-3, , , LIPNF #### [facility] CLIA [id number] [address] [place] [address] [place] Glucose [Mass/Vol] 95 mg/dL Normal 74-99 [facility] Comment on above: Order Comment: Claudia munoz Type: BLOOD SPECIMEN [facility] Address: [address] [place] [address] Result Comment: The [place] Diabetes Association (ADA) provides guidance for cutoff [...] Standards of Medical Care in Diabetes 2016, [place] Diabetes Association. Diabetes Care. 2016.39(Suppl 1). Performed By: #### 3 016-3, , , LIPNF #### [facility] CLIA [id number] [address] [place], [place] [address] [place] Potassium [Moles/Vol] 3.5 mmol/L Low 3.7-5.[address] [facility] Comment on above: Order Comment: Speci men Type: BLOOD SPECIMEN [facility] Address: [address] [place] [address] Performed By: #### 3 016-3, , , LIPNF #### [facility] CLIA [id number] [address] [place] [address] [place] Protein [Mass/Vol] 7.0 g/dL Normal 6.3-8.0 [facility] Comment on above: Order Comment: Speci men Type: BLOOD SPECIMEN Order[facility]: [facility] Address: [address] [place] [address] Performed By: #### 3 016-3, , , LIPNF #### [facility] CLIA [id number] [address] [place] [address] [place] Sodium [Moles/Vol] 137 mmol/L Normal 136-144 [facility] Comment on above: Order Comment: Speci men Type: BLOOD SPECIMEN Order[facility] Address: [address] [place] [address] Performed By: #### 3 016-3, , , LIPNF #### [facility] CLIA [id number] [address] [place], [place] [address] [place] Urea nitrogen [Mass/Vol] 10 mg/dL Normal 7-21 [facility] Comment on above: Order Comment: Speci men Type: BLOOD SPECIMEN Order[facility] Address: [address] [place], [place] [address] Performed By: #### 3 016-3, 65217-8, , LIPNF #### [facility] CLIA [id number] [address] [place] [address] [place] HbA1c (Bld)on 11-05-2024 Average glucose Estimated from glycated hemoglobin (Bld) [Mass/Vol] 103 mg/dL Normal [facility] Comment on above: Order Comment: Claudia munoz Type: BLOOD SPECIMEN Order[facility] Address: [address] [place] [address] Result Comment: eAG: (Estimated average glucose) is a calculated value from HgbA1c and is employee's representative of the average blood glucose level in the last 2-3 month period. Performed By: #### 5 5454-3 #### [facility] IA [id number] [address] [place] [address] STATES OF [facility] HbA1c (Bld) [Mass fraction] 5.2 % Normal 4.3-5.6 [facility] Comment on above: Order Comment: Claudia munoz Type: BLOOD SPECIMEN Order[facility] Address: [address] [place] [address] Result Comment: [place] Diabetes Association guidelines indicate that patients with HgbA1c in the range 5.7-6.4% are at increased risk for development of diabetes, and intervention by lifestyle modification may be beneficial. HgbA1c greater or equal to 6.5% is considered diagnostic of diabetes. Performed By: #### 5 5454-3 #### [facility] CLIA [id number] [address] [place] [address] [place] LIPID PANEL, NONFASTINGon Cholesterol [Mass/Vol] 207 mg/dL High <200 [facility] Comment on above: Order Comment: Claudia munoz Type: BLOOD SPECIMEN [facility] Address: [address] [place] [address] Result Comment: <200 mg/dL, Desirable 200-239 mg/dL, Borderline high >239 mg/dL, High Performed By: #### 3 016-3, 47700-6, 20395-1, LIPNF #### [facility] CLIA [id number] [address] [place] HDL CHOLESTEROL, NF 39 mg/dL Low >39 [facility] Comment on above: Order Comment: Claudia munoz Type: BLOOD SPECIMEN Order[facility] Address: [address] [place] [address] Result Comment: 40-5 9 mg/dL, Acceptable >59 mg/dL, High: Negative risk factor for coronary heart disease <40 mg/dL, Low: Positive risk factor for coronary heart disease Performed By: #### 3 016-3, 69976-8, 10340-9, LIPNF #### [facility] CLIA [id number] [address] [place] [address] OF [place] LDL CHOLESTEROL CALCULATED, NF 129 mg/dL High <100 [facility] Comment on above: Order Comment: Claudia munoz Type: BLOOD SPECIMEN [facility] Address: [address] [place] [address] Result Comment: <100 mg/dL, Optimal 100-129 mg/dL, Near optimal/above optimal 130-159 mg/dL, Borderline high 160-189 mg/dL, High >189 mg/dL, Very high Secondary prevention optimal LDL Cholesterol levels are recommended to be <70 mg/dL LDL cholesterol is calculated using the Smith-NIH equation. Performed By: #### 3 016-3, 46141-3, 04869-4, LIPNF #### [facility] CLIA [id number] [address] [place] [address] [place] LDL/HDL RATIO, NF 3.31 mg/dL High <2.[address] [facility] Comment on above: Order Comment: Arnoldocyndi munoz Type: BLOOD SPECIMEN [facility] Address: [address] [place] [address] Result Comment: Yo garrido: 1. National Cholesterol Education Program ATP III Guideline At-A-Glance Quick Desk Reference: National Heart, Lung, and Blood [place]. National Institutes of Health. 2001: NIH Publication No. 01-3305. 2. An International Atherosclerosis Society position paper: global recommendations for the management of dyslipidemia: executive summary, Atherosclerosis. 2014: 232(2):410-413. Performed By: #### 3 016-3, 57430-5, 79612-5, LIPNF #### [facility] CLIA [id number] [address] [place] [address] [place] NON HDL CHOL, NF 168 mg/dL High <130 [facility] Comment on above: Order Comment: Speci men Type: BLOOD SPECIMEN [facility] Address: [address] [place] [address] Result Comment: <130 mg/dL, Optimal 130-159 mg/dL, Near optimal/above optimal 160-189 mg/dL, Borderline high 190-219 mg/dL, High >219 mg/dL, Very high Secondary prevention optimal non HDL Cholesterol levels are recommended to be <100 mg/dL Performed By: #### 3 016-3, 96094-8, 71661-7, LIPNF #### [facility] CLIA [id number] [address] [place] [address] [place] T CHOL/HDL RATIO NF 5.31 mg/dL High <5.10 [facility] Comment on above: Order Comment: Speci men Type: BLOOD SPECIMEN Order[facility] Address: [address] [place] [address] Performed By: #### 3 016-3, 40129-5, 95151-7, LIPNF #### [facility] CLIA [id number] [address] [place] [address] [place] TRIGLYCERIDES, NF 219 mg/dL High <[address] [facility] Comment on above: Order Comment: Speci men Type: BLOOD SPECIMEN Order[facility] Address: [address] [place] [address] Result Comment: <150 mg/dL, Normal 150-199 mg/dL, Borderline high 200-499 mg/dL, High >499 mg/dL, Very high Performed By: #### 3 016-3, 41384-3, 06530-1, LIPNF #### [facility] CLIA [id number] [address] [place] [address] [place] VLDL CHOLESTEROL, NF 39 mg/dL High <30 [facility] Comment on above: Order Comment: Claudia munoz Type: BLOOD SPECIMEN [facility] Address: [address] [place] [address] Performed By: #### 3 016-3, 04736-8, 92505-6, LIPNF #### [facility] CLIA [id number] [address] [place] [address] [place] Magnesium SerPl-mCncon 11-05 Magnesium [Mass/Vol] 2.3 mg/dL Normal 1.7-2.3 [facility] Comment on above: Order Comment: Speci alexander Type: BLOOD SPECIMEN [facility] Address: [address] [place] [address] Performed By: #### 3 016-3, 04186-7, 93681-8, LIPNF #### [facility] CLIA [id number] [address] [place] [address] [place] TSH SerPl-aCncon 11-05-2024 TSH Qn 0.929 m[IU]/L Normal 0.270-4.200 [facility] Comment on above: Order Comment: Speci alexander Type: BLOOD SPECIMEN [facility] Address: [address] [place] [address] Result Comment: If t he patient is , TSH reference range varies by gestational period: First Trimester (weeks 9-12): 0.180-2.990 mIU/L Second Trimester: 0.110-3.980 mIU/L Third Trimester: 0.480-4.710 mIU/L Thor Dalton et al. A Practical Approach for the Verifications and Determination of Site- and Trimester-Specific Reference Intervals for Thyroid Function tests in . Thyroid, 2019:29:3:412-420. José Luis E, et al. 2017 Guidelines of the [place] Thyroid Association for the Diagnosis and Management of Thyroid Disease during and the . Thyroid, 2017:27:3:315-389. Performed By: #### 3 016-3, 17360-5, 56858-8, LIPNF #### [facility] CLIA [id number] [address] [place] [address] [place] VITAMIN B12on 11-05-2024 Cobalamin (Vitamin B12) [Mass/Vol] 603 pg/mL 232 - 1245 pg/mL [facility] Vit B12 SerPl-mCncon 025 Cobalamin (Vitamin B12) [Mass/Vol] 603 pg/mL Normal 232-1245 [facility] Comment on above: Order Comment: Speci men Type: BLOOD SPECIMEN [facility] Address: [address] [place] [address] Performed By: #### 2 132-9 #### [facility] CLIA [id number] [address] [place] [address] [place] Abdomen/Pelvis W IV Cont ONL Yon 09-27-2024 Abdomen/Pelvis W IV Cont ONLY [facility] [address] [place] [address] Abdomen/Pelvis W IV Cont ONLY MR#: [id number] Acct: [id number] Name: SAVITA GREENFIELD Rep #: [id number] : 1995 F 29 From: Carlos Suarez PCP: Care Physician,No Primary Status: REG ER Study: Abdomen/Pelvis W IV Cont ONLY Date of Exam: Exam# [id number] Ordering Dr: Antony Gutierrez DO PROCEDURE: ABDOMEN/PELVIS W IV CONT ONLY 09/26/2024 REASON FOR EXAM: ABD PAIN S/P SURGERY TECHNIQUE: ABDOMEN/PELVIS W IV CONT ONLY Coronal and Sagittal reconstruction series were provided. CONTRAST: 100 mL of Isovue 370 One or more dose reduction techniques were used (e.g., Automated exposure control, adjustment of the mA and/or kV according to patient size, use of iterative reconstruction technique. RADIATION DOSE SUMMARY: DLP: 1369 mGycm COMPARISON: None FINDINGS: Limited sections of the lung bases demonstrate no focal pulmonary mass or consolidations. The liver, spleen, pancreas, and both adrenal glands demonstrate no acute findings. Hepatomegaly to 19 cm.. Question mild hepatic steatosis. The gallbladder is contracted. The stomach is unremarkable. Scattered inflamed small bowel loops within the left hemiabdomen may reflect enteritis. No bowel obstruction. The appendix is not clearly identified, although there are no secondary signs of appendicitis. No colonic obstruction. Trace pelvic free fluid. No free air. The kidneys are unremarkable. The urinary bladder is partially distended. The pelvic structures are intact. There is no solid pelvic mass. IUD noted within the uterus No significant lymphadenopathy. The aorta and IVC demonstrate no acute findings. Visualized osseous structures demonstrate no acute abnormality. CT/Abdomen/Pelvis W IV Cont ONLY IMPRESSION: Scattered inflamed small bowel loops within the left hemiabdomen may reflect enteritis. No bowel obstruction. Reading Location: [facility] CC: Antony Gutierrez DO; No Primary Care Physician Reviewer Sales: Signed Normal [facility] Absolute lymphocyte countOrd ered By: Antony Gutierrez on 09-27-2024 Lymphocytes Auto (Unsp spec) [#/Vol] 1.55 10*3/uL 0.83-4.51 [facility] Absolute neutrophil countOrd ered By: Antony Gutierrez on 09-27-2024 Neutrophils (Bld) [#/Vol] 5.3 10*3/uL 2.0-7.7 [facility] Amorphous sediment detection in urine sediment by light microscopyOrdered By: Antony Gutierrez on 09-27-2024 Amorphous sediment LM Ql (Urine sed) 2+ [facility] Anion gap in Serum or Plasma Ordered By: Antony Gutierrez on 09-27-2024 Anion gap [Moles/Vol] 12 mmol/L 5-15 [facility] Automated lymphocyte count a s percentage of total leukocytesOrdered By: Antony Gutierrez on 09-27-2024 Lymphocytes/100 WBC Auto (Unsp spec) 20.5 % 19-41 [facility] BUN/creatinine ratioOrdered By: Antony Gutierrez on 09-27-2024 Urea nitrogen/Creatinine [Mass ratio] 14.6 mg/mg 10-20 [facility] Basic Metabolic Profile (BMP )on 09-27-2024 BUN/CRE 14.6 RATIO Normal 10-20 [facility] Comment on above: Performed By: #### L 400.0001 #### [facility] [address] [place], [address] Calcium [Mass/Vol] 8.7 mg/dL Normal 7.6-11.0 [facility] Comment on above: Performed By: #### L 400.0001 #### [facility] [address] [place], [address] Chloride [Moles/Vol] 105 mmol/L Normal 98-108 [facility] Comment on above: Performed By: #### L 400.0001 #### [facility] [address] [place], [address] CO2 [Moles/Vol] 21.7 mmol/L Normal 21.0-32.0 [facility] Comment on above: Performed By: #### L 400.0001 #### [facility] [address] [place], [address] Creatinine [Mass/Vol] 0.75 mg/dL Normal 0.70-1.20 [facility] Comment on above: Performed By: #### L 400.0001 #### [facility] [address] [place], [address] ECRCL 142.87 ml/min Normal 50-250 [facility] Comment on above: Performed By: #### L [id number] #### [facility] [address] [place], [address] GAP 12 Normal 5-15 [facility] Comment on above: Performed By: #### L [id number] #### [facility] [address] [place], [address] GFR/1.73 sq M.predicted among non-blacks MDRD (S/P/Bld) [Vol rate/Area] 110 mL/min/{1.73_m2} Normal >60 [facility] Comment on above: Result Comment: mL/m in/1.73m2 CKD-EPI Creatinine Equation (2020) Performed By: #### L [id number] #### [facility] [address] [place], [address] Glucose [Mass/Vol] 123 mg/dL High 70-99 [facility] Comment on above: Performed By: #### L 400.0001 #### [facility] [address] [place], [address] Potassium [Moles/Vol] 3.8 mmol/L Normal 3.3-5.1 [facility] Comment on above: Performed By: #### L 400.0001 #### [facility] [address] [place], [address] Sodium [Moles/Vol] 139 mmol/L Normal 133-145 [facility] Comment on above: Performed By: #### L 400.0001 #### [facility] [address] [place], [address] Urea nitrogen [Mass/Vol] 11 mg/dL Normal 4-19 [facility] Comment on above: Performed By: #### L [id number] #### [facility] [address] [place], [address] Basophil percentageOrdered B y: Antony Gutierrez on 09-27-2024 Basophils/100 WBC (Bld) 0.7 % 0-1 [facility] Bilirubin Test strip Ql (U)O rdered By: Antony Gutierrez on 09-27-2024 Bilirubin Ql (U) 1 mg/dL High Negative [facility] Comment on above: COLOR OF URINE MAY A FFECT DIPSTICK RESULTS. Bilirubin directOrdered By: Antony Gutierrez on 09-27-2024 Bilirubin.direct [Mass/Vol] 0.09 mg/dL 0.00-0.30 [facility] Bilirubin, totalOrdered By: Antony Gutierrez on 09-27-2024 Bilirubin [Mass/Vol] 0.29 mg/dL 0.00-1.30 [facility] CBC W/Diff, Automatedon 09-18-2024 Absolute Lymph 1.55 X10 3/uL Normal 0.83-4.51 [facility] Comment on above: Performed By: #### L [id number] #### [facility] [address] [place], [address] Absolute Neut 5.3 X10 3/uL Normal 2.0-7.7 [facility] Comment on above: Performed By: #### L [id number] #### [facility] [address] [place], [address] Basophils/100 WBC (Bld) 0.7 % Normal 0-1 [facility] Comment on above: Performed By: #### L 400.0001 #### [facility] [address] [place], [address] Eosinophils/100 WBC (Bld) 2.2 % Normal 0-5 [facility] Comment on above: Performed By: #### L [id number] #### [facility] [address] [place], [address] Erythrocyte distribution width (RBC) [Ratio] 13.4 % Normal 11.6-14.6 [facility] Comment on above: Performed By: #### L 400.0001 #### [facility] [address] [place], [address] Hematocrit (Bld) [Volume fraction] 36.1 % Low 37-47 [facility] Comment on above: Performed By: #### L 400.0001 #### [facility] [address] [place], [address] Hemoglobin (Bld) [Mass/Vol] 11.8 g/dL Low 12.0-15.0 [facility] Comment on above: Performed By: #### L 400.0001 #### [facility] [address] [place], [address] IG% 0.400 Normal 0.0-0.9 [facility] Comment on above: Result Comment: IG% - Immature Granulocytes (promyelocytes, myelocytes and metamyelocytes) > 1% indicates that a LEFT SHIFT is Present. Performed By: #### L [id number] #### [facility] [address] [place], [address] Lymphocytes/100 WBC (Bld) 20.5 % Normal 19-41 [facility] Comment on above: Performed By: #### L [id number] #### [facility] [address] [facility] [place], [address] MCH (RBC) [Entitic mass] 27.4 pg Normal 27.0-32.0 [facility] Comment on above: Performed By: #### L 400.0001 #### [facility] [address] [facility] [place], [address] MCHC (RBC) [Mass/Vol] 32.7 g/dL Normal 32-36 [facility] Comment on above: Performed By: #### L [id number] #### [facility] [address] [facility] [place], [address] MCV (RBC) [Entitic vol] 84.0 fL Normal 81-99 [facility] Comment on above: Performed By: #### L 400.0001 #### [facility] [address] [facility] [place], [address] Monocytes/100 WBC (Bld) 6.5 % Normal 0-10 [facility] Comment on above: Performed By: #### L 400.0001 #### [facility] [address] [facility] [place], [address] Neutrophils/100 WBC (Bld) 69.7 % Normal 47-70 [facility] Comment on above: Performed By: #### L [id number] #### [facility] [address] [place], [address] Nucleated RBC (Bld) [#/Vol] 0 10*3/uL Normal 0-5 [facility] Comment on above: Performed By: #### L [id number] #### [facility] [address] [place], [address] Platelet mean volume (Bld) [Entitic vol] 10.1 fL Normal 6.2-12.0 [facility] Comment on above: Performed By: #### L 400.0001 #### [facility] [address] [place], [address] Platelets (Bld) [#/Vol] 424 10*3/uL Normal 150-450 [facility] Comment on above: Performed By: #### L [id number] #### [facility] [address] [place], [address] RBC (Bld) [#/Vol] 4.30 10*6/uL Normal 4.2-5.4 [facility] Comment on above: Performed By: #### L 400.0001 #### [facility] [address] [place], [address] RDW SD 41.1 fl Normal 35.1-43.9 [facility] Comment on above: Performed By: #### L [id number] #### [facility] [address] [place], [address] WBC (Bld) [#/Vol] 7.6 10*3/uL Normal 4.4-11.0 [facility] Comment on above: Performed By: #### L 400.0001 #### [facility] [address] [place], [address] Carbon dioxide, total [Moles /volume] in Central venous bloodOrdered By: Antony Gutierrez on 09-27-2024 CO2 [Moles/Vol] 21.7 mmol/L 21.0-32.0 [facility] Chloride assayOrdered By: Yary Gutierrez on 09-27-2024 Chloride [Moles/Vol] 105 mmol/L 98-108 [facility] Emergency Department Summary on 09-27-2024 Emergency Department Summary [facility] Medical Records Department [address] [place] [address] Emergency Department Summary 09/27/24 MR#: [id number] Acct: [id number] Name: SAVITA GREENFIELD Rep #: [id number] : 1995 29 From: Antony Gutierrez DO PCP: Care Physician,No Primary Status:DEP ER Location: ED HPI History of Present Illness Chief Complaint: Abd Pain Informant: patient and friend Narrative Narrative: Patient is a 29-year-old female who had her fallopian tubes removed at the end of August. She states that she has been doing well but in the last few days has noticed generalized abdominal pain and she states that she believes there is a vaginal odor. She is concerned for secondary infection from the surgery and secondary to this comes in for evaluation. She states that there has been subjective fevers and chills and nausea but denies any vomiting diarrhea or dysuria. [facility] Medical History Encounter for IUD insertion Wears contact lenses Marijuana use Asthma Shortness of breath on exertion Non-smoker Anxiety Depression Home Medications ???Medication ???Instructions ???Recorded ???Last Taken ???Type bupropion HCl 300 mg 24 hr tablet, 300 mg PO QHS 08/10/24 Unknown H istory extended release fluoxetine 40 mg capsule 40 mg PO QHS 08/10/24 Unknown Hist ory montelukast 10 mg tablet 10 mg PO QHS 08/10/24 Unknown Hist ory albuterol sulfate 90 mcg/actuation 2 inh inhalation Q6H PRN shortne ss 08/24/24 Unknown History breath activated powder inhaler of breath or wheezing naproxen 500 mg tablet 500 mg PO BID PRN PRN Pain #30 tab s 09/04/24 Unknown Rx levonorgestrel 20.4 mcg/24 hr (up 1 device intrauterine ONCE Unknown History to 8 yrs) 52 mg intrauterine device (Liletta) cephalexin 500 mg capsule 500 mg PO TID 7 days #21 caps 09/18 Unknown Rx Allergy/AdvReac Type Severity Reaction Status Date / Time coconut Allergy Intermediate migraine Verified 09/27/24 00:34 milk Allergy Vomiting Verified 09/27/24 00:34 Family History Mother Thyroid disorder Grandmother Thyroid disorder Breast cancer Over the age of 50 at diagnosis Cervical cancer Over the age of 50 at diagnosis Aunt Thyroid disorder Surgical History Status post bilateral salpingectomy H/O wisdom tooth extraction Social History household members: children housing: apartment number of children: 1 current occupational status: employed current occupation: [employer] Smoking Status: Never smoker alcohol intake: current alcohol intake frequency: holidays/special occasions only substance use type: marijuana seatbelt use: always do you feel safe at home: Yes additional social history: Single ROS ROS ED Constitutional Constitutional ED: Reports chills, fever(s) and subjective Eyes Eyes: Denies change in vision ENT ENT ED: Denies sore throat Cardiovascular Cardiovascular: Denies chest pain Respiratory/Chest Respiratory/Chest: Denies cough or dyspnea Gastrointestinal Gastrointestinal: Reports abdominal pain and nausea; Denies diarrhea or vomiting Genitourinary Genitourinary ED: Denies dysuria Musculoskeletal Musculoskeletal: Denies myalgias Integumentary Denies rash Hematologic/Lymphati c Hematologic/Lymphati c: Denies easy bleeding or easy bruising EXAM Physical Exam Const Vital Signs: 09/27/24 00:32 09/27/24 02:42 Temperature 98.1 F Temperature Source Oral Pulse Rate 106 H 80 Respiratory Rate 18 16 Blood Pressure 137/83 H 123/71 H Blood Pressure Mean 101 88 Pulse Ox 98 97 Oxygen Delivery Method Room Air Room Air Positive well nourished, well developed and obese General Appearance ED: well developed; Negative for pallor Nutritional Appearance: obese HEENT HEENT Narrative: Normocephalic atraumatic No signs of infection noted in the posterior pharynx Eyes PERRL and EOMs intact bilaterally General Eye ED: Negative for pale conjunctiva or scleral icterus Neck supple Neck Narrative: No nuchal rigidity or meningeal signs Resp normal respiratory effort and clear to auscultation bilaterally Cardio regular rate and regular rhythm Rate: other Other Details: Heart is regular rate and rhythm without murmurs rubs or gallops Radial and carotid pulses are equal and symmetric GI non-distended and no masses GI Narrative: Soft and nondistended with normal active bowel sounds. There is pain with palpation in the lower abdomen diffusely without voluntary guarding or rigidity. No pulsatile mass or fluid wave. No peritoneal signs Auscultation: normoactive bowel sounds Palpation: so (more content not included)... Normal [facility] Eosinophil percentageOrdered By: Antony Gutierrez on 09-27-2024 Eosinophils/100 WBC (Bld) 2.2 % 0-5 [facility] Erythrocyte distribution wid th ratioOrdered By: Antony Gutierrez on 09-27-2024 Erythrocyte distribution width (RBC) [Ratio] 13.4 % 11.6-14.6 [facility] Erythrocyte distribution wid th standard deviationOrdered By: Antony Gutierrez on 09-27-2024 Erythrocyte distribution width (RBC) [Ratio] 41.1 fl 35.1-43.9 [facility] Glomerular filtration rate ( GFR) estimation/1.73 sq m using serum, plasma, or whole bOrdered By: Antony Gutierrez on 09-27-2024 GFR/1.73 sq M.predicted among non-blacks MDRD (S/P/Bld) [Vol rate/Area] 110 mL/min/{1.73_m2} >60 [facility] Comment on above: mL/min/1.73m2 CKD-EP I Creatinine Equation (2020) Hematocrit Auto (Bld) [Volum e fraction]Ordered By: Antony Gutierrez on 09-27-2024 Hematocrit (Bld) [Volume fraction] 36.1 % Low 37-47 [facility] Hemoglobin measurementOrdere d By: Antony Gutierrez on 09-27-2024 Hemoglobin (Bld) [Mass/Vol] 11.8 g/dL Low 12.0-15.0 [facility] Immature granulocytes/100 WB C Auto (Bld)Ordered By: Antony Gutierrez on 09-27-2024 Immature granulocytes/100 WBC (Bld) 0.400 % 0.0-0.9 [facility] Comment on above: IG% - Immature Granu locytes (promyelocytes, myelocytes and metamyelocytes) > 1% indicates that a LEFT SHIFT is Present. Ketones Test strip Ql (U)Ord ered By: Antony Gutierrez on 09-27-2024 Ketones Ql (U) 5 mg/dl High Negative [facility] - Chemistry and C hemistry - challengeOrdered By: Antony Gutierrez on 09-27-2024 AST [Catalytic activity/Vol] 19 U/L <32 [facility] Lactic Acidon 09-27-2024 Lactate [Moles/Vol] 1.1 mmol/L Normal 0.0-2.0 [facility] Comment on above: Order Comment: COLLE CTOR TO SPECIFY Performed By: #### L [id number] #### [facility] [address] [place], [address] Lactic acid measurementOrder ed By: Antony Gutierrez on 09-27-2024 Lactate [Moles/Vol] 1.1 mmol/L 0.0-2.0 [facility] Lipaseon 09-27-2024 Lipase [Catalytic activity/Vol] 33 U/L Normal 13-75 [facility] Comment on above: Result Comment: Magalie brennan note: LIPASE revised reference range effective 22. New Lipase methodology. Expected to produce lower values than the previous assay method. NEW Reference Range: 13 - 75 U/L Performed By: #### L [id number] #### [facility] [address] [place], [place], [id number] Lipase measurementOrdered By : Antony Gutierrez on 09-27-2024 Lipase [Catalytic activity/Vol] 33 U/L 13-75 [facility] Comment on above: Please note:LIPASE r evised reference range effective 22. New Lipase methodology. Expected to produce lower values than the previous assay method. NEW Reference Range: 13 - 75 U/L Liver Profileon 09-27-2024 Albumin [Mass/Vol] 3.8 g/dL Normal 3.5-5.0 [facility] Comment on above: Performed By: #### L [id number] #### [facility] [address] [place], [address] ALK PHOS 114 U/L High 35-104 [facility] Comment on above: Performed By: #### L 400.0001 #### [facility] [address] [place], [address] ALT [Catalytic activity/Vol] 22 U/L Normal <=34 [facility] Comment on above: Performed By: #### L 400.0001 #### [facility] [address] [place], [address] AST [Catalytic activity/Vol] 19 U/L Normal <=31 [facility] Comment on above: Performed By: #### L 400.0001 #### [facility] [address] [place], [address] Bilirubin [Mass/Vol] 0.29 mg/dL Normal 0.00-1.30 [facility] Comment on above: Performed By: #### L 400.0001 #### [facility] [address] [place], [address] Bilirubin.direct [Mass/Vol] 0.09 mg/dL Normal 0.00-0.30 [facility] Comment on above: Performed By: #### L 400.0001 #### [facility] [address] [place], [address] Globulin (S) [Mass/Vol] 3.4 g/dL Normal 2.2-4.2 [facility] Comment on above: Performed By: #### L [id number] #### [facility] [address] [place], [address] T PROT 7.1 g/dL Normal 5.9-8.4 [facility] Comment on above: Performed By: #### L [id number] #### [facility] [address] [place], [address] MCV (mean corpuscular volume ) determinationOrdered By: Antony Gutierrez on 09-27-2024 MCV (RBC) [Entitic vol] 84.0 fL 81-99 [facility] Mean corpuscular hemoglobin (MCH) determinationOrdered By: Antony Gutierrez on 09-27-2024 MCH (RBC) [Entitic mass] 27.4 pg 27.0-32.0 [facility] Mean corpuscular hemoglobin concentration (MCHC) determinationOrdered By: Antony Gutierrez on 09-27-2024 MCHC (RBC) [Mass/Vol] 32.7 g/dL 32-36 [facility] Mean platelet volume determi nationOrdered By: Antony Gutierrez on 09-27-2024 Platelet mean volume (Bld) [Entitic vol] 10.1 fL 6.2-12.0 [facility] Microscopic analysis of urin e for red blood cells (RBC)Ordered By: Antony Gutierrez on 09-27-2024 Microscopic analysis of urine for red blood cells (RBC) 10-25 SEEN /hpf 0-5 [facility] Monocyte percentageOrdered B y: Antony Gutierrez on 09-27-2024 Monocytes/100 WBC (Bld) 6.5 % 0-10 [facility] Mucus LM Ql (Urine sed)Order ed By: Antony Gutierrez on 09-27-2024 Mucus Ql (Urine sed) 0 SEEN /hpf [facility] Neutrophil percentageOrdered By: Antony Gutierrez on 09-27-2024 Neutrophils/100 WBC (Bld) 69.7 % 47-70 [facility] Nitrite Test strip Ql (U)Ord ered By: Antony Gutierrez on 09-27-2024 Nitrite Ql (U) Negative Negative [facility] Nucleated red blood cell per centageOrdered By: Antony Gutierrez on 09-27-2024 Nucleated RBC/100 WBC (Bld) [Ratio] 0 % 0-5 [facility] Platelet countOrdered By: Yary Gutierrez on 09-27-2024 Platelets (Bld) [#/Vol] 424 10*3/uL 150-450 [facility] Potassium measurement (mass/ volume)Ordered By: Antony Gutierrez on 09-27-2024 Potassium (Unsp spec) [Mass/Vol] 3.8 mmol/L 3.3-5.1 [facility] Protein Test strip Ql (U)Ord ered By: Antony Gutierrez on 09-27-2024 Protein Ql (U) 30 mg/dl High Negative [facility] RBC Auto (Bld) [#/Vol]Ordere d By: Antony Gutierrez on 09-27-2024 RBC (Bld) [#/Vol] 4.30 10*6/uL 4.2-5.4 [facility] Serum creatinine measurement (mass/volume)Ordered By: Antony Gutierrez on 09-27-2024 Creatinine [Mass/Vol] 0.75 mg/dL 0.70-1.20 [facility] Serum globulin measurementOr dered By: Antony Gutierrez on 09-27-2024 Globulin (S) [Mass/Vol] 3.4 g/dL 2.2-4.2 [facility] Serum glucose measurement (m ass/volume)Ordered By: Antony Gutierrez on 09-27-2024 Glucose [Mass/Vol] 123 mg/dL High 70-99 [facility] Serum or plasma alanine harrington otransferase (ALT) measurementOrdered By: Antony Gutierrez on 09-27-2024 ALT [Catalytic activity/Vol] 22 U/L <35 [facility] Serum or plasma albumin brenda urement (mass/volume)Ordered By: Antony Gutierrez on 09-27-2024 Albumin [Mass/Vol] 3.8 g/dL 3.5-5.0 [facility] Serum or plasma alkaline lesvia sphatase measurementOrdered By: Antony Gutierrez on 09-27-2024 ALP [Catalytic activity/Vol] 114 U/L High 35-104 [facility] Serum or plasma calcium brenda urement (mass/volume)Ordered By: Antony Gutierrez on 09-27-2024 Calcium [Mass/Vol] 8.7 mg/dL 7.6-11.0 [facility] Serum or plasma urea nitroge n measurement (mass/volume)Ordered By: Antony Gutierrez on 09-27-2024 Urea nitrogen [Mass/Vol] 11 mg/dL 4-19 [facility] Sodium levelOrdered By: Ben Gutierrez on 09-27-2024 Sodium [Moles/Vol] 139 mmol/L 133-145 [facility] Squamous epithelial cells de tection in urine sediment by light microscopyOrdered By: Antony Gutierrez on 09-27-2024 Epithelial cells.squamous LM Ql (Urine sed) 10-25 SEEN /hpf 5- [facility] Total proteinOrdered By: Jarek Gutierrez on 09-27-2024 Protein [Mass/Vol] 7.1 g/dL 5.9-8.4 [facility] Transitional cells detection in urine sediment by light microscopyOrdered By: Antony Gutierrez on 09-27-2024 Transitional cells LM Ql (Urine sed) 0-5 SEEN /hpf 0-5 [facility] Urinalysis, Completeon 09-27 AMORPHOUS 2+ Normal [facility] Comment on above: Order Comment: CUCO CTOR TO SPECIFY Performed By: #### L [id number] #### [facility] [address] [place], [address] BACTERIA 4+ /hpf Normal None Seen [facility] Comment on above: Order Comment: CUCO CTOR TO SPECIFY Performed By: #### L [id number] #### [facility] [address] [place], [address] EPI,SQUAMOUS 10-25 SEEN Normal 5- [facility] Comment on above: Order Comment: CUCO CTOR TO SPECIFY Performed By: #### L [id number] #### [facility] [address] [place], [address] EPI,TRANSITION 0-5 SEEN Normal 0-5 [facility] Comment on above: Order Comment: CUCO CTOR TO SPECIFY Performed By: #### L [id number] #### [facility] [address] [place], [address] RBC 10-25 SEEN Normal 0-5 [facility] Comment on above: Order Comment: CUCO CTOR TO SPECIFY Performed By: #### L [id number] #### [facility] [address] [place], [address] WBC 10-25 SEEN Normal 0-5 [facility] Comment on above: Order Comment: CUCO CTOR TO SPECIFY Performed By: #### L [id number] #### [facility] [address] [place], [place], [id number] Mucus Ql (Urine sed) 0 SEEN Normal [facility] Comment on above: Order Comment: CUCO CTOR TO SPECIFY Performed By: #### L [id number] #### [facility] [address] [place], [place], [id number] Urine clarityOrdered By: Jarek Gutierrez on 09-27-2024 Clarity (U) Sl. Cloudy Clear [facility] Urine color determinationOrd ered By: Antony Gutierrez on 09-27-2024 Color (U) Yellow Yellow [facility] Urine glucose detectionOrder ed By: Antony Gutierrez on 09-27-2024 Glucose Ql (U) Normal mg/dl Normal [facility] Urine leukocyte esterase det ection by dipstickOrdered By: Antony Gutierrez on 09-27-2024 Leukocyte esterase Test strip Ql (U) 500 /ul High Negative [facility] Urine pHOrdered By: Antony enamorado on 09-27-2024 pH (U) 6.0 [pH] 5.0 - 8.0 [facility] Urine sediment bacteria coun t by microscopy (number/high power field)Ordered By: Antony Gutierrez on 09-27-2024 Bacteria LM.HPF (Urine sed) [#/Area] 4 /[HPF] None Seen [facility] Urine specific gravity measu rementOrdered By: Antony Gutierrez on 09-27-2024 Specific gravity (U) [Rel density] 1.025 1.002-1.030 [facility] Urine urobilinogen measureme ntOrdered By: Antony Gutierrez on 09-27-2024 Urobilinogen Ql (U) Normal mg/dl Normal [facility] White blood cell (WBC) count Ordered By: Antony Gutierrez on 09-27-2024 WBC (Bld) [#/Vol] 7.6 10*3/uL 4.4-11.0 [facility] White blood cell countOrdere d By: Antony Pumaelliott on 09-27-2024 White blood cell count 10-25 SEEN /hpf 0-5 [facility] [employer] Office Visit Reporton 09-17-2024 [employer] Office Visit Report [facility] [address], [address] [place] [address] OFFICE VISIT Date of Service: 09/17/24 MR#: [id number] Acct: [id number] Name: SAVITA GREENFIELD Rep #: [id number] : 1995 Provider: Dr. Sadie mascorro MD Age/Sex: 29/F Location: [facility] Status: Signed Intake Vital Signs 08/10/24 11:03 09/04/24 19:50 09/17/24 08:21 Height 5 ft 3 in 5 ft 3 in 5 ft 3 in Weight: 272 lb BMI 48.2 BP 118/73 Intake Visit Reasons: 2 wk BS and IUD insert [employer]st Required: No Is patient in pain?: No Feel stressed/tense/nervo us/anxious/difficult y sleeping: not at all Allergies coconut Allergy (Intermediate, Verified 09/17/24 08:22) migraine milk Allergy (Verified 09/17/24 08:22) Vomiting KIWI Allergy (Intermediate, Uncoded 09/17/24 08:22) Angioedema Medications ???Medication ???Instructions ???Recorded ???Confirmed ???Type bupropion HCl 300 mg 24 hr tablet, 300 mg PO QHS 08/10/24 09/17/24 History extended release fluoxetine 40 mg capsule 40 mg PO QHS 08/10/24 09/17/24 His tory montelukast 10 mg tablet 10 mg PO QHS 08/10/24 09/17/24 His tory albuterol sulfate 90 mcg/actuation 2 inh inhalation Q6H PRN shortne ss 08/24/24 09/17/24 History breath activated powder inhaler of breath or wheezing naproxen 500 mg tablet 500 mg PO BID PRN PRN Pain #30 tab s 09/04/24 09/17/24 Rx levonorgestrel 20.4 mcg/24 hr (up 1 device intrauterine ONCE 09/17/24 History to 8 yrs) 52 mg intrauterine device (Liletta) Patient : No : No PFSH Medical History Encounter for IUD insertion Wears contact lenses Marijuana use Asthma Shortness of breath on exertion Non-smoker Anxiety Depression Surgical History Status post bilateral salpingectomy H/O wisdom tooth extraction Family History Mother Thyroid disorder Grandmother Thyroid disorder Breast [...] at home: Yes additional social history: Single HPI 2 wk BS and IUD insert Details: SAVITA GREENFIELD is a 29 year old who presents for postop. she is doing well overall. she denies any fevers or abdominal pain. History 1 Elective abortions Hx Para 1 Spontaneous abortions Hx # Term Pregnancies Ectopic pregnancies Hx # Pregnancies Multiple births # of living children 1 Past Pregnancies Del. Date Name GA/Weeks Outcome Route Bth Weight Infant Gen Labor Lgth Anesthesia Del Locatn Provider [facility] [place] [facility] ROS Const Constitutional: Reports system reviewed and no additional complaints, except as documented GI GI: Denies abdominal pain, cramping, nausea or vomiting : Denies pelvic pain, urinary frequency, urinary incontinence, urinary urgency, vaginal discharge, vaginal dryness or vaginal odor Exam Const General: cooperative, healthy appearing, comfortable and no acute distress GI Inspection: normal to inspection Palpation: soft and nontender Other: Incisions: C/D/I Coding Level of Care Code No Charge Diagnoses Status post bilateral salpingectomy Z90.79 Assessment and Plan Assessment and Plan (1) Status post bilateral salpingectomy: Status: Acute Plan Problem list updated and treatment plans were reviewed with the patient and relevant educational handouts given. See problem list details for specific plan information. 09/17/24 0827 Date [facility]: Date (if applicable) CC: Normal [facility] Discharge Instructionon 08-19 Discharge Instruction [facility] Medical Records Department [address] [place] [address] Instructions for Home/Discharge Instructions 09/05/24 1007 MR#: [id number] Acct: [id number] Name: SAVITA GREENFIELD Rep #: [id number] : 1995 29 From: Yareli Rodrigues MD PCP: Care Physician,No Primary Status:ADM IN Discharge Instructions Diet Discharge Diet: No restrictions DC O2, CPAP, BIPAP needs Home O2 Discharge instructions: No Dressing / Incision May resume sexual activity in: 1 week Weight Bearing Status: Full weight bearing Dressing / Incision Call your doctor if your incision/area has: Continuous Slow Oozing, Sudden Increased Bleeding, Increased Pain/ Swelling, Increased Redness and Foul Smelling Discharge Call your doctor if you observe: Fever of 101 or Higher, Using more than 1 pad per hour, Shortness of breath, Chest pain and Uncontrolled pain Suture Line Care: Avoid Pulling/Pushing and Avoid Pinching/Bending Cleanse incision/area with: Soap Water and Keep Dressing Clean Dry Follow Up Care Test Results: Test results from this visit will be discussed in further detail at your follow-up appointment, if applicable. Discharge Plan Admission Admit Date/Time: 09/04/24 19:15 Primary Reason for Your Visit: Sterilization and respiratory difficulty after surgery Attending Provider: Yareli Rodrigues Primary Care Provider: Care Physician,No Primary Consulting Providers: Sadie Gee; José Luis Garrido; Felipe Thomason Instructions Patient Instructions: 5 Steps for Eating Healthier Additional Instructions / Restrictions: -Follow-up with your OB/gynecology doctor as instructed by your provider -A script was sent for naproxen for pain, do not take this with ibuprofen as the combination could hurt your kidneys. He can resume Tylenol as needed once you are no longer taking naproxen -Please call your primary care provider's office upon discharge to schedule a hospital follow up within 1 week. -For any concerning signs or symptoms please call 911 or proceed to the nearest emergency department Discharge Orders/Prescriptions Prescriptions: New oxycodone-acetaminop hen [Percocet] 5-325 mg tablet 1 tab PO Q4H PRN (Reason: pain) 7 Days Qty: 20 0RF naproxen 500 mg tablet 500 mg PO BID PRN PRN (Reason: Pain) Qty: 30 1RF Continued fluoxetine 40 mg capsule 40 mg PO QHS bupropion HCl 300 mg tablet extended release 24 hr 300 mg PO QHS montelukast 10 mg tablet 10 mg PO QHS albuterol sulfate 90 mcg/actuation aerosol powdr breath activated 2 inh inhalation Q6H PRN (Reason: shortness of breath or wheezing) Discontinued ibuprofen 600 MG tablet 600 mg PO Q6H PRN (Reason: Pain) Qty: 60 1RF Referrals / Follow Up: Care Physician,No Primary [Primary Care Provider] - Disposition Disposition (needs filled in before D/C Order can be placed): Home, Self Care 09/05/24 1010 Yareli Rodrigues MD CC: Dr. José Luis Garrido DO; Dr. Felipe Thomason MD; Dr. Sadie Gee MD; No Primary Care Physician Signed Normal [facility] Anion gap in Serum or Plasma Ordered By: José Luis Garrido on 09-04-2024 Anion gap [Moles/Vol] 14 mmol/L 08-02 [facility] BUN/creatinine ratioOrdered By: José Luis Garrido on 09-04-2024 Urea nitrogen/Creatinine [Mass ratio] 12.3 mg/mg 01-07 [facility] Basic Metabolic Profile (BMP )on 09-04-2024 BUN/CRE 12.3 RATIO Normal 01-07 [facility] Comment on above: Performed By: #### L 400.0001 #### [facility] [address] [place], [address] Calcium [Mass/Vol] 9.0 mg/dL Normal 7.6-11.0 [facility] Comment on above: Performed By: #### L 400.0001 #### [facility] [address] [place], [address] Chloride [Moles/Vol] 102 mmol/L Normal 98-108 [facility] Comment on above: Performed By: #### L 400.0001 #### [facility] [address] [place], [address] CO2 [Moles/Vol] 19.6 mmol/L Low 21.0-32.0 [facility] Comment on above: Performed By: #### L 400.0001 #### [facility] [address] [place], [address] Creatinine [Mass/Vol] 0.75 mg/dL Normal 0.70-1.20 [facility] Comment on above: Performed By: #### L 400.0001 #### [facility] [address] [place], [address] ECRCL 142.52 ml/min Normal 50-250 [facility] Comment on above: Performed By: #### L 400.0001 #### [facility] [address] [place], [address] GAP 14 Normal 5-15 [facility] Comment on above: Performed By: #### L 400.0001 #### [facility] [address] [place], [address] GFR/1.73 sq M.predicted among non-blacks MDRD (S/P/Bld) [Vol rate/Area] 111 mL/min/{1.73_m2} Normal >60 [facility] Comment on above: Result Comment: mL/m in/1.73m2 CKD-EPI Creatinine Equation (2020) Performed By: #### L 400.0001 #### [facility] [address] [place], [address] Glucose [Mass/Vol] 116 mg/dL High 70-99 [facility] Comment on above: Performed By: #### L 400.0001 #### [facility] [address] [place], [address] Potassium [Moles/Vol] 4.3 mmol/L Normal 3.3-5.1 [facility] Comment on above: Performed By: #### L 400.0001 #### [facility] [address] [place], [address] Sodium [Moles/Vol] 135 mmol/L Normal 133-145 [facility] Comment on above: Performed By: #### L 400.0001 #### [facility] [address] [place], [address] Urea nitrogen [Mass/Vol] 9 mg/dL Normal 4-19 [facility] Comment on above: Performed By: #### L 400.0001 #### [facility] [address] [place], [address] CBC-Complete [facility] Erythrocyte distribution width (RBC) [Ratio] 13.7 % Normal 11.6-14.6 [facility] Comment on above: Performed By: #### L 400.0001 #### [facility] [address] [place], [address] Hematocrit (Bld) [Volume fraction] 39.5 % Normal 37-47 [facility] Comment on above: Performed By: #### L 400.0001 #### [facility] [address] [place], [address] Hemoglobin (Bld) [Mass/Vol] 13.0 g/dL Normal 12.0-15.0 [facility] Comment on above: Performed By: #### L 400.0001 #### [facility] [address] [place], [address] MCH (RBC) [Entitic mass] 27.2 pg Normal 27.0-32.0 [facility] Comment on above: Performed By: #### L 400.0001 #### [facility] [address] [place], [address] MCHC (RBC) [Mass/Vol] 32.9 g/dL Normal 32-36 [facility] Comment on above: Performed By: #### L 400.0001 #### [facility] [address] [place], [address] MCV (RBC) [Entitic vol] 82.6 fL Normal 81-99 [facility] Comment on above: Performed By: #### L 400.0001 #### [facility] [address] [place], [address] Platelet mean volume (Bld) [Entitic vol] 9.7 fL Normal 6.2-12.0 [facility] Comment on above: Performed By: #### L 400.0001 #### [facility] [address] [place], [address] Platelets (Bld) [#/Vol] 320 10*3/uL Normal 150-450 [facility] Comment on above: Performed By: #### L 400.0001 #### [facility] [address] [place], [address] RBC (Bld) [#/Vol] 4.78 10*6/uL Normal 4.2-5.4 [facility] Comment on above: Performed By: #### L 400.0001 #### [facility] [address] [place], [address] RDW SD 41.0 fl Normal 35.1-43.9 [facility] Comment on above: Performed By: #### L 400.0001 #### [facility] [address] [place], [address] WBC (Bld) [#/Vol] 7.2 10*3/uL Normal 4.4-11.0 [facility] Comment on above: Performed By: #### L 400.0001 #### [facility] [address] [place], [place], [address] Carbon dioxide, total [Moles /volume] in Central venous bloodOrdered By: José Luis Garrido on 09-04-2024 CO2 [Moles/Vol] 19.6 mmol/L Low 21.0-32.0 [facility] Chest 1 View (Portable)on Chest 1 View (Portable) [facility] Imaging Services [address] [place], [place] [address] Chest 1 View (Portable) MR#: [id number] Acct: [id number] Name: SAVITA GREENFIELD Rep #: [id number] : 1995 F 29 From: Carlos Suarez PCP: Care Physician,No Primary Status: ADM IN Study: Chest 1 View (Portable) Date of Exam: 09/04/24 Exam# [id number] Ordering Dr: Andrew Brand MD PROCEDURE: CHEST 1 VIEW (PORTABLE) 09/04/2024 REASON FOR EXAM: MOIST COUGH TECHNIQUE: Frontal view of the chest. COMPARISON: 08/09/2020 FINDINGS: Mild bilateral plethora which may reflect small airways disease such as asthma and/or atypical pneumonia/bronchioli tis. No focal consolidations. Cardiac silhouette is within normal limits. RAD/Chest 1 View (Portable) IMPRESSION: Mild bilateral plethora which may reflect small airways disease such as asthma and/or atypical pneumonia/bronchioli tis. Reading Location: [id number] CC: Dr. Andrew Brand MD; No Primary Care Physician Reviewer Sales: Signed Normal [facility] Chloride assayOrdered By: Delio Garrido on 09-04-2024 Chloride [Moles/Vol] 102 mmol/L 98-108 [facility] Discharge Instructionon 06-1 7-2025 Discharge Instruction [facility] Medical Records Department [address] [place] [address] Instructions for Home/Discharge Instructions 09/04/24 1608 MR#: [id number] Acct: [id number] Name: SAVITA GREENFIELD Rep #: [id number] : 1995 29 From: Sadie Gee MD PCP: Care Physician,No Primary Status:REG SDC Discharge Instructions Diet Discharge Diet: No restrictions DC O2, CPAP, BIPAP needs Home O2 Discharge instructions: No Dressing / Incision Discharge Activity: Return to Normal Activity, May Not Drive ( while taking narcotic pain meds, when pain free), May Shower and May Take a Tub Bath (in 7 days) May resume sexual activity in: 1 week Weight Bearing Status: Full weight bearing Dressing / Incision Call your doctor if your incision/area has: Continuous Slow Oozing, Sudden Increased Bleeding, Increased Pain/ Swelling, Increased Redness and Foul Smelling Discharge Call your doctor if you observe: Fever of 101 or Higher, Using more than 1 pad per hour, Shortness of breath, Chest pain and Uncontrolled pain Suture Line Care: Avoid Pulling/Pushing and Avoid Pinching/Bending Remove Dressing in: 1 week (if present) Cleanse incision/area with: Soap Water and Keep Dressing Clean Dry Follow Up Care When: Call to make an appointment with your doctor for a fu/incision check in 1-2 weeks. Test Results: Test results from this visit will be discussed in further detail at your follow-up appointment, if applicable. Discharge Plan Admission Attending Provider: Sadie Gee Primary Care Provider: Care Physician,No Primary Instructions Print Language: Finnish Discharge Orders/Prescriptions Prescriptions: New oxycodone-acetaminop hen [Percocet] 5-325 mg tablet 1 tab PO Q4H PRN (Reason: pain) 7 Days Qty: 20 0RF naproxen 500 mg tablet 500 mg PO BID PRN PRN (Reason: Pain) Qty: 30 1RF No Action fluoxetine 40 mg capsule 40 mg PO QHS bupropion HCl 300 mg tablet extended release 24 hr 300 mg PO QHS montelukast 10 mg tablet 10 mg PO QHS ibuprofen 600 MG tablet 600 mg PO Q6H PRN (Reason: Pain) Qty: 60 1RF albuterol sulfate 90 mcg/actuation aerosol powdr breath activated 2 inh inhalation Q6H PRN (Reason: shortness of breath or wheezing) Referrals / Follow Up: Care Physician,No Primary [Primary Care Provider] - Disposition Disposition (needs filled in before D/C Order can be placed): Home, Self Care 09/04/24 7917 Sadie Gee MD CC: No Primary Care Physician Signed Normal [facility] Erythrocyte distribution wid th ratioOrdered By: Sadie Gee on 09-04-2024 Erythrocyte distribution width (RBC) [Ratio] 13.7 % 11.6-14.6 [facility] Erythrocyte distribution wid th standard deviationOrdered By: Sadie Gee on 09-04-2024 Erythrocyte distribution width (RBC) [Ratio] 41.0 fl 35.1-43.9 [facility] Glomerular filtration rate ( GFR) estimation/1.73 sq m using serum, plasma, or whole bOrdered By: José Luis Garrido on 09-04-2024 GFR/1.73 sq M.predicted among non-blacks MDRD (S/P/Bld) [Vol rate/Area] 111 mL/min/{1.73_m2} >60 [facility] Comment on above: mL/min/1.73m2 CKD-EP I Creatinine Equation (2020) H AND P Exam - [facility] 09-04-2024 H&P Exam - Hospitalist [facility] Medical Records Department [address] [place] [address] H P Exam - Hospitalist 09/04/24 1740 MR#: [id number] Acct: [id number] Name: SAVITA GREENFIELD Rep #: [id number] : 1995 29 From: José Luis Garrido DO PCP: Care Physician,No Primary Status:ADM IN Location: DC3 [id number] HPI - General General Date of Admission: 09/04/24 Date of Service: 09/04/24 Chief Complaint: Postoperative hypoxia HPI Narrative SAVITA GREENFIELD, is a 29 F who presented to [facility] on 09/04/24 for planned laparoscopic bilateral salpingectomy and IUD insertion with Dr. Gee. No complications with the procedure itself. However, on extubation patient had significant vomiting of bile and was bucking the tube requiring multiple staff members to physically restrain her. On arrival back to PACU she began to cough up pink frothy secretions concerning for negative pressure pulmonary edema. See anesthesiology quick note for full details. Because of this, anesthesia recommended the patient be admitted to the hospital for further management and hospitalist was contacted for admission. I saw the patient at bedside in the PACU. Patient was mildly sedated but otherwise sitting back comfortably in bed and breathing comfortably on 2 L nasal cannula at rest. Chest x-ray showed only mild bilateral plethora with otherwise fairly clear lung casillas. She denied any cough or sputum production for the last 30 minutes or so. She reported only mild lower abdominal pain currently from her procedure. States that she was diagnosed with sleep apnea at one point but did not tolerate CPAP. No other acute concerns currently. Will be admitted for further management. [facility] Medical History (Updated 09/04/24 @ 22:[address] José Luis Garrido, DO) Wears contact lenses Marijuana use Asthma Shortness of breath on exertion Non-smoker Anxiety Depression Home Medications ???Medication ???Instructions ???Recorded ???Last Taken ???Type ibuprofen 600 mg tablet 600 mg PO Q6H PRN Pain #60 tabs Unknown Rx bupropion HCl 300 mg 24 hr tablet, 300 mg PO QHS 08/10/24 Unknown H istory extended release fluoxetine 40 mg capsule 40 mg PO QHS 08/10/24 Unknown Hist ory montelukast 10 mg tablet 10 mg PO QHS 08/10/24 Unknown Hist ory albuterol sulfate 90 mcg/actuation 2 inh inhalation Q6H PRN shortne ss 08/24/24 Unknown History breath activated powder inhaler of breath or wheezing naproxen 500 mg tablet 500 mg PO BID PRN PRN Pain #30 tab s 09/04/24 Unknown Rx oxycodone-acetaminop hen 5 mg-325 1 tab PO Q4H PRN pain 7 days #20 0 09/04/24 Unknown Rx mg tablet (Percocet) tabs Allergy/AdvReac Type Severity Reaction Status Date / Time coconut Allergy Intermediate migraine Verified 09/04/24 13:45 milk Allergy Vomiting Verified 09/04/24 13:45 KIWI Allergy Intermediate Angioedema Uncoded 08/10/24 11:05 Family History (Updated 08/10/24 @ 11:12 by Ashlee Oro) Mother Thyroid disorder Grandmother Thyroid disorder Breast cancer Over the age of 50 at diagnosis Cervical cancer Over the age of 50 at diagnosis Aunt Thyroid disorder Surgical History (Updated 08/10/24 @ 11:09 by Ashlee Oro) H/O wisdom tooth extraction Social History (Updated 08/10/24 @ 11:13 by Ashlee Oro) household members: children housing: apartment number of children: 1 current occupational status: employed current occupation: [employer] Smoking Status: Never smoker alcohol intake: current alcohol intake frequency: holidays/special occasions only substance use type: marijuana seatbelt use: always do you feel safe at home: Yes additional social history: Single ROS Constitutional Constitutional: Reports fatigue; Denies chills, fever(s) or weakness Eyes Eyes: Denies change in vision Cardiovascular Cardiovascular: Denies chest pain Respiratory/Chest Respiratory/Chest: Reports cough, productive cough and shortness of breath at rest; Denies wheezing Gastrointestinal Gastrointestinal: Denies abdominal pain Musculoskeletal Musculoskeletal: Denies arthralgias or myalgias Vital Signs Vital Signs Vital Signs: 09/04/24 13:48 09/04/24 13:48 09/04/24 14:38 Temperature 99.0 F 99.0 F Temperature Source Temporal Pulse Rate 78 78 Respiratory Rate 18 18 Respiratory Pattern Normal Blood Pressure 115/82 H 115/82 H Blood Pressure Mean 93 Blood Pressure Source Monitor Blood Pressure Position Sitting Blood Pressure Location Right Arm Baseline BP Pulse Ox 98 98 Oxygen Delivery Method Room Air Oxygen Flow Rate (L/min) 09/04/24 17:13 09/04/24 17:15 09/04/24 17:20 Temperature 98.3 F Temperature Source Temporal Pulse Rate 99 99 98 Respiratory Rate 24 H 22 H 20 H Respiratory Pattern Tac (more content not included)... 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 she has desired permanent sterilization for a long time, her daughter requires a higher level of care. she wants reliable contracpetion and wants a permanent solution. she is having irreulga rmenses and had a normal cbc and tsh. plan is for laparoscopic bs and IUD insertion. PFSH PFSH Medical History (Updated 08/24/24 @ 13:03 by Jeaneth Brewer) Wears contact lenses Marijuana use Asthma Shortness of breath on exertion Non-smoker Anxiety Depression Home Medications ???Medication ???Instructions ???Recorded ???Last Taken ???Type ibuprofen 600 mg tablet 600 mg PO Q6H PRN Pain #60 tabs Unknown Rx bupropion HCl 300 mg 24 hr tablet, 300 mg PO QHS 08/10/24 Unknown H istory extended release fluoxetine 40 mg capsule 40 mg PO QHS 08/10/24 Unknown Hist ory montelukast 10 mg tablet 10 mg PO QHS 08/10/24 Unknown Hist ory albuterol sulfate 90 mcg/actuation 2 inh inhalation Q6H PRN shortne ss 08/24/24 Unknown History breath activated powder inhaler of breath or wheezing Allergy/AdvReac Type Severity Reaction Status Date / Time coconut Allergy Intermediate migraine Verified 08/24/24 12:56 milk Allergy Vomiting Verified 08/24/24 12:56 KIWI Allergy Intermediate Angioedema Uncoded 08/10/24 11:05 Family History (Updated 08/10/24 @ 11:12 by Ashlee Oro) Mother Thyroid disorder Grandmother Thyroid disorder Breast cancer Over the age of 50 at diagnosis Cervical cancer Over the age of 50 at diagnosis Aunt Thyroid disorder Surgical History (Updated 08/10/24 @ 11:09 by Ashlee Oro) H/O wisdom tooth extraction Social History (Updated 08/10/24 @ 11:13 by Ashlee Oro) household members: children housing: apartment number of [...] Date Name GA/Weeks Outcome Route Bth Weight Infant Gen Labor Lgth Anesthesia Del Locatn Provider FOB 05/07/18 Gregory 40 live - full term Female [facility] [place] [facility] ROS Constitutional Constitutional: Reports systems reviewed and no addt'l complaints, except as documented; Denies as per HPI, change in weight, fatigue, fever(s), malaise, weakness or other Eyes Eyes: Reports systems reviewed and no addt'l complaints, except as documented; Denies as per HPI, change in vision or other ENT HEENT: Reports systems reviewed and no addt'l complaints, except as documented Respiratory/Chest Respiratory/Chest: Reports systems reviewed and no addt'l complaints, except as documented Gastrointestinal Gastrointestinal: Reports systems reviewed and no addt'l complaints, except as documented and as per HPI Genitourinary Genitourinary: Reports as per HPI Musculoskeletal Musculoskeletal: Reports systems reviewed and no addt'l complaints, except as documented Neurologic Neurologic: Reports systems reviewed and no addt'l complaints, except as documented Psychiatric Psychiatric: Reports systems reviewed and no addt'l complaints, except as documented Endocrine Endocrinology: Reports systems reviewed and no addt'l complaints, except as documented Hematologic/Lymphati c Hematologic/Lymphati c: Reports systems reviewed and no addt'l complaints, except as documented Physical Exam Const alert, oriented x3 and no apparent distress HEENT normocephalic Head and Scalp: atraumatic Eyes EOMs intact bilaterally and conjunctivae normal Neck full ROM, no lymphadenopathy, supple and thyroid normal General: trachea midline Lymph Lymphatic: no lymphadenopathy noted Resp normal respiratory effort, no retractions, no use of accessory muscles and clear to auscultation bilaterally Cardio regular rhythm GI normal to inspection, nondistended, normoactive bowel sounds, soft to palpation, non-distended and no masses Inspection: Negative for abdominal distention Back/Spine no CVA tenderness Extremity normal to inspection Skin no rashes or lesions noted Neuro (more content not included)... Normal [facility] [facility] H[facility] Auto (Bld) [Volum e fraction]Ordered By: Sadie Gee on 09-04-2024 Hematocrit (Bld) [Volume fraction] 39.5 % 37-47 [facility] Hemoglobin measurementOrdere d By: Sadie Castillokailey on 09-04-2024 Hemoglobin (Bld) [Mass/Vol] 13.0 g/dL 12.0-15.0 [facility] MCV (mean corpuscular volume ) determinationOrdered By: Sadie Gee on 09-04-2024 MCV (RBC) [Entitic vol] 82.6 fL 81-99 [facility] MR/POSTOP.ANEon 09-04-2024 MR/POSTOP.[facility] Medical Records Department [address] [place] [address] Anesthesia Postop Eval I 09/04/241723 MR#: [id number] Acct: [id number] Name: SAVITA GREENFIELD Rep #: [id number] : 1995 29 From: Rosalee Martinez CRNA PCP: Care Physician,No Primary Status:[facility] Y Race: C Location: [place] [address] Anesthesia: Postop Eval I Current Vital Signs Temperature: 98.3 F Pulse Rate: 96 Blood Pressure: 110/67 Respiratory Rate: 18 Pulse Ox: 100 Oxygen Delivery Method: Simple Mask Oxygen Flow Rate (L/min): 6 Assessment Airway patent: Yes Spontaneous unlabored respirations: Yes Mental status: Awake and Calm nausea: No Vomiting: No Anesthesia Complication: No Fluid Hydration Crystalloid volume administer (ml): 1,000 Total IV fluid infused: 1,000 Progress Note Anesthesia document: Postop Eval 1 completed: Yes 09/04/241724 Date Rosalee Martinez CRNA Cosigner Signature: Date CC: Signed Normal [facility] MR/[id number] 09-04-2024 MR/POSTOPAN2 [facility] Medical Records Department [address] [place] [address] Anesthesia Postop Eval II 09/04/241838 MR#: [id number] Acct: [id number] Name: SAVITA GREENFIELD Rep #: [id number] : 1995 29 From: Andrew Brand MD PCP: Care Physician,No Primary Status:REG SDC Y Race: C Location: [place] [address] Anesthesia Postop Eval I Sum Postop Eval Completion status Anesthesia document: Postop Eval 1 completed: Yes Anesthesia Postop Eval I Summary Anesthesia Postop Eval I Summary: Anesthesia Postop Eval I: Assessment Summary Airway patent Yes 09/04/24 17:25 TRY ON BASTER.SKOBY Spontaneous unlabored Yes 09/04/24 17:25 TRY ON BASTER.SKOBY respirations Mental status Awake,Calm 09/04/24 17:25 TRY ON BASTER.SKOBY nausea No 09/04/24 17:25 TRY ON BASTER.SKOBY Vomiting No 09/04/24 17:25 TRY ON BASTER.SKOBY Anesthesia Postop Eval I: Fluid Summary Crystalloid volume administer 1,000 09/04/24 17:25 TRY ON BASTER.SKOBY (ml) Colloids volume administered ( ml) Blood Product volume administered (ml) Total IV fluid infused 1,000 09/04/24 17:25 TRY ON BASTER.SKOBY Anesthesia Postop Eval I: Summary Notes Anesthesia Complication No 09/04/24 17:25 TRY ON BASTER.SKOBY Anesthesia Complication Comment: Post-operative progress note Anesthesia: Postop Eval II Evaluation Mental status: Awake Pain Level: 0 nausea: No Vomiting: No Complications Anesthesia Complication: Yes Anesthesia Complication Comment:: Please see my progress note regarding negative pressure pulmonary edema. 09/04/241838 Date Andrew Brand MD Cosigner Signature: Date CC: Signed Normal [facility] Mean corpuscular hemoglobin (MCH) determinationOrdered By: Sadie Gee on 09-04-2024 MCH (RBC) [Entitic mass] 27.2 pg 27.0-32.0 [facility] Mean corpuscular hemoglobin concentration (MCHC) determinationOrdered By: Sadie Gee on 09-04-2024 MCHC (RBC) [Mass/Vol] 32.9 g/dL 32-36 [facility] Mean platelet volume determi nationOrdered By: Sadie Gee on 09-04-2024 Platelet mean volume (Bld) [Entitic vol] 9.7 fL 6.2-12.0 [facility] Operative Reporton Operative Report [facility] Medical Records Department [address] [place] [address] Operative Report 09/04/24 1554 MR#: [id number] Acct: [id number] Name: SAVITA GREENFIELD Rep #: [id number] : 1995 29 From: Sadie Gee MD PCP: Care Physician,No Primary Status:DIS IN Location: [facility] [id number] Problems Associated Problem List Diagnoses (1) Sterilization: (2) Abnormal uterine bleeding: Multi Select Codes Urinary/Genital Urinary/Genital CPT Codes: 156[address] [place] [address] Laproscopic BS/O Operative Report (Standard) Operative Information Date of Procedure: 09/04/24 Pre-Operative Diagnosis: see problem list Post-Operative Diagnosis: same Surgery/Procedure Performed: laparoscopic bilateral salpingectomy liletta iud insertion lapel stitcher: No Type of Anesthesia: General RN Documented Start/Stop Times: Operation Date: 09/04/24 14:50 Case Time Into Pre-Op 09/04/24 13:47 Out of Pre-Op 09/04/24 15:45 Anesthesia Start 09/04/24 15:51 Into Room 09/04/24 15:51 Procedure Start 09/04/24 16:16 Procedure Start Time: 16:16 Procedure Stop Time: 16:37 Select all DRAINS/GRAFTS/IMPLAN TS that apply: None Estimated Blood Loss: 50 Specimen collected: Yes Description of specimen(s) removed: tubes Description of surgery: Patient was taken in the operating room and was placed under general anesthesia was prepped and draped in normal sterile fashion in the dorsal lithotomy position. Bladder was drained of clear urine and SCDs were on preoperatively. Uterus was sounded and a uterine manipulator was placed after dilating. Attention was then paid to the abdominal portion of the procedure and the umbilicus was elevated with towel clamps and injected with Marcaine and after a 5 mm incision was made and the Veress needle was entered into the abdomen confirmed to be intra-abdominal with a low opening pressure of less than 5 mmHg. Abdomen was insufflated with CO2 gas and a 5 mm optical trocar was placed under direct visualization. Left and right lower quadrant 5 mm ports were placed under direct visualization. Uterus was well visualized and upon inspection of the pelvis normal tubes and ovaries. Excellent hemostasis was noted in the pelvis. Liver and upper abdomen were visualized notably within normal limits and no other gross abnormalities were seen in the abdomen. All instruments removed from the abdomen after gas was desufflated. Port sites were closed with 3-0 Monocryl Steri's and op sites were applied. uterus sounded to 8cm and the liletta iud was inserted without complication. All instruments removed from the vagina and patient was awoken and taken recovery in stable condition. Surgical Findings: nl uterus tubes ovaries Complications Complications: No 09/04/24 1637 Cosigner Signature (if applicable): CC: Dr. José Luis Garrido DO; Dr. Felipe Thomason MD; Dr. Sadie Gee MD; No Primary Care Physician Signed ADDENDUM by Dr. Sadie Gee MD on 10/02/24 at 1604 Addendum Bilateral fallopian tubes were identified and elevated and transected across the mesosalpinx without complication completely removing bilateral tubes 10/02/24 1604 Cosigner Signature (if applicable): cc: Dr. José Luis Garrido DO; Dr. Felipe Thomason MD; Dr. Sadie Gee MD; No Primary Care Physician * Signed Normal [facility] Platelet countOrdered By: Stephanie Gee on 09-04-2024 Platelets (Bld) [#/Vol] 320 10*3/uL 150-450 [facility] Potassium measurement (mass/ volume)Ordered By: José Luis Garrido on 09-04-2024 Potassium (Unsp spec) [Mass/Vol] 4.3 mmol/L 3.3-5.1 [facility] ,Urineon 09-04-2024 Beta HCG ( test) Ql (U) Negative Normal [facility] Comment on above: Result Comment: Very dilute urine specimens, as indicated by a low specific gravity, may not contain employee's representative levels of hCG. If is still suspected, a first morning urine specimen should be collected 48 hours later and tested. Performed By: #### L 400.0001 #### [facility] [address] [place], [address] RBC Auto (Bld) [#/Vol]Ordere d By: Sadie Gee on 09-04-2024 RBC (Bld) [#/Vol] 4.78 10*6/uL 4.2-5.4 [facility] Serum creatinine measurement (mass/volume)Ordered By: José Luis Garrido on 09-04-2024 Creatinine [Mass/Vol] 0.75 mg/dL 0.70-1.20 [facility] Serum glucose measurement (m ass/volume)Ordered By: José Luis Garrido on 09-04-2024 Glucose [Mass/Vol] 116 mg/dL High 70-99 [facility] Serum or plasma calcium brenda urement (mass/volume)Ordered By: José Luis Garrido on 09-04-2024 Calcium [Mass/Vol] 9.0 mg/dL 7.6-11.0 [facility] Serum or plasma urea nitroge n measurement (mass/volume)Ordered By: José Luis Garrido on 09-04-2024 Urea nitrogen [Mass/Vol] 9 mg/dL 4-19 [facility] Sodium levelOrdered By: Arias Garrido on 09-04-2024 Sodium [Moles/Vol] 135 mmol/L 133-145 [facility] Surgery Specimen Level IIon 09-04-2024 Surgery Specimen Level II Patient Age/Sex Location Account Attending Physician SAVITA GREENFIELD 29/ MS3 [id number] Dr. Yareli Rodrigues MD Specimen: [id number] Received: 09/04/24 Status: EDWIGE Burt Num: [id number] Spec Type: FALL TUBES Subm Dr: Dr. Sadie Gee MD HEADER OPERATION: Laparoscopic, salpingectomy, IUD insertion PRE-OP DIAGNOSIS: Abnormal uterine bleeding, sterilization TISSUE SUBMITTED: A- Bilateral fallopian tubes MICROSCOPIC DIAGNOSIS A. Bilateral fallopian tubes, bilateral salpingectomy: * No specific pathologic change. MICROSCOPIC DESCRIPTION Slides are reviewed. GROSS DESCRIPTION A.??? Received in formalin labeled with the patient's name and date of . Designated as bilateral fallopian tubes are 2 mitchell-pink to purple fimbriated fallopian tubes (in 3 pieces), devoid of orientation measuring 5.3 x 0.4 cm and 6.9 x 0.5 cm.??? There is some fat attached to each fallopian tube however, no definitive paratubal cyst or lesions are identified.??? Fish Processing Supervisor sections are submitted in 2 cassettes, to include the entirety of the fimbria SC 09/05/2024 CPT:81375 Patient Age/Sex Location Account Attending Physician SAVITA GREENFIELD 29/ MS3 [id number] Dr. Yareli Rodrigues MD Signed (signature on file) Dr. Glory Sauceda MD 09/17/24 0933 [facility] Comment on above: Performed By: #### P SUII #### [facility] [address] [place], [place], [address] Type AND Screen - PAT ONLYon 09-04-2024 Ab SCREEN GEL Negative Normal [facility] Comment on above: Order Comment: COLLE CTOR TO SPECIFY Performed By: #### L 400.0001 #### [facility] [address] [place], [place], [id number] Urine testOrdered By: Sadie Gee on 09-04-2024 HCG ( test) Ql (U) Negative [facility] Comment on above: Very dilute urine sp ecimens, as indicated by a low specificgravity, may not contain employee's representative levels of hCG. If is still suspected, a first morning urinespecimen should be collected 48 hours later and tested. White blood cell (WBC) count Ordered By: Sadie Gee on 09-04-2024 WBC (Bld) [#/Vol] 7.2 10*3/uL 4.4-11.0 [facility] Pelvic w/ Transvaginalon Pelvic w/ Transvaginal [facility] Imaging Services [address] [place], [place] [id number] Pelvic w/ Transvaginal MR#: [id number] Acct: [id number] Name: SAVITA GREENFIELD Rep #: [id number] : 1995 F 29 From: Sukhjinder Munoz MD PCP: Care Physician,No Primary Status: REG CLI Study: Pelvic w/ Transvaginal Date of Exam: 08/21/24 Exam# [id number] Ordering Dr: Sadie Gee PROCEDURE: PELVIC W/ [...] Transvaginal IMPRESSION: Unremarkable pelvic ultrasound. Reading Location: [id number] CC: Dr. Sadie Gee MD; No Primary Care Physician Reviewer Sales: Signed Normal [facility] PAP I-G w/rfx hrHPV-Aptimaon 08-17-2024 ADEQ Comment Normal . [facility] Comment on above: Order Comment: Speci men Comment: [id number] Comment: Source.............CervixSpecimen Comment: No. of containers..01 ThinPrep Vial Result Comment: Sati sfactory for evaluation. Endocervical and/or squamous metaplastic cells (endocervical component) are present. Performed By: #### L 100.0100, L501.9520 #### [facility] [address] [place], [place], [id number] COMM . Normal . [facility] Comment on above: Order Comment: Speci men Comment: [id number] Comment: Source.............CervixSpecimen Comment: No. of containers..01 ThinPrep Vial Performed By: #### L 100.0100, L501.9520 #### [facility] [address] [place], [place], [id number] COMMENT Comment Normal . [facility] Comment on above: Order Comment: Speci men Comment: [id number] Comment: Source.............CervixSpecimen Comment: No. of containers..01 ThinPrep Vial Result Comment: This liquid based ThinPrep(R) pap test was screened with the use of an image guided system. Performed By: #### L 100.0100, L501.9520 #### [facility] [address] [place], [address] DIAG Comment Normal . [facility] Comment on above: Order Comment: Speci men Comment: [id number] Comment: Source.............CervixSpecimen Comment: No. of containers..01 ThinPrep Vial Result Comment: NEGA TIVE FOR INTRAEPITHELIAL LESION OR MALIGNANCY. Performed By: #### L 100.0100, L5.9520 #### [facility] [address] [place], [place], [address] HPV RFLX Comment Normal . [facility] Comment on above: Order Comment: Speci men Comment: [id number] Comment: Source.............CervixSpecimen Comment: No. of containers..01 ThinPrep Vial Result Comment: The HPV DNA reflex criteria were not met with this specimen result therefore, no HPV testing was performed. Performed at: [address] [id number] Document Design Specialist: Augustina Guevara PhD, Phone: [phone] Performed at: [address] [id number] Document Design Specialist: Yudith Salazar MD, Phone: [phone] Performed By: #### L 100.0100, L501.9520 #### [facility] [address] [place], [address] PAPSMR Comment Normal . [facility] Comment on above: Order Comment: Speci men Comment: [id number] Comment: Source.............CervixSpecimen Comment: No. of containers..01 ThinPrep Vial Result Comment: The Pap smear is a screening test designed to aid in the detection of premalignant and malignant conditions of the uterine cervix. It is not a diagnostic procedure and should not be used as the sole means of detecting cervical cancer. Both false-positive and false-negative reports do occur. Performed By: #### L 100.0100, L501.9520 #### [facility] [address] [place], [place], [address] PERFORM Comment Normal . [facility] Comment on above: Order Comment: Speci men Comment: [id number] Comment: Source.............CervixSpecimen Comment: No. of containers..01 ThinPrep Vial Result Comment: Ciarra Damon, Survey Research Teacher (ASCP) Performed By: #### L 100.0100, L5.9520 #### [facility] [address] [place], [place], [id number] Genital Culture Comprehensiv josey 08-13-2024 VAC Reason for Exam: vaginal discharge #1 If further studies are desired, please contact the Microbiology Laboratory within 48 hours. Genital Culture Comprehensive No yeast, Gardnerella, Neisseria or beta-hemolytic Streptococcus isolated. GNR lactose pilot Amount Growth 1+ Normal [facility] Comment on above: Performed By: #### L 100.0100, L5.9520 #### [facility] [address] [place], [place], [id number] Absolute lymphocyte countOrd ered By: Sadie Gee on 08-10-2024 Lymphocytes Auto (Unsp spec) [#/Vol] 2.69 10*3/uL 0.83-4.51 [facility] Absolute neutrophil countOrd ered By: Sadie Gee on 08-10-2024 Neutrophils (Bld) [#/Vol] 5.0 10*3/uL 2.0-7.7 [facility] Automated lymphocyte count a s percentage of total leukocytesOrdered By: Sadie Gee on 08-10-2024 Lymphocytes/100 WBC Auto (Unsp spec) 30.7 % 19-41 [facility] Basophil percentageOrdered B y: Sadie Gee on 08-10-2024 Basophils/100 WBC (Bld) 0.6 % 0-1 [facility] CBC W/Diff, Automatedon 07-20 Absolute Lymph 2.69 X10 3/uL Normal 0.83-4.51 [facility] Comment on above: Performed By: #### L 100.0100, L501.9520 #### [facility] [address] [place], [address] Absolute Neut 5.0 X10 3/uL Normal 2.0-7.7 [facility] Comment on above: Performed By: #### L 100.0100, L501.9520 #### [facility] [address] [place], [address] Basophils/100 WBC (Bld) 0.6 % Normal 0-1 [facility] Comment on above: Performed By: #### L 100.0100, L501.9520 #### [facility] [address] [place], [address] Eosinophils/100 WBC (Bld) 3.8 % Normal 0-5 [facility] Comment on above: Performed By: #### L 100.0100, L501.9520 #### [facility] [address] [place], [address] Erythrocyte distribution width (RBC) [Ratio] 13.5 % Normal 11.6-14.6 [facility] Comment on above: Performed By: #### L 100.0100, L501.9520 #### [facility] [address] [place], [address] Hematocrit (Bld) [Volume fraction] 41.2 % Normal 37-47 [facility] Comment on above: Performed By: #### L 100.0100, L501.9520 #### [facility] [address] [place], [address] Hemoglobin (Bld) [Mass/Vol] 13.1 g/dL Normal 12.0-15.0 [facility] Comment on above: Performed By: #### L 100.0100, L501.9520 #### [facility] [address] [place], [address] IG% 0.600 Normal 0.0-0.9 [facility] Comment on above: Result Comment: IG% - Immature Granulocytes (promyelocytes, myelocytes and metamyelocytes) > 1% indicates that a LEFT SHIFT is Present. Performed By: #### L 100.0100, L501.9520 #### [facility] [address] [place], [address] Lymphocytes/100 WBC (Bld) 30.7 % Normal 19-41 [facility] Comment on above: Performed By: #### L 100.0100, L501.9520 #### [facility] [address] [place], [address] MCH (RBC) [Entitic mass] 26.9 pg Low 27.0-32.0 [facility] Comment on above: Performed By: #### L 100.0100, L501.9520 #### [facility] [address] [place], [address] MCHC (RBC) [Mass/Vol] 31.8 g/dL Low 32-36 [facility] Comment on above: Performed By: #### L 100.0100, L501.9520 #### [facility] [address] [place], [address] MCV (RBC) [Entitic vol] 84.6 fL Normal 81-99 [facility] Comment on above: Performed By: #### L 100.0100, L501.9520 #### [facility] [address] [place], [address] Monocytes/100 WBC (Bld) 7.1 % Normal 0-10 [facility] Comment on above: Performed By: #### L 100.0100, L501.9520 #### [facility] [address] [place], [address] Neutrophils/100 WBC (Bld) 57.2 % Normal 47-70 [facility] Comment on above: Performed By: #### L 100.0100, L501.9520 #### [facility] [address] [place], [address] Nucleated RBC (Bld) [#/Vol] 0 10*3/uL Normal 0-5 [facility] Comment on above: Performed By: #### L 100.0100, L501.9520 #### [facility] [address] [place], [address] Platelet mean volume (Bld) [Entitic vol] 10.1 fL Normal 6.2-12.0 [facility] Comment on above: Performed By: #### L 100.0100, L501.9520 #### [facility] [address] [place], [address] Platelets (Bld) [#/Vol] 413 10*3/uL Normal 150-450 [facility] Comment on above: Performed By: #### L 100.0100, L501.9520 #### [facility] [address] [place], [address] RBC (Bld) [#/Vol] 4.87 10*6/uL Normal 4.2-5.4 [facility] Comment on above: Performed By: #### L 100.0100, L501.9520 #### [facility] [address] [place], [address] RDW SD 41.6 fl Normal 35.1-43.9 [facility] Comment on above: Performed By: #### L 100.0100, L501.9520 #### [facility] [address] [place], [address] WBC (Bld) [#/Vol] 8.8 10*3/uL Normal 4.4-11.0 [facility] Comment on above: Performed By: #### L 100.0100, L501.9520 #### [facility] [address] [place], [address] Cervical or vagninal specime n microscopic examination by cytology stain (reported asOrdered By: Sadie Gee on 08-10-2024 Cytology report Cyto stain Doc (Cvx/Vag) Comment . [facility] Comment on above: The Pap smear is a s creening test designed to aid in thedetection of premalignant and malignant conditions of theuterine cervix. It is not a diagnostic procedure andshould not be used as the sole means of detecting cervicalcancer. Both false-positive and false-negative reports dooccur. Eosinophil percentageOrdered By: Sadie Gee on 08-10-2024 Eosinophils/100 WBC (Bld) 3.8 % 0-5 [facility] Erythrocyte distribution wid th ratioOrdered By: Sadie Gee on 08-10-2024 Erythrocyte distribution width (RBC) [Ratio] 13.5 % 11.6-14.6 [facility] Erythrocyte distribution wid th standard deviationOrdered By: Sadie Gee on 08-10-2024 Erythrocyte distribution width (RBC) [Ratio] 41.6 fl 35.1-43.9 [facility] Gram Stainon 08-10-2024 GS Reason for Exam: vaginal discharge Gram Stain 3+ Gram positive rods No Gram negative diplococci No White Blood Cells Score = 0 Interpretation: 0-3 Normal, 4-6 Intermediate, 7-10 Positive BV Normal [facility] Comment on above: Performed By: #### L 100.0100, L501.9520 #### [facility] [address] [place], [place], [address] Gram stainOrdered By: Sadie Gee on 08-10-2024 Microscopic observation Gram stain Nom (Unsp spec) [facility] Hematocrit Auto (Bld) [Volum e fraction]Ordered By: Sadie Gee on 08-10-2024 Hematocrit (Bld) [Volume fraction] 41.2 % 37-47 [facility] Hemoglobin measurementOrdere d By: Sadie Gee on 08-10-2024 Hemoglobin (Bld) [Mass/Vol] 13.1 g/dL 12.0-15.0 [facility] Immature granulocytes/100 WB C Auto (Bld)Ordered By: Sadie Gee on 08-10-2024 Immature granulocytes/100 WBC (Bld) 0.600 % 0.0-0.9 [facility] Comment on above: IG% - Immature Granu locytes (promyelocytes, myelocytes and metamyelocytes) > 1% indicates that a LEFT SHIFT is Present. Laboratory - CytologyOrdered By: Sadie Gee on 08-10-2024 Survey Research Teacher Cyto stain Nom (Cvx/Vag) [ID] Comment . [facility] Comment on above: Carmelina Damon, Survey Research Teacher (ASCP) Laboratory - Miscellaneous t estsOrdered By: Sadie Gee on 08-10-2024 Service comment (Unsp spec) [Interp] . . [facility] MCV (mean corpuscular volume ) determinationOrdered By: Sadie Gee on 08-10-2024 MCV (RBC) [Entitic vol] 84.6 fL 81-99 [facility] Mean corpuscular hemoglobin (MCH) determinationOrdered By: Sadie Gee on 08-10-2024 MCH (RBC) [Entitic mass] 26.9 pg Low 27.0-32.0 [facility] Mean corpuscular hemoglobin concentration (MCHC) determinationOrdered By: Sadie Gee on 08-10-2024 MCHC (RBC) [Mass/Vol] 31.8 g/dL Low 32-36 [facility] Mean platelet volume determi nationOrdered By: Sadie Gee on 08-10-2024 Platelet mean volume (Bld) [Entitic vol] 10.1 fL 6.2-12.0 [facility] Monocyte percentageOrdered B y: Sadie Gee on 08-10-2024 Monocytes/100 WBC (Bld) 7.1 % 0-10 [facility] Neutrophil percentageOrdered By: Sadie Gee on 08-10-2024 Neutrophils/100 WBC (Bld) 57.2 % 47-70 [facility] No Panel InformationOrdered By: Sadie Gee on 08-10-2024 Pap Smear Specimen Adequacy Comment . [facility] Comment on above: Satisfactory for umberto luation. Endocervical and/or squamous metaplasticcells (endocervical component) are present. Nucleated red blood cell per centageOrdered By: Sadie Gee on 08-10-2024 Nucleated RBC/100 WBC (Bld) [Ratio] 0 % 0-5 [facility] Lean Manufacturing Leader Office Visit Reporton 08-10-2024 Lean Manufacturing Leader Office Visit Report [facility] [address], [address] [place] [address] OFFICE VISIT Date of Service: 08/10/24 MR#: [id number] Acct: [id number] Name: SAVITA GREENFIELD Rep #: [id number] : 1995 Provider: Dr. 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 her daughter requires a lot of medical care, so the patient is wanting sterilization she doesn't want any more children and she wants sterilization. Last PAP: around 2018 History of abnormal PAP: Last mammogram: not due History of abnormal mammogram: Colon cancer screening: not due Other preventative health care screenings: PCP Aster Ferreira Female Reproductive History Last Menstrual Period: 08/08/24 [...] well developed and well groomed [facility] Head: normal to inspection and normocephalic Ears: hearing grossly normal bilaterally and external ears normal Nose: external nose normal Face and sinus: normal facial exam Neck Neck: normal visual inspection, full ROM and no lymphadenopathy Thyroid: thyroid normal Chest Chest palpation inspection: normal inspection of (more content not included)... Normal [facility] Platelet countOrdered By: Stephanie Gee on 08-10-2024 Platelets (Bld) [#/Vol] 413 10*3/uL 150-450 [facility] RBC Auto (Bld) [#/Vol]Ordere d By: Sadie Gee on 08-10-2024 RBC (Bld) [#/Vol] 4.87 10*6/uL 4.2-5.4 [facility] TSH DL <= 0.005 mIU/L QnOrde red By: Sadie Gee on 08-10-2024 TSH Qn 0.789 uIU/mL 0.300-4.200 [facility] Thyroid Stim Hormone (TSH)on 08-10-2024 TSH 0.789 uIU/mL Normal 0.300-4.200 [facility] Comment on above: Performed By: #### L 100.0100, L501.9520 #### [facility] [address] [place], [address] White blood cell (WBC) count Ordered By: Sadie Gee on 08-10-2024 WBC (Bld) [#/Vol] 8.8 10*3/uL 4.4-11.0 [facility] Vital Signs Date Time Vital Sign Value Performing Clinician Rubén holguin 11-05-2024 09:22-0400 Body height 164 cm Alana Suppan MARINE ERECTOR.SIDE DOOR WORKER Work Phone: [facility] 11-05-2024 09:22-0400 Body mass index (BMI) [Ratio] 45.7 kg/m2 Alana Suppan MARINE ERECTOR.SIDE DOOR WORKER Work Phone: [facility] 11-05-2024 09:22-0400 Body weight 122.92 kg Alana Suppan MARINE ERECTOR.SIDE DOOR WORKER Work Phone: [facility] 11-05-2024 09:22-0400 Diastolic blood pressure 78 mm[Hg] Alana Suppan MARINE ERECTOR.SIDE DOOR WORKER Work Phone: [facility] 11-05-2024 09:22-0400 Heart rate 98 /min Alana Suppan MARINE ERECTOR.SIDE DOOR WORKER Work Phone: [facility] 11-05-2024 09:22-0400 SaO2% (BldA) [Mass fraction] 100 % Alana Suppan MARINE ERECTOR.SIDE DOOR WORKER Work Phone: [facility] 11-05-2024 09:22-0400 Systolic blood pressure 132 mm[Hg] Alana Suppan MARINE ERECTOR.SIDE DOOR WORKER Work Phone: [facility] 09-27-2024 03:31-0400 Body temperature 97.9 [degF] No Primary Care Physician [facility] 09-27-2024 03:31-0400 Diastolic blood pressure 78 mm[Hg] No Primary Care Physician [facility] 09-27-2024 03:31-0400 Heart rate 79 /min No Primary Care Physician [facility] 09-27-2024 03:31-0400 Respiratory rate 16 /min No Primary Care Physician [facility] 09-27-2024 03:31-0400 SaO2% (BldA) [Mass fraction] 96 % No Primary Care Physician [facility] 09-27-2024 03:31-0400 Systolic blood pressure 117 mm[Hg] No Primary Care Physician [facility] 09-27-2024 00:32-0400 Body height 160.02 cm No Primary Care Physician [facility] 09-27-2024 00:32-0400 Body mass index (BMI) [Ratio] 48.4 kg/m2 No Primary Care Physician [facility] 09-27-2024 00:32-0400 Body weight 124 kg No Primary Care Physician [facility] 09-17-2024 08:21-0400 Body height 160.02 cm No Primary Care Physician [facility] 09-17-2024 08:21-0400 Body mass index (BMI) [Ratio] 48.2 kg/m2 No Primary Care Physician [facility] 09-17-2024 08:21-0400 Body weight 123.37 kg No Primary Care Physician [facility] 09-17-2024 08:21-0400 Diastolic blood pressure 73 mm[Hg] No Primary Care Physician [facility] 09-17-2024 08:21-0400 Systolic blood pressure 118 mm[Hg] No Primary Care Physician [facility] 09-05-2024 09:38-0400 Body temperature 97.8 [degF] No Primary Care Physician [facility] 09-05-2024 09:38-0400 Diastolic blood pressure 74 mm[Hg] No Primary Care Physician [facility] 09-05-2024 09:38-0400 Heart rate 82 /min No Primary Care Physician [facility] 09-05-2024 09:38-0400 Respiratory rate 18 /min No Primary Care Physician [facility] 09-05-2024 09:38-0400 SaO2% (BldA) [Mass fraction] 100 % No Primary Care Physician [facility] 09-05-2024 09:38-0400 Systolic blood pressure 124 mm[Hg] No Primary Care Physician [facility] 09-05-2024 02:26-0400 Inhaled oxygen flow rate 2 L/min No Primary Care Physician [facility] 09-04-2024 19:50-0400 Body height 160.02 cm No Primary Care Physician [facility] 09-04-2024 19:50-0400 Body mass index (BMI) [Ratio] 48.2 kg/m2 No Primary Care Physician [facility] 09-04-2024 19:50-0400 Body weight 123.5 kg No Primary Care Physician [facility] 08-10-2024 11:03-0400 Body height 160.02 cm No Primary Care Physician [facility] 08-10-2024 11:03-0400 Body mass index (BMI) [Ratio] 48 kg/m2 No Primary Care Physician [facility] 08-10-2024 11:03-0400 Body weight 123.03 kg No Primary Care Physician [facility] 08-10-2024 11:03-0400 Diastolic blood pressure 84 mm[Hg] No Primary Care Physician [facility] 08-10-2024 11:03-0400 Systolic blood pressure 124 mm[Hg] No Primary Care Physician [facility] 11-09-2022 00:40-0400 Body height 160.02 cm [facility] 11-09-2022 00:40-0400 Body mass index (BMI) [Ratio] 47.4 kg/m2 [facility] 11-09-2022 00:40-0400 Body temperature 97 [degF] [facility] 11-09-2022 00:40-0400 Body weight 121.5 kg [facility] 11-09-2022 00:40-0400 Diastolic blood pressure 89 mm[Hg] [facility] 11-09-2022 00:40-0400 Heart rate 95 /min [facility] 11-09-2022 00:40-0400 Respiratory rate 18 /min [facility] 11-09-2022 00:40-0400 SaO2% (BldA) [Mass fraction] 97 % [facility] 11-09-2022 00:40-0400 Systolic blood pressure 150 mm[Hg] [facility] 10-02-2021 09:21-0400 Body height 161.3 cm Respiratory Wstr Work Phone: [facility] 10-02-2021 09:21-0400 Body weight 109.32 kg Respiratory Wstr Work Phone: [facility] 10-02-2021 09:21-0400 Heart rate 75 /min Respiratory Wstr Work Phone: [facility] 10-02-2021 09:21-0400 Respiratory rate 12 /min Respiratory Wstr Work Phone: [facility] 10-02-2021 09:21-0400 SaO2% (BldA) [Mass fraction] 100 % Respiratory Wstr Work Phone: [facility] 09-18-2021 08:33-0400 Body temperature 97.39 [degF] Uli Ferreira MARINE ERECTOR.SIDE DOOR WORKER Work Phone: [facility] 09-18-2021 08:33-0400 Body weight 107.96 kg Uli Ferreira MARINE ERECTOR.SIDE DOOR WORKER Work Phone: [facility] 09-18-2021 08:33-0400 Diastolic blood pressure 70 mm[Hg] Uli Jhon MARINE ERECTOR.SIDE DOOR WORKER Work Phone: [facility] 09-18-2021 08:33-0400 Heart rate 84 /min Uli Jhon MARINE ERECTOR.SIDE DOOR WORKER Work Phone: [facility] 09-18-2021 08:33-0400 Respiratory rate 16 /min Uli Jhon MARINE ERECTOR.SIDE DOOR WORKER Work Phone: [facility] 09-18-2021 08:33-0400 SaO2% (BldA) [Mass fraction] 97 % Uli Ferreira MARINE ERECTOR.SIDE DOOR WORKER Work Phone: [facility] 09-18-2021 08:33-0400 Systolic blood pressure 110 mm[Hg] Uli Jhon MARINE ERECTOR.SIDE DOOR WORKER Work Phone: [facility] Encounters Encounter Date Encounter Type Care Provider Facility Start: 11-06-2024 End: 11-09-2024 Follow-up encounter Alana Vargas MARINE ERECTOR.SIDE DOOR WORKER Work Phone: [facility] Start: 11-05-2024 End: 11-05-2024 ambulatory ALANA Matta SUPPPHIL Facility:[facility] Start: 11-05-2024 End: 11-05-2024 Patient encounter procedure Alana Paxton Sheila MARINE ERECTOR.SIDE DOOR WORKER Work Phone: [facility] Comment on above: LEILANI (obstructive sle ep apnea) (Primary Dx); Screening for depression; Encounter for screening examination for other mental health and behavioral disorders; Wheezing; Environmental allergies; History of depression; Migraine without aura and without status migrainosus, not intractable; Mild intermittent asthma, uncomplicated (HCC); Seasonal allergic rhinitis, unspecified trigger; Class 3 severe obesity with body mass index (BMI) of 45.0 to 49.9 in adult, unspecified obesity type, unspecified whether serious comorbidity present (HCC); Wellness examination Start: 11-05-2024 End: 11-05-2024 Patient encounter status Alana Paxton Sheila MARINE ERECTOR.SIDE DOOR WORKER Work Phone: [facility] Start: 11-05-2024 End: 11-05-2024 ambulatory ALANA VARGAS Facility:[facility] Start: 11-05-2024 Encounter for genera l adult medical examination without abnormal findings ALANA VARGAS [facility] Start: 10-17-2024 End: 10-18-2024 Refill Uli Ferreira APRN.SIDE DOOR WORKER Work Phone: [facility] Comment on above: Refill Request Start: 10-03-2024 Encounter for other [facility]procedural examination [facility] Start: 09-27-2024 End: 09-27-2024 Emergency department patient visit No Primary Care Physician -Emergency Department Work Phone: Start: 09-26-2024 ambulatory Radha Webster [facility] Start: 09-17-2024 End: 09-17-[address] Sadie Gee MD -[facility] Work Phone: Start: 09-17-2024 End: 09-17-2024 ambulatory No Primary Care Physician -[facility] Start: 09-05-2024 Non-patient / Non-visit Dr. Yareli parada MD -[facility] Work Phone: Start: 09-04-2024 ambulatory No Primary Car e Physician Facility:[facility] Start: 09-04-2024 End: 09-05-2024 Evaluation and management of inpatient Dr. Yareli Rodrigues MD -[facility] Work Phone: Start: 09-04-2024 ambulatory Sadie Gee Faci lity:[facility] Start: 09-04-2024 Non-patient / Non-visit Dr. Stephanie Gee MD -[facility] Start: 08-21-2024 End: 08-21-2024 ambulatory No Primary Care Physician [facility] Work Phone: Start: 08-21-2024 End: 08-21-[address] Sadie Gee MD -[facility] Work Phone: Start: 08-21-2024 End: 08-21-2024 ambulatory Sadie Gee Facility:[facility] Start: 08-10-2024 Encounter for gynecological examination (general) (routine) with abnormal findings Sadie Gee [facility] Start: 08-10-2024 End: 08-10-[address] Sadie Gee MD -[facility] Work Phone: Start: 08-10-2024 End: 08-10-[address] Sadie Gee MD [facility] Start: 08-10-2024 End: 08-10-2024 ambulatory No Primary Care Physician [facility] Work Phone: Start: 08-10-2024 End: 08-10-2024 ambulatory Sadie Gee Facility:[facility] Start: 01-12-2024 End: 01-12-2024 Refill Uli Ferreira APRN.CNP Work Phone: [facility] Comment on above: Refill Request Start: 10-04-2023 Refill Luis Manuel dennis MD Work Phone: [facility] Comment on above: Refill Request Start: 09-10-2023 Refill Uli SANTOS RN.[facility] Work Phone: [facility] Comment on above: Refill Request Start: 02-26-2023 Refill Uli SANTOS RN.SIDE DOOR WORKER Work Phone: [facility] Comment on above: Refill Request Start: 11-09-2022 End: 11-09-2022 Emergency department patient visit [facility] Work Phone: Start: 09-28-2022 Refill Uli SANTOS RN.[facility] Work Phone: [facility] Comment on above: Refill Request Start: 10-02-2021 End: 10-02-2021 ambulatory Respiratory Therapist [facility] Work Phone: Pulmonary Medicine Comment on above: Spirometry Start: 10-02-2021 End: 10-02-2021 Patient encounter procedure Respiratory Therapist [facility] Work Phone: [facility] Start: 09-18-2021 End: 09-18-2021 Patient encounter procedure Uli Ferreira APRN.[facility] Work Phone: [facility] Comment on above: Wheezing (Primary Dx ); Environmental allergies Procedures Date Procedure Procedure Detail Performing Clinician Start: 11-05-2024 Adult depression screening assessment Alana Vargas APRN.[facility] Work Phone: Start: 09-27-2024 Computed tomography of abdomen and pelvis with intravenous contrast No Primary Care Physician Start: 09-27-2024 Estimated creatinine clearance No Primary Care Physician Start: 09-27-2024 Urnls dip stick/tabl et reagent auto microscopy No Primary Care Physician Start: 09-04-2024 Estimated creatinine clearance No Primary Care Physician Start: 09-04-2024 Plain chest X-ray No Pr imary Care Physician Start: 09-04-2024 Laparoscopic salpingectomy No Primary Care Physician Start: 08-21-2024 Pelvic echography No Pr imary [...] therefore, no HPV testing was performed.Performed at: [facility] [place], [place] [id number] Director: Augustina Guevara PhD, Phone: [phone] at: [address] [id number] Director: Yudith Salazar MD, Phone: [phone] Start: 08-10-2024 Gram stain microscopy N o Primary Care Physician Start: 08-10-2024 End: 08-10-2024 Source specific culture No Primary Care Physician Start: 10-02-2021 Brncdilat rspse spmt ry pre&post-brncdilat admn Uli Ferreira APRN.SIDE DOOR WORKER Work Phone: Start: 09-11-2021 Adult depression screening assessment Uli Ferreira APRN.SIDE DOOR WORKER Work Phone: H/O: surgery Status post bila teral salpingectomy No Primary Care Physician H/O: surgery Status post bila teral salpingectomy Dr. Yareli Rodrigues MD H/O: surgery Status post bila teral salpingectomy Dr. Sadie Gee MD Plan of Treatment Date Care Activity Detail Author Start: 03-31-2028 Urine microalbumin profile [facility] Start: 08-23-2027 Screening for malign ant neoplasm of cervix Cervical Cancer Screening [facility] Start: 11-05-2025 Anxiety Screening Anxiety Screening [facility] Start: 11-05-2025 Depression Screening Depression Scre ening [facility] Start: 02-05-2025 End: 02-05-2025 Patient encounter procedure 02/05/2025 10:00 AM EST Office Visit [facility] [address] [place], [place] [id number] Alana Vargas APRN.SIDE DOOR WORKER [address] [place] [address] 3 mo follow up headaches [facility] Comment on above: 3 mo follow up tone love Start: 11-19-2024 Influenza vaccination Influenz a Vaccine (#1) [facility] Start: 11-05-2024 End: 02-04-2025 Comprehensive metabolic 2000 panel - Serum or Plasma [facility] Work Phone: Comment on above: Expected: 11/05/2024 , Expires: 02/04/2025 Start: 11-05-2024 End: 02-04-2025 Hemoglobin A1c in Blood [facility] Comment on above: Expected: 11/05/2024 , Expires: 02/04/2025 Start: 11-05-2024 End: 02-04-2025 LIPID PANEL, NONFASTING [facility] Comment on above: Expected: 11/05/2024 , Expires: 02/04/2025 Start: 11-05-2024 End: 02-04-2025 Magnesium [Mass/volume] in Serum or Plasma [facility] Comment on above: Expected: 11/05/2024 , Expires: 02/04/2025 Start: 11-05-2024 End: 02-04-2025 Thyrotropin [Units/volume] in Serum or Plasma [facility] Comment on above: Expected: 11/05/2024 , Expires: 02/04/2025 Start: 10-26-2024 End: 10-26-2024 ambulatory 10/26/2024 7:20 AM EDT [facility] [address] [place] [address] Jens Park MD [address] [place] [id number] Review my inhaler and my singular [facility] Comment on above: Review my inhaler an d my singular Start: 09-27-[address] [facility] Start: 09-04-2024 Assessment of risk o f venous thromboembolism [facility] Start: 09-04-2024 Incentive spirometry [facility] Start: 09-04-2024 Insertion of cathete r into peripheral vein [facility] Start: 09-04-2024 Oxygen therapy [facility] Start: 09-04-2024 Providing care accor ding to standard [facility] Start: 09-04-[address] [facility] Start: 09-04-2024 Following clinical p athway protocol [facility] Start: 09-04-2024 Admission procedure [facility] Start: 09-04-[address] [facility] Start: 09-04-2024 Ambulation without limitation [facility] Start: 09-04-2024 Medical regimen orde rs management [facility] Start: 09-04-2024 Medication education [facility] Start: 09-04-2024 Patient discharge [facility] Start: 09-04-2024 Procedure discontinued [facility] Start: 09-04-2024 Taking patient vital signs [facility] Start: 09-04-2024 Vital signs measurements [facility] Start: 09-04-[address] [facility] Start: 09-04-2024 Inhalation therapy procedure [facility] Start: 08-10-2024 Liquid based cervica l cytology screening [facility] Start: 11-20-2023 Covid-19 Vaccine ( season) Covid-19 Vaccine () [facility] Start: 11-20-2023 Influenza vaccination Influenz a Vaccine (#1) [facility] Start: 10-11-2023 End: 10-11-2023 Patient encounter procedure 10/11/2023 10:00 AM EDT Office Visit [facility] [address] [place], [place] [phone] Uli Ferreira, ELKIN.SIDE DOOR WORKER [address] [place], [place] [phone] physical [facility] Comment on above: physical Start: 03-21-2023 Behavioral Health Screening Behavioral Health Screening [facility] Start: 11-19-2022 Influenza vaccination INFLUENZA (#1) [facility] Start: 11-09-2022 Plain x-ray of hand Hand Min 3 Views [facility] Start: 11-09-2022 XR Hand GE 3 Views [facility] Start: 09-11-2022 Adult depression scr eening assessment DEPRESSION SCREENING [facility] Start: 03-21-2022 DEPRESSION ASSESSMENT DEPRESSION ASS ESSMENT [facility] Start: 11-19-2021 Influenza vaccination INFLUENZA (#1) [facility] Start: 09-05-2021 PAP TESTING PAP TESTING [facility] Start: 09-05-2021 Screening for malign ant neoplasm of cervix Cervical Cancer Screening [facility] Start: 01-03-2021 COVID-19 VACCINE (3 - Booster for Pfizer series) COVID-19 VACCINE (3 - Booster for Pfizer series) [facility] Start: 09-28-2020 COVID-19 VACCINE (3 - Pfizer series) COVID-19 VACCINE (3 - Pfizer series) [facility] Start: 01-30-2014 Anxiety Screening Anxiety Screening [facility] Start: 01-30-2014 Depression Screening Depression Scre ening [facility] Start: 01-30-2014 HEPATITIS C SCREENING HEPATITIS C SC REENING [facility] Start: 01-30-2010 PEDS TO ADULT TRANSI TION ANNUAL ASSESSMENT PEDS TO ADULT TRANSITION ANNUAL ASSESSMENT [facility] Start: 2008 PEDS TO ADULT TRANSI TION INITIAL DISCUSSION PEDS TO ADULT TRANSITION INITIAL DISCUSSION [facility] Path report.final Dx Spec [facility] Patient Education [facility] Work Phone: Patient referral [facility] Work Phone: End: 10-18-2022 SPIROMETRY - BASELINE AND POST DILATOR SPIROMETRY - BASELINE AND POST DILATOR PFT Routine Wheezing 1 Occurrences starting 09/18/2021 until 10/18/2022 [facility] Work Phone: Comment on above: 1 Occurrences starti ng 09/18/2021 until 10/18/2022 SPIROMETRY - BASELIN E AND POST DILATOR SPIROMETRY - BASELINE AND POST DILATOR PFT Routine Wheezing 10/02/2021 9:00 AM EDT [facility] Work Phone: [facility] Immun[facility] Immunization Date Immunization Notes Care Provider Tony jaime 01-11-2023 COVID-19 vaccine, ag e 12+ yr, season (PFIZER-BIONTECH) Uli Ferreira APRN.SIDE DOOR WORKER Work Phone: [facility] 01-11-2023 influenza, injectabl e, quadrivalent, contains preservative Uli Jhon MARINE ERECTOR.SIDE DOOR WORKER Work Phone: [facility] 01-11-2023 influenza, injectabl e, quadrivalent, preservative free No Primary Care Physician [facility] 01-11-2023 influenza virus vacc ine, unspecified formulation Luis Manuel Herring MD Work Phone: [facility] 08-03-2020 Covid (Pfizer) No Primary Ca re Physician [facility] 07-13-2020 Covid (Pfizer) No Primary Ca re Physician [facility] 04-27-2018 measles, mumps and rubella virus vaccine Uli Jhon MARINE ERECTOR.[facility] Work Phone: [facility] Work Phone: 03-31-2018 tetanus toxoid, redu aliya diphtheria toxoid, and acellular pertussis vaccine, adsorbed Uli Jhon MARINE ERECTOR.SIDE DOOR WORKER Work Phone: [facility] 02-10-2018 influenza, injectabl e, quadrivalent, preservative free No Primary Care Physician [facility] 02-10-2018 influenza, seasonal, injectable [facility] 02-10-2018 influenza, seasonal, injectable, preservative free Uli Jhon MARINE ERECTOR.[facility] Work Phone: [facility] Work Phone: 12-12-2017 influenza, injectabl e, quadrivalent, contains preservative Uli Jhon MARINE ERECTOR.SIDE DOOR WORKER Work Phone: [facility] 12-12-2017 influenza, injectabl e, quadrivalent, preservative free No Primary Care Physician [facility] 01-14-2014 influenza, injectabl e, quadrivalent, preservative free Uli Jhon MARINE ERECTOR.SIDE DOOR WORKER Work Phone: [facility] Work Phone: 11-29-2012 meningococcal polysaccharide (groups A, C, Y and W-135) diphtheria toxoid conjugate vaccine (MCV4P) No Primary Care Physician [facility] 11-29-2012 Meningococcal, MCV4, unspecified conjugate formulation(groups A, C, Y and W-135) Uli Jhon MARINE ERECTOR.SIDE DOOR WORKER Work Phone: [facility] 12-25-2010 influenza virus vacc ine, unspecified formulation Uli Jhon MARINE ERECTOR.SIDE DOOR WORKER Work Phone: [facility] 08-01-2008 human papilloma viru s vaccine, quadrivalent Uli Jhon MARINE ERECTOR.SIDE DOOR WORKER Work Phone: [facility] 04-02-2008 human papilloma viru s vaccine, quadrivalent Uli Jhon MARINE ERECTOR.SIDE DOOR WORKER Work Phone: [facility] Work Phone: 2008 human papilloma viru s vaccine, quadrivalent Uli Jhon MARINE ERECTOR.[facility] Work Phone: [facility] Work Phone: 2008 influenza virus vacc ine, live, attenuated, for intranasal use Uli Ferreira MARINE ERECTOR.[facility] Work Phone: [facility] Work Phone: 2008 influenza, injectabl e, quadrivalent, preservative free No Primary Care Physician [facility] 2008 Meningococcal, MCV4, unspecified conjugate formulation(groups A, C, Y and W-135) Uli Ferreira MARINE ERECTOR.SIDE DOOR WORKER Work Phone: [facility] Work Phone: 2008 tetanus toxoid, redu aliya diphtheria toxoid, and acellular pertussis vaccine, adsorbed Uli Jhon MARINE ERECTOR.SIDE DOOR WORKER Work Phone: [facility] Work Phone: 2008 varicella virus vaccine Charlene e Jhon MARINE ERECTOR.SIDE DOOR WORKER Work Phone: [facility] Work Phone: 11-22-2001 diphtheria, tetanus toxoids and acellular pertussis vaccine Uli Jhon MARINE ERECTOR.SIDE DOOR WORKER Work Phone: [facility] Work Phone: 11-22-2001 measles, mumps and rubella virus vaccine Uli Jhon MARINE ERECTOR.SIDE DOOR WORKER Work Phone: [facility] Work Phone: 11-22-2001 poliovirus vaccine, inactivated Uli Ferreira MARINE ERECTOR.SIDE DOOR WORKER Work Phone: [facility] Work Phone: 03-04-2000 varicella virus vaccine Charlene Ferreira MARINE ERECTOR.[facility] Work Phone: [facility] Work Phone: 09-02-1997 diphtheria, tetanus toxoids and acellular pertussis vaccine Uli Ferreira MARINE ERECTOR.[facility] Work Phone: [facility] Work Phone: 09-02-1997 haemophilus influenz ae type b vaccine, HbOC conjugate Uli Ferreira MARINE ERECTOR.[facility] Work Phone: [facility] Work Phone: 09-02-1997 haemophilus influenz ae type b vaccine, PRP-T conjugate No Primary Care Physician [facility] 05-29-1997 measles, mumps and rubella virus vaccine Uli Ferreira MARINE ERECTOR.[facility] Work Phone: [facility] Work Phone: 1996 hepatitis B vaccine, pediatric or pediatric/adolescent dosage Uli Ferreira MARINE ERECTOR.[facility] Work Phone: [facility] Work Phone: 1996 diphtheria, tetanus toxoids and acellular pertussis vaccine Uli Jhon MARINE ERECTOR.SIDE DOOR WORKER Work Phone: [facility] Work Phone: 1996 haemophilus influenz ae type b vaccine, HbOC conjugate Uli Ferreira MARINE ERECTOR.[facility] Work Phone: [facility] Work Phone: 1996 haemophilus influenz ae type b vaccine, PRP-T conjugate No Primary Care Physician [facility] 1996 poliovirus vaccine, inactivated No Primary Care Physician [facility] 1996 trivalent poliovirus vaccine, live, oral Uli Jhon MARINE ERECTOR.[facility] Work Phone: [facility] Work Phone: 1996 diphtheria, tetanus toxoids and acellular pertussis vaccine Uli Jhon MARINE ERECTOR.SIDE DOOR WORKER Work Phone: [facility] Work Phone: 1996 haemophilus influenz ae type b vaccine, HbOC conjugate Uli Jhon MARINE ERECTOR.[facility] Work Phone: [facility] Work Phone: 1996 haemophilus influenz ae type b vaccine, PRP-T conjugate No Primary Care Physician [facility] 1996 poliovirus vaccine, inactivated No Primary Care Physician [facility] 1996 trivalent poliovirus vaccine, live, oral Uli Jhon MARINE ERECTOR.[facility] Work Phone: [facility] Work Phone: 1996 diphtheria, tetanus toxoids and acellular pertussis vaccine Uli Jhon MARINE ERECTOR.[facility] Work Phone: [facility] Work Phone: 1996 haemophilus influenz ae type b vaccine, HbOC conjugate Uli Jhon MARINE ERECTOR.[facility] Work Phone: [facility] Work Phone: 1996 haemophilus influenz ae type b vaccine, PRP-T conjugate No Primary Care Physician [facility] 1996 hepatitis B vaccine, pediatric or pediatric/adolescent dosage Uli Jhon MARINE ERECTOR.SIDE DOOR WORKER Work Phone: [facility] Work Phone: 1996 poliovirus vaccine, inactivated No Primary Care Physician [facility] 1996 trivalent poliovirus vaccine, live, oral Uli Jhon MARINE ERECTOR.[facility] Work Phone: [facility] Work Phone: 1996 hepatitis B vaccine, pediatric or pediatric/adolescent dosage Uli Jhon MARINE ERECTOR.[facility] Work Phone: [facility] Work Phone: Payers Date Payer Category Payer Self-pay [id number] 2024 Unknown [id number] 2023 Blue [employer] Blue Shield BLUE CARD PPO OOS [id number] 2023 Unknown [id number] 2020 Unknown [employer] BLUE CARD PPO OOS [id number] 2020-Present [phone] [place] [address] PPO [id number] 2020 Unknown [id number] [place] [id number] Unknown [employer] [id number] Unknown [facility] [id number] Unknown [id number] Unknown [id number] Unknown [id number] Unknown [id number] Unknown [id number] 462 Unknown [id number] Unknown [id number] 462 Unknown [id number] 462 Unknown [id number] 462 Unknown [id number] 462 Unknown [id number] Social History Date Type Detail Facility Start: 07-02-2010 End: 12-14-2022 Tobacco smoking status NHIS Never smoked tobacco [facility] Work Phone: Start: 07-02-2010 End: 12-14-2022 Tobacco use and exposure Smokeless tobacco non-user [facility] Work Phone: Start: 09-18-2021 End: 11-05-2024 Alcohol intake Current drinker of alcohol (finding) [facility] Start: 09-11-2021 History SDOH Alcohol Frequency 1 [facility] Start: 09-01-2017 History SDOH Alcohol Comment occasionally, not while [facility] Start: 09-11-2021 History SDOH Social Connections Phone 5 [facility] Start: 09-11-2021 History SDOH Social Connections Get Together 98 [facility] Start: 09-11-2021 History SDOH Social Connections Membership 2 [facility] Start: 09-11-2021 History SDOH Physica l Activity MPS 15 [facility] Start: 09-11-2021 History SDOH Financial 3 [facility] Start: 05-16-2020 Education 12 [facility] Start: 1996 Sex Assigned At Not on file C [facility] Start: 09-08-2021 End: 09-18-2021 Exposure to SARS-CoV-2 (event) Not sure [facility] Start: 10-09-2021 End: 10-30-2024 History of Social function [facility] Start: 10-09-2021 End: 10-30-2024 Tobacco use panel [facility] Start: 11-09-2022 Tobacco smoking stat us MSIS Unknown if ever smoked [facility] Start: 04-26-[address] [facility] Start: 08-09-2020 Non-smoker [facility] Start: 1995 Sex Assigned At Female W [facility] Has the [employer], [employer], or water company threatened to shut off services in your home in past 12Mo No [facility] Are you now , , , , never or living with a partner? Never [facility] How often to you hav e a drink containing alcohol? Monthly or less [facility] How many standard drinks containing alcohol do you have on a typical day? 1 or 2 [facility] How often do you hav e 6 or more drinks on 1 occasion? Never [facility] How hard is it for y ou to pay for the very basics like food, housing, medical care, and heating Hard [facility] Start: 02-20-2012 Adult Depression Screening Assessment 1 [facility] Do you feel stress - tense, restless, nervous, or anxious, or unable to sleep at night because your mind is troubled all the time - these days [OSQ] To some extent [facility] (I/We) worried cynthia er (my/our) food would run out before (I/we) got money to buy more. Sometimes true [facility] The food that (I/we) bought just didn't last, and (I/we) didn't have money to get more. Never true [facility] In the past 12 month s, was there a time when you were not able to pay the mortgage or rent on time? Yes [facility] How hard is it for y ou to pay for the very basics like food, housing, medical care, and heating Very hard [facility] Do you feel stress - tense, restless, nervous, or anxious, or unable to sleep at night because your mind is troubled all the time - these days [OSQ] Very much [facility] NEGATED: Highlighted row [facility] NEGATED: Highlighted row Not [facility] Goals Date Patient Goal Desired Activity /State Functional Status Date Assessment Result Facility 09-05-2024 Functional status Ambulates [facility] Work Phone: 08-20-2014 Are you deaf, or do you have serious difficulty hearing No 08/20/2014 3:52 PM EDT Savita Hays LPN No [facility] 08-20-2014 Are you blind, or do you have serious difficulty seeing, even when wearing glasses No 08/20/2014 3:52 PM EDT Savita Hays LPN No [facility] 08-20-2014 Do you have serious difficulty walking or climbing stairs No 08/20/2014 3:52 PM EDT Savita Hays LPN No [facility] 08-20-2014 Do you have difficul ty dressing or bathing No 08/20/2014 3:52 PM EDT Savita Hays LPN No [facility] 08-20-2014 Because of a physica l, mental, or emotional condition, do you have difficulty doing errands alone such as visiting a physician's office or shopping No 08/20/2014 3:52 PM EDT Savita Hays LPN No [facility] Mental Status Date Assessment Result Facility 09-05-2024 Cognitive function Voice/Name [facility] Work Phone: 08-20-2014 Because of a physica l, mental, or emotional condition, do you have serious difficulty concentrating, remembering, or making decisions No 08/20/2014 3:52 PM EDT Savita Hays LPN No [facility] Clinical Notes 09-19-2017 to 11-09-2024 Telephone Encounter - Mimi Guo MA - 11/09/2024 10:19 AM EDTTelephone Encounter - Mimi Guo MA - 11/09/2024 10:19 AM EDTPatient Instructions Note Date & Type Note Facility 11-09-2024 Telephone encounter Note Pt read Splother message. Mimi Guo MA [facility] 11-09-2024 Miscellaneous Notes Pt read Splother message. Mimi Guo MA Notified via Splother. Will watch for pt to read message. Mimi Guo MA ----- Message from Alana Vargas sent at 11/06/2024 8:02 AM EDT ----- Your LDL cholesterol is a little high at 129. Watch the saturated fats in your diet by eliminating fried foods and choosing only lean meat/skim dairy products. Your HDL, good cholesterol, is a little low. Try to add into your diet whole grains, purple grape juice, nuts or peanut butter, and soy. That will raise your protection against heart disease. Potassium is slightly decreased. Please increase these foods in your diet and your potassium level will be fine: Foods Rich in potassium: Rice (1 cup, white, cooked) 54 mg Egg (1 large) 69 mg Bread (1 slice, whole-wheat) 81 mg Flaxseed (1 tablespoon, whole) 84 mg Peanut butter (1 tablespoon) 90 mg Lettuce (1 cup, iceberg, shredded) 102 mg Coffee (1 cup, brewed) 116 mg Tuna (3 oz, light, canned in water, drained) 153 mg Brown rice (1 cup, cooked) 154 mg Cashew nuts (1 oz) 187 mg Apple (1 medium, with skin) 195 mg [place] breast (3 oz, roasted) 212 mg Blackstrap molasses (1 tablespoon) 293 mg Beef (3 oz, top sirloin, grilled) 315 mg Italian Yogurt, plain (1 cup) 322 mg [place] (3 oz) 326 mg Chicken breast (3 oz, boneless, grilled) 332 mg Milk (1 cup, 1%) 366 mg Tomato sauce (1/2 cup) 405 mg Banana (1 medium) 422 mg Potato (1 medium size, boiled, peeled) 490 mg Honeydew melon (1 cup, cubes) 357 mg Asparagus (1 cup, cooked) 404 mg Broccoli (1 cup cooked, chopped) 458 mg Cantaloupe (1 cup, cubes) 473 mg Dried apricots (5 halves) 488 mg [place] juice (1 cup) 496 mg Sweet potato (1 medium) 541 mg Clams (3 oz, cooked) 534 mg White beans (1/2 cup cooked) 595 mg Kidney beans (1 cup, canned) 607 mg Bok jone (1 cup, steamed) 630 mg Pomegranate (1 medium) 665 mg Lentils (1 cup, cooked) 731 mg Spinach (1 cup cooked) 839 mg [place] squash (1 cup cooked) 896 mg Avocado (1 medium fruit) 974 mg Raisins (1 cup) 1,235 mg All other labs are normal. ----- Message ----- From: Lab, Background User Sent: 11/05/2024 6:44 PM EDT To: Alana Vargas APRN.SIDE DOOR WORKER Your LDL cholesterol is a little high at 129. Watch the saturated fats in your diet by eliminating fried foods and choosing only lean meat/skim dairy products. Your HDL, good cholesterol, is a little low. Try to add into your diet whole grains, purple grape juice, nuts or peanut butter, and soy. That will raise your protection against heart disease. Potassium is slightly decreased. Please increase these foods in your diet and your potassium level will be fine: Foods Rich in potassium: Rice (1 cup, white, cooked) 54 mg Egg (1 large) 69 mg Bread (1 slice, whole-wheat) 81 mg Flaxseed (1 tablespoon, whole) 84 mg Peanut butter (1 tablespoon) 90 mg Lettuce (1 cup, iceberg, shredded) 102 mg Coffee (1 cup, brewed) 116 mg Tuna (3 oz, light, canned in water, drained) 153 mg Brown rice (1 cup, cooked) 154 mg Cashew nuts (1 oz) 187 mg Apple (1 medium, with skin) 195 mg [place] breast (3 oz, roasted) 212 mg Blackstrap molasses (1 tablespoon) 293 mg Beef (3 oz, top sirloin, grilled) 315 mg Italian Yogurt, plain (1 cup) 322 mg [place] (3 oz) 326 mg Chicken breast (3 oz, boneless, grilled) 332 mg Milk (1 cup, 1%) 366 mg Tomato sauce (1/2 cup) 405 mg Banana (1 medium) 422 mg Potato (1 medium size, boiled, peeled) 490 mg Honeydew melon (1 cup, cubes) 357 mg Asparagus (1 cup, cooked) 404 mg Broccoli (1 cup cooked, chopped) 458 mg Cantaloupe (1 cup, cubes) 473 mg Dried apricots (5 halves) 488 mg [place] juice (1 cup) 496 mg Sweet potato (1 medium) 541 mg Clams (3 oz, cooked) 534 mg White beans (1/2 cup cooked) 595 mg Kidney beans (1 cup, canned) 607 mg Bok jone (1 cup, steamed) 630 mg Pomegranate (1 medium) 665 mg Lentils (1 cup, cooked) 731 mg Spinach (1 cup cooked) 839 mg [place] [employer] squash (1 cup cooked) 896 mg Avocado (1 medium fruit) 974 mg Raisins (1 cup) 1,235 mg All other labs are normal. documented in this encounter [facility] 11-06-2024 Telephone encounter Note Notified via Splother. Will watch for pt to read message. Mimi Guo MA [facility] 11-06-2024 Telephone encounter Note ----- Message from Alana Vargas sent at 11/06/2024 8:02 AM EDT ----- Your LDL cholesterol is a little high at 129. Watch the saturated fats in your diet by eliminating fried foods and choosing only lean meat/skim dairy products. Your HDL, good cholesterol, is a little low. Try to add into your diet whole grains, purple grape juice, nuts or peanut butter, and soy. That will raise your protection against heart disease. Potassium is slightly decreased. Please increase these foods in your diet and your potassium level will be fine: Foods Rich in potassium: Rice (1 cup, white, cooked) 54 mg Egg (1 large) 69 mg Bread (1 slice, whole-wheat) 81 mg Flaxseed (1 tablespoon, whole) 84 mg Peanut butter (1 tablespoon) 90 mg Lettuce (1 cup, iceberg, shredded) 102 mg Coffee (1 cup, brewed) 116 mg Tuna (3 oz, light, canned in water, drained) 153 mg Brown rice (1 cup, cooked) 154 mg Cashew nuts (1 oz) 187 mg Apple (1 medium, with skin) 195 mg [place] breast (3 oz, roasted) 212 mg Blackstrap molasses (1 tablespoon) 293 mg Beef (3 oz, top sirloin, grilled) 315 mg Italian Yogurt, plain (1 cup) 322 mg [place] (3 oz) 326 mg Chicken breast (3 oz, boneless, grilled) 332 mg Milk (1 cup, 1%) 366 mg Tomato sauce (1/2 cup) 405 mg Banana (1 medium) 422 mg Potato (1 medium size, boiled, peeled) 490 mg Honeydew melon (1 cup, cubes) 357 mg Asparagus (1 cup, cooked) 404 mg Broccoli (1 cup cooked, chopped) 458 mg Cantaloupe (1 cup, cubes) 473 mg Dried apricots (5 halves) 488 mg [place] juice (1 cup) 496 mg Sweet potato (1 medium) 541 mg Clams (3 oz, cooked) 534 mg White beans (1/2 cup cooked) 595 mg Kidney beans (1 cup, canned) 607 mg Bok jone (1 cup, steamed) 630 mg Pomegranate (1 medium) 665 mg Lentils (1 cup, cooked) 731 mg Spinach (1 cup cooked) 839 mg [place] [employer] squash (1 cup cooked) 896 mg Avocado (1 medium fruit) 974 mg Raisins (1 cup) 1,235 mg All other labs are normal. ----- Message ----- From: Lab, Background User Sent: 11/05/2024 6:44 PM EDT To: Alana Vargas APRN.SIDE DOOR WORKER [facility] 11-06-2024 Progress note Formatting of t his note is different from the original. Your LDL cholesterol is a little high at 129. Watch the saturated fats in your diet by eliminating fried foods and choosing only lean meat/skim dairy products. Your HDL, good cholesterol, is a little low. Try to add into your diet whole grains, purple grape juice, nuts or peanut butter, and soy. That will raise your protection against heart disease. Potassium is slightly decreased. Please increase these foods in your diet and your potassium level will be fine: Foods Rich in potassium: Rice (1 cup, white, cooked) 54 mg Egg (1 large) 69 mg Bread (1 slice, whole-wheat) 81 mg Flaxseed (1 tablespoon, whole) 84 mg Peanut butter (1 tablespoon) 90 mg Lettuce (1 cup, iceberg, shredded) 102 mg Coffee (1 cup, brewed) 116 mg Tuna (3 oz, light, canned in water, drained) 153 mg Brown rice (1 cup, cooked) 154 mg Cashew nuts (1 oz) 187 mg Apple (1 medium, with skin) 195 mg [place] breast (3 oz, roasted) 212 mg Blackstrap molasses (1 tablespoon) 293 mg Beef (3 oz, top sirloin, grilled) 315 mg Italian Yogurt, plain (1 cup) 322 mg [place] (3 oz) 326 mg Chicken breast (3 oz, boneless, grilled) 332 mg Milk (1 cup, 1%) 366 mg Tomato sauce (1/2 cup) 405 mg Banana (1 medium) 422 mg Potato (1 medium size, boiled, peeled) 490 mg Honeydew melon (1 cup, cubes) 357 mg Asparagus (1 cup, cooked) 404 mg Broccoli (1 cup cooked, chopped) 458 mg Cantaloupe (1 cup, cubes) 473 mg Dried apricots (5 halves) 488 mg [place] juice (1 cup) 496 mg Sweet potato (1 medium) 541 mg Clams (3 oz, cooked) 534 mg White beans (1/2 cup cooked) 595 mg Kidney beans (1 cup, canned) 607 mg Bok jone (1 cup, steamed) 630 mg Pomegranate (1 medium) 665 mg Lentils (1 cup, cooked) 731 mg Spinach (1 cup cooked) 839 mg [place] squash (1 cup cooked) 896 mg Avocado (1 medium fruit) 974 mg Raisins (1 cup) 1,235 mg All other labs are normal. [facility] 11-05-2024 Instructions Alana Vargas APRN.CNP - 11/05/2024 10:06 AM EDT - Albuterol inhaler prescription has been renewed for your asthma. - Begin topiramate: take half of a 25 mg tablet (12.5 mg) twice daily. If you tolerate this dose without side effects, you may increase to one full 25 mg tablet twice daily. Topiramate may cause mild brain fog ; if you notice this or if your headaches do not improve after a few weeks, please send a message so we can adjust your treatment. documented in this encounter [facility] 11-05-2024 Note HNO ID: [id number] Author: ALANA VARGAS APRN.BRISA Service: ? Author Type: Nurse Practitioner Type: Progress Notes Filed: 11/05/2024 10:08 Note Text: Chief Reason For Appointment Patient presents with: Yearly Exam Savita Greenfield is a 29 year old female who presents for annual exam. Last office visit date: 01/11/2023 Accompanied By self only Have you had any critical events, hospital stays, ER visits, surgeries or procedures since your last visit here in our office: Yes Tubal ligation- tubes removed Specialists/Other Healthcare Providers Seen: Patient Care Team: Luis Manuel Herring MD as PCP - General (Family Medicine) Uli Ferreira APRN.BRISA as Card Game Operator (Family Medicine) Concerns today: None HPI Savita Greenfield is a 29-year-old female with a history of anxiety, depression, and sleep apnea, presenting for an annual wellness visit. Annual Wellness Exam: - Denies current health complaints or concerns. - Denies recent hospitalizations, ER visits, or surgeries in the past year. - Bilateral tubal ligation on September 04; required overnight admission due to aspiration concerns post-anesthesia. - Daughter has focal epilepsy secondary to tuberous sclerosis complex, managed with two anti-seizure medications and rescue medications. 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 Anxiety and Depression: - Taking fluoxetine and Wellbutrin; Wellbutrin recently increased from 150 mg to 300 mg by psychiatrist. - Hydroxyzine helps with anxiety but not taken recently due to sedative effects. - Reports anxiety is not well-controlled; just learned how to deal with it and just keep going. - Family history of depression and anxiety on both sides. - Meeting with mental health professionals. Headaches: - Frequent headaches, occurring every other day. - Frontal and occasionally down the back of the neck. - Photophobia if not treated early; denies phonophobia. - Headaches sometimes relieved by listening to heavy metal music. - Associated nausea; duration ranges from 1-3 hours or more. - Alleviated by caffeine, hot showers, and OTC headache medication. - Denies lumps, bumps, or swelling in the neck. Weight Gain: - Steady increase in weight; expresses dissatisfaction with weight gain. Sleep Apnea: - Diagnosed with sleep apnea; has a CPAP machine but unable to tolerate it. Chronic Diarrhea: - Daily loose stools, 1-3 times per day. - Rarely experiences formed stools. Myalgias and Arthralgias: - Daily myalgias and arthralgias in bilateral ankles, right wrist, and left shoulder. - Believes muscle aches are due to work-related physical activity. - Describes pain as manageable. Asthma: - Uses albuterol inhaler. - Takes Singulair for allergic rhinitis. Active Problems ACTIVE PROBLEM LIST Leilani (Obstructive Sleep Apnea) - 01/19/2021 Atypical Squamous Cells of Undetermined Significance (Ascus) On Papanicolaou Smear of Cervix - 09/27/2017 Comment: 09/27/17 - ASCUS on pap noted. Repeat pap in 1 year (09/2018). Carmelita Mendez APRN.LASHA History of Depression - 09/01/2017 Comment: 09/01/2017 Pt has a history of depression diagnosed as a teenager and most recently treated by Mary Anne Francois NP. She saw a counselor at [facility] in the past but not since being a teenage. She has been off medication for 9 months . Discussed increased risks of depression during and and importance of reporting the development or worsening of symptoms should they occur.Pt states she had suicidal thoughts when she was a teenager, but none sinceTKRN Dysmenorrhea - 02/07/2012 Irregular Menstrual Cycle - 02/07/2012 ROS: Constitutional: (+) weight gain, (-) fever, (-) chills Head: (+) frequent headaches, (-) phonophobia Eyes: (+) photophobia Neck: (-) neck swelling Cardiovascular: (+) lower extremity edema, (-) chest pain, (-) palpitations, (-) orthopnea Respiratory: (-) cough, (-) wheezing Gastrointestinal: (+) nausea, (+) vomiting, (+) chronic diarrhea Genitourinary: (-) dysuria, (-) hematuria Musculoskeletal: (+) bilateral ankle arthralgia, (+) right wrist arthralgia, (+) left shoulder arthralgia, (+) myalgia Skin: (-) rash, (-) pruritus Neurological: (-) syncope, (-) seizures, (-) tremor Psychiatric: (+) suicidal ideation, (+) hopelessness, (+) helplessness, (+) anxiety Endocrine: (+) polydipsia PAST MEDICAL HISTORY Diagnosis Date Atypical squamous cells of undetermined significance (ASCUS) on Papanicolaou smear of cervix 09/27/2017 Depression PMH - PAST MEDICAL HISTORY OF 2009 normal color vision PAST SURGICAL HISTORY Procedure Laterality Date LIGATE FALLOPIAN TUBE Bilateral 09/04/2024 PAST SURGICAL HISTORY OF wisdom teeth Medication List Current Outpatient Medications Medication Sig Dispense Refill buPROPion XL (WELLBUTRIN XL) 300 mg 24 hr tablet Take 300 mg by mouth daily at bedtime. albuterol HFA (VENTOLIN HFA (more content not included)... [facility] 11-05-2024 History of Presen t illness Narrative Chief Reason For Appointment Patient presents with: Yearly Exam Savita Greenfield is a 29 year old female who presents for annual exam. Last office visit date: 01/11/2023 Accompanied By self only Have you had any critical events, hospital stays, ER visits, surgeries or procedures since your last visit here in our office: Yes Tubal ligation- tubes removed Specialists/Other Healthcare Providers Seen: Patient Care Team: Luis Manuel Herring MD as PCP - General (Family Medicine) Uli Ferreira APRN.BRISA as Card Game Operator (Family Medicine) Concerns today: None HPI Savita Greenfield is a 29-year-old female with a history of anxiety, depression, and sleep apnea, presenting for an annual wellness visit. Annual Wellness Exam: - Denies current health complaints or concerns. - Denies recent hospitalizations, ER visits, or surgeries in the past year. - Bilateral tubal ligation on September 04; required overnight admission due to aspiration concerns post-anesthesia. - Daughter has focal epilepsy secondary to tuberous sclerosis complex, managed with two anti-seizure medications and rescue medications. - Works at a [employer] for over a year. Anxiety and Depression: - Taking fluoxetine and Wellbutrin; Wellbutrin recently increased from 150 mg to 300 mg by psychiatrist. - Hydroxyzine helps with anxiety but not taken recently due to sedative effects. - Reports anxiety is not well-controlled; just learned how to deal with it and just keep going. - Family history of depression and anxiety on both sides. - Meeting with mental health professionals. Headaches: - Frequent headaches, occurring every other day. - Frontal and occasionally down the back of the neck. - Photophobia if not treated early; denies phonophobia. - Headaches sometimes relieved by listening to heavy metal music. - Associated nausea; duration ranges from 1-3 hours or more. - Alleviated by caffeine, hot showers, and OTC headache medication. - Denies lumps, bumps, or swelling in the neck. Weight Gain: - Steady increase in weight; expresses dissatisfaction with weight gain. Sleep Apnea: - Diagnosed with sleep apnea; has a CPAP machine but unable to tolerate it. Chronic Diarrhea: - Daily loose stools, 1-3 times per day. - Rarely experiences formed stools. Myalgias and Arthralgias: - Daily myalgias and arthralgias in bilateral ankles, right wrist, and left shoulder. - Believes muscle aches are due to work-related physical activity. - Describes pain as manageable. Asthma: - Uses albuterol inhaler. - Takes Singulair for allergic rhinitis. Active Problems ACTIVE PROBLEM LIST Leilani (Obstructive Sleep Apnea) - 01/19/2021 Atypical Squamous Cells of Undetermined Significance (Ascus) On Papanicolaou Smear of Cervix - 09/27/2017 Comment: 09/27/17 - ASCUS on pap noted. Repeat pap in 1 year (09/2018). Carmelita Mendez APRN.SHAWNM History of Depression - 09/01/2017 Comment: 09/01/2017 Pt has a history of depression diagnosed as a teenager and most recently treated by Mary Anne Francois NP. She saw a counselor at [facility] in the past but not since being a teenage. She has been off medication for 9 months . Discussed increased risks of depression during and and importance of reporting the development or worsening of symptoms should they occur.Pt states she had suicidal thoughts when she was a teenager, but none sinceTKRN Dysmenorrhea - 02/07/2012 Irregular Menstrual Cycle - 02/07/2012 ROS: Constitutional: (+) weight gain, (-) fever, (-) chills Head: (+) frequent headaches, (-) phonophobia Eyes: (+) photophobia Neck: (-) neck swelling Cardiovascular: (+) lower extremity edema, (-) chest pain, (-) palpitations, (-) orthopnea Respiratory: (-) cough, (-) wheezing Gastrointestinal: (+) nausea, (+) vomiting, (+) chronic diarrhea Genitourinary: (-) dysuria, (-) hematuria Musculoskeletal: (+) bilateral ankle arthralgia, (+) right wrist arthralgia, (+) left shoulder arthralgia, (+) myalgia Skin: (-) rash, (-) pruritus Neurological: (-) syncope, (-) seizures, (-) tremor Psychiatric: (+) suicidal ideation, (+) hopelessness, (+) helplessness, (+) anxiety Endocrine: (+) polydipsia PAST MEDICAL HISTORY Diagnosis Date Atypical squamous cells of undetermined significance (ASCUS) on Papanicolaou smear of cervix 09/27/2017 Depression PMH - PAST MEDICAL HISTORY OF 2009 normal color vision PAST SURGICAL HISTORY Procedure Laterality Date LIGATE FALLOPIAN TUBE Bilateral 09/04/2024 PAST SURGICAL HISTORY OF wisdom teeth Medication List Current Outpatient Medications Medication Sig Dispense Refill buPROPion XL (WELLBUTRIN XL) 300 mg 24 hr tablet Take 300 mg by mouth daily at bedtime. albuterol HFA (VENTOLIN HFA) 90 mcg/actuation inhaler Inhale 2 puffs as instructed every 4 hours as needed for wheezing/shortness of breath. 8 g 0 montelukast (SINGULAIR) 10 mg tablet Take 1 tablet by mouth daily at bedtime. 30 tablet 0 FLUoxetine (PROZAC) 40 mg capsule Take 1 capsule by mouth once daily. 90 capsule 3 hydrOXYzine pamoate (VISTARIL) 25 mg capsule Take 1 capsule by mouth three times daily as needed for anxiety. 30 capsule 1 ibuprofen (MOTRIN) 600 mg tablet EVERY 6 HOURS PRN For Pain buPROPion XL (WELLBUTRIN XL) 150 mg 24 hr tablet Take 1 tablet by mouth once daily. 30 tablet 5 No current facility-administered medications for this visit. Weight Summary: Weight Change: Body mass index is 45.7 kg/m . Last Wt 11/05/24 : 122.9 kg (271 lb) 01/11/23 : 118.2 kg (260 lb 9.6 oz) 12/14/22 : 119.4 kg (263 lb 3.2 oz) 10/09/21 : 108 kg (238 lb) 10/02/21 : 109.3 kg (241 lb) Physical Exam: GENERAL: NAD, alert and oriented. SKIN: Unremarkable, no rash or skin lesions. Scabs noted on lower legs- clean. HEAD: Normocephalic. EYES: PERRLA, EOMI, conjunctiva clear. EARS: External ears normal, canals clear, TM's normal. NOSE/SINUSES: Nares normal. Septum midline. OROPHARYNX: Lips, mucosa, and tongue normal, good dentition. No oral lesions noted. NECK: Supple, no lymphadenopathy, normal thyroid, no carotid bruits. LUNGS: Clear to auscultation bilaterally, no wheezes/rhonchi/rales. HEART: Regular rate and rhythm, no murmurs. No ectopy. EXTREMITIES: Normal, no deformities, no skin discoloration, no edema. NEURO: Awake, alert and oriented x3, cranial nerves II-XII grossly intact, normal gait, no involuntary motions. SCREENINGS Health Maintenance Listing Depression Screening Anxiety Screening Cervical Cancer Screening TEST RESULTS: Lab Studies: Date of lab studies: check labs - glucose - potassium - Creatinine, gfr - LFTs Lipid: WBC, H&H, Platelets: A1C: Vitamin D: Other: A/P: 1. Screening for depression (Z13.31) 2. Encounter for screening examination for other mental health and behavioral disorders (Z13.39) 3. History of depression (Z86.59) - Depression and anxiety not well controlled on current regimen of fluoxetine and Wellbutrin 300 mg daily; patient under psychiatric care. - Advised that hydroxyzine may cause sedation. 4. Wheezing (R06.2) 5. Mild intermittent asthma, uncomplicated (HCC) (J45.20) - Albuterol inhaler use for asthma symptoms; prescription renewed. - Singulair renewed 6. Environmental allergies (Z91.09) 7. Seasonal allergic rhinitis, unspecified trigger (J30.2) - Allergic rhinitis managed with Singulair. 8. LEILANI (obstructive sleep apnea) (G47.33) - Non-adherent to CPAP therapy due to discomfort. - Discussed untreated LEILANI as a potential contributor to headaches. 9. Migraine without aura and without status migrainosus, not intractable (G43.009) - Frequent headaches (every other day), frontal and occipital, lasting 1-3 hours, sometimes associated with photophobia and nausea. - Start topiramate 25 mg, tablet BID; may increase to 1 tablet BID if tolerated. - Discussed potential side effects, including weight loss and cognitive effects; instructed to report any adverse effects. 10. Class 3 severe obesity with body mass index (BMI) of 45.0 to 49.9 in adult, unspecified obesity type, unspecified whether serious comorbidity present ([facility]) (U38.437) - Steady weight gain reported; discussed potential weight loss effect of topiramate. 11. Wellness examination (Z00.00) - Check labs Discussed treatment plan and patient voices understanding. Patient's questions answered appropriately. Medications and potential side effects were discussed and patient voices understanding. Return to the office as scheduled or as needed for worsening/no improvement. Follow Up Plans: 3 m on headaches ANXIETY/DEPRESSION VISIT CC: Savita Greenfield is a 29 year old female presents for depression and anxiety Subjective Symptoms started every day(s) ago and are worsening. Current symptoms include: sleep issues, fatigue, anxious feelings, and not able to take hydroxyzine Previous treatments include: counseling, antidepressants, and psychiatrist evaluation Family History: Notable for depression and anxiety both sides of family Reviewed: problem list, medical/surgical/family/social history, medications, and allergies ALLERGIES Allergen Reactions Coconut Other: See Comments Migraines Kiwi Itching Milk Intolerance Medications: buPROPion XL (WELLBUTRIN XL) 300 mg 24 hr tablet Take 300 mg by mouth daily at bedtime. FLUoxetine (PROZAC) 40 mg capsule Take 1 capsule by mouth once daily. hydrOXYzine pamoate (VISTARIL) 25 mg capsule Take 1 capsule by mouth three times daily as needed for anxiety. ibuprofen (MOTRIN) 600 mg tablet EVERY 6 HOURS PRN For Pain montelukast (SINGULAIR) 10 mg tablet Take 1 tablet by mouth daily at bedtime. albuterol HFA (VENTOLIN HFA) 90 mcg/actuation inhaler Inhale 2 puffs as instructed every 4 hours as needed for wheezing/shortness of breath. Objective Physical Exam BP 132/78 Pulse 98 Ht 164 cm (5' 4.57) Wt 122.9 kg (271 lb) LMP 07/22/2017 (Exact Date) SpO2 100% BMI 45.70 kg/m PSYCH: Well-appearing, no acute distress. Behaves appropriately during the encounter. Affect full and appropriate to topic. Normal speech and thought process. Good insight and judgement. PHQ-9 Score: 12 (11/05/2024 9:46 AM) (0-4) minimal depression, (5-9) mild depression, (10-14) moderate depression, (15-19) moderately severe depression, (20-27) severe depression REDD-7 Total Score: 11 (11/05/2024 9:46 AM) (0-4) minimal anxiety, (5-9) mild anxiety, (10-14) moderate anxiety, (15-21) severe anxiety Assessment & Plan (G47.33) LEILANI (obstructive sleep apnea) (primary encounter diagnosis) (Z13.31) Screening for depression (Z13.39) Encounter for screening examination for other mental health and behavioral disorders (R06.2) Wheezing (Z91.09) Environmental allergies (Z86.59) History of depression - Follows with psychiatrist documented in this encounter [facility] 10-18-2024 Telephone encounter Note Short term refill sent. Looks like she has an upcoming appointment in the next 2 weeks. The following approved medication requests have been transmitted electronically. Requested Prescriptions Pending Prescriptions Disp Refills albuterol HFA (VENTOLIN HFA) 90 mcg/actuation inhaler 8 g 0 Sig: Inhale 2 puffs as instructed every 4 hours as needed for wheezing/shortness of breath. montelukast (SINGULAIR) 10 mg tablet 30 tablet 0 Sig: Take 1 tablet by mouth daily at bedtime. Uli Ferreira APRN.BRISA [facility] 10-18-2024 Miscellaneous Notes Short term refill sent. Looks like she has an upcoming appointment in the next 2 weeks. The following approved medication requests have been transmitted electronically. Requested Prescriptions Pending Prescriptions Disp Refills albuterol HFA (VENTOLIN HFA) 90 mcg/actuation inhaler 8 g 0 Sig: Inhale 2 puffs as instructed every 4 hours as needed for wheezing/shortness of breath. montelukast (SINGULAIR) 10 mg tablet 30 tablet 0 Sig: Take 1 tablet by mouth daily at bedtime. Uli Ferreira APRN.CNP Prescription Refill Information The patient has been identified by name and date of : Yes Caregiver verified no other encounters exist for this prescription request: Yes Caregiver confirmed with patient/requestor that no other refills are due, in the near future, with this provider at this time: Yes The last office visit in the department: 01/11/23 Does the patient have a future office visit with this provider/department: No Patient has been advised. Requested Prescriptions Pending Prescriptions Disp Refills albuterol HFA (VENTOLIN HFA) 90 mcg/actuation inhaler 8 g 11 Sig: Inhale 2 puffs as instructed every 4 hours as needed for wheezing/shortness of breath. montelukast (SINGULAIR) 10 mg tablet 90 tablet 3 Sig: Take 1 tablet by mouth daily at bedtime. Keara Wright LPN October 17, 2024 6:16 PM documented in this encounter [facility] 10-17-2024 Telephone encounter Note Prescription Refill Information The patient has been identified by name and date of : Yes Caregiver verified no other encounters exist for this prescription request: Yes Caregiver confirmed with patient/requestor that no other refills are due, in the near future, with this provider at this time: Yes The last office visit in the department: 01/11/23 Does the patient have a future office visit with this provider/department: No Patient has been advised. Requested Prescriptions Pending Prescriptions Disp Refills albuterol HFA (VENTOLIN HFA) 90 mcg/actuation inhaler 8 g 11 Sig: Inhale 2 puffs as instructed every 4 hours as needed for wheezing/shortness of breath. montelukast (SINGULAIR) 10 mg tablet 90 tablet 3 Sig: Take 1 tablet by mouth daily at bedtime. Keara Wright LPN October 17, 2024 6:16 PM [facility] 09-27-2024 Radiology Diagnostic study note [facility] Services [address] [place] [address] Abdomen/Pelvis W IV Cont ONLY MR#: [id number] Acct: [id number] Name: SAVITA GREENFIELD Rep #: [id number] : 1995 F 29 From: Savannah Gongora MD PCP: Care Physician,No Primary Status: REG ER Study:Abdomen/Pelvis W IV Cont ONLY Date of E xam: 09/27/24 Exam# [id number] Ordering Dr: Yary Gutierrez DO PROCEDURE: ABDOMEN/PELVIS W IV CONT ONLY 09/26/2024 REASON FOR EXAM: ABD PAIN S/P SURGERY TECHNIQUE: ABDOMEN/PELVIS W IV CONT ONLY Coronal and Sagittal reconstruction series were provided. CONTRAST: 100 mL of Isovue 370 One or more dose reduction techniques were used (e.g., Automated exposure control, adjustment of the mA and/or kV according to patient size, use of iterative reconstruction technique. RADIATION DOSE SUMMARY: DLP: 1369 mGycm COMPARISON: None FINDINGS: Limited sections of the lung bases demonstrate no focal pulmonary mass or consolidations. The liver, spleen, pancreas, and both adrenal glands demonstrate no acute findings. Hepatomegaly to 19 cm.. Question mild hepatic steatosis. The gallbladder is contracted. The stomach is unremarkable. Scattered inflamed small bowel loops within the left hemiabdomen may reflect enteritis. No bowel obstruction. The appendix is not clearly identified, although there are no secondary signs ofappendicitis. No colonic obstruction. Trace pelvic free fluid. No free air. The kidneys are unremarkable. The urinary bladder is partially distended. The pelvic structures are intact. There is no solid pelvic mass. IUD noted within the uterus No significant lymphadenopathy. The aorta and IVC demonstrate no acute findings. Visualized osseous structures demonstrate no acute abnormality. CT/Abdomen/Pelvis W IV Cont ONLY IMPRESSION: Scattered inflamed small bowel loops within the left hemiabdomen may reflect enteritis. No bowel obstruction. Reading Location: [id number] CC: Antony Gutierrez DO; No Primary Care Physician ~ Reviewer Sales: Signed [facility] 09-17-2024 Progress note [facility] 09-05-2024 Discharge summary [facility] 09-05-2024 Discharge summary [facility] 09-05-2024 Note [facility] Medical Records Department [address] [place] [address] Discharge Summary 09/05/24 1010 MR#: [id number] Acct: [id number] Name: SAVITA GREENFIELD Rep #: [id number] : 1995 29 From: Yareli Rodrigues MD PCP: Care Physician,No Primary Status:ADM IN [id number] Prov[facility] Date of Admission: 09/04/24 Date of Discharge: 09/05/24 Primary Care Physician: No Primary Care Phys Consultations 09/04/24 17:19 Consult: Hospitalist Routine Consulting Provider: [facility] Reason for Consult: POSSIBLE ASPIRATION ON EXTUBATION EMERGENT Consult: Yes MD Notified: Yes Date Notified: 09/04/24 Time Notified: 17:20 Method of Notification: Verbal Reason For Visit: POST-OP HYPOXIA Diagnosis Discharge Diagnosis (1) Postoperative hypoxia: Status: Acute Code(s): R09.02 - Hypoxemia; Z98.890 - Other specified postprocedural states (2) Status post bilateral salpingectomy: Status: Acute Code(s): Z90.79 - Acquired absence of other genital organ(s) (3) Encounter for IUD insertion: Status: Acute Code(s): Z30.430 - Encounter for insertion of intrauterine contraceptive device Plan #Post operative negative pressure pulmonary edema ??? resolved #encounter for sterilization and IUD insertion #exercise-induced asthma #history of depression Medications at Discharge Home Medications bupropion HCl 300 mg 24 hr tablet, extended release 300 mg PO QHS 08/10/24 fluoxetine 40 mg capsule 40 mg PO QHS 08/10/24 montelukast 10 mg tablet 10 mg PO QHS 08/10/24 albuterol sulfate 90 mcg/actuation breath activated powder inhaler 2 inh inhalation Q6H PRN shortness of breath or wheezing 08/24/24 naproxen 500 mg tablet 500 mg PO BID PRN PRN Pain #30 tabs 09/04/24 oxycodone-acetaminophen 5 mg-325 mg tablet (Percocet) 1 tab PO Q4H PRN pain 7 days #20 tabs 09/04/24 Hospital Course Summary of Care Provided Minutes Spent on Discharge: 25 Hospital Course: 29-year-old female with a history of anxiety and depression, exercise-induced asthma and morbid obesity who presented 09/04/2024 for permanent sterilization and laparoscopic BS and IUD insertion with Dr. Gee with pickle processor. Hospitalist contacted postoperatively for admission due to respiratory distress and postop hypoxia. Anesthesia note reviewed, patient had significant bucking of the vent/tube while she was still intubated while they were attempting to extubate and required increased sedation, ultimately she was extubated successfully however she then had some coughing up of pink frothy secretions and anesthesiologist suspected negative pressure pulmonary edema which is treated with supportive care. Hospitalist admitted patient for further monitoring and management. This a.m. patient 99% on room air and doing much better. Chest x-ray showed mild bilateral plethora which could reflect small airway disease like asthma and/or atypical pneumonia/bronchiolitis. Does appear patient has exercise-induced asthma so suspect this is more likely due to her underlying process in addition to difficult extubation. No other evidence of acute pneumonia or other pulmonary pathology. Patient feels back to baseline is vitally stable given patient's improvement she is stable for discharge on 09/05/2024. Physical Exam Narrative General: Alert, oriented, no apparent distress HEENT: Atraumatic, normocephalic Eyes: Anicteric, normal conjunctiva, extraocular movements grossly intact Neck: Supple Respiratory: Clear to auscultation bilaterally, normal respiratory effort Cardiovascular: Regular rate and rhythm GI: Soft, nontender, nondistended Extremities: No edema Musculoskeletal: Moving all extremities Neuro: No overt focal neurological deficits Skin: No rashes appreciated Psych: Cooperative Weight / BMI Weight Weight: 123.5 kg Body Mass Index (BMI) 48.2 ABG / Lab / Microbiology Data 09/04/24 13:40 09/04/24 20:33 Laboratory: Laboratory Results - last 24 hr 09/04/24 13:20: Urine Test Negative 09/04/24 13:40: WBC 7.2, RBC 4.78, Hgb 13.0, Hct 39.5, MCV 82.6, MCH 27.2, MCHC 32.9, RDW Std Deviation 41.0, RDW Coeff of Teofilo 13.7, Plt Count 320, MPV 9.7, Blood Type O POSITIVE, Antibody Screen NEGATIVE 09/04/24 20:33: Sodium 135, Potassium 4.3, Chloride 102, Carbon Dioxide 19.6 L, Anion Gap 14, BUN 9, Creatinine 0.75, Estim Creat Clear Calc 142.52, Est GFR (MDRD) Non-Af 111, BUN/Creatinine Ratio 12.3, Glucose 116 H, Calcium 9.0 Radiography Diagnostic Testing: Radiology Impression Chest X-Ray 09/04/24 17:20 IMPRESSION: Mild bilateral plethora which may reflect small airways disease such as asthma and/or atypical pneumonia/bronchiolitis. Reading Location: [id number] D/C Instructions (more content not included)... [facility] 09-05-2024 Progress note [facility] 09-05-2024 History and physical note Note Date/Time September 04, 2024 10:21pm [facility] Medical Records Department [address] [place] [id number] H&P Exam - Hospitalist 09/04/24 1740 MR#: [id number] Acct: [id number] Name: SAVITA GREENFIELD Rep #:[id number] : 1995 29 From: José Luis stanley DO PCP: Care Physician,No Primary Status :ADM IN Location: [facility] [id number] HPI - General General Date of Admission: 09/04/24 Date of Service: 09/04/24 Chief Complaint: Postoperative hypoxia HPI Narrative SAVITA GREENFIELD, is a 29 F who presented to [facility] on 09/04/24 for planned laparoscopic bilateral salpingectomy and IUD insertion with Dr. Gee. No complications with the procedure itself. However, on extubation patient had significant vomiting of bile and was bucking the tube requiring multiple staff members to physically restrain her. On arrival back toPACU she began to cough up pink frothy secretions concerning for negative pressure pulmonary edema. See anesthesiology quick note for full details. Because of this, anesthesia recommended the patient be admitted to the hospital for further management and hospitalist was contacted for admission. I saw the patient at bedside in the PACU. Patient was mildly sedated but otherwise sitting back comfortably in bed and breathing comfortably on 2 L nasal cannula at rest. Chest x-ray showed only mild bilateral plethora with otherwise fairly clear lung casillas. She denied any cough or sputum production for the last 30 minutes or so. She reported only mild lower abdominal pain currently from her procedure. States that she was diagnosed with sleep apnea at one point but did not tolerate CPAP. No other acute concerns currently. Will be admitted for further management. [facility] Medical History (Updated 09/04/24 @ 22:[address] José Luis Garrido, DO) Wears contact lenses Marijuana use Asthma Shortness of breath on exertion Non-smoker Anxiety Depression Home Medications ?Medication ?Instructions ?Recorded ?Last Taken ?Type ibuprofen 600 mg tablet 600 mg PO Q6H PRN Pain #60 t abs 04/28/18 Unknown Rx bupropion HCl 300 mg 24 hr tablet, 300 mg PO QHS 08/10 Unknown History extended release fluoxetine 40 mg capsule 40 mg PO QHS 08/10/24 Unknow n History montelukast 10 mg tablet 10 mg PO QHS 08/10/24 Unknow n History albuterol sulfate 90 mcg/actuation 2 inh inhalation Q6 H PRN shortness 08/24/24 Unknown History breath activated powder inhaler of breath or wheezing naproxen 500 mg tablet 500 mg PO BID PRN PRN Pain # 30 tabs 09/04/24 Unknown Rx oxycodone-acetaminophen 5 mg-325 1 tab PO Q4H PRN pain 7 days #20 09/04/24 Unknown Rx mg tablet (Percocet) tabs Allergy/AdvReac Type Severity Reaction Status Date / Time coconut Allergy Intermediate migraine Verified 09/04/24 13:45 milk Allergy Vomiting Verified 09/04/24 13:45 KIWI Allergy Intermediate Angioedema Uncoded 08/10/24 11:05 Family History (Updated 08/10/24 @ 11:12 by Ashlee Oro) Mother Thyroid disorder Grandmother Thyroid disorder Breast cancer Over the age of 50 at diagnosis Cervical cancer Over the age of 50 at diagnosis Aunt Thyroid disorder Surgical History (Updated 08/10/24 @ 11:09 by Ashlee Oro) H/O wisdom tooth extraction Social History (Updated 08/10/24 @ 11:13 by Ashlee Oro) household members: children housing: apartment number of children: 1 current occupational status: employed current occupation: [employer] Smoking Status: Never smoker alcohol intake: current alcohol intake frequency: holidays/special occasions only substance use type: marijuana seatbelt use: always do you feel safe at home: Yes additional social history: Single ROS Constitutional Constitutional: Reports fatigue; Denies chills, fever(s) or weakness Eyes Eyes: Denies change in vision Cardiovascular Cardiovascular: Denies chest pain Respiratory/Chest Respiratory/Chest: Reports cough, productive cough and shortness of breath at rest; Denies wheezing Gastrointestinal Gastrointestinal: Denies abdominal pain Musculoskeletal Musculoskeletal: Denies arthralgias or myalgias Vital Signs Vital Signs Vital Signs: 09/04/24 13:48 09/04/24 13:48 09/04/24 14:38 Temperature 99.0 F 99.0 F Temperature Source Temporal Pulse Rate 78 78 Respiratory Rate 18 18 Respiratory Pattern Normal Blood Pressure 115/82 H 115/82 H Blood Pressure Mean 93 Blood Pressure Source Monitor Blood Pressure Position Sitting Blood Pressure Location Right Arm Baseline BP Pulse Ox 98 98 Oxygen Delivery Method Room Air Oxygen Flow Rate (L/min) 09/04/24 17:13 09/04/24 17:15 09/04/24 17:20 Temperature 98.3 F Temperature Source Temporal Pulse Rate 99 99 98 Respiratory Rate 24 H 22 H 20 H Respiratory Pattern Tachypnea Blood Pressure 111/64 110/67 Blood Pressure Mean 79 81 Blood Pressure Source Monitor Monitor Monitor Blood Pressure Position Semi-Fowlers Semi-Fowlers Semi-Fowlers Blood Pressure Location Left Arm Left Arm Left Arm Baseline BP 115/82 115/82 115/82 Pulse Ox 88 99 99 Oxygen Delivery Method Simple Mask Simple Mask Simple Mask Oxygen Flow Rate (L/min) 4 10 10 09/04/24 17:25 09/04/24 17:25 09/04/24 17:30 Temperature 98.3 F Temperature Source Pulse Rate 97 96 96 Respiratory Rate 20 H 18 18 Respiratory Pattern Blood Pressure 104/67 110/67 110/68 Blood Pressure Mean 79 82 Blood Pressure Source Monitor Monitor Blood Pressure Position Semi-Fowlers Semi-Fowlers Blood Pressure Location Left Arm Left Arm Baseline BP 115/82 115/82 Pulse Ox 99 100 96 Oxygen Delivery Method Simple Mask Simple Mask Nasal Cannula Oxygen Flow Rate (L/min) 4 6 5 Weight Weight: 122 kg Body Mass Index (BMI) 47.6 Physical Exam Const alert, oriented x3 and no apparent distress Constitutional Narrative: Younger female, class III obesity, mildly sedated appearing but otherwise sitting back comfortably in bed, breathing comfortably on 2 L nasal cannula at rest, answering questions appropriately, in no acute distress. General Appearance: cooperative and comfortable HEENT normocephalic, head/scalp atraumatic, hearing grossly normal bilaterally, nasal mucous membranes and turbinates normal and moist oral mucous membranes Eyes PERRL, EOMs intact bilaterally and conjunctivae normal Neck full ROM Chest inspection of chest normal Resp normal respiratory effort and no use of accessory muscles Resp Narrative: Breathing comfortably on 2 L nasal cannula at rest. Mild crackles noted in bilateral lung bases but otherwise good air movement throughout with no wheezingnoted. Cardio regular rate, regular rhythm, no murmurs and peripheral pulses 2+ throughout GI normal to inspection, nondistended, normoactive bowel sounds and soft to palpation GI Narrative: Umbilical incision site with dressing in place. Abdomen mildly tender diffuselyand mildly distended but otherwise soft to palpation. Back/Spine normal ROM Extremity normal to inspection, full ROM and no pedal edema Skin no rashes or lesions noted Neuro moves all extremities and no focal motor deficits Psych mental status grossly normal Results Lab / Micro Data 09/04/24 13:40 09/04/24 20:33 Labs: Laboratory Results - last 24 hr 09/04/24 13:20: Urine Test Negative 09/04/24 13:40: WBC 7.2, RBC 4.78, Hgb 13.0, Hct 39.5, MCV 82.6, MCH 27.2, MCHC 32.9, RDW Std Deviation 41.0, RDW Coeff of Teofilo 13.7, Plt Count 320, MPV 9.7, Blood Type O POSITIVE, Antibody Screen NEGATIVE Assessment & Plan Assessment/Plan (1) Postoperative hypoxia: PLAN: Plan Patient is a 29-year-old female who presented [facility] on 09/04/2024 for planned gynecologic procedure. Postoperative course complicated by hypoxia and productive cough concerning for negative pressure pulmonary edema. Patient admitted under hospitalist service for further management. 1. Postoperative hypoxia with productive cough concerning for negative pressurepulmonary edema, history of asthma ? Admit under patient status to [facility]. Patient with postoperative hypoxia requiring up to 6 L in the PACU. Had been weaned down to 2 L when I saw her. Had difficult extubation with vomiting and concern for aspiration noted and had cough with pink frothy sputum production concerning for pulmonary edema per anesthesia, see HPI for further details. Chest x-ray showed only mild bilateralplethora with otherwise fairly clear lung casillas. Per anesthesia, treatment is typically supportive care but there will be a chance that patient has worsening hypoxia in the next 24 hours prior to showing full improvement. Monitor closelyand treat supportively as needed. Continue home albuterol inhaler as needed andSingulair. 2. Status post bilateral salpingectomy and IUD insertion ? Had procedure done with Dr. Gee today for abnormal uterine bleeding. Tolerated procedure well, no gynecologic complications noted. No need for Ob-Instrument Repair Technician consult at this time. 3. Class III obesity with reported history of LEILANI ? BMI 48 on admit. Patient reports diagnosis of LEILANI but was not able to tolerate CPAP. Can utilize CPAP at night if needed and if patient tolerates. Encouraged lifestyle modifications. 4. Anxiety/depression ? Stable. Continue home bupropion and fluoxetine. DVT prophylaxis: Lovenox twice daily CODE STATUS: Full code, verified Expected disposition: Home, 2 to 3 days Total clinical time spent by myself addressing the patient's medical issues, reviewing all the data, and collaborating with patient's care team: 55 minutes. Charges/Coding Visit Charges Inpatient E&M: 64589 Init Hosp L2 09/04/24 2221 <Electronically signed by José Luis Garrido DO> Cosigner Signature (if applicable): CC: Dr. José Luis Garrido DO; No Primary Care Physician~ Signed [facility] Work Phone: 1(360) 449-594506-17-2025 History and physical note [facility] Medical Records Department [address] [place] [address] H&P Exam - Hospitalist 09/04/24 1740 MR#: [id number] Acct: [id number] Name: GINSAVITA BALLARD Rep #:[id number] : 1995 29 From: José Luis stanley DO PCP: Care Physician,No Primary Status :ADM IN Location: [facility] [id number] HPI - General General Date of Admission: 09/04/24 Date of Service: 09/04/24 Chief Complaint: Postoperative hypoxia HPI Narrative SAVITA GIN, is a 29 F who presented to [facility] on 09/04/24 for planned laparoscopic bilateral salpingectomy and IUD insertion with Dr. Gee. No complications with the procedure itself. However, on extubation patient had significant vomiting of bile and was bucking the tube requiring multiple staff members to physically restrain her. On arrival back toPACU she began to cough up pink frothy secretions concerning for negative pressure pulmonary edema. See anesthesiologyquick note for full details. Because of this, anesthesia recommended the patient be admitted to the[facility]ital for further management and hospitalist was contacted for admission. I saw the patient at [facility] in the PACU. Patient was mildly sedated but otherwise sitting back comfortably in bed and breathing comfortably on 2 L nasal cannula at rest. Chest x-ray showed only mild bilateral plethora with otherwise fairly clear lung casillas. She denied any cough or sputum production for the last 30 minutes or so. She reported only mild lower abdominal pain currently from her procedure. States that shewas diagnosed with sleep apnea at one point but did not tolerate CPAP. No other acute concerns currently. Will be admitted for further management. [facility] Medical History (Updated 09/04/24 @ 22:[address] José Luis Garrido, DO) Wears contact lenses Marijuana use Asthma Shortness of breath on exertion Non-smoker Anxiety Depression Home Medications ?Medication ?Instructions ?Recorded ?Last Taken ?Type ibuprofen 600 mg tablet 600 mg PO Q6H PRN Pain #60 t abs 04/28/18 Unknown Rx bupropion HCl 300 mg 24 hr tablet, 300 mg PO QHS 08/10 Unknown History extended release fluoxetine 40 mg capsule 40 mg PO QHS 08/10/24 Unknow n History montelukast 10 mg tablet 10 mg PO QHS 08/10/24 Unknow n History albuterol sulfate 90 mcg/actuation 2 inh inhalation Q6 H PRN shortness 08/24/24 Unknown History breath activated powder inhaler of breath or wheezing naproxen 500 mg tablet 500 mg PO BID PRN PRN Pain # 30 tabs 09/04/24 Unknown Rx oxycodone-acetaminophen 5 mg-325 1 tab PO Q4H PRN pain 7 days #20 09/04/24 Unknown Rx mg tablet (Percocet) tabs Allergy/AdvReac Type Severity Reaction Status Date / Time coconut Allergy Intermediate migraine Verified 09/04/24 13:45 milk Allergy Vomiting Verified 09/04/24 13:45 KIWI Allergy Intermediate Angioedema Uncoded 08/10/24 11:05 Family History (Updated 08/10/24 @ 11:12 by Ashlee Oro) Mother Thyroid disorder Grandmother Thyroid disorder Breast cancer Over the age of 50 at diagnosis Cervical cancer Over the age of 50 at diagnosis Aunt Thyroid disorder Surgical History (Updated 08/10/24 @ 11:09 by Ashlee Oro) H/O wisdom tooth extraction Social History (Updated 08/10/24 @ 11:13 by Ashlee Oro) household members: children housing: apartment number of children: 1 current occupational status: employed current occupation: [employer] Smoking Status: Never smoker alcohol intake: current alcohol intake frequency: holidays/special occasions only substance use type: marijuana seatbelt use: always do you feel safe at home: Yes additional social history: Single ROS Constitutional Constitutional: Reports fatigue; Denies chills, fever(s) or weakness Eyes Eyes: Denies change in vision Cardiovascular Cardiovascular: Denies chest pain Respiratory/Chest Respiratory/Chest: Reports cough, productive cough and shortness of breath at rest; Denies wheezing Gastrointestinal Gastrointestinal: Denies abdominal pain Musculoskeletal Musculoskeletal: Denies arthralgias or myalgias Vital Signs Vital Signs Vital Signs: 09/04/24 13:48 09/04/24 13:48 09/04/24 14:38 Temperature 99.0 F 99.0 F Temperature Source Temporal Pulse Rate 78 78 Respiratory Rate 18 18 Respiratory Pattern Normal Blood Pressure 115/82 H 115/82 H Blood Pressure Mean 93 Blood Pressure Source Monitor Blood Pressure Position Sitting Blood Pressure Location Right Arm Baseline BP Pulse Ox 98 98 Oxygen Delivery Method Room Air Oxygen Flow Rate (L/min) 09/04/24 17:13 09/04/24 17:15 09/04/24 17:20 Temperature 98.3 F Temperature Source Temporal Pulse Rate 99 99 98 Respiratory Rate 24 H 22 H 20 H Respiratory Pattern Tachypnea Blood Pressure 111/64 110/67 Blood Pressure Mean 79 81 Blood Pressure Source Monitor Monitor Monitor Blood Pressure Position Semi-Fowlers Semi-Fowlers Semi-Fowlers Blood Pressure Location Left Arm Left Arm Left Arm Baseline BP 115/82 115/82 115/82 Pulse Ox 88 99 99 Oxygen Delivery Method Simple Mask Simple Mask Simple Mask Oxygen Flow Rate (L/min) 4 10 10 09/04/24 17:25 09/04/24 17:25 09/04/24 17:30 Temperature 98.3 F Temperature Source Pulse Rate 97 96 96 Respiratory Rate 20 H 18 18 Respiratory Pattern Blood Pressure 104/67 110/67 110/68 Blood Pressure Mean 79 82 Blood Pressure Source Monitor Monitor Blood Pressure Position Semi-Fowlers Semi-Fowlers Blood Pressure Location Left Arm Left Arm Baseline BP 115/82 115/82 Pulse Ox 99 100 96 Oxygen Delivery Method Simple Mask Simple Mask Nasal Cannula Oxygen Flow Rate (L/min) 4 6 5 Weight Weight: 122 kg Body Mass Index (BMI) 47.6 Physical Exam Const alert, oriented x3 and no apparent distress Constitutional Narrative: Younger female, class III obesity, mildly sedated appearing but otherwise sitting back comfortably in bed, breathing comfortably on 2 L nasal cannula at rest, answering questions appropriately, in noacute distress. General Appearance: cooperative and comfortable HEENT normocephalic, head/scalp atraumatic, hearing grossly normal bilaterally, nasal mucous membranes and turbinates normal and moist oral mucous membranes Eyes PERRL, EOMs intact bilaterally and conjunctivae normal Neck full ROM Chest inspection of chest normal Resp normal respiratory effort and no use of accessory muscles Resp Narrative: Breathing comfortably on 2 L nasal cannula at rest. Mild crackles noted in bilateral lung bases butotherwise good air movement throughout with no wheezingnoted. Cardio regular rate, regular rhythm, no murmurs and peripheral pulses 2+ throughout GI normal to inspection, nondistended, normoactive bowel sounds and soft to palpation GI Narrative: Umbilical incision site with dressing in place. Abdomen mildly tender diffuselyand mildly distendedbut otherwise soft to palpation. Back/Spine normal ROM Extremity normal to inspection, full ROM and no pedal edema Skin no rashes or lesions noted Neuro moves all extremities and no focal motor deficits Psych mental status grossly normal Results Lab / Micro Data 09/04/24 13:40 09/04/24 20:33 Labs: Laboratory Results - last 24 hr 09/04/24 13:20: Urine Test Negative 09/04/24 13:40: WBC 7.2, RBC 4.78, Hgb 13.0, Hct 39.5, MCV 82.6, MCH 27.2, MCHC 32.9, RDW Std Deviation 41.0, RDW Coeff of Teofilo 13.7, Plt Count 320, MPV 9.7, Blood Type O POSITIVE, Antibody Screen NEGATIVE Assessment & Plan Assessment/Plan (1) Postoperative hypoxia: PLAN: Plan Patient is a 29-year-old female who presented [facility] on 09/04/2024 for planned gynecologic procedure. Postoperative course complicated by hypoxia and productive cough concerning for negative pressure pulmonary edema. Patient admitted under hospitalist service for further management. 1. Postoperative hypoxia with productive cough concerning for negative pressurepulmonary edema, history of asthma ? Admit under patient status to [facility]. Patient with postoperative hypoxia requiring up to 6 L in the PACU. Had been weaned down to 2 L when I saw her. Had difficult extubation with vomiting and concern for aspiration noted and had cough with pink frothy sputum production concerning for pulmonary edema per anesthesia, see HPI for further details. Chest x-ray showed only mild bilateralplethora with otherwise fairly clear lung casillas. Per anesthesia, treatment is typically supportive care but there will be a chance that patient has worsening hypoxia in the next 24 hours prior to showing full improvement. Monitor closelyand treat supportively as needed. Continue home albuterol inhaler as needed andSingulair. 2. Status post bilateral salpingectomy and IUD insertion ? Had procedure done with Dr. Gee today for abnormal uterine bleeding. Tolerated procedure well, no gynecologic complications noted. No need for Ob-Instrument Repair Technician consult at this time. 3. Class III obesity with reported history of LEILANI ? BMI 48 on admit. Patient reports diagnosis of LEILANI but was not able to tolerate CPAP. Can utilize CPAP at night if needed and if patient tolerates. Encouraged lifestyle modifications. 4. Anxiety/depression ? Stable. Continue home bupropion and fluoxetine. DVT prophylaxis: Lovenox twice daily CODE STATUS: Full code, verified Expected disposition: Home, 2 to 3 days Total clinical time spent by myself addressing the patient's medical issues, reviewing all the data, and collaborating with patient's care team: 55 minutes. Charges/Coding Visit Charges Inpatient E&M: 82250 Init Hosp L2 09/04/24 222 Cosigner Signature (if applicable): CC: Dr. José Luis Garrido, DO; No Primary Care Physician~ Signed [facility]06-17-2025 Radiology Diagnostic study note [facility] Imaging Services [address] [place], [place] [id number] Chest 1 View (Portable) MR#: [id number] Acct: [id number] Name: SAVITA GREENFIELD Rep #: [id number] : 1995 F 29 From: Savannah Gongora MD PCP: Care Physician,No Primary Status: ADM IN Study:Chest 1 View (Portable) Date of Exam: 09/04/24 Exam# [id number] Ordering Dr: Andrew Brand MD PROCEDURE: CHEST 1 VIEW (PORTABLE) 09/04/2024 REASON FOR EXAM: MOIST COUGH TECHNIQUE: Frontal view of the chest. COMPARISON: 08/09/2020 FINDINGS: Mild bilateral plethora which may reflect small airways disease such as asthma and/or atypical pneumonia/bronchiolitis. No focal consolidations. Cardiac silhouette is within normal limits. RAD/Chest 1 View (Portable) IMPRESSION: Mild bilateral plethora which may reflect small airways disease such as asthma and/or atypical pneumonia/bronchiolitis. Reading Location: [facility] CC: Dr. Andrew Brand MD; No Primary Care Physician ~ Reviewer Sales: Signed [facility]06-17-2025 Consult note Author Andrew Brand [facility] Note Date/Time September 04, 2024 6:39 pm [facility] Medical Records Department [address] [place] [address] Anesthesia Postop Eval II 09/04/24 1839 MR#: [id number] Acct: [id number] Name: SAVITA GREENFIELD Rep #:[id number] : 1995 29 From: Andrew Brand MD PCP: Care Physician,No Primary Status :REG SDC Y Race: C Location: [address] Anesthesia Postop Eval I Sum Postop Eval Completion status Anesthesia document: Postop Eval 1 completed: Yes Anesthesia Postop Eval I Summary Anesthesia Postop Eval I Summary: Anesthesia Postop Eval I: Assessment Summary Airway patent Yes 09/04/24 17:25 [email or web address] ON [email or web address] Spontaneous unlabored Yes 09/04/24 17:25 TRY ON [email or web address] respirations Mental status Awake,Calm 09/04/24 17:25 TRY ON [email or web address].[email or web address] nausea No 09/04/24 17:25 TRY ON [email or web address] Vomiting No 09/04/24 17:25 TRY ON [email or web address] Anesthesia Postop Eval I: Fluid Summary Crystalloid volume administer 1,000 09/04/24 17:25 TRY ON BASTER.SKOBY (ml) Colloids volume administered ( ml) Blood Product volume administered (ml) Total IV fluid infused 1,000 09/04/24 17:25 TRY ON BASTER.YENOBCynthia Anesthesia Postop Eval I: Summary Notes Anesthesia Complication No 09/04/24 17:25 TRY ON BASTER.[email or web address] Anesthesia Complication Comment: Post-operative progress note Anesthesia: Postop Eval II Evaluation Mental status: Awake Pain Level: 0 nausea: No Vomiting: No Complications Anesthesia Complication: Yes Anesthesia Complication Comment:: Please see my progress note regarding negative pressure pulmonary edema. 09/04/241838 <Electronically signed by Andrew Brand MD> Date _ Andrew Brand MD Cosigner Signature: Date CC: ~ Signed [facility] Work Phone: 1(746) 800-391006-17-2025 Progress note Author Andrew [facility] Note Date/Time September 04, 2024 5:56 pm [facility] Medical Records Department [address] [place] [address] Progress Note 09/04/24 1743 MR#: [id number] Acct: [id number] Name: SAVITA GREENFIELD Rep #:[id number] : 1995 29 From: Andrew Brand MD PCP: Care Physician,No Primary [place] :[place] [facility] [place]: [place] [address] Progress Note I was called for an anesthesia stat overhead for this patient, who was in the process of being extubated. The patient's ETT was secure. However, the patient was profusely vomiting bile, while jumping off of the bed, requiring multiple staff members to control the patient given her BMI, while bucking on the tube and generating forceful inspiratory effort against her obstructed upper airway. Upon my arrival in the operating room, we put the patient back to sleep using propofol, gave 8 mcg of precedex, turned our anesthetic gas up, and then re-emerged the patient successfully without incident. Upon arrival in the PACU, thepatient began to cough up pink, frothy secretions, which leads to the probable diagnosis of negative pressure pulmonary edema. A CXR was obtained in PACU. Treatment for this is largely supportive, as the edema is due to increased hydrostatic pressure. It is self-resolving with oxygen, CPAP or BiPAP. After discussing the incident with the TRY ON BASTER taking care of the patient, it was determined that a bite block was placed prior to extubation, however due to the vomiting, the TRY ON BASTER removed the bite block in order to suction the patient and remove any gastric contents in the oropharynx to reduce the risk of aspiration. During this time, it is possible that the forceful inspiratory efforts the patient was taking against the obstructed upper airway caused negative pressure pulmonary edema. However, given that the ETT was secured and left in the patient, I believe that this may have reduced the risk of further complications such as pulmonary aspiration. I consulted with the hospitalist, who agreed with the admission for closer respiratory and hemodynamic monitoring. Please contact the anesthesia team if there are any questions. 09/04/241755 <Electronically signed by Andrew Brand MD> Andrew Brand MD Cosigner Signature (if applicable): CC: ~ Signed [facility] Work Phone: 1(300) 120-488106-17-2025 Consult note Author Rosalee Martinez [facility] Note Date/Time September 04, 2024 5:25 pm [facility] Medical Records Department [address] [place] [address] Anesthesia Postop Eval I 09/04/24 1724 MR#: [id number] Acct: [id number] Name: SAVITA GREENFIELD Rep #:[id number] : 1995 29 From: Rosalee tran TRY ON BASTER PCP: Care Physician,No Primary Status :REG SDC Y Race: C Location: [place] [address] Anesthesia: Postop Eval I Current Vital Signs Temperature: 98.3 F Pulse Rate: 96 Blood Pressure: 110/67 Respiratory Rate: 18 Pulse Ox: 100 Oxygen Delivery Method: Simple Mask Oxygen Flow Rate (L/min): 6 Assessment Airway patent: Yes Spontaneous unlabored respirations: Yes Mental status: Awake and Calm nausea: No Vomiting: No Anesthesia Complication: No Fluid Hydration Crystalloid volume administer (ml): 1,000 Total IV fluid infused: 1,000 Progress Note Anesthesia document: Postop Eval 1 completed: Yes 09/04/24 172 <Electronically signed by Rosalee strauss CRNA> Date _ Rosalee Martinez TRY ON BASTER Cosigner Signature: Date CC: ~ Signed [facility] Work Phone: 1(543) 560-349306-17-2025 Consult note [facility] Medical Records Department [address] [place] [address] Anesthesia Postop Eval II 09/04/24 1839 MR#: [id number] Acct: [id number] Name: SAVITA GREENFIELD Rep #:[id number] : 1995 29 From: Andrew Brand MD PCP: Care Physician,No Primary Status :REG SD Y Race: C Location: [place] [address] Anesthesia Postop Eval I Sum Postop Eval Completion status Anesthesia document: Postop Eval 1 completed: Yes Anesthesia Postop Eval I Summary Anesthesia Postop Eval I Summary: Anesthesia Postop Eval I: Assessment Summary Airway patent Yes 09/04/24 17:25 TRY ON BASTER.YENOBCynthia Spontaneous unlabored Yes 09/04/24 17:25 TRY ON BASTER.YENOBCynthia respirations Mental status Awake,Calm 09/04/24 17:25 TRY ON BASTER.YENOBY nausea No 09/04/24 17:25 TRY ON BASTER.SKOBY Vomiting No 09/04/24 17:25 TRY ON [email or web address].SKOBY Anesthesia Postop Eval I: Fluid Summary Crystalloid volume administer 1,000 09/04/24 17:25 TRY ON BASTER.BONNIEY (ml) Colloids volume administered ( ml) Blood Product volume administered (ml) Total IV fluid infused 1,000 09/04/24 17:25 TRY ON [email or web address] Anesthesia Postop Eval I: Summary Notes Anesthesia Complication No 09/04/24 17:25 TRY ON BASTER.SKOBCynthia Anesthesia Complication Comment: Post-operative progress note Anesthesia: Postop Eval II Evaluation Mental status: Awake Pain Level: 0 nausea: No Vomiting: No Complications Anesthesia Complication: Yes Anesthesia Complication Comment:: Please see my progress note regarding negative pressure pulmonary edema. 09/04/24 1839 > Date _ Andrew Brand MD Cosigner Signature: Date CC: ~ Signed [facility]06-17-2025 Discharge summary Author Sadie Gee [facility] Note Date/Time September 04, 2024 4:37 pm [facility] Medical Records Department [address] [place] [address] Instructions for Home/Discharge Instructions 09/04/24 1608 MR#: [id number] Acct: [id number] Name: SAVITA GREENFIELD Rep #:[id number] : 1995 29 From: Sadie bonner MD PCP: Care Physician,No Primary Status :REG SDC Discharge Instructions Diet Discharge Diet: No restrictions DC O2, CPAP, BIPAP needs Home O2 Discharge instructions: No Dressing / Incision Discharge Activity: Return to Normal Activity, May Not Drive ( while taking narcotic pain meds, when pain free), May Shower and May Take a Tub Bath (in 7 days) May resume sexual activity in: 1 week Weight Bearing Status: Full weight bearing Dressing / Incision Call your doctor if your incision/area has: Continuous Slow Oozing, Sudden Increased Bleeding, Increased Pain/ Swelling, Increased Redness and Foul Smelling Discharge Call your doctor if you observe: Fever of 101 or Higher, Using more than 1 pad per hour, Shortness of breath, Chest pain and Uncontrolled pain Suture Line Care: Avoid Pulling/Pushing and Avoid Pinching/Bending Remove Dressing in: 1 week (if present) Cleanse incision/area with: Soap & Water and Keep Dressing Clean & Dry Follow Up Care When: Call to make an appointment with your doctor for a fu/incision check in 1- 2 weeks. Test Results: Test results from this visit will be discussed in further detail at your follow- up appointment, if applicable. Discharge Plan Admission Attending Provider: Sadie Gee Primary Care Provider: Care Physician,Jen Primary Instructions Print Language: Finnish Discharge Orders/Prescriptions Prescriptions: New oxycodone-acetaminophen [Percocet] 5-325 mg tablet 1 tab PO Q4H PRN (Reason: pain) 7 Days Qty: 20 0RF naproxen 500 mg tablet 500 mg PO BID PRN PRN (Reason: Pain) Qty: 30 1RF No Action fluoxetine 40 mg capsule 40 mg PO QHS bupropion HCl 300 mg tablet extended release 24 hr 300 mg PO QHS montelukast 10 mg tablet 10 mg PO QHS ibuprofen 600 MG tablet 600 mg PO Q6H PRN (Reason: Pain) Qty: 60 1RF albuterol sulfate 90 mcg/actuation aerosol powdr breath activated 2 inh inhalation Q6H PRN (Reason: shortness of breath or wheezing) Referrals / Follow Up: Care Physician,No Primary [Primary Care Provider] - Disposition Disposition (needs filled in before D/C Order can be placed): Home, Self Care 09/04/24 1637<Electronically signed by Sadie Gee MD>Sadie Gee MD CC: No Primary Care Physician ~ Signed [facility] Work Phone: 1(306) 636-305206-17-2025 Progress note [facility] Medical Records Department [address] [place] [address] Progress Note 09/04/24 1748 MR#: [id number] Acct: [id number] Name: SAVITA GREENFIELD Rep #:[id number] : 1995 29 From: Andrew Brand MD PCP: Care Physician,No [place] [facility] [address] Progress Note I was called for an anesthesia stat overhead for this patient, who was in the process of being extubated. The patient's ETT was secure. However, the patient was profusely vomiting bile, while jumpingoff of the bed, requiring multiple staff members to control the patient given her BMI, while bucking on the tube and generating forceful inspiratory effort against her obstructed upper airway. Upon my arrival in the operating room, we put the patient back to sleep using propofol, gave 8 mcg of precedex, turned our anesthetic gas up, and then re- emerged the patient successfully without incident. Upon arrival in the PACU, thepatient began to cough up pink, frothy secretions, which leads to the pro bable diagnosis of negative pressure pulmonary edema. A CXR was obtained in PACU. Treatment for this is largely supportive, as the edema is due to increased hydrostatic pressure. It is self-resolvingwith oxygen, CPAP or BiPAP. After discussing the incident with the TRY ON BASTER taking care of the patient,it was determined that a bite block was placed prior to extubation, however due to the vomiting, the TRY ON BASTER removed the bite block in order to suction the patient and remove any gastric contents in theoropharynx to reduce the risk of aspiration. During this time, it is possible that the forceful inspiratory efforts the patient was taking against the obstructed upper airway caused negative pressure pulmonary edema. However, given that the ETT was secured and left in the patient, I believe that this may have reduced the risk of further complications such as pulmonary aspiration. I consulted withthe hospitalist, who agreed with the admission for closer respiratory and hemodynamic monitoring. Please contact the anesthesia team if there are any questions. 09/04/241755 Andrew Brand MD Cosigner Signature (if applicable): CC: ~ Signed [facility]06-17-2025 Consult note [facility] Medical Records Department [address] [place] [address] Anesthesia Postop Eval I 09/04/24 1724 MR#: [id number] Acct: [id number] Name: SAVITA GREENFIELD Rep #:[id number] : 1995 29 From: Rosalee tran [employer]Y ON BASTER PCP: Care Physician,No Primary Status :REG SDC Y Race: C Location: [place] [address] Anesthesia: Postop Eval I Current Vital Signs Temperature: 98.3 F Pulse Rate: 96 Blood Pressure: 110/67 Respiratory Rate: 18 Pulse Ox: 100 Oxygen Delivery Method: Simple Mask Oxygen Flow Rate (L/min): 6 Assessment Airway patent: Yes Spontaneous unlabored respirations: Yes Mental status: Awake and Calm nausea: No Vomiting: No Anesthesia Complication: No Fluid Hydration Crystalloid volume administer (ml): 1,000 Total IV fluid infused: 1,000 Progress Note Anesthesia document: Postop Eval 1 completed: Yes 09/04/24 172 carlos a [employer]Y ON BASTER> Date _ Rosalee Martinez [employer]Y ON BASTER Cosigner Signature: Date CC: ~ Signed [facility]06-17-2025 Consult note Author Andrew Brand [facility] Note Date/Time September 04, 2024 2:39 pm [facility] Medical Records Department [address] [facility] [place] [address] Pre-Anesthesia Evaluation 09/04/24 1436 MR#: [id number] Acct: [id number] Name: SAVITA GREENFIELD Rep #:[id number] : 1995 29 From: Andrew Brand MD PCP: Care Physician,No Primary Status :REG SD Y Race: C Location: [place] [address] ASA Classification* ASA Classification ASA Classification: 3 (BMI >40, asthma, anxiety/depression) Assessment & Plan Anesthesia* Anesthesia Assessment Anesthesia Assessment: Discussed sedation and/or anesthesia options, risks, benefits, and alternatives with patient/parents/legal guardian/POA. Questions invited. The patient/parents/legal guardian/POA seems to understand and agrees to proceedwith anesthesia plan. Reviewed the physical assessment, medical history, allergy history and patient home medications list prior to surgery/procedure/anesthetic and documented any changes. Performed airway and anesthesia risk assessments. Anesthesia Type Anesthesia Type: General (ETT, PREOXYGENATE WELL, RSI, use glidescope ) History Source History Obtained from:: Patient and Chart Anesthesia Focused Assessment* Temperature: 99.0 F Pulse Rate: 78 Blood Pressure: 115/82 Respiratory Rate: 18 Pulse Ox: 98 Airway Assessment Mouth opens: 2 cm Mallampati Score: IV Teeth Condition: Intact Neck Range of motion (ROM): Full ROM Labs Anesthesia Preop lab: CBC WBC 7.2 K/mm3 (4.4-11.0) 09/04/24 13:40 09/04/24 RBC 4.78 M/mm3 (4.2-5.4) 09/04/24 13:40 09/04/24 Hgb 13.0 g/dL (12.0-15.0) 09/04/24 13:40 09/04/24 Hct 39.5 % (37-47) 09/04/24 13:40 09/04/24 Plt Count 320 K/mm3 (150-450) 09/04/24 13:40 09/04/24 CHEMISTRY Potassium 3.9 mmol/L (3.5-5.1) 01/10/14 16:33 01/10/14 Sodium 138 mmol/L (136-145) 01/10/14 16:33 01/10/14 BUN 11 mg/dL (7-18) 01/10/14 16:33 01/10/14 Creatinine 0.7 mg/dL (0.6-1.0) 01/10/14 16:33 01/10/14 Glucose 105 mg/dL (70-110) 01/10/14 16:33 01/10/14 TSH 0.789 uIU/mL (0.300-4.200) 08/10/24 11:46 07/20 06/12 COAG Urine Test Negative Negative 09/04/24 13:20 09/04/24 Pre-Assessment Diagnosis/Proposed Procedure Planned Operative Procedure(s): LAP SALPINGECTOMY BILAT IUD INSERTION Anesthesia History Anesthesia History - resolution agent: Anesthesia History - resolution agent Hx Hospitalization No 08/24/24 12:58 Any Problems With Anesthesia No 08/24/24 12:58 Cholinesterase deficiency No 08/24/24 12:58 You/Your Family Experience No 08/24/24 12:58 fever (hyperthermia) with Relationship Recent Exposure to Contagious No 09/04/24 13:48 Disease Does patient have nerve No 08/24/24 12:58 stimulator Patient instructed to have device shut off --Does patient have Pacemaker No 09/04/24 13:48 or ICD? When Was Last Pacemaker Check QUESTION #4 FULL TEXT: You/Your Family Experience fever (hyperthermia) with Anesthesia Last Oral Intake Last Oral intake: Last Oral Intake NPO since 22:00 09/04/24 13:48 Meds taken in AM with sips of No 09/04/24 13:48 water? Meds patient instructed to take am of surgery PONV PONV - resolution agent: PONV - resolution agent Female Yes 08/24/24 12:58 HX of Motion Sickness No 08/24/24 12:58 HX of N/V After Surgery No 08/24/24 12:58 Non-Smoker Yes 08/24/24 12:58 Duration of Surgery greater No 08/24/24 12:58 than 60 minutes Number of Risk Factors 2 08/24/24 12:58 PONV Score Moderate Risk 08/24/24 12:58 Height & Weight Height & Weight: Anesthesia: Height & Weight Height 5 ft 3 in 09/04/24 13:48 Weight: 122 kg 09/04/24 13:48 Body Mass Index (BMI) 47.6 09/04/24 13:48 Respiratory Assessment Respiratory Assessment - resolution agent: Respiratory Tract Infection Hx - resolution agent Hx Respiratory Tract Infection No 08/24/24 12:58 STOP Sleep Apnea STOP Sleep Apnea - resolution agent: STOP Sleep Apnea - resolution agent Hx Hypertension No 08/24/24 12:58 Hx Sleep Apnea Yes: NO MACHINE PER PATIENT 08/24/24 12:58 CPAP No 08/24/24 12:58 BIPAP No 08/24/24 12:58 Do you snore loudly (louder than talking or can be heard Do you often feel tired/ fatigued/ sleepy during daytime? Has anyone observed you stop breathing during sleep? STOP Results Positive 08/24/24 12:58 QUESTION #5 FULL TEXT : Do you snore loudly (louder than talking or can be heard through closed doors)? Tobacco Use History Tobacco Use History - resolution agent: Tobacco Use History - resolution agent Tobacco Use Non-smoker 08/09/20 21:39 Smoking Status Never smoker 08/24/24 12:58 Hx Tobacco Use No 08/24/24 12:58 Years Smoking Packs Smoked per Day Smoking Cessation Date was within the last 15 years Hx Smoking Cessation Date Hx Smoking Cessation Counseling Hematologic Medial History Hematologic Hx - resolution agent: Hematologic Medical Hx - rn progressive care unit Hx of Blood Transfusion No 08/24/24 12:58 Hx of Transfusion in last 3 No 08/24/24 12:58 Months Date of Last Transfusion (if within last 3 months) Ever experience any problems No 08/24/24 12:58 with transfusion(s)? Specify any problems Hx of Preganancy in last 3 No 08/24/24 12:58 Months Nurse Filling Out Transfusion DSCHRIBER 08/24/24 12:58 & Questions: Date: 08/24/24 08/24/24 12:58 Time: 12:59 08/24/24 12:58 Patient unable to answer at this time (ie. confused, unrespo /Reproduction History /Reproductive History - resolution agent: /Reproductive Hx- resolution agent Hx Now No 08/24/24 12:58 Gestational Age (in weeks): EDC: Hx Hx Para Hx Section SAB No 08/10/24 11:19 Active Medications Active Medications: Current Medications Generic Name Dose Route Start Last Admin Trade Name Freq PRN Reason Stop Dose Admin Lactated Ringer's 1,000 mls @ 15 mls/hr 09/04/24 14:00 09/04/24 13:52 IV 15 mls/hr .Q48H DARA Administration Levonorgestrel 1 each 09/04/24 14:50 Levonorgestrel Iud (Liletta) INTRA-UTER 09/04/24 14:51 X1 ONE PFS Medical History (Updated 08/24/24 @ 13:03 by Jeaneth Brewer) Wears contact lenses Marijuana use Asthma Shortness of breath on exertion Non-smoker Anxiety Depression Home Medications ?Medication ?Instructions ?Recorded ?Last Taken ?Type ibuprofen 600 mg tablet 600 mg PO Q6H PRN Pain #60 t abs 04/28/18 Unknown Rx bupropion HCl 300 mg 24 hr tablet, 300 mg PO QHS 08/10 Unknown History extended release fluoxetine 40 mg capsule 40 mg PO QHS 08/10/24 Unknow n History montelukast 10 mg tablet 10 mg PO QHS 08/10/24 Unknow n History albuterol sulfate 90 mcg/actuation 2 inh inhalation Q6 H PRN shortness 08/24/24 Unknown History breath activated powder inhaler of breath or wheezing Allergy/AdvReac Type Severity Reaction Status Date / Time coconut Allergy Intermediate migraine Verified 09/04/24 13:45 milk Allergy Vomiting Verified 09/04/24 13:45 KIWI Allergy Intermediate Angioedema Uncoded 08/10/24 11:05 Family History (Updated 08/10/24 @ 11:12 by Ashlee Oro) Mother Thyroid disorder Grandmother Thyroid disorder Breast cancer Over the age of 50 at diagnosis Cervical cancer Over the age of 50 at diagnosis Aunt Thyroid disorder Surgical History (Updated 08/10/24 @ 11:09 by Ashlee Oro) H/O wisdom tooth extraction Social History (Updated 08/10/24 @ 11:13 by Ashlee Oro) household members: children housing: apartment number of children: 1 current occupational status: employed current occupation: [employer] Smoking Status: Never smoker alcohol intake: current alcohol intake frequency: holidays/special occasions only substance use type: marijuana seatbelt use: always do you feel safe at home: Yes additional social history: Single Review of Systems (Anesthesia) ROS Narrative System reviewed and no additional complaints, except as documented. Physical Exam Const alert, oriented x3 and average body habitus Resp normal respiratory effort, normal air movement and clear to auscultation bilaterally Cardio regular rate, regular rhythm, no murmurs and diaphoretic 09/04/24 1439 <Electronically signed by Andrew Brand MD> Date _ Andrew Brand MD Cosigner Signature: Date CC: ~ Signed [facility] Work Phone: 1(803) 626-738806-17-2025 Discharge summary [facility] Medical Records Department [address] [place] [address] Instructions for Home/Discharge Instructions 09/04/24 1608 MR#: [id number] Acct: [id number] Name: SAVITA GREENFIELD Rep #:[id number] : 1995 29 From: Sadie bonner MD PCP: Loulou Physician,No Primary Status :REG SDC Discharge Instructions Diet Discharge Diet: No restrictions DC O2, CPAP, BIPAP needs Home O2 Discharge instructions: No Dressing / Incision Discharge Activity: Return to Normal Activity, May Not Drive ( while taking narcotic pain meds, when pain free), May Shower and May Take a Tub Bath (in 7 days) May resume sexual activity in: 1 week Weight Bearing Status: Full weight bearing Dressing / Incision Call your doctor if your incision/area has: Continuous Slow Oozing, Sudden Increased Bleeding, Increased Pain/ Swelling, Increased Redness and Foul Smelling Discharge Call your doctor if you observe: Fever of 101 or Higher, Using more than 1 pad per hour, Shortness of breath, Chest pain and Uncontrolled pain Suture Line Care: Avoid Pulling/Pushing and Avoid Pinching/Bending Remove Dressing in: 1 week (if present) Cleanse incision/area with: Soap & Water and Keep Dressing Clean & Dry Follow Up Care When: Call to make an appointment with your doctor for a fu/incision check in 1- 2 weeks. Test Results: Test results from this visit will be discussed in further detail at your follow- up appointment, if applicable. Discharge Plan Admission Attending Provider: Sadie Gee Primary Care Provider: Loulou Physician,No Primary Instructions Print Language: Finnish Discharge Orders/Prescriptions Prescriptions: New oxycodone-acetaminophen [Percocet] 5-325 mg tablet 1 tab PO Q4H PRN (Reason: pain) 7 Days Qty: 20 0RF naproxen 500 mg tablet 500 mg PO BID PRN PRN (Reason: Pain) Qty: 30 1RF No Action fluoxetine 40 mg capsule 40 mg PO QHS bupropion HCl 300 mg tablet extended release 24 hr 300 mg PO QHS montelukast 10 mg tablet 10 mg PO QHS ibuprofen 600 MG tablet 600 mg PO Q6H PRN (Reason: Pain) Qty: 60 1RF albuterol sulfate 90 mcg/actuation aerosol powdr breath activated 2 inh inhalation Q6H PRN (Reason: shortness of breath or wheezing) Referrals / Follow Up: Care Physician,No Primary [Primary Care Provider] - Disposition Disposition (needs filled in before D/C Order can be placed): Home, Self Care 09/04/24 1637Sadie Gee MD CC: No Primary Care Physician ~ Signed [facility]06-17-2025 Procedure note [facility] Medical Records Department [address] [place] [address] Operative Report 09/04/24 1554 MR#: [id number] Acct: [id number] Name: SAVITA GREENFIELD Rep #:[id number] : 1995 29 From: Sadie bonner MD PCP: Care Physician,No Primary Status :[facility] Location: [place] [address] Problems Associated Problem List Diagnoses (1) Sterilization: (2) Abnormal uterine bleeding: Multi Select Codes Urinary/Genital Urinary/Genital CPT Codes: 48554 [place] [address] Laproscopic BS/O Operative Report (Standard) Operative Information Date of Procedure: 09/04/24 Pre-Operative Diagnosis: see problem list Post-Operative Diagnosis: same Surgery/Procedure Performed: laparoscopic bilateral salpingectomy liletta iud insertion lapel stitcher: No Type of Anesthesia: General RN Documented Start/Stop Times: Operation Date: 09/04/24 14:50 Case Time Into Pre-Op 09/04/24 13:47 Out of Pre-Op 09/04/24 15:45 Anesthesia Start 09/04/24 15:51 Into Room 09/04/24 15:51 Procedure Start 09/04/24 16:16 Procedure Start Time: 16:16 Procedure Stop Time: 16:37 Select all DRAINS/GRAFTS/IMPLANTS that apply: None Estimated Blood Loss: 50 Specimen collected: Yes Description of specimen(s) removed: tubes Description of surgery: Patient was taken in the operating room and was placed under general anesthesia was prepped and draped in normal sterile fashion in the dorsal lithotomy position. Bladder was drained of clear urine and SCDs were on preoperatively. Uterus was sounded and a uterine manipulator was placed after dilating. Attention was then paid to the abdominal portion of the procedure and the umbilicus was elevatedwith towel clamps and injected with Marcaine and after a 5 mm incision was made and the Veress needle was entered into the abdomen confirmed to be intra-abdominal with a low opening pressure of less than 5 mmHg. Abdomen was insufflated with CO2 gas and a 5 mm optical trocar was placed underdirect visualization. Left and right lower quadrant 5 mm ports were placed under direct visualization. Uterus was well visualized and upon inspection of the pelvis normal tubes and ovaries. Excellent hemostasis was noted in the pelvis. Liver and upper abdomen were visualized notably within normal limits and no other gross abnormalities were seen in the abdomen. All instruments removed from the abdomen after gas was desufflated. Port sites were closed with3-0 Monocryl Steri's and op sites were applied. uterus sounded to 8cm and the liletta iud was inserted without complication. All instruments removed from thevagina and patient was awoken and taken recovery in stable condition. Surgical Findings: nl uterus tubes ovaries Complications Complications: No 09/04/24 1637 Cosigner Signature (if applicable): CC: Dr. 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 she has desired permanent sterilization for a long time, her daughter requires a higher level ofcare. she wants reliable contracpetion and wants a permanent solution. she is having irreulga rmenses and had a normal cbc and tsh. plan is for laparoscopic bs and IUD insertion. [facility] Medical History (Updated 08/24/24 @ 13:03 by Jeaneth Brewer) Wears contact lenses Marijuana use Asthma Shortness of breath on exertion Non-smoker Anxiety Depression Home Medications ?Medication ?Instructions ?Recorded ?Last Taken ?Type ibuprofen 600 mg tablet 600 mg PO Q6H PRN Pain #60 t abs 04/28/18 Unknown Rx bupropion HCl 300 mg 24 hr tablet, 300 mg PO QHS 08/10 Unknown History extended release fluoxetine 40 mg capsule 40 mg PO QHS 08/10/24 Unknow n History montelukast 10 mg tablet 10 mg PO QHS 08/10/24 Unknow n History albuterol sulfate 90 mcg/actuation 2 inh inhalation Q6 H PRN shortness 08/24/24 Unknown History breath activated powder inhaler of breath or wheezing Allergy/AdvReac Type Severity Reaction Status Date / Time coconut Allergy Intermediate migraine Verified 08/24/24 12:56 milk Allergy Vomiting Verified 08/24/24 12:56 KIWI Allergy Intermediate Angioedema Uncoded 08/10/24 11:05 Family History (Updated 08/10/24 @ 11:12 by Ashlee Oro) Mother Thyroid disorder Grandmother Thyroid disorder Breast cancer Over the age of 50 at diagnosis Cervical cancer Over the age of 50 at diagnosis Aunt Thyroid disorder Surgical History (Updated 08/10/24 @ 11:09 by Ashlee Oro) H/O wisdom tooth extraction Social History (Updated 08/10/24 @ 11:13 by Ashlee Oro) household members: children housing: apartment number of [...] Stephaniealyn 41 live - full term Female WC Kyle GARCIA Constitutional Constitutional: Reports systems reviewed and no addt'l complaints, except as documented; Denies as per HPI, change in weight, fatigue, fever(s), malaise, weakness or other Eyes Eyes: Reports systems reviewed and no addt'l complaints, except as documented; Denies as per HPI, change in vision or other ENT HEENT: Reports systems reviewed and no addt'l complaints, except as documented Respiratory/Chest Respiratory/Chest: Reports systems reviewed and no addt'l complaints, except as documented Gastrointestinal Gastrointestinal: Reports systems reviewed and no addt'l complaints, except as documented and as per HPI Genitourinary Genitourinary: Reports as per HPI Musculoskeletal Musculoskeletal: Reports systems reviewed and no addt'l complaints, except as documented Neurologic Neurologic: Reports systems reviewed and no addt'l complaints, except as documented Psychiatric Psychiatric: Reports systems reviewed and no addt'l complaints, except as documented Endocrine Endocrinology: Reports systems reviewed and no addt'l complaints, except as documented Hematologic/Lymphatic Hematologic/Lymphatic: Reports systems reviewed and no addt'l complaints, exceptas documented Physical Exam Const alert, oriented x3 and no apparent distress HEENT normocephalic Head and Scalp: atraumatic Eyes EOMs intact bilaterally and conjunctivae normal Neck full ROM, no lymphadenopathy, supple and thyroid normal General: trachea midline Lymph Lymphatic: no lymphadenopathy noted Resp normal respiratory effort, no retractions, no use of accessory muscles and clearto auscultation bilaterally Cardio regular rhythm GI normal to inspection, nondistended, normoactive bowel sounds, soft to palpation,non-distended and no masses Inspection: Negative for abdominal distention Back/Spine no CVA tenderness Extremity normal to inspection Skin no rashes or lesions noted Neuro moves all extremities and deep tendon reflexes 2+ bilaterally Psych mental status grossly normal Labs Labs Labs: Blood Type O POSITIVE Antibody Screen NEGATIVE Hct 41.2 % (37-47) Hgb 13.1 g/dL (12.0-15.0) Rhogam given: No Assessment & Plan (1) Abnormal uterine bleeding: COMMENT: cbc tsh US ordered discussed options plan IUD, genital culture for discharge in between cycles (2) Sterilization: COMMENT: desires permanent sterilization plan laparoscopic BS plan iUD insertion at the time of laparoscopy PLAN: Plan After discussing the patient's diagnosis and treatment plan options, patient wishes to proceed with surgical management. I have discussed with the patient the risks, benefits, and alternatives of the procedure which include but are notlimited to risks of anesthesia, bleeding, infection, possible damage to bowel, bladder, or surrounding vasculature which could lead to additional surgery to evaluate any complications. Patient agrees to procedure and wishes to proceed. ACOG/uptodate references given for additional information regarding procedure. discussed risks of regret, irreversability. patient wishes to proceed. 09/04/24 0742 <Electronically signed by Sadie Gee MD> Cosigner Signature (if applicable): CC: Dr. Sadie Gee MD; No Primary Care Physician~ Signed ADDENDUM by Dr. Sadie Gee MD on 09/04/24 at 1419 Addendum UPDATE- I have seen the patient and performed any clinically relevant updates to the history and physical exam. Sadie Gee MD 09/04/24 1419<Electronically signed by Sadie Gee MD> Cosigner Signature (if applicable): cc: Dr. Sadie Gee MD; No Primary Care Physician ~* Signed [facility] Work Phone: [phone]) 436-424906-17-2025 Consult note [facility] Medical Records Department [address] [place] [address] Pre-Anesthesia Evaluation 09/04/24 1436 MR#: [id number] Acct: [id number] Name: SAVITA GREENFIELD Rep #:[id number] : 1995 29 From: Andrew Brand MD PCP: Care Physician,No Primary Status :[facility] Race: C Location: [place] [address] ASA Classification* ASA Classification ASA Classification: 3 (BMI >40, asthma, anxiety/depression) Assessment & Plan Anesthesia* Anesthesia Assessment Anesthesia Assessment: Discussed sedation and/or anesthesia options, risks, benefits, and alternatives with patient/parents/legal guardian/POA. Questions invited. The patient/parents/legal guardian/POA seems to understand and agrees to proceedwith anesthesia plan. Reviewed the physical assessment, medical history, allergy history and patient home medications list prior to surgery/procedure/anesthetic and documented any changes. Performed airway and anesthesia risk assessments. Anesthesia Type Anesthesia Type: General (ETT, PREOXYGENATE WELL, RSI, use glidescope ) History Source History Obtained from:: Patient and Chart Anesthesia Focused Assessment* Temperature: 99.0 F Pulse Rate: 78 Blood Pressure: 115/82 Respiratory Rate: 18 Pulse Ox: 98 Airway Assessment Mouth opens: 2 cm Mallampati Score: IV Teeth Condition: Intact Neck Range of motion (ROM): Full ROM Labs Anesthesia Preop lab: CBC WBC 7.2 K/mm3 (4.4-11.0) 09/04/24 13:40 09/04/24 RBC 4.78 M/mm3 (4.2-5.4) 09/04/24 13:40 09/04/24 Hgb 13.0 g/dL (12.0-15.0) 09/04/24 13:40 09/04/24 Hct 39.5 % (37-47) 09/04/24 13:40 09/04/24 Plt Count 320 K/mm3 (150-450) 09/04/24 13:40 09/04/24 CHEMISTRY Potassium 3.9 mmol/L (3.5-5.1) 01/10/14 16:33 01/10/14 Sodium 138 mmol/L (136-145) 01/10/14 16:33 01/10/14 BUN 11 mg/dL (7-18) 01/10/14 16:33 01/10/14 Creatinine 0.7 mg/dL (0.6-1.0) 01/10/14 16:33 01/10/14 Glucose 105 mg/dL (70-110) 01/10/14 16:33 01/10/14 TSH 0.789 uIU/mL (0.300-4.200) 08/10/24 11:46 07/20 06/12 COAG Urine Test Negative Negative 09/04/24 13:20 09/04/24 Pre-Assessment Diagnosis/Proposed Procedure Planned Operative Procedure(s): LAP SALPINGECTOMY BILAT IUD INSERTION Anesthesia History Anesthesia History - resolution agent: Anesthesia History - resolution agent Hx Hospitalization No 08/24/24 12:58 Any Problems With Anesthesia No 08/24/24 12:58 Cholinesterase deficiency No 08/24/24 12:58 You/Your Family Experience No 08/24/24 12:58 fever (hyperthermia) with Relationship Recent Exposure to Contagious No 09/04/24 13:48 Disease Does patient have nerve No 08/24/24 12:58 stimulator Patient instructed to have device shut off --Does patient have Pacemaker No 09/04/24 13:48 or ICD? When Was Last Pacemaker Check QUESTION #4 FULL TEXT: You/Your Family Experience fever (hyperthermia) with Anesthesia Last Oral Intake Last Oral intake: Last Oral Intake NPO since 22:00 09/04/24 13:48 Meds taken in AM with sips of No 09/04/24 13:48 water? Meds patient instructed to take am of surgery PONV PONV - resolution agent: PONV - resolution agent Female Yes 08/24/24 12:58 HX of Motion Sickness No 08/24/24 12:58 HX of N/V After Surgery No 08/24/24 12:58 Non-Smoker Yes 08/24/24 12:58 Duration of Surgery greater No 08/24/24 12:58 than 60 minutes Number of Risk Factors 2 08/24/24 12:58 PONV Score Moderate Risk 08/24/24 12:58 Height & Weight Height & Weight: Anesthesia: Height & Weight Height 5 ft 3 in 09/04/24 13:48 Weight: 122 kg 09/04/24 13:48 Body Mass Index (BMI) 47.6 09/04/24 13:48 Respiratory Assessment Respiratory Assessment - resolution agent: Respiratory Tract Infection Hx - resolution agent Hx Respiratory Tract Infection No 08/24/24 12:58 STOP Sleep Apnea STOP Sleep Apnea - resolution agent: STOP Sleep Apnea - resolution agent Hx Hypertension No 08/24/24 12:58 Hx Sleep Apnea Yes: NO MACHINE PER PATIENT 08/24/24 12:58 CPAP No 08/24/24 12:58 BIPAP No 08/24/24 12:58 Do you snore loudly (louder than talking or can be heard Do you often feel tired/ fatigued/ sleepy during daytime? Has anyone observed you stop breathing during sleep? STOP Results Positive 08/24/24 12:58 QUESTION #5 FULL TEXT : Do you snore loudly (louder than talking or can be heard through closeddoors)? Tobacco Use History Tobacco Use History - resolution agent: Tobacco Use History - resolution agent Tobacco Use Non-smoker 08/09/20 21:39 Smoking Status Never smoker 08/24/24 12:58 Hx Tobacco Use No 08/24/24 12:58 Years Smoking Packs Smoked per Day Smoking Cessation Date was within the last 15 years Hx Smoking Cessation Date Hx Smoking Cessation Counseling Hematologic Medial History Hematologic Hx - resolution agent: Hematologic Medical Hx - rn progressive care unit Hx of Blood Transfusion No 08/24/24 12:58 Hx of Transfusion in last 3 No 08/24/24 12:58 Months Date of Last Transfusion (if within last 3 months) Ever experience any problems No 08/24/24 12:58 with transfusion(s)? Specify any problems Hx of Preganancy in last 3 No 08/24/24 12:58 Months Nurse Filling Out Transfusion DSCHRIBER 08/24/24 12:58 & Questions: Date: 08/24/24 08/24/24 12:58 Time: 12:59 08/24/24 12:58 Patient unable to answer at this time (ie. confused, unrespo /Reproduction History /Reproductive History - resolution agent: /Reproductive Hx- resolution agent Hx Now No 08/24/24 12:58 Gestational Age (in weeks): EDC: Hx Hx Para Hx Section SAB No 08/10/24 11:19 Active Medications Active Medications: Current Medications Generic Name Dose Route Start Last Admin Trade Name Freq PRN Reason Stop Dose Admin Lactated Ringer's 1,000 mls @ 15 mls/hr 09/04/24 14:00 09/04/24 13:52 IV 15 mls/hr .Q48H DARA Administration Levonorgestrel 1 each 09/04/24 14:50 Levonorgestrel Iud (Liletta) INTRA-UTER 09/04/24 14:51 X1 ONE PFS Medical History (Updated 08/24/24 @ 13:03 by Jeaneth Brewer) Wears contact lenses Marijuana use Asthma Shortness of breath on exertion Non-smoker Anxiety Depression Home Medications ?Medication ?Instructions ?Recorded ?Last Taken ?Type ibuprofen 600 mg tablet 600 mg PO Q6H PRN Pain #60 t abs 04/28/18 Unknown Rx bupropion HCl 300 mg 24 hr tablet, 300 mg PO QHS 08/10 Unknown History extended release fluoxetine 40 mg capsule 40 mg PO QHS 08/10/24 Unknow n History montelukast 10 mg tablet 10 mg PO QHS 08/10/24 Unknow n History albuterol sulfate 90 mcg/actuation 2 inh inhalation Q6 H PRN shortness 08/24/24 Unknown History breath activated powder inhaler of breath or wheezing Allergy/AdvReac Type Severity Reaction Status Date / Time coconut Allergy Intermediate migraine Verified 09/04/24 13:45 milk Allergy Vomiting Verified 09/04/24 13:45 KIWI Allergy Intermediate Angioedema Uncoded 08/10/24 11:05 Family History (Updated 08/10/24 @ 11:12 by Ashlee Oro) Mother Thyroid disorder Grandmother Thyroid disorder Breast cancer Over the age of 50 at diagnosis Cervical cancer Over the age of 50 at diagnosis Aunt Thyroid disorder Surgical History (Updated 08/10/24 @ 11:09 by Ashlee Oro) H/O wisdom tooth extraction Social History (Updated 08/10/24 @ 11:13 by Ashlee Oro) household members: children housing: apartment number of children: 1 current occupational status: employed current occupation: [employer] Smoking Status: Never smoker alcohol intake: current alcohol intake frequency: holidays/special occasions only substance use type: marijuana seatbelt use: always do you feel safe at home: Yes additional social history: Single Review of Systems (Anesthesia) ROS Narrative System reviewed and no additional complaints, except as documented. 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 she has desired permanent sterilization for a long time, her daughter requires a higher level ofcare. she wants reliable contracpetion and wants a permanent solution. she is having irreulga rmenses and had a normal cbc and tsh. plan is for laparoscopic bs and IUD insertion. [facility] Medical History (Updated 08/24/24 @ 13:03 by Jeaneth Brewer) Wears contact lenses Marijuana use Asthma Shortness of breath on exertion Non-smoker Anxiety Depression Home Medications ?Medication ?Instructions ?Recorded ?Last Taken ?Type ibuprofen 600 mg tablet 600 mg PO Q6H PRN Pain #60 t abs 04/28/18 Unknown Rx bupropion HCl 300 mg 24 hr tablet, 300 mg PO QHS 08/10 Unknown History extended release fluoxetine 40 mg capsule 40 mg PO QHS 08/10/24 Unknow n History montelukast 10 mg tablet 10 mg PO QHS 08/10/24 Unknow n History albuterol sulfate 90 mcg/actuation 2 inh inhalation Q6 H PRN shortness 08/24/24 Unknown History breath activated powder inhaler of breath or wheezing Allergy/AdvReac Type Severity Reaction Status Date / Time coconut Allergy Intermediate migraine Verified 08/24/24 12:56 milk Allergy Vomiting Verified 08/24/24 12:56 KIWI Allergy Intermediate Angioedema Uncoded 08/10/24 11:05 Family History (Updated 08/10/24 @ 11:12 by Ashlee Oro) Mother Thyroid disorder Grandmother Thyroid disorder Breast cancer Over the age of 50 at diagnosis Cervical cancer Over the age of 50 at diagnosis Aunt Thyroid disorder Surgical History (Updated 08/10/24 @ 11:09 by Ashlee Oro) H/O wisdom tooth extraction Social History (Updated 08/10/24 @ 11:13 by Ashlee Oro) household members: children housing: apartment number of [...] Date Name GA/Weeks Outcome Route Bth Weight Infant Gen Labor Lgth Anesthesia Del Locatn Provider FOB 05/07/18 Gregory 40 live - full term Female [facility] Kyle GARCIA Constitutional Constitutional: Reports systems reviewed and no addt'l complaints, except as documented; Denies as per HPI, change in weight, fatigue, fever(s), malaise, weakness or other Eyes Eyes: Reports systems reviewed and no addt'l complaints, except as documented; Denies as per HPI, change in vision or other ENT HEENT: Reports systems reviewed and no addt'l complaints, except as documented Respiratory/Chest Respiratory/Chest: Reports systems reviewed and no addt'l complaints, except as documented Gastrointestinal Gastrointestinal: Reports systems reviewed and no addt'l complaints, except as documented and as per HPI Genitourinary Genitourinary: Reports as per HPI Musculoskeletal Musculoskeletal: Reports systems reviewed and no addt'l complaints, except as documented Neurologic Neurologic: Reports systems reviewed and no addt'l complaints, except as documented Psychiatric Psychiatric: Reports systems reviewed and no addt'l complaints, except as documented Endocrine Endocrinology: Reports systems reviewed and no addt'l complaints, except as documented Hematologic/Lymphatic Hematologic/Lymphatic: Reports systems reviewed and no addt'l complaints, exceptas documented Physical Exam Const alert, oriented x3 and no apparent distress HEENT normocephalic Head and Scalp: atraumatic Eyes EOMs intact bilaterally and conjunctivae normal Neck full ROM, no lymphadenopathy, supple and thyroid normal General: trachea midline Lymph Lymphatic: no lymphadenopathy noted Resp normal respiratory effort, no retractions, no use of accessory muscles and clearto auscultation bilaterally Cardio regular rhythm GI normal to inspection, nondistended, normoactive bowel sounds, soft to palpation,non-distended and no masses Inspection: Negative for abdominal distention Back/Spine no CVA tenderness Extremity normal to inspection Skin no rashes or lesions noted Neuro moves all extremities and deep tendon reflexes 2+ bilaterally Psych mental status grossly normal Labs Labs Labs: Blood Type O POSITIVE Antibody Screen NEGATIVE Hct 41.2 % (37-47) Hgb 13.1 g/dL (12.0-15.0) Rhogam given: No Assessment & Plan (1) Abnormal uterine bleeding: COMMENT: cbc tsh US ordered discussed options plan IUD, genital culture for discharge in between cycles (2) Sterilization: COMMENT: desires permanent sterilization plan laparoscopic BS plan iUD insertion at the time of laparoscopy PLAN: Plan After discussing the patient's diagnosis and treatment plan options, patient wishes to proceed withsurgical management. I have discussed with the patient the risks, benefits, and alternatives of theprocedure which include but are notlimited to risks of anesthesia, bleeding, infection, possible damage to bowel, bladder, or surrounding vasculature which could lead to additional surgery to evaluate any complications. Patient agrees to procedure and wishes to proceed. ACOG/uptodate references given for additional information regarding procedure. discussed risks of regret, irreversability. patient wishes to proceed. 09/04/24 0742 Cosigner Signature (if applicable): CC: Dr. Sadie Gee MD; No Primary Care Physician~ Signed ADDENDUM by Dr. Sadie Gee MD on 09/04/24 at 1419 Addendum UPDATE- I have seen the patient and performed any clinically relevant updates to the history and physical exam. Sadie Gee MD 09/04/24 0065 Cosigner Signature (if applicable): cc: Dr. Sadie Gee MD; No Primary Care Physician ~* Signed [facility]06-04-2025 Radiology Diagnostic study note [facility] Imaging Services [address] [place] [address] Pelvic w/ Transvaginal MR#: [id number] Acct: [id number] Name: SAVITA GREENFIELD Rep #: [id number] 2 : 1995 F 29 From: Stefania Munoz MD PCP: Care Physician,No Primary Status: REG CLI Study:Pelvic w/ Transvaginal Date of Exam: 08/21/24 Exam# [id number] Ordering Dr: Sadie Hastings MD PROCEDURE: PELVIC [...] Transvaginal IMPRESSION: Unremarkable pelvic ultrasound. Reading Location: [id number] CC: Dr. Sadie Gee MD; No Primary Care Physician ~ Reviewer Sales: Signed [facility]05-23-2025 Evaluation note* Diagnosis Onset Date Resolution Status Admit Date Abnormal uterine bleeding acute August 10, 2024 10:49am Sterilization acute August 10 025 10:49am Encounter for routine gynecological examination noneactive August 102024 10:49am [facility] Work Phone: 1(975) 605-647805-23-2025 Evaluation note* Diagnosis Onset Date Resolution Status Admit Date Abnormal uterine bleeding acute August 10, 2024 10:49am Sterilization acute August 10 025 10:49am Encounter for routine gynecological examination noneactive August 102024 10:49am Abnormal uterine bleeding acute September 04, 2024 7:15pm Encounter for IUD insertion acute September 04, 2024 7:15pm Postoperative hypoxia acute Aug 7:15pm Status post bilateral salpingectomy acute September 04, 2024 7:15pm Sterilization acute September 04, 2024 7:15pm [facility] Work Phone: 1(637) 517-616305-23-2025 Evaluation note* Diagnosis Onset Date Resolution Status Admit Date Sterilization acute August 10, 025 10:49am Abnormal uterine bleeding resolved August 10, 2024 10:49am Encounter for routine gynecological examination noneactive August 102024 10:49am Encounter for IUD insertion acute September 04, 2024 7:15pm Status post bilateral salpingectomy acute September 04, 2024 7:15pm Sterilization acute September 04, 2024 7:15pm Abnormal uterine bleeding resolved September 04, 2024 7:15pm Postoperative hypoxia resolved Carlos 2024 7:15pm Status post bilateral salpingectomy acute September 17, 2024 8:18am [facility] Work Phone: [phone]) 579-704210-24-2024 Telephone encounter Note* Telephone Encounter - Danuta [...] Celaya LPN January 12, 2024 9:14 AM [facility]10-24-2024 Miscellaneous Notes* Telephone Encounter - Danuta Celaya [...] 12, 2024 9:14 AM [facility] Telephone encounter Note * Telephone Encounter - Danuta Celaya LPN - 10/05/2023 3:03 PM EDT Spoke with pt and information listed below given. Pt verbalizes understanding. Danuta Celaya LPN [facility]07-17-2024 Miscellaneous Notes* Telephone Encounter - Danuta Celaya LPN - 10/05/2023 3:03 PM EDT Spoke with pt and information listed below given. Pt verbalizes understanding. Danuta Celaya LPN * Telephone Encounter - Uli Ferreira APRN.CNP - 10/05/2023 8:22 AM EDT Patient [...] Take 1 capsule by mouth once daily. Uli Ferreira APRN.BRISA * Telephone Encounter - Radha Peters LPN - 10/05/2023 7:24 AM EDT [facility]-01/11/23 Labs-12/14/22 NOV- My chart message sent. Radha Peters LPN documented [facility]Paul[facility] Telephone encounter Note * Telephone Encounter - Uli Ferreira APRN.CNP - 10/05/2023 8:22 AM EDT Patient [...] Take 1 capsule by mouth once daily. Uli Ferreira APRN.CNP [facility]07-17-2024 Telephone encounter Note* Telephone Encounter - Uli Ferreira APRN.CNP - 10/05/2023 8:20 AM EDT The following approved medication requests have been transmitted electronically. Requested Prescriptions Pending Prescriptions Disp Refills buPROPion XL (WELLBUTRIN XL) 150 mg 24 hr tablet 30 tablet 0 Sig: Take 1 tablet by mouth once daily. Uli Ferreira APRN.CNP [facility]07-17-2024 Miscellaneous Notes* Telephone Encounter - Uli Ferreira APRN.CNP - 10/05/2023 8:20 AM EDT The following approved medication requests have been transmitted electronically. Requested Prescriptions Pending Prescriptions Disp Refills buPROPion XL (WELLBUTRIN XL) 150 mg 24 hr tablet 30 tablet 0 Sig: Take 1 tablet by mouth once daily. Uli Ferreira APRN.CNP * Telephone Encounter - Radha Peters LPN - 10/05/2023 7:29 AM EDT [facility]-01/11/23 labs-12/14/22 NOV- my chart message sent. Radha Peters LPN documented [facility]Paul[facility]07-[facility] Telephone encounter Note * Telephone Encounter - Radha Peters LPN - 10/05/2023 7:29 AM EDT [facility]-01/11/23 labs-12/14/22 NOV- my chart message sent. Radha Peters LPN [facility]07-17-2024 Telephone encounter Note* Telephone Encounter - Radha Peters LPN - 10/05/2023 7:24 AM EDT [facility]-01/11/23 Labs-12/14/22 NOV- My chart message sent. Radha Peters LPN [facility]12-11-2023 Miscellaneous Notes* Telephone Encounter - Uli Ferreira APRN.CNP - 02/28/2023 11:23 AM EST The following approved medication requests have been transmitted electronically. Requested Prescriptions Pending Prescriptions Disp Refills albuterol HFA (VENTOLIN HFA) 90 mcg/actuation inhaler 8 g 11 Sig: Inhale 2 Puffs as instructed every 4 hours as needed for wheezing/shortness of breath. Uli Ferreira APRN.BRISA documented [facility]Paul[facility]07-[facility]-2023 Miscellaneous Notes* Telephone Encounter - Uli Ferreira APRN.CNP - 09/28/2022 8:56 AM EDT The following approved medication requests have been transmitted electronically. Requested Prescriptions Pending Prescriptions Disp Refills montelukast (SINGULAIR) 10 mg tablet 90 tablet 3 Sig: Take 1 tablet by mouth daily at bedtime. FLUoxetine (PROZAC) 40 mg capsule 90 capsule 3 Sig: Take 1 capsule by mouth once daily. Uli Ferreira APRN.CNP * Telephone Encounter - Kelsey Rodney [...] Thank you. DENIS Pena documented [facility]Paul[facility]07-[facility]22 History of Present illness Narrative* ERIN Hernandez - 10/02/2021 8:56 AM EDT PULM FUNCTION SMARTBLOCK: Provider: Uli Ferreira APRN.CNP Assisting Tech: ERIN Hernandez Spirometry w/BD: 1 documented in this encounterPaulding [facility]07-01-2022 History of Present illness Narrative* Uli Ferreira APRN.CNP - 09/18/2021 8:31 AM EDT Chief Complaint Patient presents with: Allergies HPI Savita R Deem is a 26 year old female who [...] of previous allergy testing. She works at [employer] in [employer]. She states that she is around dry [...] tubing, humidifier and lifetime supplies. A small Sumbola Eson 2 nasal mask ibuprofen (MOTRIN) 600 mg tablet EVERY 6 HOURS PRN For Pain Nrzlyrod-Bu-Qaj-Fe-FA ( VITAMIN) tab Take 1 tablet by [...] not improving. - MONTELUKAST 10 MG TABLET Uli eFrreira APRN.CNP RTO in 1 months, sooner if needed. This note was partly generated using Renrendai voice recognition dictation and may contain some misspelled or inaccurate words missed on review. [facility] History of Past illness Narrative* Problem [...] of this encounter (statuses as of 09/18/2021) [facility] History of Past illness Narrative* Problem [...] of this encounter (statuses as of 10/02/2021) [facility] of Past illness Narrative* Problem [...] of this encounter (statuses as of 09/28/2022) [facility] History of Past illness Narrative* Problem [...] of this encounter (statuses as of 02/28/2023) [facility] Jerry Tran [facility] November 09, 2022 1:13am Note Date/Time November 09, 2022 12 :47am [facility] Medical Records Department [address] [place] [address] Emergency Department Summary 11/09/22 MR#: [id number] Acct: [id number] Name: SAVITA GREENFIELD Rep #:[id number] : 1995 27 From: Jerry Tran [...] but this is not the same pain. [facility] Medical History Anxiety Depression Home Medications ibuprofen [...] your Primary Care Provider. Call [facility] ([phone]) or report to the closest Emergency Room. Call 911 if necessary. 11/09/22 0113 <Electronically signed by Jerry Tran MD> Cosigner Signature (if applicable): CC: No Primary Care Physician ~ Signed [facility] Work Phone: Discharge summary Author Yareli Rodrigues [facility] Note Date/Time September 05, 2024 10:[address] Medical Records Department [address] [place] [address] Instructions for Home/Discharge Instructions 09/05/24 1007 MR#: [id number] Acct: [id number] Name: SAVITA GREENFIELD Rep #:[id number] 1 : 1995 29 From: Yareli Rodrigues MD PCP: Care Physician,No Primary Status :ADM IN Discharge Instructions Diet Discharge Diet: No restrictions DC O2, CPAP, BIPAP needs Home O2 Discharge instructions: No Dressing / Incision May resume sexual activity in: 1 week Weight Bearing Status: Full weight bearing Dressing / Incision Call your doctor if your incision/area has: Continuous Slow Oozing, Sudden Increased Bleeding, Increased Pain/ Swelling, Increased Redness and Foul Smelling Discharge Call your doctor if you observe: Fever of 101 or Higher, Using more than 1 pad per hour, Shortness of breath, Chest pain and Uncontrolled pain Suture Line Care: Avoid Pulling/Pushing and Avoid Pinching/Bending Cleanse incision/area with: Soap & Water and Keep Dressing Clean & Dry Follow Up Care Test Results: Test results from this visit will be discussed in further detail at your follow- up appointment, if applicable. Discharge Plan Admission Admit Date/Time: 09/04/24 19:15 Primary Reason for Your Visit: Sterilization and respiratory difficulty after surgery Attending Provider: Yareli Rodrigues Primary Care Provider: Care Physician,No Primary Consulting Providers: Sadie Gee; José Luis Garrido; Fernando Thomason Instructions Patient Instructions: 5 Steps for Eating Healthier Additional Instructions / Restrictions: -Follow-up with your OB/gynecology doctor as instructed by your provider -A script was sent for naproxen for pain, do not take this with ibuprofen as thecombination could hurt your kidneys. He can resume Tylenol as needed once you are no longer taking naproxen -Please call your primary care provider's office upon discharge to schedule a hospital follow up within 1 week. -For any concerning signs or symptoms please call 911 or proceed to the nearest emergency department Discharge Orders/Prescriptions Prescriptions: New oxycodone-acetaminophen [Percocet] 5-325 mg tablet 1 tab PO Q4H PRN (Reason: pain) 7 Days Qty: 20 0RF naproxen 500 mg tablet 500 mg PO BID PRN PRN (Reason: Pain) Qty: 30 1RF Continued fluoxetine 40 mg capsule 40 mg PO QHS bupropion HCl 300 mg tablet extended release 24 hr 300 mg PO QHS montelukast 10 mg tablet 10 mg PO QHS albuterol sulfate 90 mcg/actuation aerosol powdr breath activated 2 inh inhalation Q6H PRN (Reason: shortness of breath or wheezing) Discontinued ibuprofen 600 MG tablet 600 mg PO Q6H PRN (Reason: Pain) Qty: 60 1RF Referrals / Follow Up: Care Physician,No Primary [Primary Care Provider] - Disposition Disposition (needs filled in before D/C Order can be placed): Home, Self Care 09/05/24 1010<Electronically signed by Yareli Rodrigues MD>Yareli Rodrigues MD CC: Dr. José Luis Garrido, DO; Dr. Felipe Thomason MD; Dr. Sadie Gee MD; No Primary Care Physician ~ Signed [facility] Work Phone: Discharge summary Author Yareli Rodrigues [facility] Note Date/Time September 05, 2024 10:1 2am [facility] Medical Records Department [address] [place] [address] Discharge Summary 09/05/24 1010 MR#: [id number] Acct: [id number] Name: SAVITA GREENFIELD Rep #:[id number] : 1995 29 From: Yareli Rodrigues MD PCP: Care Physician,No Primary Status :ADM IN Location: [facility] [id number] Providers Date of Admission: 09/04/24 Date of Discharge: 09/05/24 Primary Care Physician: No Primary Care Phys Consultations 09/04/24 17:19 Consult: Hospitalist Routine Consulting Provider: [facility] Reason for Consult: POSSIBLE ASPIRATION ON EXTUBATION EMERGENT Consult: Yes MD Notified: Yes Date Notified: 09/04/24 Time Notified: 17:20 Method of Notification: Verbal Reason For Visit: POST-OP HYPOXIA Diagnosis Discharge Diagnosis (1) Postoperative hypoxia: Status: Acute Code(s): R09.02 - Hypoxemia; Z98.890 - Other specified postprocedural states (2) Status post bilateral salpingectomy: Status: Acute Code(s): Z90.79 - Acquired absence of other genital organ(s) (3) Encounter for IUD insertion: Status: Acute Code(s): Z30.430 - Encounter for insertion of intrauterine contraceptive device Plan #Post operative negative pressure pulmonary edema ? resolved #encounter for sterilization and IUD insertion #exercise-induced asthma #history of depression Medications at Discharge Home Medications bupropion HCl 300 mg 24 hr tablet, extended release 300 mg PO QHS 08/10/24 fluoxetine 40 mg capsule 40 mg PO QHS 08/10/24 montelukast 10 mg tablet 10 mg PO QHS 08/10/24 albuterol sulfate 90 mcg/actuation breath activated powder inhaler 2 inh inhalation Q6H PRN shortness of breath or wheezing 08/24/24 naproxen 500 mg tablet 500 mg PO BID PRN PRN Pain #30 tabs 09/04/24 oxycodone-acetaminophen 5 mg-325 mg tablet (Percocet) 1 tab PO Q4H PRN pain 7 days #20 tabs 09/04/24 Hospital Course Summary of Care Provided Minutes Spent on Discharge: 25 Hospital Course: 29-year-old female with a history of anxiety and depression, exercise-induced asthma and morbid obesity who presented 09/04/2024 for permanent sterilization and laparoscopic BS and IUD insertion with Dr. Gee with pickle processor. Hospitalist contacted postoperatively for admission due to respiratory distress and postop hypoxia. Anesthesia note reviewed, patient had significant bucking of the vent/tube while she was still intubated while they were attempting to extubate and required increased sedation, ultimately she was extubated successfully however she then had some coughing up of pink frothy secretions andanesthesiologist suspected negative pressure pulmonary edema which is treated with supportive care. Hospitalist admitted patient for further monitoring and management. This a.m. patient 99% on room air and doing much better. Chest x-ray showed mild bilateral plethora which could reflect small airway disease likeasthma and/or atypical pneumonia/bronchiolitis. Does appear patient has exercise-induced asthma so suspect this is more likely due to her underlying process in addition to difficult extubation. No other evidence of acute pneumonia or other pulmonary pathology. Patient feels back to baseline is vitally stable given patient's improvement she is stable for discharge on 09/05/2024. Physical Exam Narrative General: Alert, oriented, no apparent distress HEENT: Atraumatic, normocephalic Eyes: Anicteric, normal conjunctiva, extraocular movements grossly intact Neck: Supple Respiratory: Clear to auscultation bilaterally, normal respiratory effort Cardiovascular: Regular rate and rhythm GI: Soft, nontender, nondistended Extremities: No edema Musculoskeletal: Moving all extremities Neuro: No overt focal neurological deficits Skin: No rashes appreciated Psych: Cooperative Weight / BMI Weight Weight: 123.5 kg Body Mass Index (BMI) 48.2 ABG / Lab / Microbiology Data 09/04/24 13:40 09/04/24 20:33 Laboratory: Laboratory Results - last 24 hr 09/04/24 13:20: Urine Test Negative 09/04/24 13:40: WBC 7.2, RBC 4.78, Hgb 13.0, Hct 39.5, MCV 82.6, MCH 27.2, MCHC 32.9, RDW Std Deviation 41.0, RDW Coeff of Teofilo 13.7, Plt Count 320, MPV 9.7, Blood Type O POSITIVE, Antibody Screen NEGATIVE 09/04/24 20:33: Sodium 135, Potassium 4.3, Chloride 102, Carbon Dioxide 19.6 L, Anion Gap 14, BUN 9, Creatinine 0.75, Estim Creat Clear Calc 142.52, Est GFR (MDRD) Non-Af 111, BUN/Creatinine Ratio 12.3, Glucose 116 H, Calcium 9.0 Radiography Diagnostic Testing: Radiology Impression Chest X-Ray 09/04/24 17:20 IMPRESSION: Mild bilateral plethora which may reflect small airways disease such as asthma and/or atypical pneumonia/bronchiolitis. Reading Location: [facility] D/C Instructions Discharge Diet: No restrictions May resume sexual activity in: 1 week Weight Bearing Status: Full weight bearing Call your doctor if your incision/area has: Continuous Slow Oozing, Sudden Increased Bleeding, Increased Pain/ Swelling, Increased Redness and Foul Smelling Discharge Call your doctor if you observe: Fever of 101 or Higher, Using more than 1 pad per hour, Shortness of breath, Chest pain and Uncontrolled pain Suture Line Care: Avoid Pulling/Pushing and Avoid Pinching/Bending Cleanse incision/area with: Soap & Water and Keep Dressing Clean & Dry DC O2, CPAP, BIPAP Needs Home O2 Discharge instructions: No When: Call to make an appointment with your doctor for a fu/incision check in 1- 2 weeks. Meaningful Use Info Meaningful Use Meaningful Use Diagnoses (Choose all that apply): None applicable Ischemic Stroke Statin Dosing Therapy Reference: STATIN DOSE THERAPY REFERENCE: * Patients > 75 years receive moderate or high dose statin therapy. * Patients 75 years or YOUNGER should receive HIGH intensity statin dose unless contraindicated. You will be required to document reason for non-treatment if statin daily dose does not meet guidelines. HIGH DOSE STATIN THERAPY DAILY Atorvastatin > than or = to 40 mg Rosuvastatin > than or = to 20 mg Amlodipine + Atorvastatin > than or = to 2.5/40 mg Ezetimibe + Simvastatin 10/80 mg Simvastatin 80mg Discharge Plan Admission Admit Date/Time: 09/04/24 19:15 Primary Reason for Your Visit: Sterilization and respiratory difficulty after surgery Attending Provider: Yareli Rodrigues Primary Care Provider: Care Physician,No Primary Consulting Providers: Sadie Gee; José Luis Garrido; Fernando Thomason Instructions Patient Instructions: 5 Steps for Eating Healthier Additional Instructions / Restrictions: -Follow-up with your OB/gynecology doctor as instructed by your provider -A script was sent for naproxen for pain, do not take this with ibuprofen as thecombination could hurt your kidneys. He can resume Tylenol as needed once you are no longer taking naproxen -Please call your primary care provider's office upon discharge to schedule a hospital follow up within 1 week. -For any concerning signs or symptoms please call 911 or proceed to the nearest emergency department Discharge Orders/Prescriptions Prescriptions: New oxycodone-acetaminophen [Percocet] 5-325 mg tablet 1 tab PO Q4H PRN (Reason: pain) 7 Days Qty: 20 0RF naproxen 500 mg tablet 500 mg PO BID PRN PRN (Reason: Pain) Qty: 30 1RF Continued fluoxetine 40 mg capsule 40 mg PO QHS bupropion HCl 300 mg tablet extended release 24 hr 300 mg PO QHS montelukast 10 mg tablet 10 mg PO QHS albuterol sulfate 90 mcg/actuation aerosol powdr breath activated 2 inh inhalation Q6H PRN (Reason: shortness of breath or wheezing) Discontinued ibuprofen 600 MG tablet 600 mg PO Q6H PRN (Reason: Pain) Qty: 60 1RF Referrals / Follow Up: Care Physician,No Primary [Primary Care Provider] - Disposition Disposition (needs filled in before D/C Order can be placed): Home, Self Care Charges/Coding Visit Charges Inpatient E&M: 05450 Disch Hosp 09/05/24 1012 <Electronically signed by Yareli Rodrigues MD> Cosigner Signature (if applicable): CC: Dr. Yareli Rodrigues MD; No Primary Care Physician~ Signed [facility] Work Phone: Evaluation note* Diagnosis Wheezing- Primary Environmental allergies Other allergy, other than to medicinal agents documented in this encounter [facility] note* Diagnosis Wheezing documented in this encounter [facility] note* Diagnosis Environmental allergies Other allergy, other than to medicinal agents Wheezing Anxiety with depression documented in this encounter [facility] noteNo assessment information availableWSCCI [facility] Work Phone: Evaluation note* Diagnosis Wheezing documented in this encounter [facility] note* Diagnosis Environmental allergies Other allergy, other than to medicinal agents Wheezing documented in this encounter [facility] note* Diagnosis Anxiety with depression documented in this encounter [facility] note* Diagnosis Environmental allergies Other allergy, other than to medicinal agents Wheezing Anxiety with depression documented in this encounter [facility] note* Diagnosis Anxiety with depression documented in this encounter [facility] note* Diagnosis Wheezing Environmental allergies Other allergy, other than to medicinal agents [facility] LEILANI (obstructive sleep apnea)- Primary Obstructive sleep apnea (adult) (pediatric) Screening for depression Encounter for screening examination for other mental health and behavioral disorders Wheezing Environmental allergies Other allergy, other than to medicinal agents History of depression Personal history of other mental disorder Migraine without aura and without status migrainosus, not intractable Migraine without aura, without mention of intractable migraine without mention of status migrainosus Mild intermittent asthma, uncomplicated (HCC) Unspecified asthma Seasonal allergic rhinitis, unspecified trigger Class 3 severe obesity with body mass index (BMI) of 45.0 to 49.9 in adult, unspecified obesity type, unspecified whether serious comorbidity present (HCC) Wellness [facility] Additional Instructions Ibuprofen as needed for painWSCCI Hospital [facility] Work Phone: Hospital Discharge instructionsAdditional Instructions Your workup today revealed no obvious findings of postoperative infection or bleeding. Your urine sample is showing changes concerning for developing UTI. Therefore please take the antibiotic as directed. Follow-up with your surgeon for repeat evaluation and return to the ER should [facility] have any [facility] Work Phone: Progress note Author Sadie Gee [facility] Note Date/Time September 05, 2024 9:40 am [facility] Medical Records Department [address] [place] [address] Progress Note - OBGYN 09/05/24 0939 MR#: [id number] Acct: [id number] Name: SAVITA GREENFIELD Rep #:[id number] : 1995 29 From: Sadie bonner MD PCP: Care Physician,No Primary Status :ADM IN Location: DC3 [id number] Subjective Subjective Patient doing well without complaints. Tolerating PO. Ambulating without difficulty. Denies chest pain, shortness of breath, calf pain/swelling, fevers, chills, lightheadedness. Objective Data Objective Data Vital Signs: Vital Signs Temp Pulse Resp BP Pulse Ox O2 Del Method O2 Flow Rate 97.8 F 82 18 124/74 H 100 Room Air 2 09/05/24 09:38 09/05/24 09:38 09/05/24 09:38 09/05/24 09:38 09/05/24 09:38 09/05/24 09:38 09/05/24 02:26 Oxygen Flow Rate (L/min) 2 Oxygen Delivery Method Room Air Weight: 272 lb 4.334 oz Body Mass Index (BMI) 48.2 Intake & Output: Intake and Output for Last 24 Hours 09/03/24 09/04/24 09/05/24 23:59 23:59 23:59 Intake Total 1692 / 1692 500 / 500 Output Total 825 / 825 900 / 900 Balance 867 / 867 -400 / -400 Lab / Micro Data 09/04/24 13:40 09/04/24 20:33 Labs: Laboratory Results - last 24 hr 09/04/24 13:20: Urine Test Negative 09/04/24 13:40: WBC 7.2, RBC 4.78, Hgb 13.0, Hct 39.5, MCV 82.6, MCH 27.2, MCHC 32.9, RDW Std Deviation 41.0, RDW Coeff of Teofilo 13.7, Plt Count 320, MPV 9.7, Blood Type O POSITIVE, Antibody Screen NEGATIVE 09/04/24 20:33: Sodium 135, Potassium 4.3, Chloride 102, Carbon Dioxide 19.6 L, Anion Gap 14, BUN 9, Creatinine 0.75, Estim Creat Clear Calc 142.52, Est GFR (MDRD) Non-Af 111, BUN/Creatinine Ratio 12.3, Glucose 116 H, Calcium 9.0 Radiography Diagnostic Testing: Radiology Impression Chest X-Ray 09/04/24 17:20 IMPRESSION: Mild bilateral plethora which may reflect small airways disease such as asthma and/or atypical pneumonia/bronchiolitis. Reading Location: [id number] Constitutional Constitutional: Reports systems reviewed and no addt'l complaints, except as documented Cardiovascular Cardiovascular: Reports systems reviewed and no addt'l complaints, except as documented Respiratory/Chest Respiratory/Chest: Reports systems reviewed and no addt'l complaints, except as documented Gastrointestinal Gastrointestinal: Reports systems reviewed and no addt'l complaints, except as documented Physical Exam Const alert, oriented x3 and no apparent distress HEENT Head and Scalp: atraumatic Resp normal respiratory effort GI soft to palpation and non-tender Assessment & Plan (1) Postoperative hypoxia: (2) Status post bilateral salpingectomy: (3) Encounter for IUD insertion: COMMENT: Spencer PLAN: Plan stable and doing well, await hospitlaist for discharge 09/05/24 0940 <Electronically signed by Sadie Gee MD> Cosigner Signature (if applicable): CC: ~ Signed [facility] Work Phone: Progress note Author Sadie Gee [facility] Note Date/Time September 17, 2024 8:27 am [facility] [address], [address] [place] [address] OFFICE VISIT Date of Service: 09/17/24 MR#: [id number] Acct: [id number] Name: SAVITA GREENFIELD Rep #: [id number] : 1995 Provider: Dr. 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: No Is patient in pain?: No Feel stressed/tense/nervous/anxious/difficulty sleeping: not at all Allergies coconut Allergy (Intermediate, Verified 09/17/24 08:22) migraine milk Allergy (Verified 09/17/24 08:22) Vomiting KIWI Allergy (Intermediate, Uncoded 09/17/24 08:22) Angioedema Medications ?Medication ?Instructions ?Recorded ?Confirmed ?Type bupropion HCl 300 mg 24 hr tablet, 300 mg PO QHS 08/1009/17/24 History extended release fluoxetine 40 mg capsule 40 mg PO QHS 08/10/24 History montelukast 10 mg tablet 10 mg PO QHS 08/10/24 History albuterol sulfate 90 mcg/actuation 2 inh inhalation Q6 H PRN shortness 08/24/24 09/17/24 History breath activated powder inhaler of breath or wheezing naproxen 500 mg tablet 500 mg PO BID PRN PRN Pain # 30 tabs 09/04/24 09/17/24 Rx levonorgestrel 20.4 mcg/24 hr (up 1 device intrauterin e ONCE 09/17/24 09/17/24 History to 8 yrs) 52 mg intrauterine device (Liletta) Patient : No : No PFSH Medical History Encounter for IUD insertion Wears contact lenses Marijuana use Asthma Shortness of breath on exertion Non-smoker Anxiety Depression Surgical History Status post bilateral salpingectomy H/O wisdom tooth extraction Family History Mother Thyroid disorder Grandmother Thyroid disorder Breast cancer Over the age of 50 at diagnosis Cervical cancer Over the age of 50 at diagnosis Aunt Thyroid disorder Social History household members: children housing: apartment number of children: 1 current occupational status: employed current occupation: [employer] Smoking Status: Never smoker alcohol intake: current alcohol intake frequency: holidays/special occasions only substance use type: marijuana seatbelt use: always do you feel safe at home: Yes additional social history: Single HPI 2 wk BS and IUD insert Details: SAVITA GREENFIELD is a 29 year old who presents for postop. she is doing well overall. she denies any fevers or abdominal pain. History 1 Elective abortions Hx Para 1 Spontaneous abortions Hx # Term Pregnancies Ectopic pregnancies Hx # Pregnancies Multiple births # of living children 1 Past Pregnancies Del. Date Name GA/Weeks Outcome Route Bth Weight Gen Labor Lgth Anesthesia Del Locatn Provider FOB 05/07/18 Gregory 40 live - full term Female [facility] Kyle Muñiz Constitutional: Reports system reviewed and no additional complaints, except as documented GI GI: Denies abdominal pain, cramping, nausea or vomiting : Denies pelvic pain, urinary frequency, urinary incontinence, urinary urgency, vaginal discharge, vaginal dryness or vaginal odor Exam Const General: cooperative, healthy appearing, comfortable and no acute distress GI Inspection: normal to inspection Palpation: soft and nontender Other: Incisions: C/D/I Coding Level of Care Code No Charge Diagnoses Status post bilateral salpingectomy Z90.79 Assessment and Plan Assessment and Plan (1) Status post bilateral salpingectomy: Status: Acute Plan Problem list updated and treatment plans were reviewed with the patient and relevant educational handouts given. See problem list details for specific planinformation. 09/17/24 0827 <Electronically signed by Sadie gilbert MD> Date _ Sadie Gee MD Cosign Signature: Date (if applicable) CC: ~ [facility] Work Phone: Reason for referral (narrative)* Outpatient Procedure (Routine) - Pending Review Specialty Diagnoses / Procedures Referred By Kelechi moran [facility] Diagnoses Wheezing Procedures SPIROMETRY - BASELINE AND POST DILATOR BRNCDILAT RSPSE SPMTRY PRE&POST-BRNCDILAT ADMUli Kim APRN.CNP [address] [place] [address] Respiratory [place] [address] [place] [address] Referral ID Status Reason Start Date Expiration Date Visits Requested Visits Authorized [id number] Pending Review Auto-Generat ed Referral 09/18/2021 10/18/2022 1 1 [facility]No reason for referral information availableWSCCI [facility] Work Phone: Chief Complaint and Reason for Visit Chief Complaint Admit Date 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) August 10, 2024 10:49 am AUB August 21, 2024 8:14a m Reason for Visit Admit Date Abnormal uterine bleeding May 23rd, 2025 10:49am Sterilization August 10, 2024 10:49 am Encounter for routine gynecological exam ination August 10, 2024 10:49am Chief Complaint UPPER EXTREMITY INJU RY Chief Complaint 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 Date 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) August 10, 2024 10:49 am Chief Complaint Admit Date 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) August 10, 2024 10:49 am AUB August 21, 2024 8:14a m Laparoscopic, Salpingectomy, IUD inserti on September 04, 2024 7:38am POST-OP HYPOXIA September 04, 2024 7:15 pm POST-OP HYPOXIA September 05, 2024 9:39 am POST-OP HYPOXIA September 05, 2024 10:1 0am Reason for Visit Admit Date Abnormal uterine bleeding August 10, 2024 10:49am Sterilization August 10, 2024 10:49 am Encounter for routine gynecological exam ination August 10, 2024 10:49am Abnormal uterine bleeding September 04 7:15pm Encounter for IUD insertion September 04, 025 7:15pm Postoperative hypoxia September 04, 2024 7: 15pm Status post bilateral salpingectomy September 04, 2024 7:15pm Sterilization September 04, 2024 7:15 pm Chief Complaint 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 Date 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) August 10, 2024 10:49 am AUB August 21, 2024 8:14a m Laparoscopic, Salpingectomy, IUD inserti on September 04, 2024 7:38am POST-OP HYPOXIA September 04, 2024 7:15 pm POST-OP HYPOXIA September 05, 2024 9:39 am POST-OP HYPOXIA September 05, 2024 10:1 0am 2 wk BS and IUD insert September 17, 2024 8 :18am Reason for Visit Admit Date Sterilization August 10, 2024 10:49 am Abnormal uterine bleeding August 10, 2024 10:49am Encounter for routine gynecological exam ination August 10, 2024 10:49am Encounter for IUD insertion September 04, 025 7:15pm Status post bilateral salpingectomy September 04, 2024 7:15pm Sterilization September 04, 2024 7:15 pm Abnormal uterine bleeding September 04 7:15pm Postoperative hypoxia September 04, 2024 7: 15pm Status post bilateral salpingectomy September 17, 2024 8:18am Chief Complaint 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 Date 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) August 10, 2024 10:49 am AUB August 21, 2024 8:14a m Laparoscopic, Salpingectomy, IUD inserti on September 04, 2024 7:38am POST-OP HYPOXIA September 04, 2024 7:15 pm POST-OP HYPOXIA September 05, 2024 9:39 am POST-OP HYPOXIA September 05, 2024 10:1 0am 2 wk BS and IUD insert September 17, 2024 8 :18am abd pain September 27, 2024 12:3 1am Advance Directives No Advanced Directives Records Found Advance Directive Response Recorded Date/ Time Living Will No November 09 1:22am Power of Tester Armature Or Fields No November 09 1:22am Advance Directive Response Recorded Date/ Time Do you have a Healthcare Power of Tester Armature Or Fields? No September 04, 2024 7:50pm Advance Directive Response Recorded Date/ Time Do you have a Healthcare Power of Tester Armature Or Fields? No September 04, 2024 7:50pm Do you have a Healthcare Power of Tester Armature Or Fields? No September 27, 2024 12:34am Family History No Family History Records Found Relationship Condition Age at Onset Recorded Date/T myriam mother Disorder of thyroid Unknown grandmother Disorder of thyroid Unknown Malignant neoplasm of breast Unknown Malignant neoplasm of cervix Unknown aunt Disorder of thyroid Unknown Summary Purpose Additional Source Comments Source Comments (unrecognize d section and content) In the event this informatio n is protected by the Federal Confidentiality of Alcohol and Drug Abuse Patient Records regulations: The Federal rules restrict any use of the information to criminally investigate or prosecute any alcohol or drug abuse patient.[facility] the event this information is protected by the Federal Confidentiality of Alcohol and Drug Abuse Patient Records regulations: The Federal rules restrict any use of the information to criminally investigate or prosecute any alcohol or drug abuse patient.[facility]In the event this information is protected by the Federal Confidentiality of Alcohol and Drug Abuse Patient Records regulations: The Federal rules restrict any use of the information to criminally investigate or prosecute any alcohol or drug abuse patient.[facility]In the event this information is protected by the Federal Confidentiality of Alcohol and Drug Abuse Patient Records regulations: The Federal rules restrict any use of the information to criminally investigate or prosecute any alcohol or drug abuse patient.[facility]In the event this information is protected by the Federal Confidentiality of Alcohol and Drug Abuse Patient Records regulations: The Federal rules restrict any use of the information to criminally investigate or prosecute any alcohol or drug abuse patient.[facility]In the event this information is protected by the Federal Confidentiality of Alcohol and Drug Abuse Patient Records regulations: The Federal rules restrict any use of the information to criminally investigate or prosecute any alcohol or drug abuse patient.[facility]In the event this information is protected by the Federal Confidentiality of Alcohol and Drug Abuse Patient Records regulations: The Federal rules restrict any use of the information to criminally investigate or prosecute any alcohol or drug abuse patient.[facility]In the event this information is protected by the Federal Confidentiality of Alcohol and Drug Abuse Patient Records regulations: The Federal rules restrict any use of the information to criminally investigate or prosecute any alcohol or drug abuse patient.[facility] HospitalIn the event this information is protected by the Federal Confidentiality of Alcohol and Drug Abuse Patient Records regulations: The Federal rules restrict any use of the information to criminally investigate or prosecute any alcohol or drug abuse patient.[facility]In the event this information is protected by the Federal Confidentiality of Alcohol and Drug Abuse Patient Records regulations: The Federal rules restrict any use of the information to criminally investigate or prosecute any alcohol or drug abuse patient.[facility]In the event this information is protected by the Federal Confidentiality of Alcohol and Drug Abuse Patient Records regulations: The Federal rules restrict any use of the information to criminally investigate or prosecute any alcohol or drug abuse patient.[facility] Reason for Visit (unrecogniz ed section and content) Reason Comments Allergies Reason Comments Spirometry Specialty Diagnoses / Procedures Referred By Contac t Referred To [facility] Diagnoses Wheezing Procedures SPIROMETRY - BASELINE AND POST DILATOR BRNCDILAT RSPSE SPMTRY PRE&POST-BRNCDILAT ADMN Uli Ferreira APRN.SIDE DOOR WORKER [address] [place] [address] [facility] [place] [address] [place] [address] Referral ID Status Reason Start Date Expiration Date V isits Requested Visits Authorized [id number] Closed Auto-Generate d Referral 09/28/2021 03/20/2022 1 1 Reason Onset Date Comments Refill Request 09/28/2022 Reason Onset Date Comments Refill Request 02/26/2023 Reason Comments Refill Request Reason Onset Date Comments Refill Request 10/04/2023 Reason Onset Date Comments Refill Request 01/12/2024 Reason Onset Date Comments Refill Request 10/17/2024 Reason Comments Yearly Exam Care Teams (unrecognized sec tion and content) Ambulance Operations Supervisor Relationship Specialty Start Date End Date Luis Manuel Herring MD [address] [place] [address] PCP - General Family Practice 04/21/21 Ambulance Operations Supervisor Relationship Specialty Start Date End Date Luis Manuel Herring MD [address] [place] [address] PCP - General Family Practice 04/21/21 Ambulance Operations Supervisor Relationship Specialty Start Date End Date Luis Manuel Herring MD [address] [place] [address] PCP - General Family Medicine 04/21/21 Team Status: Active Member Role Status Dates No Primary Care Physician Family Provider Active No Primary Care Physician Primary Care Provider Active Team Status: Inactive Member Role Status Dates No Primary Care Physician Primary Care Provider Active Dr. Jerry Tran MD Emergency Provider Active Ambulance Operations Supervisor Relationship Specialty Start Date End Date Luis Manuel Herring MD [address] [place] [address] PCP - General Family Medicine 04/21/21 Ambulance Operations Supervisor Relationship Specialty Start Date End Date Luis Manuel Herring MD [address] [place] [address] PCP - General Family Medicine 04/21/21 Ambulance Operations Supervisor Relationship Specialty Start Date End Date Luis Manuel Herring MD [address] [place] [address] PCP - General Family Medicine 04/21/21 Ambulance Operations Supervisor Relationship Specialty Start Date End Date Luis Manuel Herring MD [address] [place] [address] PCP - General Family Medicine 04/21/21 Ambulance Operations Supervisor Relationship Specialty Start Date End Date Luis Manuel Herring MD [address] [place] [address] PCP - General Family Medicine 04/21/21 Team [...] August 21, 2024 End: August 21, 2024 Team Status: Active Member Role Status Dates No Primary Care Physician Primary Care Provider Active Start: September 04, 2024 Dr. Sadie Gee MD Attending Provider Active Start: September 04, 2024 Dr. Sadie Gee MD Referring Provider Active Start: September 04, 2024 Dr. Sdaie Gee MD Other Provider Active Start: September 04, 2024 Team Status: Inactive Member Role Status Dates No Primary Care Physician Primary Care Provider Active Start: September 04, 2024 End: September 05, 2024 Dr. Sadie Gee MD Other Provider Active Start: September 04, 2024 End: September 05, 2024 Dr. José Luis Garrido DO Admit Provider Active Start: September 04, 2024 End: September 05, 2024 Dr. José Luis Garrido DO Referring Provider Active Start: September 04, 2024 End: September 05, 2024 Dr. José Luis Garrido DO Other Provider Active Start: September 04, 2024 End: September 05, 2024 Dr. Felipe Thomason MD Other Provider Active Start: September 04, 2024 End: September 05, 2024 Dr. Yareli Rodrigues MD Attending Provider Active Start: September 04, 2024 End: September 05, 2024 Team Status: Active Member Role Status Dates No Primary Care Physician Primary Care Provider Active Start: September 05, 2024 Dr. Sadie Gee MD Attending Provider Active Start: September 05, 2024 Dr. Sadie Gee MD Other Provider Active Start: September 05, 2024 Dr. José Luis Garrido DO Admit Provider Active Start: September 05, 2024 Dr. José Luis Garrido DO Referring Provider Active Start: September 05, 2024 Dr. José Luis Garrido DO Other Provider Active Start: September 05, 2024 Dr. Felipe Thomason MD Other Provider Active Start: September 05, 2024 Dr. Yareli Rodrigues MD Other Provider Active Star t: September 05, 2024 Team Status: Active Member Role Status Dates No Primary Care Physician Primary Care Provider Active Start: September 05, 2024 Dr. Sadie Gee MD Other Provider Active Start: September 05, 2024 Dr. José Luis Garrido DO Admit Provider Active Start: September 05, 2024 Dr. José Luis Garrido DO Referring Provider Active Start: September 05, 2024 Dr. José Luis Garrido DO Other Provider Active Start: September 05, 2024 Dr. Felipe Thomason MD Other Provider Active Start: September 05, 2024 Dr. Yareli Rodrigues MD Attending Provider Active Start: September 05, 2024 Dr. Yareli Rodrigues MD Other Provider Active Star t: September 05, 2024 Team Status: Active Member Role/Relationship Status Dates No Primary Care Physician Primary Care Provider Active Team Status: Inactive Member Role/Relationship Status Dates No Primary Care Physician Primary Care Provider Active Start: August 10, 2024 End: August 10, 2024 No Primary Care Physician Referring Provider Active Start: August 10, 2024 End: August 10, 2024 Dr. Sadie Gee MD Attending Provider Active Start: August 10, 2024 End: August 10, 2024 Team Status: Inactive Member Role/Relationship Status Dates No Primary Care Physician Primary Care Provider Active Start: August 10, 2024 End: August 10, 2024 Dr. Sadie Gee MD Attending Provider Active Start: August 10, 2024 End: August 10, 2024 Dr. Sadie Gee MD Referring Provider Active Start: August 10, 2024 End: August 10, 2024 Team Status: Inactive Member Role/Relationship Status Dates No Primary Care Physician Primary Care Provider Active Start: August 21, 2024 End: August 21, 2024 Dr. Sadie Gee MD Attending Provider Active Start: August 21, 2024 End: August 21, 2024 Dr. Sadie Gee MD Referring Provider Active Start: August 21, 2024 End: August 21, 2024 Team Status: Active Member Role/Relationship Status Dates No Primary Care Physician Primary Care Provider Active Start: September 04, 2024 Dr. Sadie Gee MD Attending Provider Active Start: September 04, 2024 Dr. Sadie Gee MD Referring Provider Active Start: September 04, 2024 Dr. Sadie Gee MD Other Provider Active Start: September 04, 2024 Team Status: Inactive Member Role/Relationship Status Dates No Primary Care Physician Primary Care Provider Active Start: September 04, 2024 End: September 05, 2024 Dr. Sadie Gee MD Other Provider Active Start: September 04, 2024 End: September 05, 2024 Dr. José Luis Garrido DO Admit Provider Active Start: September 04, 2024 End: September 05, 2024 Dr. José Luis Garrido DO Referring Provider Active Start: September 04, 2024 End: September 05, 2024 Dr. José Luis Garrido DO Other Provider Active Start: September 04, 2024 End: September 05, 2024 Dr. Yareli Rodrigues MD Attending Provider Active Start: September 04, 2024 End: September 05, 2024 Dr. Felipe Thomason MD Other Provider Active Start: September 04, 2024 End: September 05, 2024 Team Status: Active Member Role/Relationship Status Dates No Primary Care Physician Primary Care Provider Active Start: September 05, 2024 Dr. Sadie Gee MD Attending Provider Active Start: September 05, 2024 Dr. Sadie Gee MD Other Provider Active Start: September 05, 2024 Dr. José Luis Garrido , Admit Provider Active Start: September 05, 2024 Dr. José Luis Garrido DO Referring Provider Active Start: September 05, 2024 Dr. José Luis Garrido , DO Other Provider Active Start: September 05, 2024 Dr. Felipe Thomason MD Other Provider Active Start: September 05, 2024 Dr. Yareli Rodrigues MD Other Provider Active Star t: September 05, 2024 Team Status: Active Member Role/Relationship Status Dates No Primary Care Physician Primary Care Provider Active Start: September 05, 2024 Dr. Sadie Gee MD Other Provider Active Start: September 05, 2024 Dr. José Luis Garrido DO Admit Provider Active Start: September 05, 2024 Dr. José Luis Garrido DO Referring Provider Active Start: September 05, 2024 Dr. José Luis Garrido DO Other Provider Active Start: September 05, 2024 Dr. Felipe Thomason MD Other Provider Active Start: September 05, 2024 Dr. Yareli Rodrigues MD Attending Provider Active Start: September 05, 2024 Dr. Yareli Rodrigues MD Other Provider Active Star t: September 05, 2024 Team Status: Inactive Member Role/Relationship Status Dates No Primary Care Physician Primary Care Provider Active Start: September 17, 2024 End: September 17, 2024 No Primary Care Physician Referring Provider Active Start: September 17, 2024 End: September 17, 2024 Dr. Sadie Gee MD Attending Provider Active Start: September 17, 2024 End: September 17, 2024 Team Status: Active Member Role/Relationship Status Dates No Primary Care Physician Primary Care Provider Active Start: September 05, 2024 Dr. Sadie Gee MD Other Provider Active Start: September 05, 2024 Dr. José Luis Garrido DO Admit Provider Active Start: September 05, 2024 Dr. José Luis Garrido DO Other Provider Active Start: September 05, 2024 Dr. Felipe Thomason MD Other Provider Active Start: September 05, 2024 Dr. Yareli Rodrigues MD Attending Provider Active Start: September 05, 2024 Dr. Yareli Rodrigues MD Other Provider Active Star t: September 05, 2024 Team Status: Inactive Member Role/Relationship Status Dates No Primary Care Physician Primary Care Provider Active Start: September 27, 2024 End: September 27, 2024 Dr. Antony Gutierrez DO Emergency Provider Active Start: September 27, 2024 End: September 27, 2024 Ambulance Operations Supervisor Relationship Specialty Start Date End Date Luis Manuel Herring MD [address] [place] [address] PCP - General Family Medicine 04/21/21 Uli Ferreira APRN.SIDE DOOR WORKER [address] [place] [address] [facility] Ambulance Operations Supervisor Relationship Specialty Start Date End Date Luis Manuel Herring MD [address] [place] [address] PCP - General Family Medicine 04/21/21 Uli Ferreira APRN.SIDE DOOR WORKER [address] [place] [address] [facility] 03/[facility]/24 Ambulance Operations Supervisor Relationship Specialty Start Date End Date Luis Manuel Herring MD [address] [place] [address] PCP - General Family Medicine 04/21/21 Uli Ferreira APRN.SIDE DOOR WORKER [address] [place] [address] [facility] 03/06/24 Goals (unrecognized section and content) Goals may be documented in a n alternate sectionGoals may be documented in an alternate sectionGoals may be documented in an alternate section INFORMATION SOURCE (unrecogn ized section and content) DATE CREATED AUTHOR 11/07/2024 [facility] DATE CREATED AUTHOR AUTHOR'S LOUIE GUTIERREZ 12/05/2024 [facility] FOR RECORDS PERTAINING TO PATIENTS WHO ARE [...] BE BASED ON THE PRIMARY CLINICAL RECORDS. [facility] [employer] [facility]. provides no warranty or guarantee of the accuracy or completeness of information in this document.
--- NOTE | 2025-01-03 02:55 | RAD_ITS ---
PROCEDURE: WRIST MIN 3 VIEWS 01/03/2025 REASON FOR EXAM: PAIN, TECHNIQUE: Procedure Code: RADWR Modality: DX Procedure: WRIST MIN 3 VIEWS Laterality: Right COMPARISON: None. FINDINGS: Normal visualized distal radius and ulna. Normal distal radioulnar articulation. Normal radiocarpal articulation. Normal carpal bones. Normal carpal articulations. Normal carpometacarpal articulation of the thumb. Normal second through fifth carpometacarpal articulations. Normal visualized metacarpal bones. RAD/Wrist min 3 Views IMPRESSION: No evidence for acute abnormality. Reading [facility]
[2025-01-03 04:28] VITALS: BP 144/78; PULSE 78; RESP 16; TEMP 36.6; O2SAT 99
== END 2025-01-03 04:32 | disposition home or self-care (01) ==
PROVIDERS: Emergency Provider Emergency Medicine; Visit Provider Emergency Medicine
DX: S63.91XA Sprain of unspecified part of right wrist and hand, initial encounter (principal); F41.9 Anxiety disorder, unspecified; F32.A Depression, unspecified; J45.909 Unspecified asthma, uncomplicated; Z79.899 Other long term (current) drug therapy; X50.3XXA Overexertion from repetitive movements, initial encounter; Y99.0 Civilian activity done for income or pay
CPT/HCPCS: 73110; 99282